=== PATIENT | female | born 1950 | race Caucasian/White ===

== ENCOUNTER 2020-11-08 16:17 | Emergency (ER) | payer MEDICARE, SELFPAY ==
--- NOTE | ~2020-11-08 | XR_ITS ---
EXAMINATION: XR CHEST CLINICAL INFORMATION: Palpitations COMPARISON: Chest x-ray 06/15/2017 TECHNIQUE: Frontal view of the chest was obtained. 5:18 PM FINDINGS: No significant abnormality is noted involving the heart, lungs, mediastinum, bony thorax or soft tissues. XR/XR chest 1V IMPRESSION: Unremarkable examination.
[2020-11-08 17:01] VITALS: BP 150/80; PULSE 91; RESP 18; TEMP 37.2; O2SAT 97; BMI 24.2
--- NOTE | 2020-11-08 17:04 | ECG_ITS ---
Test Reason : PALPITATIONS Blood Pressure : / mmHG Vent. Rate : 092 BPM Atrial Rate : 092 BPM P-R Int : 160 ms QRS Dur : 086 ms QT Int : 364 ms P-R-T Axes : 056 025 057 degrees QTc Int : 450 ms Normal sinus rhythm Possible Left atrial enlargement Septal infarct , age undetermined Abnormal ECG When compared with ECG of 15-JUN-2017 16:33, Premature atrial complexes are no longer Present Referred By: Generic ED Physician Electronically Signed By:KRISTI CHRISTINE MD
--- NOTE | 2020-11-08 18:16 | ED_ITS ---
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 No chest pain no syncope episode no shortness of breath feels slightly anxious complaint: skipped beats Onset (ago): day(s) Related Data Allergies Allergy/AdvReac Type Severity Reaction Status Date / Time gemfibrozil [GEMFIBROZIL] Allergy Unknown DIZZINESS/HIVES, Verified 11/08/20 17:01 dizziness Review of Systems Review of Systems: Constitutional : No Weight loss, No Fever, No Chills ENT/Mouth : No sore throat, No Rhinorrhea Eyes: No Eye Pain, No Swelling Cardiovascular : No Chest Pain, + palpitations Respiratory : No Cough, No Sputum, no shortness of breath Gastrointestinal : no Nausea, No Vomiting, No Diarrhea, No abdominal Pain, no black stools Genitourinary : No Dysuria, No Urinary Frequency Musculoskeletal : No joint pain, No Myalgias, No Joint Swelling Skin : No Skin Lesions, No rash Neuro : No Weakness, No Numbness, No Dizziness, No Headache Psych : No Anxiety/Panic, No Depression Heme/Lymph: No Bruising, No Lymphadenopathy Endocrine : No Polyuria, No Polydipsia All other systems reviewed and are negative [facility] Past Medical History Medical History Diabetes Palpitations Social History Social History Advance Directives: No Advance Directives Information Provided: Yes Physical Exam Vital Signs: Vital Signs: Last Vital Signs Temp 99.0 F 11/08/20 17:01 Pulse 81 11/08/20 19:04 Resp 16 11/08/20 19:04 BP 132/84 11/08/20 19:04 Pulse Ox 98 11/08/20 19:04 Body Mass Index 24.2 Appearance: Alert. Oriented X3. No acute distress. Slightly anxious Eyes: PERRLA, No Nystagmus ENT: Pharynx normal. Oral Mucosa moist Neck: Normal inspection. Neck supple. CVS: Normal heart rate and rhythm. Pulses normal. Respiratory: No respiratory distress. Equal air entry bilateral, no wheezing/rales/rhonchi Abdomen: Soft and nontender. Bowel sounds are present, no mass palpable, no CVA tenderness Skin: Skin warm and dry. Normal skin color. Normal skin turgor. Extremities: No lower extremity edema. No calf tenderness Neuro: Oriented X 3. No motor deficit. No sensory deficit.No cerebellar signs , cranial nerves II-XII intact MDM - Arrhythmia/Palpitations MDM Narrative Medical decision making narrative: Patient with history of PVCs monitoring during stay in the ER showed unifocal isolated PVCs without any events. Vital stable labs are stable TSH is normal patient advised to continue metoprolol and follow up with Cardiology/PCP Medical Records Attestation: I reviewed the patient's medical records. Lab Data Attestation: I reviewed the patient's lab results. Result diagrams: 11/08/20 18:02 11/08/20 18:02 Labs: Lab Results 11/08/20 11/08/20 11/08/20 Range/Units 18:02 18:02 18:02 WBC 8.3 (4.8-10.8) X10*3/uL RBC 4.30 (4.20-5.50) X10*6/uL Hgb 13.1 (12.0-16.0) g/dl Hct 37.3 (37-47) % MCV 86.7 (80-98) fL MCH 30.5 (27.0-33.0) pg MCHC 35.1 H (31.0-35.0) g/dl RDW 13.1 (11.0-16.0) % Plt Count 371 (160-400) X10*3/uL MPV 9.6 (9.4-12.3) fL Immature Gran % (Auto) 0.4 (0.0-0.4) % Neut % (Auto) 65.9 (45-73) % Lymph % (Auto) 24.8 (20-40) % Schuyler % (Auto) 7.5 (2-11) % Eos % (Auto) 1.2 (0-4) % Baso % (Auto) 0.2 (0-2) % Lymph # (Auto) 2.1 (1.2-4.9) X10*3/uL Schuyler # (Auto) 0.6 (0.1-1.2) X10*3/uL Eos # (Auto) 0.1 (0.0-0.4) X10*3/uL Baso # (Auto) 0.0 (0.0-0.2) X10*3/uL Abs Immat Gran (auto) 0.03 (0.00-0.03) X10*3/uL Absolute Neuts (auto) 5.5 (2.0-8.3) X10*3/uL Absolute Nucleated RBC 0.000 (0.0-0.012) X10*3/uL Nucleated RBC % (auto) 0.0 (0.0-0.2) /100WBC Hold Blue Top SEE NOTE Sodium 142 (135-145) mmol/L Potassium 4.8 (3.3-5.1) mmol/L Chloride 104 (96-108) mmol/L Carbon Dioxide 28 (22-29) mmol/L Anion Gap 15 (12-20) BUN 23 H (9-16) mg/dL Creatinine 1.25 (0.5-1.4) mg/dL Estim Creat Clear Calc 40.3 Estimated GFR 43 Random Glucose 303 H (60-115) mg/dL Calcium 10.0 (8.4-10.2) mg/dL Magnesium 2.0 (1.6-2.6) mg/dL Troponin I High Sens (<3.5-17.0) ng/L TSH 0.50 (0.32-4.0) uIU/mL 11/08/20 Range/Units 18:02 WBC (4.8-10.8) X10*3/uL RBC (4.20-5.50) X10*6/uL Hgb (12.0-16.0) g/dl Hct (37-47) % MCV (80-98) fL MCH (27.0-33.0) pg MCHC (31.0-35.0) g/dl RDW (11.0-16.0) % Plt Count (160-400) X10*3/uL MPV (9.4-12.3) fL Immature Gran % (Auto) (0.0-0.4) % Neut % (Auto) (45-73) % Lymph % (Auto) (20-40) % Schuyler % (Auto) (2-11) % Eos % (Auto) (0-4) % Baso % (Auto) (0-2) % Lymph # (Auto) (1.2-4.9) X10*3/uL Schuyler # (Auto) (0.1-1.2) X10*3/uL Eos # (Auto) (0.0-0.4) X10*3/uL Baso # (Auto) (0.0-0.2) X10*3/uL Abs Immat Gran (auto) (0.00-0.03) X10*3/uL Absolute Neuts (auto) (2.0-8.3) X10*3/uL Absolute Nucleated RBC (0.0-0.012) X10*3/uL Nucleated RBC % (auto) (0.0-0.2) /100WBC Hold Blue Top Sodium (135-145) mmol/L Potassium (3.3-5.1) mmol/L Chloride (96-108) mmol/L Carbon Dioxide (22-29) mmol/L Anion Gap (12-20) BUN (9-16) mg/dL Creatinine (0.5-1.4) mg/dL Estim Creat Clear Calc Estimated GFR Random Glucose (60-115) mg/dL Calcium (8.4-10.2) mg/dL Magnesium (1.6-2.6) mg/dL Troponin I High Sens < 3.5 (<3.5-17.0) ng/L TSH (0.32-4.0) uIU/mL ECG Data Attestation: I personally reviewed and interpreted this ECG as follows: Interpretation: Heart rate 92 beats per minute poor progression of R-waves in anterior leads no acute ST T wave changes no acute ischemia Discharge Plan Discharge Clinical Impression: Ventricular premature beats Patient Disposition: Home, Self-Care Instructions: Premature Ventricular Contractions (ED) Additional Instructions: Continue medications. Follow-up with your PCP/table keeper for further evaluation including Holter monitoring Report to the ER if dizziness/passing out episode
[2020-11-08 18:18] LABS: MANUAL DIFF FLAG NO
[2020-11-08 18:39] LABS: Basophils Percent Auto 0.2 % (0-2); Eosinophils Absolute Auto 0.1 X10*3/uL (0.0-0.4); Eosinophils Percent Auto 1.2 % (0-4); Hematocrit 37.3 % (37-47); Hemoglobin 13.1 g/dl (12.0-16.0); Imm Gran Abs Auto 0.03 X10*3/uL (0.00-0.03); Imm Gran Pct Auto 0.4 % (0.0-0.4); Lymphocytes Absolute Auto 2.1 X10*3/uL (1.2-4.9); Lymphocytes Percent Auto 24.8 % (20-40); Mean Corpuscular HGB Conc 35.1 g/dl (31.0-35.0); Mean Corpuscular Hemoglobin 30.5 pg (27.0-33.0); Mean Corpuscular Volume 86.7 fL (80-98); Mean Platelet Volume 9.6 fL (9.4-12.3); Monocytes Absolute Auto 0.6 X10*3/uL (0.1-1.2); Monocytes Percent Auto 7.5 % (2-11); Neutrophils Absolute Auto 5.5 X10*3/uL (2.0-8.3); Neutrophils Percent Auto 65.9 % (45-73); Platelet Count 371 X10*3/uL (160-400); Red Cell Distribution Width 13.1 % (11.0-16.0); White Blood Count 8.3 X10*3/uL (4.8-10.8)
[2020-11-08 18:43] LABS: Anion Gap 15 (12-20); Blood Urea Nitrogen 23 mg/dL (9-16); Carbon Dioxide 28 mmol/L (22-29); Chloride 104 mmol/L (96-108); Creatinine Clr Calc Pharmacy 40.3; Estimated Glomerular Filt Rate 43; Glucose Random 303 mg/dL (60-115); Potassium 4.8 mmol/L (3.3-5.1); Sodium 142 mmol/L (135-145)
[2020-11-08 18:48] LABS: Troponin-I High Sensitivity < 3.5 ng/L (<3.5-17.0)
[2020-11-08 19:04] VITALS: BP 132/84; PULSE 81; RESP 16; O2SAT 98
--- NOTE | 2020-11-08 19:09 | PC.NURSE ---
pt denies pain or a flutter feeling that she states she came in with.
[2020-11-08 20:38] VITALS: BP 155/88; PULSE 76; RESP 20; TEMP 36.8; O2SAT 96
== END 2020-11-08 21:06 | disposition home or self-care (01) ==
PROVIDERS: Emergency Provider Internal Medicine; PCP Internal Medicine
DX: I49.3 Ventricular premature depolarization (principal); E11.9 Type 2 diabetes mellitus without complications; I10 Essential (primary) hypertension
CPT/HCPCS: 36415; 71045; 80048; 83735; 84443; 84484; 85025; 93005; 99283; 99284

== ENCOUNTER → 2020-11-13 10:20 | Outpatient (BNVA) | payer MEDICARE, SELFPAY | PROVIDERS: PCP Internal Medicine; Visit Provider Internal Medicine Cardiovascular Disease | DX: I49.1 Atrial premature depolarization (principal); R00.2 Palpitations; I10 Essential (primary) hypertension; E11.9 Type 2 diabetes mellitus without complications; Z87.891 Personal history of nicotine dependence | CPT/HCPCS: 99212 ==

== ENCOUNTER 2024-09-21 09:15 | Observation (INO) | payer MEDICARE, SELFPAY ==
[2024-09-21] VITALS (11 sets, daily range): BP systolic 142–233; BP diastolic 70–116; PULSE 65–88; RESP 16–18; TEMP 36.1–36.7; O2SAT 97–100; BMI 20.5
--- NOTE | 2024-09-21 | ECG_ITS ---
Test Reason : ams Blood Pressure : */* mmHG Vent. Rate : 77 BPM Atrial Rate : 77 BPM P-R Int : 154 ms QRS Dur : 78 ms QT Int : 388 ms P-R-T Axes : 81 34 49 degrees QTcB Int : 439 ms Normal sinus rhythm Possible Left atrial enlargement Septal infarct (cited on or before 08-Nov-2020) Abnormal ECG When compared with ECG of 08-Nov-2020 16:35, No significant change was found Referred By: Generic ED Physician Electronically Signed By: MAGALYS MENDEZ
--- NOTE | ~2024-09-21 | CT_ITS ---
EXAMINATION: CT HEAD WITHOUT IV CONTRAST HISTORY: confused. AMS. TECHNIQUE: Unenhanced helical CT of the head was performed per standard departmental protocol. Coronal and sagittal reformats of the head were also evaluated. One or more of the following techniques was used for dose reduction: Automated exposure control, adjustment of the mA and/or kV according to patient size, use of iterative reconstruction technique. DLP: 545 mGy-cm COMPARISON: Comparison is made with the prior examination dated 06/15/2017. FINDINGS: BRAIN: There is mild prominence of the ventricular system and cortical sulci, consistent with atrophy. Periventricular and subcortical white matter hypodensities are noted which are nonspecific, but often seen in the setting of small vessel ischemic disease. There is no mass effect or midline shift. No intra- or extra-axial fluid collections are identified. SINUSES: The visualized paranasal sinuses are clear. The mastoid air cells and middle ear cavities are well pneumatized. ORBITS: The visualized orbits are unremarkable. BONES/SOFT TISSUES: The extracranial soft tissues are unremarkable. The calvarium is intact. No suspicious lytic or sclerotic lesions. CT/CT head/brain wo IV con IMPRESSION: No acute intracranial abnormality. Electronically signed by: Clark Armstrong MD 09/21/2024 12:40 PM EDT
--- NOTE | ~2024-09-21 | XR_ITS ---
EXAMINATION: XR CHEST CLINICAL INFORMATION: ams COMPARISON: TECHNIQUE: Frontal view of the chest was obtained. FINDINGS: The cardiac, hilar, and mediastinal contours are normal. Aortic mural calcifications. The lungs are diffusely hyperaerated, however clear bilaterally. No pneumothorax or effusion. No focal osseous or soft tissue abnormality. Degenerative spinal changes are present. XR/XR chest 1V IMPRESSION: Hyperaeration. No superimposed active disease. Electronically signed by: Ad Johnson MD 09/21/2024 12:09 PM EDT
--- NOTE | 2024-09-21 09:55 | PC.NURSE ---
Pt resting quietly in room; report called to LLOYD Palma in [facility]
[2024-09-21 10:43] LABS: MANUAL DIFF FLAG NO
--- NOTE | 2024-09-21 10:43 | MHC.EDTECH ---
Notified patient that we need a urine sample. Patient ambulated to the bathroom with the urine cup, stated she would give a sample. Patient was unable to urinate in the cup to give the sample. Patient ambulated back to room. Patient resting, states she is comfortable. Call sorensen placed within reach.
[2024-09-21 10:49] LABS: Basophils Percent Auto 0.4 % (0-2); Eosinophils Absolute Auto 0.1 X10*3/uL (0.0-0.4); Eosinophils Percent Auto 1.1 % (0-4); Hematocrit 38.7 % (37.0-47.0); Hemoglobin 14.2 g/dl (12.0-16.0); Imm Gran Abs Auto 0.02 X10*3/uL (0.00-0.03); Imm Gran Pct Auto 0.2 % (0.0-0.4); Lymphocytes Absolute Auto 1.3 X10*3/uL (1.2-4.9); Lymphocytes Percent Auto 15.3 % (20-40); Mean Corpuscular HGB Conc 36.7 g/dl (31.0-35.0); Mean Corpuscular Hemoglobin 31.8 pg (27.0-33.0); Mean Corpuscular Volume 86.6 fL (80.0-98.0); Mean Platelet Volume 9.4 fL (9.4-12.3); Monocytes Absolute Auto 0.4 X10*3/uL (0.1-1.2); Neutrophils Absolute Auto 6.6 x10*3/uL (2.0-8.3); Platelet Count 294 X10*3/uL (160-400); Red Blood Count 4.47 X10*6/uL (4.20-5.50); Red Cell Distribution Width 12.8 % (11.0-16.0); White Blood Count 8.4 X10*3/uL (4.8-10.8)
[2024-09-21 11:02] LABS: Anion Gap 9 (12-20); Blood Urea Nitrogen 16 mg/dL (9-16); Calcium 9.8 mg/dL (8.4-10.2); Carbon Dioxide 29 mmol/L (22-29); Chloride 106 mmol/L (96-108); Creatinine Clr Calc Pharmacy 55.6; Estimated Glomerular Filt Rate > 60; Glucose Fasting 155 mg/dL (60-99); Potassium 4.4 mmol/L (3.3-5.1); Sodium 140 mmol/L (135-145)
--- NOTE | 2024-09-21 11:23 | ED.AMS ---
HPI - Altered Mental Status General Chief Complaint: Altered Mental Status Stated Complaint: HTN Time Seen by Provider: 09/21/24 11:15 Source: patient, EMS, RN notes reviewed and old records reviewed Mode of arrival: EMS History of Present Illness ED Provider: Veronica Chase PA-C HPI narrative: 74-year-old female with a past medical history of HTN, diabetes, PACs, presenting to the ED via EMS, from after geriatric advocate staff member called EMS reporting patient seemed confused. Patient unsure why she is in the emergency department, offers no complaints at present. States she has not seen a doctor in many years. Denies currently taking any medication. Denies headache, neck/ back pain, CP /SOB, abdominal pain, nausea /vomiting. Related Data Home Medications ?Medication ?Instructions ?Recorded ?Confirmed No Known Home Meds 09/22/24 09/22/24 Allergies Allergy/AdvReac Type Severity Reaction Status Date / Time gemfibrozil [GEMFIBROZIL] Allergy Unknown DIZZINESS/HIVES, Verified 09/21/24 09:28 dizziness ondansetron [From Zofran] AdvReac Unresponsiv Verified 09/25/24 07:04 e Review of Systems Review of Systems: Yes all other systems are reviewed and are negative Constitutional: Constitutional: Reports as per HPI Neurologic: Denies Abnormal speech present [facility] Past Medical History Attestation statement: The following information was validated with the patient. Source: old records reviewed Medical History HTN (hypertension) Premature atrial contractions Diabetes Palpitations Family History Family History Father Cancer Mother Cancer Social History Social History Smoked in Last 30 Days: No Use of substances other than those prescribed or required for medical reasons: No Advance Directives: No Advance Directives Information Provided: No Do you have a plan to hurt others: No Plan Physical Exam ED Vital Signs: Vital Signs - 24 hr 09/24/24 07:55 09/24/24 14:34 09/24/24 22:00 Temperature 97.3 F 97.6 F Pulse Rate 84 82 Respiratory Rate 14 16 Blood Pressure 164/85 H 161/71 H 152/66 H Pulse Oximetry 96 Oxygen Delivery Method Room Air Room Air 09/25/24 03:13 09/25/24 04:37 09/25/24 04:52 Temperature 98.0 F Pulse Rate 67 63 77 Respiratory Rate 16 15 14 Blood Pressure 162/73 H 119/65 135/62 Pulse Oximetry 94 97 96 Oxygen Delivery Method Room Air Room Air Room Air 09/25/24 05:09 09/25/24 06:00 09/25/24 07:12 Temperature Pulse Rate 71 69 62 Respiratory Rate 15 16 15 Blood Pressure 132/61 150/74 H 129/71 Pulse Oximetry 96 96 96 Oxygen Delivery Method Room Air Room Air Room Air BMI result Body Mass Index 20.5 Const General: cooperative, healthy appearing and no acute distress Limitations: no limitations HENMT Head: Yes normal to inspection and Yes atraumatic Ears: hearing grossly normal bilaterally General nose exam: Normal external nose present Face and sinus: Yes normal facial exam Eyes General: appearance normal, both eyes and all related structures Pupils: Equal, round and reactive pupils present EOM: EOMs intact bilaterally Neck Neck: Yes normal visual inspection and Yes no meningeal signs Resp Effort & Inspection: normal respiratory effort and no respiratory distress Auscultation: clear to auscultation bilaterally Cardio Rate: regular rate Heart sounds: S1 normal heart sound present and S2 normal heart sound present GI Inspection: Yes normal to inspection Palpation (GI): Soft to palpation, nontender, no guarding and not rigid Skin Rashes: no rashes Wounds: no wounds Neuro Other: Oriented to person, place, present in. Does not know the year or month General: gait normal, tone normal, moves all extremities, no meningeal signs, no focal motor deficits and CN's II-XI intact bilaterally Cranial nerves: Yes CN's II-XII intact bilaterally, Yes Equal, round and reactive pupils present and Yes Bilaterally intact EOM present Speech: No Abnormal speech present Gait exam (Neuro): Normal gait present Motor exam (neuro): 5/5 motor strength present throughout, Pronator motor function not present and no tremor noted Coordination: [id number] test normal Romberg Test: Negative Extrem General: Yes normal to inspection NIH Stroke Scale Internal: Initial- Upon Arrival Level of Consciousness: Alert Level of Consciousness Questions: Answers one question correctly Level of Consciousness Commands: Performs both tasks correctly Best Gaze: Normal Visual: No visual loss Facial Palsy: Normal Motor Arm (Right): No drift Motor Arm (Left): No drift Motor Leg (Right): No drift Motor Leg (Left): No drift Limb Ataxia: Absent Sensory: Normal Best Language: No aphasia Dysarthia: Normal Extinction and Inattention: No abnormality Score: 1 Course Course Course Narrative: > Will give p.o. Lisinopril & Amlodipine per listed old medications - case management spoke with [facility] [employer] [facility], they were called due to concerns from likely a community member, they were there to evaluate patient today, found patient outside in inappropriate clothing, & upon their evaluation sent patient to the ED due to concerns of capacity/self care. Patient does have 3 daughters, 2 or disabled, 1 lives in [place], case management attempted to contact 1 daughter however no answer and unable to leave voicemail due to voice mailbox being full. > concern for progressive/undiagnosed dementia / adult failure to thrive >> Will need psych eval for capacity and PT/case management involvement - Labs are reassuring including negative ammonia. UA negative. Viral testing negative XR chest 1V IMPRESSION: Hyperaeration. No superimposed active disease. CT head/brain wo IV con IMPRESSION: No acute intracranial abnormality. > physician observation initiated at 14:02 as patient needs more time to be evaluated by Psychiatry, PT and case management - physical therapy evaluated patient and no rehab indicated at this time -1630-- ED care transferred to [facility] pending psych eval and case management consult Reevaluation(s) Reevaluation #1: Physician observation continued. No acute overnight events. Patient has been stable in the emergency department. Her vital signs have been stable. Patient was seen by Psychiatry yesterday and determine not have capacity to make medical decisions. She is not able to care for herself due to severe cognitive impairment. They recommended low-dose olanzapine 2.5 mg b.i.d. at 14:00 and bedtime for intermittent agitation and confusion, trying to leave. Will continue to monitor. Will follow up with case management regarding disposition. 09/24/24 1051 Physician observation continued, no overnight events reported by nursing. BP elevated, vital signs otherwise stable. Patient seen by psychiatry and does not have capacity to make her own medical decisions. Case management following for disposition. Time: 12:25 Reevaluation #2: DR. Vargas's note: 74-year-old female at the [facility] patient was here initially for confusion then patient was placed on the overflow awaiting for case management and placement nurse at [facility] reported that the patient is complaining nausea and patient is becoming pale and lethargic, I instructed the staff to move the patient to the main ED and patient was moved to room 12, patient is awake able to provide history stated that she is not feeling well, complaining of nausea and vomiting, no headache, no chest pain, no abdominal pain. patient received IV Zofran for her vomiting, I ordered repeat labs, chest x-ray, and EKG. Patient shortly had about 2.4 seconds of asystole pause, CPR was started and after 1 chest compression patient became awake and regained a rhythm. Time: 04:28 Reevaluation #3: patient is hemodynamically stable, no more episodes of asystole. asystole shortly after administering Zofran possible QT prolongation? Will include Zofran in the patient allergy to be avoided in the future, repeat labs are unremarkable including negative troponin, Will admit the patient to medical floor with Cardiology consult. Time: 07:13 Medications Administered Generic Name Dose Route Start Last Admin Trade Name Freq PRN Reason Stop Dose Admin Amlodipine Besylate 5 mg 09/22/24 12:55 09/24/24 07:55 Amlodipine Besylate 5 Mg Tablet PO 5 mg DAILY DEVONTE Administration Protocol Olanzapine 2.5 mg 09/22/24 15:05 09/24/24 20:05 Olanzapine 2.5 Mg Tablet PO 2.5 mg BID@1500,2100 DEVONTE Administration Olanzapine 2.5 mg 09/22/24 15:04 09/24/24 03:05 Olanzapine 2.5 Mg Tablet PO 2.5 mg Q6H PRN Administration agitation Discontinued Medications Generic Name Dose Route Start Last Admin Trade Name Freq PRN Reason Stop Dose Admin Amlodipine Besylate 5 mg 09/21/24 11:58 09/21/24 12:31 Amlodipine Besylate 5 Mg Tablet PO 09/21/24 11:59 5 mg ONCE ONE Administration Protocol Lisinopril 20 mg 09/21/24 11:32 09/21/24 11:44 Lisinopril 20 Mg Tablet PO 09/21/24 11:33 20 mg ONCE ONE Administration Protocol Olanzapine 10 mg 09/21/24 18:30 09/21/24 18:35 Olanzapine Odt 10 Mg Tab.Rapdis TRANSLINGU 09/21/24 18:31 10 mg ONCE ONE Administration Ondansetron HCl 4 mg 09/25/24 02:50 09/25/24 03:02 Ondansetron Odt 4 Mg Tab.Rapdis TRANSLINGU 09/25/24 02:51 4 mg ONCE ONE Administration Ondansetron HCl 4 mg 09/25/24 04:22 09/25/24 04:23 Ondansetron Hcl 4 Mg/2 Ml Vial IVPUSH 09/25/24 04:23 4 mg ONCE ONE Administration Medical Decision Making Medical Decision Making MDM Narrative: 74-year-old female with a past medical history of HTN, diabetes, PACs, presenting to the ED via EMS, from after geriatric advocate staff member called EMS reporting patient seemed confused. Patient unsure why she is in the emergency department, offers no complaints at present. States she has not seen a doctor in many years. on exam hypertensive, NAD, ambulating around room, no focal deficits, A&O x2, does not know year or month. No known baseline. Unknown who contacted EMS, no listed contacts in chart. Concern for AMS vs encephalopathy vs ?CVA vs ?dementia. Unknown baseline or last known well. Plan: EKG, labs, UA, CXR, head CT Discussed case with case management who is contacting [facility] & [facility] to see if they have any insight Please refer to course for remaining clinical decision making, interpretation of labs/imaging results, and discussions with consultants and/or family members. Differential Diagnosis Differential Diagnoses: The differential diagnosis associated with the presentation includes As above Admission/Observation Consideration of admission/observation: Escalation of care including admission/observation considered Lab Data [facility] Lab Attestation statement: I reviewed the patient's lab results. 09/25/24 04:19 09/25/24 04:19 Labs: Lab Results 09/21/24 09/21/24 09/21/24 Range/Units 10:38 11:44 11:45 WBC 8.4 (4.8-10.8) X10*3/uL RBC 4.47 (4.20-5.50) X10*6/uL Hgb 14.2 (12.0-16.0) g/dl Hct 38.7 (37.0-47.0) % MCV 86.6 (80.0-98.0) fL MCH 31.8 (27.0-33.0) pg MCHC 36.7 H (31.0-35.0) g/dl RDW 12.8 (11.0-16.0) % Plt Count 294 (160-400) X10*3/uL MPV 9.4 (9.4-12.3) fL Immature Gran % (Auto) 0.2 (0.0-0.4) % Neut % (Auto) 78.0 H (45-73) % Lymph % (Auto) 15.3 L (20-40) % [place] % (Auto) 5.0 (2-11) % Eos % (Auto) 1.1 (0-4) % Baso % (Auto) 0.4 (0-2) % Lymph # (Auto) 1.3 (1.2-4.9) X10*3/uL [place] # (Auto) 0.4 (0.1-1.2) X10*3/uL Eos # (Auto) 0.1 (0.0-0.4) X10*3/uL Baso # (Auto) 0.0 (0.0-0.2) X10*3/uL Abs Immat Gran (auto) 0.02 (0.00-0.03) X10*3/uL Absolute Neuts (auto) 6.6 (2.0-8.3) x10*3/uL Absolute Nucleated RBC 0.000 (0.0-0.012) X10*3/uL Nucleated RBC % (auto) 0.0 (0.0-0.2) /100WBC Sodium 140 (135-145) mmol/L Potassium 4.4 (3.3-5.1) mmol/L Chloride 106 (96-108) mmol/L Carbon Dioxide 29 (22-29) mmol/L Anion Gap 9 L (12-20) BUN 16 (9-16) mg/dL Creatinine 0.83 (0.5-1.4) mg/dL Estim Creat Clear Calc 55.6 Estimated GFR > 60 POC Glucose (60-115) mg/dL Random Glucose (60-115) mg/dL Fasting Glucose 155 H (60-99) mg/dL Estimat Average Glucose mg/dL Hemoglobin A1c % (<6.0) % Calcium 9.8 (8.4-10.2) mg/dL Magnesium 2.1 (1.6-2.6) mg/dL Total Bilirubin 1.7 H (0.0-1.0) mg/dL Direct Bilirubin 0.5 (0.0-0.5) mg/dL AST 26 (5-31) U/L ALT 24 (0-31) U/L Alkaline Phosphatase 109 (39-117) U/L Ammonia 23 (13-55) umol/L Troponin I High Sens 3.2 (<3.5-17.0) ng/L Total Protein 7.9 (6.5-8.0) g/dL Albumin 4.5 (3.5-5.0) g/dL Triglycerides (<150) mg/dL Cholesterol (<200) mg/dL LDL Cholesterol, Calc (<100) mg/dL HDL Cholesterol (>40) mg/dL Lipase (8-78) U/L Vitamin B12 (200-900) pg/mL Folate (> or = 4.0) ng/mL TSH (0.32-4.0) uIU/mL Urine Color Urine Appearance Urine pH (5.0-9.0) Ur Specific [place] (1.005-1.025) Urine Protein (Neg-Trace) mg/dL Urine Glucose (UA) (Negative) mg/dL Urine Ketones (Negative) mg/dL Urine Blood (Negative) Urine Nitrite (Negative) Ur Leukocyte Esterase (Negative) Urine RBC (0-2) /HPF Urine WBC (0-5) /HPF Ur Squamous Epith Cells (0-2) /HPF Urine Bacteria (None Seen) Hyaline Casts (0-2) /LPF Influenza Type A (PCR) NEGATIVE (Negative) Influenza Type B (PCR) NEGATIVE (Negative) RSV RNA Qual (PCR) NEGATIVE (Negative) SARS-CoV-2 RNA (RT-PCR) NEGATIVE (Negative) 09/21/24 09/22/24 09/25/24 Range/Units 12:08 14:54 03:15 WBC (4.8-10.8) X10*3/uL RBC (4.20-5.50) X10*6/uL Hgb (12.0-16.0) g/dl Hct (37.0-47.0) % MCV (80.0-98.0) fL MCH (27.0-33.0) pg MCHC (31.0-35.0) g/dl RDW (11.0-16.0) % Plt Count (160-400) X10*3/uL MPV (9.4-12.3) fL Immature Gran % (Auto) (0.0-0.4) % Neut % (Auto) (45-73) % Lymph % (Auto) (20-40) % [place] % (Auto) (2-11) % Eos % (Auto) (0-4) % Baso % (Auto) (0-2) % Lymph # (Auto) (1.2-4.9) X10*3/uL [place] # (Auto) (0.1-1.2) X10*3/uL Eos # (Auto) (0.0-0.4) X10*3/uL Baso # (Auto) (0.0-0.2) X10*3/uL Abs Immat Gran (auto) (0.00-0.03) X10*3/uL Absolute Neuts (auto) (2.0-8.3) x10*3/uL Absolute Nucleated RBC (0.0-0.012) X10*3/uL Nucleated RBC % (auto) (0.0-0.2) /100WBC Sodium (135-145) mmol/L Potassium (3.3-5.1) mmol/L Chloride (96-108) mmol/L Carbon Dioxide (22-29) mmol/L Anion Gap (12-20) BUN (9-16) mg/dL Creatinine (0.5-1.4) mg/dL Estim Creat Clear Calc Estimated GFR POC Glucose 278 H (60-115) mg/dL Random Glucose (60-115) mg/dL Fasting Glucose (60-99) mg/dL Estimat Average Glucose 123 mg/dL Hemoglobin A1c % 5.9 (<6.0) % Calcium (8.4-10.2) mg/dL Magnesium (1.6-2.6) mg/dL Total Bilirubin (0.0-1.0) mg/dL Direct Bilirubin (0.0-0.5) mg/dL AST (5-31) U/L ALT (0-31) U/L Alkaline Phosphatase (39-117) U/L Ammonia (13-55) umol/L Troponin I High Sens (<3.5-17.0) ng/L Total Protein (6.5-8.0) g/dL Albumin (3.5-5.0) g/dL Triglycerides 150 H (<150) mg/dL Cholesterol 159 (<200) mg/dL LDL Cholesterol, Calc 80 (<100) mg/dL HDL Cholesterol 49 (>40) mg/dL Lipase (8-78) U/L Vitamin B12 335 (200-900) pg/mL Folate 8.7 (> or = 4.0) ng/mL TSH 1.01 (0.32-4.0) uIU/mL Urine Color Yellow Urine Appearance Clear Urine pH 8.0 (5.0-9.0) Ur Specific [place] <= 1.005 (1.005-1.025) Urine Protein Trace (Neg-Trace) mg/dL Urine Glucose (UA) Negative (Negative) mg/dL Urine Ketones Negative (Negative) mg/dL Urine Blood Trace H (Negative) Urine Nitrite Negative (Negative) Ur Leukocyte Esterase Negative (Negative) Urine RBC 0-2 (0-2) /HPF Urine WBC 0-5 (0-5) /HPF Ur Squamous Epith Cells 0-2 (0-2) /HPF Urine Bacteria None Seen (None Seen) Hyaline Casts 0-2 (0-2) /LPF Influenza Type A (PCR) (Negative) Influenza Type B (PCR) (Negative) RSV RNA Qual (PCR) (Negative) SARS-CoV-2 RNA (RT-PCR) (Negative) 09/25/24 09/25/24 Range/Units 04:19 04:20 WBC 9.8 (4.8-10.8) X10*3/uL RBC 3.94 L (4.20-5.50) X10*6/uL Hgb 12.7 (12.0-16.0) g/dl Hct 34.9 L (37.0-47.0) % MCV 88.6 (80.0-98.0) fL MCH 32.2 (27.0-33.0) pg MCHC 36.4 H (31.0-35.0) g/dl RDW 12.9 (11.0-16.0) % Plt Count 271 (160-400) X10*3/uL MPV 9.5 (9.4-12.3) fL Immature Gran % (Auto) 0.3 (0.0-0.4) % Neut % (Auto) 89.0 H (45-73) % Lymph % (Auto) 6.6 L (20-40) % [place] % (Auto) 2.7 (2-11) % Eos % (Auto) 1.1 (0-4) % Baso % (Auto) 0.3 (0-2) % Lymph # (Auto) 0.7 L (1.2-4.9) X10*3/uL [place] # (Auto) 0.3 (0.1-1.2) X10*3/uL Eos # (Auto) 0.1 (0.0-0.4) X10*3/uL Baso # (Auto) 0.0 (0.0-0.2) X10*3/uL Abs Immat Gran (auto) 0.03 (0.00-0.03) X10*3/uL Absolute Neuts (auto) 8.7 H (2.0-8.3) x10*3/uL Absolute Nucleated RBC 0.000 (0.0-0.012) X10*3/uL Nucleated RBC % (auto) 0.0 (0.0-0.2) /100WBC Sodium 139 (135-145) mmol/L Potassium 4.7 (3.3-5.1) mmol/L Chloride 107 (96-108) mmol/L Carbon Dioxide 23 (22-29) mmol/L Anion Gap 14 (12-20) BUN 41 H (9-16) mg/dL Creatinine 1.21 (0.5-1.4) mg/dL Estim Creat Clear Calc 38.1 Estimated GFR 44 POC Glucose (60-115) mg/dL Random Glucose 299 H (60-115) mg/dL Fasting Glucose (60-99) mg/dL Estimat Average Glucose mg/dL Hemoglobin A1c % (<6.0) % Calcium 8.9 D (8.4-10.2) mg/dL Magnesium 2.0 (1.6-2.6) mg/dL Total Bilirubin 1.0 (0.0-1.0) mg/dL Direct Bilirubin 0.3 (0.0-0.5) mg/dL AST 26 (5-31) U/L ALT 16 (0-31) U/L Alkaline Phosphatase 99 (39-117) U/L Ammonia (13-55) umol/L Troponin I High Sens < 2.7 (<3.5-17.0) ng/L Total Protein 7.3 (6.5-8.0) g/dL Albumin 4.2 (3.5-5.0) g/dL Triglycerides (<150) mg/dL Cholesterol (<200) mg/dL LDL Cholesterol, Calc (<100) mg/dL HDL Cholesterol (>40) mg/dL Lipase 26 (8-78) U/L Vitamin B12 (200-900) pg/mL Folate (> or = 4.0) ng/mL TSH (0.32-4.0) uIU/mL Urine Color Urine Appearance Urine pH (5.0-9.0) Ur Specific [place] (1.005-1.025) Urine Protein (Neg-Trace) mg/dL Urine Glucose (UA) (Negative) mg/dL Urine Ketones (Negative) mg/dL Urine Blood (Negative) Urine Nitrite (Negative) Ur Leukocyte Esterase (Negative) Urine RBC (0-2) /HPF Urine WBC (0-5) /HPF Ur Squamous Epith Cells (0-2) /HPF Urine Bacteria (None Seen) Hyaline Casts (0-2) /LPF Influenza Type A (PCR) NEGATIVE (Negative) Influenza Type B (PCR) NEGATIVE (Negative) RSV RNA Qual (PCR) NEGATIVE (Negative) SARS-CoV-2 RNA (RT-PCR) NEGATIVE (Negative) Independent Interpretation I performed an independent interpretation of an: EKG ( my interpretation EKG normal sinus rhythm rate of 77. SC interval 154. QRS 78. No significant change when compared to prior. No STEMI), Plain X-Ray and CT Scan Radiology Impression Discussion of test interpretation with radiology: I have reviewed the radiologist's reading. Independent Historian Clinical information obtained from an independent historian. History obtained from or confirmed by: EMS External Record Review External record reviewed: Inpatient record, Office record, Outpatient record, Prior outpatient labs, Prior outpatient radiology, Primary care record and Outside ED record Tests considered The following testing was considered but not selected: As above Prescription Management I considered prescription management with: Other Chronic Conditions Patient?s care impacted by: Diabetes, Hypertension and Other noncompliant on all medication Social Determinants Patient?s care significantly limited by Social Determinants of Health including: Inadequate housing, Problems related to primary support group and Other Social Determinant of Health Discharge Plan Discharge Clinical Impression: Adult failure to thrive, HTN (hypertension), Unable to care for self, Asystole Patient Disposition: Admitted As Inpatient Print Language: Faroese
[2024-09-21] MEDS: lisinopriL 20 MG TABLET PO (11:44)
[2024-09-21 11:58] LABS: Alanine Aminotransferase 24 U/L (0-31); Albumin Level 4.5 g/dL (3.5-5.0); Alkaline Phosphatase 109 U/L (39-117); Aspartate Amino Transferase 26 U/L (5-31); Bilirubin Direct 0.5 mg/dL (0.0-0.5); Bilirubin Total 1.7 mg/dL (0.0-1.0); Magnesium 2.1 mg/dL (1.6-2.6); Total Protein 7.9 g/dL (6.5-8.0)
[2024-09-21 12:04] LABS: Ammonia 23 umol/L (13-55)
[2024-09-21 12:05] LABS: Troponin-I High Sensitivity 3.2 ng/L (<3.5-17.0)
--- OUTSIDE RECORDS SUMMARY | 2024-09-21 12:06 | XMS_ITS | Clinical Summary ---
Author Organization [facility] Address [address] [place] [address] Care Team Providers Care Cell Tester Name Role Phone Beata Mccoy MD Primary Care Provider Allergies Active Allergy Reactions Criticality Noted Date Comments Gemfibrozil Weakness 12/20/2006 Medications metoprolol succinate (TOPROL-XL) 25 mg 24 hr tablet TAKE ONE TABLET BY MOUTH EVERY DAY 08/26/2022 Active amLODIPine (NORVASC) 5 mg tablet TAKE ONE TABLET BY MOUTH EVERY DAY 07/30/2022 Active lisinopriL (PRINIVIL,ZESTRI L) 20 mg tablet TAKE ONE TABLET BY MOUTH EVERY DAY 07/21/2022 Active metFORMIN (GLUCOPHAGE) 1,000 mg tablet TAKE ONE TABLET BY MOUTH TWICE A DAY 07/15/2022 Active dulaglutide (Trulicity) 0.75 mg/0.5 mL pen injector injection Inject 0.75 mg into the skin every 7 days. 06/19/2022 Active fenofibrate (TRICOR) 145 mg tablet TAKE ONE TABLET BY MOUTH EVERY DAY 06/10/2022 Active SITagliptin phosphate (Januvia) 50 mg tablet TAKE ONE TABLET BY MOUTH EVERY DAY 05/11/2022 Active calcium carbonate/vitami n D3 (CALCIUM 600 + D,3, ORAL) 1 po bid Act sivan Active Problems Problem Noted Date Diagnosed Date Chronic kidney disease (CKD) stage G3a/A1, moderately decreased glomerular filtration rate (GFR) between 45-59 mL/min/1.73 square meter and albuminuria creatinine ratio less than 30 mg/g 09/02/2021 Type 2 diabetes mellitus with eye manifestations 08/10/2019 Hypertriglyceridemia 12/31/2016 Pilar cysts 11/21/2015 Essential hypertension, benign 11/16/2006 External hemorrhoids 03/01/2006 Overview (08/12/2024): O update Disorder of bone and cartilage 03/01/2006 Overview (08/12/2024): O update. Fosamax since 2011, stopped Immunizations Name Administration Dates Next Due Influenza Quadravalent, MDCK , 0.5ml, with preservative (Flucelvax) 6mo and older 05/31/2017 Influenza trivalent, 0.5mL ( Fluad) 65yo and older 07/21/2021 Influenza trivalent, 0.5mL, preservative free (Fluarix; FluLaval; Fluzone) ages 6mo and older (Afluria) 3 years and older 03/18/2018,06/28/2016,05/24/2014,05/25,04/15/2012,06/26/2010,05/08/2008 ,06/21/2007 Influenza trivalent, with pr eservative (Fluzone; Afluria) 6mo and older 04/22/2021 PPD Test 09/30/2017,07/11/2014,10/05/2011 [employer] SARS-CoV-2 COVID-19, mRNA, LNP-S, preservative free 07/12/2021 Pneumococcal conjugate 13 va lent (Prevnar 13, PCV13) 2mo and older 03/18/2018,05/31/2017 Pneumococcal polysaccharide 23 valent (Pneumovax 23) 2yo and older 04/06/2019,06/26/2010 Tdap Tetanus diptheria acell ular pertussis (Boostrix; Adacel) 7yo and older 05/25/2013 Zoster Live 01/02/2014 Surgical History Surgery Date Site/Laterality Comments OTHER SURGICAL HISTORY PROCEDURE: DENIES PREVIOUS SURGERY COLONOSCOPY 01/23/16 PROCEDURE: HISTORICAL COLONOSCOPY; COMMENT: hyperplastic polyp and tics; repeat in 10 yrs Medical History Medical History Date Comments External hemorrhoids without mention of complication 03/01/2006 DX:External hemorrhoids with out mention of complication Disorder of bone and cartila ge, unspecified 03/01/2006 DX:Disorder of bone and cart ilage, unspecified Routine general medical exam ination at a health care facility 03/01/2006 DX:Routine general medical examination at a health care facility Essential hypertension, benign 11/16/2006 D X:Essential hypertension, benign Type II or unspecified type diabetes mellitus with unspecified complication, not stated as uncontrolled DX:Type II or unspecified ty pe diabetes mellitus with unspecified complication, not stated as uncontrolled Family History Medical History Relation Name Comments No Known Problems Aunt No Known Problems Daughter 1 No Known Problems Daughter 2 No Known Problems Daughter 3 Lung cancer Father No Known Problems Maternal Grandfather No Known Problems Maternal Grandmother Arthritis Mother Lung cancer Mother Other: osteoporosis, lupus, myasthenia gravis Mother No Known Problems Other No Known Problems Paternal Grandfather No Known Problems Paternal Grandmother Dementia Sister Mental illness Sister No Known Problems Uncle Blindness Neg Hx Breast cancer Neg Hx Cataracts Neg Hx Glaucoma Neg Hx Macular degeneration Neg Hx Strabismus Neg Hx Relation Name Status Comments Aunt Daughter 1 Alive Daughter 2 Alive Daughter 3 Alive Father Maternal Grandfather Maternal Grandmother Mother Other Paternal Grandfather Paternal Grandmother Sister Uncle Social History Tobacco Use Types Packs/Day Years Used Date Smoking Tobacco: Former Cigarettes 2 22 0 07/12/1973 - 07/12/1995 Smokeless Tobacco: Never Alcohol Use Standard Drinks/Week Comments No 0 (1 standard drink = 0.6 oz pur e alcohol) Comments Unknown Sex and Gender Information Value Date Recorded Sex Assigned at Not on file Legal Sex Female 3:26 AM EST Gender Identity Not on file Sexual Orientation Not on file Obstetrics History Last Filed Vital Signs Vital Sign Reading Time Taken Comments Blood Pressure 122/60 06/18/2022 9:51 AM EST Pulse 87 06/18/2022 9:51 AM EST Temperature - - Respiratory Rate - - Oxygen Saturation - - Inhaled Oxygen Concentration - - Weight 66.1 kg (145 lb 12.8 oz) 06/18/2022 9:51 AM EST Height 167.6 cm (5' 6 ) 06/18/2022 9:51 AM EST Body Mass Index 23.53 06/18/2022 9:51 AM EST Plan of Treatment Health Maintenance Due Date Last Done Comments Diabetes: Annual Foot Exam 02/28/1962 Diabetes: Annual Retina Eye Exam 02/28/1962 Zoster Vaccines (2 of 3) 02/27/2014 01/02/2014 Cervical Cancer Screening: HPV 01/08/2019 01/08/2014 Depression Screening 06/29/2021 Falls Risk Assessment 06/29/2021 Medicare Annual Wellness Visit 06/29/2021 Social Influencers of Health Screening 06/29/2021 Breast Cancer Screening 07/25/2022 07/25/19 21, 10/26/2018, 10/22/2017, Additional history exists Diabetes: Annual Urine Albumin-Creatinine Ratio (uACR) 09/03/2022 09/03/2021 Diabetes: Blood Sugar Control Test (HGBA1C) 12/17/2022 06/18/2022 DTaP,Tdap,and Td Vaccines (2 - Td or Tdap) 05/25/2023 05/25/2013 Diabetes: Annual GFR (Glomerular Filtration Rate) 06/18/2023 06/18/2022 Hypertension/CHF/CAD Annual BMP Blood Test 06/18/2023 06/18/2022 COVID-19 Vaccine ( season) 2024 07/12/2021, 09/01/2020, 08/11/2020 Influenza Vaccine (#1) 2024 , 07/21/2021, 04/22/2021, Additional history exists Colorectal Cancer Screening: Colonoscopy 01/22/2026 01/23/2016 RSV Immunization Patients 60+ Years Old (1 - 1-dose 75+ series) 02/28/2027 Cholesterol Screening (Lipid Panel) 06/18/2027 06/18/2022 Osteoporosis Screening (Bone Density Screening) 06/25/2031 06/25/2021 Hepatitis C Screening Completed 02/24/2013 Pneumococcal Vaccine: 50+ Years Completed 04/06/2019, 03/18/2018, 05/31/2017, Additional history exists HIB Vaccines Aged Out No longer eligi ble based on patient's age to complete this topic HPV Vaccines Aged Out No longer eligi ble based on patient's age to complete this topic Hepatitis A Vaccines Aged Out No long er eligible based on patient's age to complete this topic Hepatitis B Vaccines Aged Out No long er eligible based on patient's age to complete this topic IPV Vaccines Aged Out No longer eligi ble based on patient's age to complete this topic MMR Vaccines Aged Out No longer eligi ble based on patient's age to complete this topic Meningococcal ACWY Vaccine Aged Out N o longer eligible based on patient's age to complete this topic Meningococcal B Vacine Aged Out No lo nger eligible based on patient's age to complete this topic RSV Immunization Patients Under 20 months Aged Out No longer eligible based on patient's age to complete this topic Varicella Vaccines Aged Out No longer eligible based on patient's age to complete this topic Procedures Procedure Name Priority Date/Time Associated Diagnosis Comments ANNUAL BMP BLOOD TEST Routine 06/18/2022 HEMOGLOBIN A1C Routine 06/18/2022 LIPID PANEL Routine 06/18/2022 URINE ALBUMIN CREATININE RATIO Routine 09/03/2021 DXA BONE DENSITY STUDY 1+ SITS AXIAL SKEL Routine 06/25/2021 9:38 AM EST Disorder of bone, unspecified Disorder of cartilage, unspecified SCR MAMMO BI INCL CAD Routine 07/25/2020 11:29 AM EST Encounter for screening mammogram for malignant neoplasm of breast COLONOSCOPY Routine 01/23/2016 HPV Routine 01/08/2014 HEPATITIS C SCREENING Routine 02/24/2013 from Last 3 Months or Most Recently Relevant to Health Maintenance Results * Annual BMP Blood Test (06/18/2022) Annual BMP Blood Test abstracted Historical Provider HEALTH MAINTENANCE Final Result * (ABNORMAL) Hemoglobin A1c (06/18/2022) Hemoglobin A1C 8.3(A) <=6.5 % Blood Venous blood specimen / Unknown Historical Provider LAB BLOOD ORDERABLES Almita [facility] Result * (ABNORMAL) Lipid panel (06/18/2022) LDL/HDL Ratio 4 0 - 4 Triglycerides 217(A) 0 - 150 mg/dL Cholesterol 185 0 - 200 mg/dL HDL 48 >=40 mg/dL LDL Cholesterol 94 0 - 100 mg/dL Blood Venous blood specimen / Unknown us Historical Provider MD LAB BLOOD ORDERABLES Almita l Result * HM Urine Albumin Creatinine Ratio (09/03/2021) Urine Albumin Creatinine Ratio abstracted Historical Provider HEALTH MAINTENANCE Final Result * DXA BONE DENSITY STUDY 1+ SITS AXIAL SKEL (06/25/2021 9:38 AM EST) Anatomical Region Laterality Modality Bone Densitometr y 01/28/2021 8:43 AM EDT Narrative 06/25/2021 6:11 PM EST BONE DENSITY ? Lumbar Spine T-score is -1.4 ?? (SD relative to 20-29 y/o adult) Z-score is +0.6 ??(SD relative to age matched peers) This is consistent with osteopenia by criteria defined by the WHO. Left Hip T-score is -2.3 Z-score is -0.6 This is consistent with osteopenia by criteria defined by the WHO. Comparison exam(s): no statistically significant change in the bone density of the hip and lumbar spine when compared to most recent bone density examination ?? Confidence level is +/-95%. Impression: Based on the World Health Organization criteria, Teodora Johnson should be classified as having osteopenia. This patient has a 20% risk of major osteoporotic fracture and a 5.2% risk of hip fracture over the next 10 years. (World Health Organization Fracture Risk Assessment) [facility] Department of Internal Medicine recommends using National Osteoporosis Foundation (NOF) guidelines in treatment decisions related to osteoporosis. NOF guidelines suggest considering treatment for postmenopausal women and men aged 50 or older presenting with the following: History of hip or vertebral fracture. T-score less than or equal to -2.5 (DXA) at the femoral neck, total hip, or spine, after appropriate evaluation to exclude secondary causes. Low bone mass (T-score between -1.0 and -2.5 at the femoral neck or spine) AND a 10-year probability of a hip fracture greater than or equal to 3% OR a 10-year probability of a major osteoporosis-related fracture greater than or equal to 20% based on the [place]-adapted WHO algorithm Please note that all treatment decisions require clinical judgment and consideration of individual patient factors, including patient preferences, co-morbidities, previous drug use, risk factors not captured in the FRAX model (e.g., frailty, falls, vitamin D deficiency, increased bone turnover, interval significant decline in bone density) and possible under- or over-estimation of fracture risk by FRAX. Procedure Note Kailey Griffin MD - 06/30/2022 BONE DENSITY Lumbar Spine T-score is -1.4 (SD relative to 20-29 y/o adult) Z-score is +0.6 (SD relative to age matched peers) This is consistent with osteopenia by criteria defined by the WHO. Left Hip T-score is -2.3 Z-score is -0.6 This is consistent with osteopenia by criteria defined by the WHO. Comparison exam(s): no statistically significant change in the bonedensity of the hip and lumbar spine when compared to most recent bonedensity examination Confidence level is +/-95%. Impression: Based on the World Health Organization criteria, Teodora Johnson shouldbe classified as having osteopenia. This patient has a 20% risk of majorosteoporotic fracture and a 5.2% risk of hip fracture over the next 10years. (World Health Organization Fracture Risk Assessment) [facility] Department of Internal Medicine recommendsusing National Osteoporosis Foundation (NOF) guidelines in treatmentdecisions related to osteoporosis. NOF guidelines suggest consideringtreatment for postmenopausal women and men aged 50 or older presentingwith the following: History of hip or vertebral fracture. T-score less than or equal to -2.5 (DXA) at the femoral neck, total hip,or spine, after appropriate evaluation to exclude secondary causes. Low bone mass (T-score between -1.0 and -2.5 at the femoral neck or spine)AND a 10-year probability of a hip fracture greater than or equal to 3% ORa 10-year probability of a major osteoporosis-related fracture greaterthan or equal to 20% based on the [place]-adapted WHO algorithm Please note that all treatment decisions require clinical judgment andconsideration of individual patient factors, including patientpreferences, co-morbidities, previous drug use, risk factors not capturedin the FRAX model (e.g., frailty, falls, vitamin D deficiency, increasedbone turnover, interval significant decline in bone density) and possibleunder- or over-estimation of fracture risk by FRAX. Yoel Callse MD IMG DXA PROCEDURES [facility] Result * SCR MAMMO BI INCL CAD (07/25/2020 11:29 AM EST) Anatomical Region Laterality Modality Radiographic Dianne ging 10/26/2018 8:07 AM EDT Narrative 07/25/2020 2:58 PM EST This is a summary report. The complete report is available in the patient's medical record. If you cannot access the medical record, please contact the sending organization for a detailed fax or copy. Full field digital screening mammography, reviewed with CAD and compared to previous. The breast tissue is heterogeneously dense, limiting sensitivity. No suspicious mass, architectural distortion or suspicious calcifications are identified. IMPRESSION: : Dense breast tissue, limiting the sensitivity of mammography. No mammographic evidence of malignancy. BIRADS 1-Negative; N. 5 year breast cancer risk assessment 1.9 % Lifetime breast cancer risk assessment 6.2 % Breast cancer risk category Low (<15%) Procedure Note Kailey Griffin MD - 06/30/2022 This is a summary report. The complete report is available in thepatient's medical record. If you cannot access the medical record, pleasecontact the sending organization for a detailed fax or copy. Full field digital screening mammography, reviewed with CAD and comparedto previous. The breast tissue is heterogeneously dense, limitingsensitivity. No suspicious mass, architectural distortion or suspiciouscalcifications are identified. IMPRESSION: : Dense breast tissue, limiting the sensitivity of mammography. Nomammographic evidence of malignancy. BIRADS 1-Negative; N. 5 year breast cancer risk assessment 1.9 % Lifetime breast cancer risk assessment 6.2 % Breast cancer risk category Low (<15%) Ariadna Hubbard MD IMG XR PROCEDURES Fi nal Result * Colonoscopy (01/23/2016) [facility] Colonoscopy abstracted Anatomical Region Laterality Modality Other [facility] Provider HEALTH MAINTENANCE Final Result * Cervical Cancer Screening: HPV (01/08/2014) [facility] Cervical Cancer Screening: HPV abstracted, negative Result [facility] Provider HEALTH MAINTENANCE Final Result * Hepatitis C Screening (02/24/2013) [facility] Hepatitis C Screening abstracted Result [facility] Provider HEALTH MAINTENANCE Final Result from Last 3 Months or Most Recently Relevant to Health Maintenance Care Teams Cell Tester Relationship Specialty Start Date End Date Beata Mccoy MD [address] [place] [id number] PCP - General Internal Medicine 08/04/21
[2024-09-21 12:17] LABS: Appearance Urine Clear; Color Urine Yellow; Glucose Urine UA Negative (Negative); Leukocyte Esterase Urine Negative (Negative); Nitrite Urine Negative (Negative); Specific Gravity - Urine <= 1.005 (1.005-1.025); UMIC TRIGGER UACC YES; Urine Blood Trace (Negative); Urine Ketones Negative (Negative); Urine Protein Trace mg/dL (Neg-Trace)
[2024-09-21 12:22] LABS: Bacteria Urine None Seen (None Seen); Hyaline Casts Urine 0-2 /LPF (0-2); RBC Urine 0-2 /HPF (0-2); Squamous Epithelial Cell Urine 0-2 /HPF (0-2); WBC Urine 0-5 /HPF (0-5)
[2024-09-21] MEDS: amLODIPine Besylate 5 MG TABLET PO (12:31)
[2024-09-21 12:34] LABS: Influenza A PCR NEGATIVE (Negative); Influenza B PCR NEGATIVE (Negative); Resp Syncy Virus RNA Qual PCR NEGATIVE (Negative); SARS COV2 PCR INHOUSE NEGATIVE (Negative)
--- NOTE | 2024-09-21 13:10 | MHC.CM.ED ---
Received case management consult from Veronica HALL. Patient came to the ER via EMS due to AMS at the request of the geriatric advocate staff member . Patient has not been to [facility]. Patient was not able to provide any contact info to registration. Received telephone call from Laurie of [facility] [employer]. She can be reached via telephone at [phone] ext [phone]. [facility] received a report of concern with issues with cognition. Laurie previously met with patient at her home. Laurie returned to patient's residence today as a follow-up. Patient was already outside without a jacket when Laurie arrived. Laurie and patient went inside the house. Soon after patient looked outside and stated It's francesca outside. It should be warm. But was unable to remember that she was just outside. Patient's PCP is Beata Buckley Jessie. Patient has not seen her PCP in years . Patient has 3 daughters. 2 are disabled. Josie Johnson lives in [place]. Her telephone number is [phone]. Laurie is concerned about patient's capacity to remain in the community. She lives alone and does not seem to have the ability to take care of herself. Patient does not drive. Attempted to speak with Josie via telephone. No answer. Unable to leave a message because the mailbox is full. Veronica HALL aware. Continue to monitor for d/c needs.
--- NOTE | 2024-09-21 13:11 | PC.NURSE ---
Pt repeatedly coming out of room fully dressed asking when she's going home; pt easily redirected, but is a wandering/flight risk; pt is going to be admitted per PA-C and a virtual sitter/monitor set up in pt's room for safety
--- NOTE | 2024-09-21 17:23 | PC.NURSE ---
Pt cont. to look for belongings so she can get dressed and get home ; pt redirected and reassured; belongings, other than sweatpants (pt still wearing) secured at the RN station; will fill out a belMyndnets list and store belongings appropriately
--- NOTE | 2024-09-21 17:24 | PC.NURSE ---
Pt placed in a hospital bed for comfort; dinner tray ordered; bed alrm activated
--- NOTE | 2024-09-21 17:27 | PC.NURSE ---
All pt belongings besides pants secured in [facility] port shelf #2
--- NOTE | 2024-09-21 18:29 | PC.NURSE ---
Pt oob again and extremely agitated, swearing and acusing staff of lying to her and trying to hold her captive; very difficult to redirect; tech at bedside for 1:1 for safety; PAAshlynC at bedside to eval for medication
[2024-09-21] MEDS: OLANZapine ODT 10 MG TAB.RAPDIS TRANSLINGU (18:35)
--- NOTE | 2024-09-21 18:37 | PC.NURSE ---
Pt willingly took ordered meds; redirected to ; bed alarm on; camera monitor on
--- NOTE | 2024-09-21 18:59 | PC.NURSE ---
assume care of patient, no complaints at this time.
[2024-09-22 05:35] VITALS: BP 144/78; PULSE 79; RESP 16; TEMP 36.6; O2SAT 99
--- NOTE | 2024-09-22 07:00 | PC.NURSE ---
Report taken from Audra Rankin RN
--- NOTE | 2024-09-22 09:25 | MHC.CM.ED ---
Patient remains in ER. Psych consult for capacity pending. Received notification from Jania of [facility] that patient is active with their [facility] program.Ariadna Butler is her case management assistant. She can be reached via telephone at [phone]. Per Jania, patient receives MOW ( 3 meals a day), director of special services, home making, personal care and life alert. Left voicemail for Ariadna requesting return telephone call. Continue to monitor for d/c needs.
--- NOTE | 2024-09-22 09:39 | PHA.MEDREC ---
Addendum entered by Joanna Thibodeaux [facility] 09/22/24 09:48: Reviewed by pharmacy Original Note: Pharmacy Consult ? Medication Reconciliation Pharmacy has completed the medication reconciliation. Spoke to patient's daughter Josie [phone] to confirm med list. Daughter states patient hasn't taken any medication in over 2 years. Patient should be on medications but refuse to take any medication or see any doctors.
--- NOTE | 2024-09-22 09:54 | MHC.CM.ED ---
Received telephone call from Ariadna of [facility]. Patient has been active with them since March 2024. [facility] was trying to keep patient in her home but doesn't appear that will be safe any longer. Ariadna confirms 2 of her patient's daughter has developmental delays and are living at [facility]. Patient's daughter, Josie, is in her early 40's and is currently on HD 3 times a week. Josie does not drive. She tries to help her mother when she can but is unable to. Apparently Josie pays patient's bills. Patient owns her home. Owe 2 quarters of property taxes. Patient receives $734.70 per month from social security and $1,1551 from a pension. Patient has no savings. Patient's in 2019 due to Lewy Body Dementia. Ariadna does not believe patient ever completed a new HCP. Ariadna does not feel Josie would be able to appropriately serve as patient's HCP due to her own medical conditions. Psych consult is pending. If patient is found not to have capacity, it appears guardianship and conservator will need to be appointed. Continue to monitor for d/c needs.
--- NOTE | 2024-09-22 11:51 | PC.NURSE ---
Called inpatient kitchen/food services regarding missing lunch tray. Order in place. Kitchen staff to bring a lunch tray to overflow. Patient aware and offered snack or beverage while waiting, which patient declines at this time.
--- NOTE | 2024-09-22 12:05 | PC.NURSE ---
Lunch tray arrived and provided. Patient thankful. Pleasant/calm/cooperative. No needs at this time. Care ongoing by this RN.
[2024-09-22 12:11] VITALS: BP 151/82; PULSE 71; RESP 12; TEMP 36.2; O2SAT 96
--- NOTE | 2024-09-22 12:50 | PC.NURSE ---
Patient was asking this RN to call her daughter Elly at [phone], verbally provided by the patient. Portable hospital phone unavailable at this time. No answer to this phone number. See previous notes regarding Elly. Patient stated that I want Elly to know that I'm in the basement, but I'm okay. Sometimes she doesn't fruit or nut picker her phone because she gets annoyed with phone calls, so she hangs up on people sometimes . Redirected to bed, assured of plan to be evaluated by psychiatric team. Watching TV.
[2024-09-22 13:33] VITALS: BP 151/82
[2024-09-22] MEDS: amLODIPine Besylate 5 MG TABLET PO (13:33)
--- NOTE | 2024-09-22 13:37 | PC.NURSE ---
Addendum entered by Supriya Pulido 09/22/24 13:44: IV access removed at 13:30, okayed by provider Bernarda Bishop. Original Note: Phlebotomy department called [facility] back stating that they cannot obtain blood draw due to we're all leaving. Can you ask one of the ED Techs to draw the specimen? Contacted main ED for assistance. Current HOME HEALTH CLINICIAN/Tech is not certified in blood draws and cannot obtain specimens. Medicated with Amlodipine 5mg per provider orders for elevated BP. Patient denies complaints at this time. Bed alarm in place.
--- NOTE | 2024-09-22 13:51 | PC.NURSE ---
Ashley Figueroa (licensed psychiatric technician) at bedside speaking with the patient. Awaiting lab draw at this time.
[2024-09-22 14:00] VITALS: BP 127/58; PULSE 85; RESP 16; TEMP 36.4; O2SAT 98
--- NOTE | 2024-09-22 14:34 | PM.PSYCN ---
History of Present Illness Date of Service: 09/22/2024 Chief Complaint: HTN Reason for Consult: capacity Discussed with referring provider: Yes Sources of Information: patient interviewed, chart reviewed and crisis/core team assessment reviewed HPI Narrative: Mrs. Johnson is a 74 year-old woman who was brought via EMS to [facility] after staff from Elder protective services, Dhiraj ([phone]) went to see patient and she appeared confused after she had just been found outside without a jacket and returned back to the house and had no recollection. Pertinent labs completed on 09/21/2024 include cbc without leukocytosis, CMP without electrolyte abnormalities, BUN 16, Cr 0.83, creatinine clearance 55.6, LFT wnl, ammonia 23. UA with trace of blood, no leukocytosis nor bacteria. Head CT shows atrophy and microvascular changes. Pt seen in the ED. She presents as very friendly, and assumes she knows this director underwriter sales. She attempts to give this director underwriter sales a hug. She does not know where she is. She is not even able to tell that this is a hospital setting. She tells this director underwriter sales that she has worked here for a long time. She does not know how long she has been here or why. She does not know the month or the year, laughing stating they did not tell that! When asked where she lives, she reports down the road. When asked about in what town, she states I don't know. Medical Evaluation Reviewed: Yes [facility] Medical History HTN (hypertension) Premature atrial contractions Diabetes Palpitations Diagnostics Vital Signs (24Hr): Vital Signs - 24 hr 09/21/24 14:43 09/21/24 14:49 09/21/24 16:18 Temperature 97.7 F Pulse Rate 68 74 82 Respiratory Rate 16 18 Blood Pressure 199/97 H 208/92 H 190/91 H Pulse Oximetry 99 100 Oxygen Delivery Method Room Air Room Air 09/21/24 18:32 09/21/24 21:17 09/22/24 05:35 Temperature 98.1 F 97.8 F 97.9 F Pulse Rate 88 72 79 Respiratory Rate 18 16 16 Blood Pressure 196/91 H 142/70 H 144/78 H Pulse Oximetry 98 97 99 Oxygen Delivery Method Room Air Room Air Room Air 09/22/24 12:11 09/22/24 13:33 Temperature 97.2 F Pulse Rate 71 Respiratory Rate 12 Blood Pressure 151/82 H 151/82 H Pulse Oximetry 96 Oxygen Delivery Method Room Air BMI result Body Mass Index 20.5 Labs 09/21/24 10:38 09/21/24 10:38 Labs: Laboratory Results - last 48 hr 09/21/24 09/21/24 09/21/24 10:38 11:44 11:45 WBC 8.4 RBC 4.47 Hgb 14.2 Hct 38.7 MCV 86.6 MCH 31.8 MCHC 36.7 H RDW 12.8 Plt Count 294 MPV 9.4 Immature Gran % (Auto) 0.2 Neut % (Auto) 78.0 H Lymph % (Auto) 15.3 L Thurston % (Auto) 5.0 Eos % (Auto) 1.1 Baso % (Auto) 0.4 Lymph # (Auto) 1.3 Thurston # (Auto) 0.4 Eos # (Auto) 0.1 Baso # (Auto) 0.0 Abs Immat Gran (auto) 0.02 Absolute Neuts (auto) 6.6 Absolute Nucleated RBC 0.000 Nucleated RBC % (auto) 0.0 Sodium 140 Potassium 4.4 Chloride 106 Carbon Dioxide 29 Anion Gap 9 L BUN 16 Creatinine 0.83 Estim Creat Clear Calc 55.6 Estimated GFR > 60 Fasting Glucose 155 H Calcium 9.8 Magnesium 2.1 Total Bilirubin 1.7 H Direct Bilirubin 0.5 AST 26 ALT 24 Alkaline Phosphatase 109 Ammonia 23 Troponin I High Sens 3.2 Total Protein 7.9 Albumin 4.5 Urine Color Urine Appearance Urine pH Ur Specific Crosby Urine Protein Urine Glucose (UA) Urine Ketones Urine Blood Urine Nitrite Ur Leukocyte Esterase Urine RBC Urine WBC Ur Squamous Epith Cells Urine Bacteria Hyaline Casts Influenza Type A (PCR) NEGATIVE Influenza Type B (PCR) NEGATIVE RSV RNA Qual (PCR) NEGATIVE SARS-CoV-2 RNA (RT-PCR) NEGATIVE 09/21/24 12:08 WBC RBC Hgb Hct MCV MCH MCHC RDW Plt Count MPV Immature Gran % (Auto) Neut % (Auto) Lymph % (Auto) Thurston % (Auto) Eos % (Auto) Baso % (Auto) Lymph # (Auto) Thurston # (Auto) Eos # (Auto) Baso # (Auto) Abs Immat Gran (auto) Absolute Neuts (auto) Absolute Nucleated RBC Nucleated RBC % (auto) Sodium Potassium Chloride Carbon Dioxide Anion Gap BUN Creatinine Estim Creat Clear Calc Estimated GFR Fasting Glucose Calcium Magnesium Total Bilirubin Direct Bilirubin AST ALT Alkaline Phosphatase Ammonia Troponin I High Sens Total Protein Albumin Urine Color Yellow Urine Appearance Clear Urine pH 8.0 Ur Specific Crosby <= 1.005 Urine Protein Trace Urine Glucose (UA) Negative Urine Ketones Negative Urine Blood Trace H Urine Nitrite Negative Ur Leukocyte Esterase Negative Urine RBC 0-2 Urine WBC 0-5 Ur Squamous Epith Cells 0-2 Urine Bacteria None Seen Hyaline Casts 0-2 Influenza Type A (PCR) Influenza Type B (PCR) RSV RNA Qual (PCR) SARS-CoV-2 RNA (RT-PCR) Imaging Radiology Impressions: ITS Impressions Chest X-Ray 09/21/24 11:45 IMPRESSION: Hyperaeration. No superimposed active disease. Electronically signed by: Ad Johnson MD 09/21/2024 12:09 PM EDT RP Head CT 09/21/24 12:23 IMPRESSION: No acute intracranial abnormality. Electronically signed by: Clark Armstrong MD 09/21/2024 12:40 PM EDT RP Mental Status Exam Mental Status Exam Narrative: Appearance: wearing hospital gown, fair hygiene, edentulous, in NAD Behavior: friendly, cooperative Psychomotor: no agitation or retardation noted Speech: clear, normal rate/rhythm/volume, spontaneous TP: expressive aphasia/ confabulation TC: wanting to go home Mood: good Affect: congruent, does get more anxious as she realizes she want to leave but can't SI: none HI: none VH/AH: none Delusions, no overt but confabulation Insight/judgment: impaired x 2. Memory/cog: alert, not oriented to place, month, year or situation Medications Medications Current Medications Amlodipine Besylate (Amlodipine Besylate 5 Mg Tablet) 5 mg PO DAILY [facility]; Protocol Last Admin: 09/22/24 13:33 Dose: 5 mg Allergies Allergies Allergy/AdvReac Type Severity Reaction Status Date / Time gemfibrozil [GEMFIBROZIL] Allergy Unknown DIZZINESS/HIVES, Verified 09/21/24 09:28 dizziness Assessment & Plan Assessment & Plan (1) Major neurocognitive disorder due to Alzheimer's disease, without behavioral disturbance: Status: Acute Code(s): G30.9 - Alzheimer's disease, unspecified; F02.80 - Dementia in other diseases classified elsewhere, unspecified severity, without behavioral disturbance, psychotic disturbance, mood disturbance, and anxiety Plan Mrs. Johnson is a 74 year-old woman who was brought via EMS after elder protective services went to see her and she did not remember she had just came from outside when she was found out without a jacket. It also appears she has not gone to PCP appointments for a very long time. CBC, CMP grossly unremarkable. Head CT without acute findings but showing microvascular changes and atrophy. UA not suggestive of UTI. She does NOT present with s/s of delirium. Her current presentation seems to be consisitent with underlying major neurocognitive disorder most likely of AD. Her orientation is impaired, attention is good. Her ability to retain information is very poor. Pending MOCA and ACL, but regardless, her dementia at this point is very advanced and she needs 24/7 supervision and lock facility to prevent wondering. Will add lipid pain, TSH, B12, Folic acid, A1C. restart amlodipine as BP on admission has been SBP 200's. It appears she used to for HTN and used to be on amlodipine and lisinopril. PLAN 1. Pt does not have capacity to make medical decisions. She is also not able to care for herself due to severe cognitive impairments reflective of underlying major neurocognitive disorder. Do not suspect this is an acute change, which is also confirmed by [employer]. 2. Per RN it appears patient in evening more confused and mildly combative trying to leave, will try low dose olanzapine 2.5mg po BID at 2pm and bedtime. She may also benefit from aricept 5mg po qhs but will start olanzapine first. Total time managing care of this patient today ____ minutes.
[2024-09-22 15:35] LABS: Cholesterol 159 mg/dL (<200); HDL Cholesterol 49 mg/dL (>40); LDL Cholesterol Calculated 80 mg/dL (<100); Triglycerides 150 mg/dL (<150)
--- NOTE | 2024-09-22 15:39 | MHC.CM.ED ---
Patient remains in ER overflow. Per Ashley, tipple repairer, patient does not have capacity. MOCA & ACL are still pending. Idania Nunez CM Director aware guardianship and conservator. Received telephone call from patient's daughter, Josie. Josie is aware patient will be with us until a guardianship and conservator can be pursued. Continue to monitor for d/c needs.
[2024-09-22 15:42] LABS: Estimated Average Glucose 123 mg/dL; Hemoglobin A1c % 5.9 % (<6.0)
[2024-09-22 15:49] LABS: TSH reflex Free T4 1.01 uIU/mL (0.32-4.0)
--- NOTE | 2024-09-22 15:53 | PC.NURSE ---
Zyprexa 2.5mg ordered by provider. Unavailable in [facility]. Pharmacy department contacted to bring medication to [facility]. Awaiting receipt.
[2024-09-22 16:04] LABS: Folate 8.7 ng/mL (> or = 4.0); Vitamin B12 335 pg/mL (200-900)
--- NOTE | 2024-09-22 16:30 | PC.NURSE ---
Contacted pharmacy again regarding medication request, via [employer]. Medication has not been brought from pharmacy or loaded into the [facility]. Awaiting response.
[2024-09-22] MEDS: OLANZapine 2.5 MG TABLET PO ×2 (16:49→21:19)
[2024-09-22 20:45] VITALS: BP 133/66; PULSE 86; RESP 19; TEMP 36.7; O2SAT 95
--- NOTE | 2024-09-22 22:25 | PC.NURSE ---
Assumed care of this patient at 19:00. Patient seen in ED overflow pending disposition. CM following. Patient is pleasantly confused, A&Ox2 to self and intermittently to place. Pt is calm and cooperative though forgets to ring her call sorensen despite education attempts and ensuring call sorensen is in reach. Hx dementia. Bed alarm on and safety measures in place including in-room camera. Pt is redirectable. Denies pain or other complaints. +dp pulses/+cms. -edema. Breathing is even and unlabored without distress. Tolerating regular diet without n/v. Pt ambulates steady with standby assistance to the bathroom. Med compliant, tolerated without issue. Hourly purposeful rounding enacted. Plan of care continues.
[2024-09-23 06:28] VITALS: BP 143/69; PULSE 74; RESP 18; TEMP 36.7; O2SAT 99
[2024-09-23 08:23] VITALS: BP 172/78
[2024-09-23] MEDS: amLODIPine Besylate 5 MG TABLET PO (08:23)
[2024-09-23 14:24] VITALS: BP 141/70; PULSE 73; RESP 18; O2SAT 99
[2024-09-23] MEDS: OLANZapine 2.5 MG TABLET PO ×3 (15:54→21:05)
--- NOTE | 2024-09-23 18:40 | PC.NURSE ---
Pt alert and oriented to self and hospital. She had much anxiety this am stating worry that someone was trying to take my daughters away She was able to state that they were in a shared living environment and that she feels comfortable with their caregiver. She was able to settle after reassurance that her daughters are safe and being cared for. She lacks insight into situation. Pt just started at approx 1840 to have visual and auditory hallucinations. [place] text out to Bernarda Bishop and sol DESAI aware.
[2024-09-23 20:16] VITALS: BP 148/66; PULSE 98; RESP 18; TEMP 37.5; O2SAT 97
[2024-09-24] MEDS: OLANZapine 2.5 MG TABLET PO ×3 (03:05→20:05)
[2024-09-24 05:23] VITALS: BP 154/74; PULSE 74; RESP 16; TEMP 36.1; O2SAT 97
--- NOTE | 2024-09-24 06:21 | PC.NURSE ---
Assumed care of this patient at 19:00. Patient seen in ED overflow. Patient A&Ox1-2, consistently to self, intermittently to place. Pt intermittently agitated and restless overnight with +visual hallucinations. Covering ISABEL Chase made aware. Pt was medicated with prn zyprexa x2 in addition to scheduled 21:00 zyprexa. Frequent reorienting and redirecting provided. Patient currently in bed folding towels and washcloths as a redirecting mechanism, +effect, pt calm and cooperative at this time. Rounder assisting nursing staff with patient safety due to elopement risk and pt exit seeking in the evening. RN cabinetmaker supervisor aware. Bed alarm and in-room camera in place as well. Plan of care continues.???
[2024-09-24 07:55] VITALS: BP 164/85
[2024-09-24] MEDS: amLODIPine Besylate 5 MG TABLET PO (07:55)
--- NOTE | 2024-09-24 09:08 | MHC.EDTECH ---
patient ambulated to bathroom, AM care done, washed , bed change .RN aware
[2024-09-24 14:34] VITALS: BP 161/71; PULSE 84; RESP 14; TEMP 36.3
--- NOTE | 2024-09-24 15:22 | MHC.CM.PN ---
CM MET WITH PTS DAUGHTER, DIMITRIS [phone] AT BEDSIDE PER HER REQUEST SHE REPORTS SHE HAS NOT BEEN CONTACTED ABOUT PTS DC PLANNING, SHE SAYS SHE DOES NOT KNOW WHY PT IS GOING TO A LTC SNF AND GETTING A GUARDIAN WHEN SHE IS WILLING TO BE THE GUARDIAN. SHE SAYS SHE WAS HER FATHERS HCP (ALONG WITH HER MOTHER) PRIOR TO HIS PASSING, AND THE PLAN HAD ALWAYS BEEN TO DO THE SAME FOR HER MOTHER. DIMITRIS ALSO NOTES SHE AND FAMILY HAVE THE ABILITY TO CARE FOR THE PT AT HOME, SHE SAYS SHE WOULD LIKELY MOVE THE PT INTO HER HOME IT IS BIGGER. CM INFORMED HER A CAPACITY EVAL WAS COMPLETED AND AT THIS TIME, PT WOULD BE UNABLE TO DO A HCP. IDMITRIS WILL BE IN CONTACT WITH CM LEADERSHIP TOMORROW TO DETERMINE IF THIS SITUATION CAN BE CHANGED OF NOTE: PT WAS SLEEPING THROUGH MOST OF CM MEETING WITH DAUGHTER SHE DID WAKE UP PRIOR TO CM LEAVING, CM ASKED HER IF SHE EVER COMPLETED A HPC, SHE STATED SHE HAD NOT CM ASKED IF SHE WOULD WANT TO AND SHE STATED PROBABLY SHOULD AND INDICATED IT WOULD BE DIMITRIS
[2024-09-24 22:00] VITALS: BP 152/66; PULSE 82; RESP 16; TEMP 36.4; O2SAT 96
--- NOTE | 2024-09-24 23:33 | PC.NURSE ---
this RN took over care for pt. multiple attempts to get out of bed at this time. redirected and assisted back to bed each time
[2024-09-25] VITALS (10 sets, daily range): BP systolic 105–162; BP diastolic 39–74; PULSE 62–94; RESP 14–18; TEMP 36.7–37.2; O2SAT 94–97; BMI 19.6
--- NOTE | 2024-09-25 | ECG_ITS ---
Test Reason : LETHARGIC Blood Pressure : */* mmHG Vent. Rate : 68 BPM Atrial Rate : 68 BPM P-R Int : 170 ms QRS Dur : 88 ms QT Int : 416 ms P-R-T Axes : 61 49 57 degrees QTcB Int : 442 ms Normal sinus rhythm Possible Left atrial enlargement Minimal voltage criteria for LVH, may be normal variant ( Sokolow-Lanier ) Septal infarct (cited on or before 08-Nov-2020) Abnormal ECG When compared with ECG of 21-Sep-2024 10:16, No significant change was found Referred By: Navi Vargas Electronically Signed By: Louie Ross
--- NOTE | 2024-09-25 | ECG_ITS ---
Test Reason : QTC CHECK, SEVERE BRADYCARDIA Blood Pressure : */* mmHG Vent. Rate : 66 BPM Atrial Rate : 66 BPM P-R Int : 168 ms QRS Dur : 92 ms QT Int : 440 ms P-R-T Axes : 67 49 56 degrees QTcB Int : 461 ms Normal sinus rhythm Possible Left atrial enlargement Septal infarct (cited on or before 08-Nov-2020) Abnormal ECG When compared with ECG of 25-Sep-2024 04:16, No significant change was found Referred By: Navi Vargas Electronically Signed By: Louie Ross
--- NOTE | 2024-09-25 01:06 | PC.NURSE ---
pt ambulated to bathroom XL firm BM, assist back into bed
[2024-09-25] MEDS: Ondansetron ODT 4 MG TAB.RAPDIS TRANSLINGU (03:02)
--- NOTE | 2024-09-25 03:03 | PC.NURSE ---
pt vomiting at this time, medicated per SEP, pt now sitting upright in bed
--- NOTE | 2024-09-25 03:16 | PC.NURSE ---
pt reports feeling awful 1 episode of vomiting, pt appears pale, and clammy. not attempting to get out of bed at this time. POC 278, VSS. sitter at bedside
[2024-09-25 03:19] LABS: Glucose, Whole Blood 278 mg/dL (60-115)
[2024-09-25] MEDS: ondansetron HCL 4 MG/2 ML VIAL IVPUSH (04:23)
[2024-09-25 04:24] LABS: Basophils Percent Auto 0.3 % (0-2); Eosinophils Absolute Auto 0.1 X10*3/uL (0.0-0.4); Eosinophils Percent Auto 1.1 % (0-4); Hematocrit 34.9 % (37.0-47.0); Hemoglobin 12.7 g/dl (12.0-16.0); Imm Gran Abs Auto 0.03 X10*3/uL (0.00-0.03); Imm Gran Pct Auto 0.3 % (0.0-0.4); Lymphocytes Absolute Auto 0.7 X10*3/uL (1.2-4.9); Lymphocytes Percent Auto 6.6 % (20-40); MANUAL DIFF FLAG NO; Mean Corpuscular HGB Conc 36.4 g/dl (31.0-35.0); Mean Corpuscular Hemoglobin 32.2 pg (27.0-33.0); Mean Corpuscular Volume 88.6 fL (80.0-98.0); Mean Platelet Volume 9.5 fL (9.4-12.3); Monocytes Absolute Auto 0.3 X10*3/uL (0.1-1.2); Monocytes Percent Auto 2.7 % (2-11); Neutrophils Absolute Auto 8.7 x10*3/uL (2.0-8.3); Platelet Count 271 X10*3/uL (160-400); Red Blood Count 3.94 X10*6/uL (4.20-5.50); Red Cell Distribution Width 12.9 % (11.0-16.0); White Blood Count 9.8 X10*3/uL (4.8-10.8)
--- NOTE | 2024-09-25 04:37 | PC.NURSE ---
Assumed care of pt at 0410 from overflow after change in status. Pt was alert and oriented X4 and had episodes of vomiting given sl zofran but vomited at time of administration. Per Mitra RN pt became lethargic, diaphoretic, vitals stable but pt not herself. Pt reported to this rn that she feels awful, when asked to elaborate pt states I feel like i am going to vomit and . IV #20 placed in R-forearm, labs obtained, and EKG obtained. at bedside, ok to give IV zofran and L-NS. meds administered and fluids hung. 0424 Pt became severely bradycardic 11bpm, monitor reading asystole, Pt not responsive, CPR started and after 2 compressions patient yelling in pain. HR back up to 70-90's. Vitals stable, pt arousable to name. Pacer pads placed on pt, crash cart at bedside. #20IV placed in L-Forearm, Repeat EKG showed no significant changes. Plan of care ongoing at this time.
[2024-09-25 04:46] LABS: Alanine Aminotransferase 16 U/L (0-31); Albumin Level 4.2 g/dL (3.5-5.0); Alkaline Phosphatase 99 U/L (39-117); Anion Gap 14 (12-20); Aspartate Amino Transferase 26 U/L (5-31); Bilirubin Direct 0.3 mg/dL (0.0-0.5); Blood Urea Nitrogen 41 mg/dL (9-16); Calcium 8.9 mg/dL (8.4-10.2); Carbon Dioxide 23 mmol/L (22-29); Chloride 107 mmol/L (96-108); Creatinine Clr Calc Pharmacy 38.1; Estimated Glomerular Filt Rate 44; Glucose Random 299 mg/dL (60-115); Lipase 26 U/L (8-78); Potassium 4.7 mmol/L (3.3-5.1); Sodium 139 mmol/L (135-145); Total Protein 7.3 g/dL (6.5-8.0); Troponin-I High Sensitivity < 2.7 ng/L (<3.5-17.0)
[2024-09-25 05:01] LABS: Influenza A PCR NEGATIVE (Negative); Influenza B PCR NEGATIVE (Negative); Resp Syncy Virus RNA Qual PCR NEGATIVE (Negative); SARS COV2 PCR INHOUSE NEGATIVE (Negative)
--- NOTE | 2024-09-25 06:29 | PC.NURSE ---
HR dropped down to 39, immediately back up to 70's. aware
--- NOTE | 2024-09-25 08:38 | PM.IMHP ---
History of Present Illness Date of Service: 09/25/24 Chief Complaint: ams 74F PMH HTN, preDM, presented 09/21/24 with confusion, was waiting for psychiatric bed, on 09/25/24 at about 4am became nauseous and vomitted followed by severe sinus lloyd in 30s and unresponsiveness. CPR was initiated, immediately patient responded and yelled, heart rate improved to 70s. Review of Systems Review of Systems: Yes all other systems are reviewed and are negative [facility] Medical History HTN (hypertension) Premature atrial contractions Diabetes Palpitations Family History Father Cancer Mother Cancer Social History Smoked in Last 30 Days: No Use of substances other than those prescribed or required for medical reasons: No Advance Directives: No Advance Directives Information Provided: No Do you have a plan to hurt others: No Plan Meds Allergies Allergy/AdvReac Type Severity Reaction Status Date / Time gemfibrozil [GEMFIBROZIL] Allergy Unknown DIZZINESS/HIVES, Verified 09/21/24 09:28 dizziness ondansetron [From Zofran] AdvReac Unresponsiv Verified 09/25/24 07:04 e Active Medications: Current Medications Acetaminophen (Acetaminophen 325 Mg Tablet) 650 mg PO Q6H PRN PRN Reason: Pain, Mild 1-3,fever,headache Amlodipine Besylate (Amlodipine Besylate 5 Mg Tablet) 5 mg PO DAILY [facility]; Protocol Last Admin: 09/24/24 07:55 Dose: 5 mg Calcium Carbonate (Calcium Carbonate 750 Mg Tab.Chew) 750 mg PO Q4H PRN PRN Reason: Heartburn Enoxaparin Sodium (Enoxaparin Sodium 40 Mg/0.4 Ml Syringe) 40 mg SUBCUT Q24H [facility] Magnesium Hydroxide (Milk Of Magnesia 30 Ml Oral.Susp) 30 ml PO DAILY PRN PRN Reason: Constipation Melatonin (Melatonin 3 Mg Tablet) 6 mg PO BEDTIME PRN PRN Reason: Insomnia Olanzapine (Olanzapine 2.5 Mg Tablet) 2.5 mg PO BID@1500,2100 [facility] Last Admin: 09/24/24 20:05 Dose: 2.5 mg Olanzapine (Olanzapine 2.5 Mg Tablet) 2.5 mg PO Q6H PRN PRN Reason: agitation Last Admin: 09/24/24 03:05 Dose: 2.5 mg Sodium Chloride (0.9 % Sodium Chloride Flush 3 Ml Syringe) 3 ml IVFLUSH QSHIFT [facility] Home Medications ?Medication ?Instructions ?Recorded ?Confirmed ?Last Taken ?Type No Known Home Meds 09/22/24 09/22/24 Unknown History Physical Exam Vital Signs and Narrative: Vital Signs: Last Vital Signs Temp 98.0 F 09/25/24 03:13 Pulse 62 09/25/24 07:12 Resp 15 09/25/24 07:12 BP 129/71 09/25/24 07:12 Pulse Ox 96 09/25/24 07:12 O2 Del Method Room Air 09/25/24 07:12 BMI result Body Mass Index 20.5 lethargic, confused, lungs clear, heart sounds normal Results Labs 09/25/24 04:19 09/25/24 04:19 Labs: Laboratory Results - last 24 hr 09/25/24 09/25/24 09/25/24 03:15 04:19 04:20 MCV 88.6 MCH 32.2 MCHC 36.4 H RDW 12.9 Plt Count 271 MPV 9.5 Immature Gran % (Auto) 0.3 Neut % (Auto) 89.0 H Lymph % (Auto) 6.6 L [place] % (Auto) 2.7 Eos % (Auto) 1.1 Baso % (Auto) 0.3 Lymph # (Auto) 0.7 L [place] # (Auto) 0.3 Eos # (Auto) 0.1 Baso # (Auto) 0.0 Abs Immat Gran (auto) 0.03 Absolute Neuts (auto) 8.7 H Absolute Nucleated RBC 0.000 Nucleated RBC % (auto) 0.0 Anion Gap 14 Estim Creat Clear Calc 38.1 Estimated GFR 44 POC Glucose 278 H Random Glucose 299 H Calcium 8.9 D Magnesium 2.0 Total Bilirubin 1.0 Direct Bilirubin 0.3 AST 26 ALT 16 Alkaline Phosphatase 99 Total Protein 7.3 Albumin 4.2 Lipase 26 Influenza Type A (PCR) NEGATIVE Influenza Type B (PCR) NEGATIVE RSV RNA Qual (PCR) NEGATIVE SARS-CoV-2 RNA (RT-PCR) NEGATIVE Assessment and Plan (1) HTN (hypertension): Status: Acute Plan 74F PMH HTN, preDM, presented 09/21/24 with confusion, 09/25/24 became unresponsive with severe lloyd acute metabolic encephalopathy due to severe sinus bradycardia, likely due to vasovagal resolved, monitor on tele, cardio eval preDM with hyperglycemia a1c 5.9 monitor poc, will start metformin htn amldoipine acute psychosis on zyprexa, psych following dvt prophylaxis - lovenox full code Quality Stroke Does the patient have a stroke diagnosis?: No VTE Prior VTE?: No VTE Risk Level:: Medical - moderate - high VTE Device Contraindication: Treatment Not Indicated VTE Drug Contraindication: N/A - Med Ordered
--- NOTE | 2024-09-25 09:50 | PC.NURSE ---
Assumed care of pt at 0700. Pt resting in bed quietly, respirations even and unlabored, no increased wob/sob noted, NSR on park maintenance technician, HR 60s-70s. Pt HR lloyd down to 30s then back up to 80s. Pt a/ox3, arousable to verbal stimuli, asymptomatic- denies cp/sob at this time. Cardiology at bedside to assess patient. Call sorensen within reach, all needs met at this time.
--- NOTE | 2024-09-25 09:51 | PM.CNCAR ---
History of Present Illness History of Present Illness Date of Service: 09/25/24 Requesting physician: Maxwell Dwyer Chief complaint: Bradycardia Narrative: [age] year female with background history of hypertension, premature complexes, diabetes, palpitations and dementia. She was waiting for a psychiatric bed and presented mainly for confusion on September 21. 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 I have seen in the telemetry strips and she was Bruce with close to 2nd pause. Apparently CPR was initiated but after chest compressions she responded very quickly. I do not think she truly had cardiac arrest because the period of unresponsiveness was not long enough. In any case she had bradycardia which was transient and improved on its own. Since then she has been on the monitor and has not had any significant issues. She was sleeping when I saw her and her heart rate was in 50s. As she woke up heart rate was 90s. She is denying any symptoms. History limited due to her poor memory/dementia [facility] Past Medical History Medical History HTN (hypertension) Premature atrial contractions Diabetes Palpitations Family History Family History Father Cancer Mother Cancer Social History Social History Patient Tobacco Use Status: Never used Tobacco Smoked in Last 30 Days: No Use of substances other than those prescribed or required for medical reasons: No Advance Directives: No Advance Directives Information Provided: No Do you have a plan to hurt others: No Plan Nutrition Risks: No Nutritional Risk service: No Meds Allergies Allergy/AdvReac Type Severity Reaction Status Date / Time gemfibrozil [GEMFIBROZIL] Allergy Unknown DIZZINESS/HIVES, Verified 09/21/24 09:28 dizziness ondansetron [From Zofran] AdvReac Unresponsiv Verified 09/25/24 07:04 e Active Medications: Current Medications Acetaminophen (Acetaminophen 325 Mg Tablet) 650 mg PO Q6H PRN PRN Reason: Pain, Mild 1-3,fever,headache Amlodipine Besylate (Amlodipine Besylate 5 Mg Tablet) 5 mg PO DAILY DEVONTE; Protocol Last Admin: 09/24/24 07:55 Dose: 5 mg Calcium Carbonate (Calcium Carbonate 750 Mg Tab.Chew) 750 mg PO Q4H PRN PRN Reason: Heartburn Enoxaparin Sodium (Enoxaparin Sodium 40 Mg/0.4 Ml Syringe) 40 mg SUBCUT Q24H [facility] Magnesium Hydroxide (Milk Of Magnesia 30 Ml Oral.Susp) 30 ml PO DAILY PRN PRN Reason: Constipation Melatonin (Melatonin 3 Mg Tablet) 6 mg PO BEDTIME PRN PRN Reason: Insomnia Metformin HCl (Metformin Hcl 500 Mg Tablet) 500 mg PO BIDWM [facility]ONTE Olanzapine (Olanzapine 2.5 Mg Tablet) 2.5 mg PO BID@1500,2100 DEVONTE Last Admin: 09/24/24 20:05 Dose: 2.5 mg Olanzapine (Olanzapine 2.5 Mg Tablet) 2.5 mg PO Q6H PRN PRN Reason: agitation Last Admin: 09/24/24 03:05 Dose: 2.5 mg Sodium Chloride (0.9 % Sodium Chloride Flush 3 Ml Syringe) 3 ml IVFLUSH QSHIFT [facility] Home Medications ?Medication ?Instructions ?Recorded ?Confirmed ?Last Taken ?Type No Known Home Meds 09/22/24 09/22/24 Unknown History Physical Exam Vital Signs: Vital Signs: Last Vital Signs Temp 98.0 F 09/25/24 03:13 Pulse 62 09/25/24 07:12 Resp 15 09/25/24 07:12 BP 129/71 09/25/24 07:12 Pulse Ox 96 09/25/24 07:12 O2 Del Method Room Air 09/25/24 07:12 BMI result Body Mass Index 20.5 GENERAL APPEARANCE: in no acute distress, pleasant. NECK: no carotid bruit, no jugular venous distention. SKIN: no suspicious lesions, warm and dry. HEART: no murmurs, regular rate and rhythm. LUNGS: clear to auscultation bilaterally. ABDOMEN: soft, nontender. EXTREMITIES: no edema. PERIPHERAL PULSES: equal. NEUROLOGIC: No gross deficits, confused. Objective Labs and Meds 09/25/24 04:19 09/25/24 04:19 Lab results: Laboratory Results - last 24 hr 09/25/24 09/25/24 09/25/24 03:15 04:19 04:20 WBC 9.8 RBC 3.94 L Hgb 12.7 Hct 34.9 L MCV 88.6 MCH 32.2 MCHC 36.4 H RDW 12.9 Plt Count 271 MPV 9.5 Immature Gran % (Auto) 0.3 Neut % (Auto) 89.0 H Lymph % (Auto) 6.6 L [place] % (Auto) 2.7 Eos % (Auto) 1.1 Baso % (Auto) 0.3 Lymph # (Auto) 0.7 L [place] # (Auto) 0.3 Eos # (Auto) 0.1 Baso # (Auto) 0.0 Abs Immat Gran (auto) 0.03 Absolute Neuts (auto) 8.7 H Absolute Nucleated RBC 0.000 Nucleated RBC % (auto) 0.0 Sodium 139 Potassium 4.7 Chloride 107 Carbon Dioxide 23 Anion Gap 14 BUN 41 H Creatinine 1.21 Estim Creat Clear Calc 38.1 Estimated GFR 44 POC Glucose 278 H Random Glucose 299 H Calcium 8.9 D Magnesium 2.0 Total Bilirubin 1.0 Direct Bilirubin 0.3 AST 26 ALT 16 Alkaline Phosphatase 99 Troponin I High Sens < 2.7 Total Protein 7.3 Albumin 4.2 Lipase 26 Influenza Type A (PCR) NEGATIVE Influenza Type B (PCR) NEGATIVE RSV RNA Qual (PCR) NEGATIVE SARS-CoV-2 RNA (RT-PCR) NEGATIVE Assessment and Plan (1) HTN (hypertension): Status: Acute (2) Bradycardia: Status: Acute Plan 74 year female who is here for confusion and an episode of nausea and vomiting followed by bradycardia and transient unresponsiveness. Very likely to be vasovagal in origin. I do not think she had 2 cardiac arrest. She is sleeping during the day and is bradycardic when she is sleeping. High vagal tone in sleep can lead to bradycardia. In any case her ECG has not shown any conduction block or bundle-branch block. Continue to observe on telemetry. When she is awake her heart rates are in 90s. I do not see any obvious indication for pacemaker placement currently. We will follow along with you. Thank you for allowing me to participate in the care of your patient. Please feel free to contact me if you have any questions. Procedures Date of Service Date of Service: 09/25/24
--- NOTE | 2024-09-25 10:31 | PC.NURSE ---
Pt amlodipine held d/t BP 105/57. MD Dwyer aware, ok to hold.
--- NOTE | 2024-09-25 11:47 | MHC.CM.PN ---
PT WAS BOARDING IN ED WAITING FOR GUARDIANSHIP AND LTC, HOWEVER HAS BEEN ADMITTED. PTS DAUGHTER, DIMITRIS IS WILLING TO SERVE HCP, HOWEVER PT WOULD NEED PSYCH EVAL TO DETERMINE HER ABILITY TO COMPLETE ONE PTS DAUGHTER REPORTS HER PREFERENCE WOULD BE TO TAKE PT HOME AND HAVE CARE PROVIDED BY THE FAMILY IF PT IS UNABLE TO COMPLETE A HCP, SHE WILL AWAIT GUARDIANSHIP AND BE PLACED IN LTC AT A SNF PT A&O x 3 THIS MORNING, OBSERVATION NOTICE DELIVERED DCP TBD: HOME WITH FAMILY CARE VS GUARDIANSHIP AND LTC PLACEMENT
[2024-09-25 14:29] LABS: Glucose, Whole Blood 212 mg/dL (60-115)
[2024-09-25] MEDS: Acetaminophen 325 MG TABLET 650 MG PO (15:32)
[2024-09-25] MEDS: metFORMIN HCl 500 MG TABLET PO (15:32)
[2024-09-25] MEDS: OLANZapine 2.5 MG TABLET PO ×2 (15:32→20:27)
[2024-09-25] MEDS: 0.9 % Sodium Chloride Flush 3 ML SYRINGE IVFLUSH ×2 (15:35→20:33)
[2024-09-25 15:40] LABS: Glucose, Whole Blood 287 mg/dL (60-115)
[2024-09-25] MEDS: OLANZapine 10 MG VIAL 5 MG IM ×2 (16:44→18:22)
[2024-09-25] MEDS: LORazepam 2 MG/ML VIAL 0.5 MG IVPUSH (17:11)
[2024-09-25] MEDS: Melatonin 3 MG TABLET 6 MG PO (20:26)
[2024-09-25 21:50] LABS: Glucose, Whole Blood 178 mg/dL (60-115)
[2024-09-26] MEDS: LORazepam 2 MG/ML VIAL 0.5 MG IVPUSH (01:20)
[2024-09-26 04:00] VITALS: BP 182/79; PULSE 76; RESP 16; TEMP 36.6; O2SAT 97
[2024-09-26 07:28] VITALS: BP 139/73; PULSE 69; RESP 18; TEMP 36.3; O2SAT 97
[2024-09-26 07:42] LABS: Glucose, Whole Blood 180 mg/dL (60-115)
--- NOTE | 2024-09-26 08:54 | HO.PM.IMPN ---
Subjective Subjective Date of Service: 09/26/24 Interval History: no further cardiac events, Physical Exam Vital Signs: Vital Signs: Last Vital Signs Temp 97.4 F 09/26/24 07:28 Pulse 69 09/26/24 07:28 Resp 18 09/26/24 07:28 BP 139/73 09/26/24 07:28 Pulse Ox 97 09/26/24 07:28 O2 Del Method Room Air 09/26/24 07:28 BMI result Body Mass Index 19.6 Alert person only, calm, conversational, poor insight Objective Data Active Medications Acetaminophen (Acetaminophen 325 Mg Tablet) 650 mg PO Q6H PRN PRN Reason: Pain, Mild 1-3,fever,headache Last Admin: 09/25/24 15:32 Dose: 650 mg Documented By: KRYSTAL Amlodipine Besylate (Amlodipine Besylate 5 Mg Tablet) 5 mg PO DAILY [facility]; Protocol Last Admin: 09/25/24 10:31 Dose: Not Given Documented By: PINKY Non-Admin Reason: See Note Calcium Carbonate (Calcium Carbonate 750 Mg Tab.Chew) 750 mg PO Q4H PRN PRN Reason: Heartburn Enoxaparin Sodium (Enoxaparin Sodium 40 Mg/0.4 Ml Syringe) 40 mg SUBCUT Q24H [facility] Lorazepam (Lorazepam 2 Mg/Ml Vial) 0.5 mg IVPUSH Q6H PRN PRN Reason: anxiety/restlessness Last Admin: 09/26/24 01:20 Dose: 0.5 mg Documented By: JUDIE Magnesium Hydroxide (Milk Of Magnesia 30 Ml Oral.Susp) 30 ml PO DAILY PRN PRN Reason: Constipation Melatonin (Melatonin 3 Mg Tablet) 6 mg PO BEDTIME PRN PRN Reason: Insomnia Last Admin: 09/25/24 20:26 Dose: 6 mg Documented By: JUDIE Metformin HCl (Metformin Hcl 500 Mg Tablet) 500 mg PO BIDWM [facility] Last Admin: 09/25/24 15:32 Dose: 500 mg Documented By: KRYSTAL Olanzapine (Olanzapine 2.5 Mg Tablet) 2.5 mg PO BID@1500,2100 DEVONTE Last Admin: 09/25/24 20:27 Dose: 2.5 mg Documented By: JUDIE Olanzapine (Olanzapine 2.5 Mg Tablet) 2.5 mg PO Q6H PRN PRN Reason: agitation Last Admin: 09/24/24 03:05 Dose: 2.5 mg Documented By: JOHN Sodium Chloride (0.9 % Sodium Chloride Flush 3 Ml Syringe) 3 ml IVFLUSH QSHIFT [facility] Last Admin: 09/25/24 20:33 Dose: 3 ml Documented By: JUDIE Labs 09/25/24 04:19 09/25/24 04:19 Labs: Laboratory Results - last 24 hr 09/25/24 09/25/24 09/25/24 14:25 15:35 21:40 POC Glucose 212 H 287 H 178 H 09/26/24 07:31 POC Glucose 180 H Assessment and Plan (1) Major neurocognitive disorder due to Alzheimer's disease, without behavioral disturbance: Status: Acute Plan 74F PMH HTN, preDM, presented 09/21/24 with confusion, 09/25/24 became unresponsive with severe lloyd acute metabolic encephalopathy due to severe sinus bradycardia, likely due to vasovagal resolved Cardiology appreciated, likely vasovagal, no need for pacer preDM with hyperglycemia a1c 5.9 monitor poc, started metformin htn amldoipine acute psychosis on zyprexa, psych following dvt prophylaxis - lovenox full code reason for continued hospitalization: Medically cleared will request care team eval for inpatient psychiatry Quality Stroke Does the patient have a stroke diagnosis?: No VTE Prior VTE?: No VTE Risk Level:: Medical - moderate - high VTE Device Contraindication: Treatment Not Indicated VTE Drug Contraindication: N/A - Med Ordered
[2024-09-26] MEDS: amLODIPine Besylate 5 MG TABLET PO (08:59)
[2024-09-26] MEDS: metFORMIN HCl 500 MG TABLET PO (08:59)
[2024-09-26] MEDS: Enoxaparin Sodium 40 MG/0.4 ML SYRINGE SUBCUT (08:59)
[2024-09-26] MEDS: 0.9 % Sodium Chloride Flush 3 ML SYRINGE IVFLUSH (09:07)
--- NOTE | 2024-09-26 11:08 | MHC.CM.PN ---
CM received a call from pt.'s dtr, Josie, she asked if psych had seen pt. and determined capacity. Psych had seen pt. in 09/22/24. CM completed a HCP with pt. today, naming her dtr Josie. Josie would like pt. to come home to her home where she lives with her family. CARE team has eval pt. this am., and determined that she does not meet requirement for inpt. psych. DCP is for pt. to go to her dtr's home with services from [facility]. CM awaiting input from psych for DCP.
[2024-09-26 11:19] LABS: Glucose, Whole Blood 243 mg/dL (60-115)
[2024-09-26 11:25] VITALS: BP 153/75; PULSE 79; RESP 18; TEMP 37.1; O2SAT 97
--- NOTE | 2024-09-26 11:27 | MHC.CM.PN ---
GIO spoke with CM at [facility] of [facility] program, which specializes in assisted residents in the community who are resistant to care and services. Ariadna knows the pt. well, and the dtr. She will continue to provide services to pt. in dtr's home.
--- NOTE | 2024-09-26 11:36 | PM.DS ---
DS: Providers Provider Date of Service: 09/26/24 Date of admission: 09/25/24 08:34 Date of discharge: 09/26/24 Primary care physician: Beata Mccoy MD Consults: 09/21/24 14:03 Consult to Psychiatry Stat Consulting Provider: Ashley Figueroa Reason for consultation: eval for capacity to remain in community Has provider been notified: Yes 09/25/24 08:34 Consult to Cardiology Routine Consulting Provider: [facility] Reason for consultation: severe lloyd, ams 09/26/24 08:54 Inpt CARE Team Crisis Consult Routine Comment: Reason for consultation: acute psychosis, medically cleared DS: Diagnosis Discharge Diagnosis (1) Major neurocognitive disorder due to Alzheimer's disease, without behavioral disturbance: Status: Acute DS: Summary Hospital Course Hospital Course: from initial hpi: 74F PMH HTN, preDM, presented 09/21/24 with confusion, was waiting for psychiatric bed, on 09/25/24 at about 4am became nauseous and vomitted followed by severe sinus lloyd in 30s and unresponsiveness. CPR was initiated, immediately patient responded and yelled, heart rate improved to 70s. hospital course: Patient was admitted for acute metabolic encephalopathy due to severe sinus bradycardia likely due to vasovagal. Patient was not felt to actually have had a cardiac arrest. Was seen by Cardiology who also felt this was vasovagal no need for pacemaker. Medically stable for discharge home. For pre diabetes with hyperglycemia with A1c of 5.9 should continue low carb diet and follow up with PCP. For hypertension was started on amlodipine. For Alzheimer's dementia with behavioral abnormalities was seen by Psychiatry who started patient on Zyprexa. Patient was seen by care team who felt patient would not require inpatient psychiatric admission will be discharged home with patient's daughter. Time Attestation Discharge Coordination Time (in mins): 33 Quality: Safe Use of Opioids Does Pt have an Active Cancer Diagnosis on the Problem List?: No Quality: Stroke Does the patient have a stroke diagnosis?: No Physical Exam Vital Signs: Vital Signs: Last Vital Signs Temp 98.7 F 09/26/24 11:25 Pulse 79 09/26/24 11:25 Resp 18 09/26/24 11:25 BP 153/75 H 09/26/24 11:25 Pulse Ox 97 09/26/24 11:25 O2 Del Method Room Air 09/26/24 11:25 BMI result Body Mass Index 19.6 Alert person only, calm, conversational, poor insight DS: Data Data Completed and Pending Labs on day of discharge: Laboratory Results - last 24 hr 09/25/24 09/25/24 09/25/24 14:25 15:35 21:40 POC Glucose 212 H 287 H 178 H 09/26/24 09/26/24 07:31 11:11 POC Glucose 180 H 243 H Discharge Plan Discharge Anticipated Discharge Date/Time: 09/26/24 11:33 Patient Disposition: Home, Self-Care Discharge Diagnosis: lloyd Referrals: Beata Mccoy MD [Primary Care Provider] - 1 Week Discharge Medications: New amlodipine 5 mg Tablet 5 mg PO DAILY Qty: 90 0RF Protocol: Hold for SBP< HOLD for SBP < : 90 olanzapine 2.5 mg Tablet 2.5 mg PO BID@1500,2100 Qty: 180 0RF Discharge Orders: Discharge Order (Routine); Ordered 09/26/24 Ordered By: Maxwell Dwyer Diet: Advance to usual diet Activity on Discharge: As tolerated Stand Alone Forms: Patient Portal Discharge page Print Language: Turkish Care Plan Goals: recovery Health Concerns: htn, predm Plan of Treatment: follwo up pcp, starting amlodipine Assessment: see above
--- NOTE | 2024-09-26 11:36 | MHC.CARE ---
Patient evaluated by the CARE Team, inpatient psychiatric care is not indicated at this time. Providers , LLOYD Johnson and GIO Singh all updated.
--- NOTE | 2024-09-26 11:45 | MHC.CM.PN ---
Pt has been medically cleared for DC, she will go to her dtr's home, and have services from [facility]. Dtr will transport her home.
== END 2024-09-26 12:50 | disposition home or self-care (01) ==
LOC: HO.ED 09-25 08:37 → HO.EDOVER 09-25 08:41 → HO.IMC 09-25 12:21
PROVIDERS: Emergency Medicine; Physician Assistant; Social Worker; Admitting Provider Internal Medicine; Emergency Provider Emergency Medicine; PCP Family Medicine; Visit Provider Internal Medicine
DX: G30.9 Alzheimer's disease, unspecified (principal); F02.80 Dementia in other diseases classified elsewhere, unspecified severity, without behavioral disturbance, psychotic disturbance, mood disturbance, and anxiety; I10 Essential (primary) hypertension; R00.1 Bradycardia, unspecified; R41.82 Altered mental status, unspecified; E11.9 Type 2 diabetes mellitus without complications; I49.1 Atrial premature depolarization; Z79.899 Other long term (current) drug therapy; Z20.828 Contact with and (suspected) exposure to other viral communicable diseases
CPT/HCPCS: 0241U; 36415; 70450; 71045; 80048; 80053; 80061; 80076; 81001; 82140; 82248; 82607; 82746; 82947; 83036; 83690; 83735; 84443; 84484; 85025; 93005; 96372; 96374; 96375; 96376; 97161; 99222; 99285; J1650; J2060; J2359; J2405; S9485

== ENCOUNTER → 2024-09-21 09:54 | Outpatient (BNV) | payer MEDICARE, SELFPAY | PROVIDERS: Emergency Provider Emergency Medicine; Visit Provider Social Worker | DX: G30.9 Alzheimer's disease, unspecified (principal); F02.80 Dementia in other diseases classified elsewhere, unspecified severity, without behavioral disturbance, psychotic disturbance, mood disturbance, and anxiety | CPT/HCPCS: 99222 ==

== ENCOUNTER → 2024-09-21 10:16 | Outpatient (BNV) | payer MEDICARE, SELFPAY | PROVIDERS: Emergency Provider Emergency Medicine; Visit Provider Internal Medicine | DX: I23.3 Rupture of cardiac wall without hemopericardium as current complication following acute myocardial infarction (principal) | CPT/HCPCS: 93010 ==

== ENCOUNTER → 2024-09-21 11:26 | Outpatient (BNV) | payer MEDICARE, SELFPAY | PROVIDERS: Emergency Provider Emergency Medicine; Visit Provider Radiology Diagnostic Radiology | DX: R41.82 Altered mental status, unspecified (principal); I10 Essential (primary) hypertension | CPT/HCPCS: 70450; 71045 ==

== ENCOUNTER → 2024-09-25 08:34 | Outpatient (BNV) | payer MEDICARE, SELFPAY | PROVIDERS: Admitting Provider Internal Medicine; Emergency Provider Emergency Medicine; PCP Family Medicine; Visit Provider Internal Medicine Cardiovascular Disease | DX: I10 Essential (primary) hypertension (principal); R00.1 Bradycardia, unspecified | CPT/HCPCS: 99223 ==

== ENCOUNTER → 2024-09-25 08:34 | Outpatient (BNV) | payer MEDICARE, SELFPAY | PROVIDERS: Admitting Provider Internal Medicine; Emergency Provider Emergency Medicine; PCP Family Medicine; Visit Provider Internal Medicine | DX: I10 Essential (primary) hypertension (principal) | CPT/HCPCS: 99223; 99239; 99499 ==

== ENCOUNTER → 2024-10-10 13:08 | Outpatient (AMB) | payer MEDICARE, SELFPAY ==
--- NOTE | 2024-10-10 13:20 | MHC.OFFWIV ---
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 Patient Tobacco Use Status: Never used Tobacco Allergies gemfibrozil [GEMFIBROZIL] Allergy (Unknown, Verified 10/10/24 13:21) DIZZINESS/HIVES, dizziness ondansetron [From Zofran] Adverse Reaction (Verified 10/10/24 13:21) Unresponsive Do you need a note to return to daycare/school/sports/work: No HPI HPI Comments History of Present Illness Details History of Present Illness - The patient is a 74-year-old female presenting with medication management issues concerning the accidental disposal of her Amlodipine and Olanzapine medications. The lack of Olanzapine has led to worsened depressive symptoms. The usual dosage includes Amlodipine 5 mg once daily and Olanzapine twice a day at 1500 and 2100 hours, which assists in managing her mood and aggressive behavior. Follow-up with primary care, Dr. Mccoy, is being scheduled for further management of anxiety. Patient tells me that the children in the household threw her medications away but her daughter told me on the side that she thinks her mom threw them away. She also says she now understands the need to walk the medications up in a lock box and dispense them for her. Physical Exam General: Cooperative, healthy appearing, comfortable, no acute distress and well developed Orientation: Patient oriented x3 Limitations: No limitations Head: Normal to inspection Ears: Hearing grossly normal bilaterally Nose: Normal External nose present Face and sinus: Normal facial exam Eyes: Appearance normal, both eyes and all related structures Neck: Normal visual inspection and Yes full ROM Respiratory: Normal respiratory effort and able to speak in complete sentences. Skin: No rashes or lesions noted Neuro: Patient oriented x3 Extremities: Normal to inspection [facility] Medical History HTN (hypertension) Premature atrial contractions Diabetes Palpitations Family History Father Cancer Mother Cancer Social History Comment: sitter for safety Patient Tobacco Use Status: Never used Tobacco service: No Review of Systems Const All systems reviewed & are unremarkable except as noted in HPI and below Physical Exam Vital Signs: Last Vital Signs Pulse 74 10/10/24 13:21 BP 150/80 H 10/10/24 13:21 Pulse Ox 98 10/10/24 13:21 Oxygen Delivery Method Room Air 10/10/24 13:21 Assessment & Plan Assessment & Plan (1) Encounter for medication refill: Code(s): Z76.0 - Encounter for issue of repeat prescription Plan: I have issued a refill for Amlodipine and Olanzapine as the urgent need for managing the patient?s blood pressure and mood stability. Amlodipine is to be continued at 5 mg once daily, and Olanzapine is prescribed twice daily at 3 PM and 9 PM. The patient has been advised on the importance of securely storing her medications to prevent accidental disposal or ingestion by children, with the use of a medication lockbox emphasized. The medication refill was coordinated through [facility], and further follow-up with Dr. Mccoy is pending to address anxiety-related concerns and ongoing mood disorder management. Patient was informed and verbally consented to the use of an ambient scribe for clinic note documentation during this visit. Medications: New amlodipine 5 mg PO DAILY 21 tabs 0RF olanzapine @1500 and @2100 2.5 mg PO BID 42 tabs 0RF Coding Level of Care Code New Pt Level 3 (40137) Diagnoses Encounter for medication refill Z76.0
[2024-10-10 13:21] VITALS: BP 150/80; PULSE 74; O2SAT 98
--- OUTSIDE RECORDS SUMMARY | 2024-10-10 15:23 | XMS_ITS | Encounter Summary ---
Author Organization [email or web address] Address [address] [place] [address] Care Team Providers Care Auto Locator Name Role Phone Beata Mccoy MD Primary Care Provider Reason for Visit * Reason Onset Date Comments Medication 10/09/2024 Encounter Details Date Type Department Care Team ([facility] st Contact Info) Description 10/09/2024 Telephone Adult Medicine - [facility] [address] [place] [phone] Beata Mccoy MD [address] [place] [address] Medication Social History Tobacco Use Types Packs/Day Years [...] on file Sexual Orientation Not on file documented as of this encounter Progress Notes * Shante Camargo MA - 10/10/2024 9:41 AM EDT - Called / spoke with Ariadna Butler ( [facility] ) - Ariadna states pt threw out her Amlodipine 5 mg and Zyprexa ( unsure on dose ). Pt has been confused / dementia diagnosis. Pt was admitted to [facility] on 09/26/24 due to 911 call that patient was very confused and was discharged on 09/27/24. Pt uses [facility]. Advised Ariadna that patient has not been seen in 2 years and unsure if PCP will sign these orders. Ariadna is looking to see if this can be ordered until pt is seen on 10/23/24, as sheneeds these medications. - Called pharmacy , per pharmacy they are unsure if insurance will cover. Might need to do an override with insurance. Amlodipine 5 mg - 1 tab QD - filled on 09/29/24 for 90 days ordered by a Maxwell Dwyer MD ( [facility] ) Zyprexa 2.5 mg - 1 tab BID - filled on 09/29/24 for 90 days ordered by a Maxwell Dwyer MD ( [facility] ) - Requesting notes from [facility] NOTES RECEIVED 10:38am 10/10/24 * Wilfredo Red - 10/09/2024 11:46 AM EDT Ariadna from [facility] has pt who has a dx of dementia through out her amlodipine 5 mg 1x a day and diprexa pescriptions. Pt has an appt 10/23/24 w/, they are wondering if another refill can be placed. If any other questions are needed please call Ariadna: [phone] documented in this encounter Plan of Treatment Upcoming Encounters Date Type Department Care Team (Late st Contact Info) Description 10/23/2024 1:30 PM EDT Office Visit Adult Medicine - [facility] [address] [place] [phone] Beata Mccoy MD [address] [place] [phone] documented as of this encounter Visit Diagnoses Not on filedocumented in this encounter Care Teams Auto Locator Relationship Specialty Start Date End Date Beata Mccoy MD [address] [place] [id number] PCP - General Internal Medicine 08/04/21 documented as of this encounter
--- OUTSIDE RECORDS SUMMARY | 2024-10-10 15:23 | XMS_ITS | Clinical Summary ---
Author Organization [facility] Address [address] [place] [address] Care Team Providers Care Camouflage Specialist Name Role Phone Beata Mccoy MD Primary [...] benign 11/16/2006 External hemorrhoids 03/01/2006 Overview (08/12/2024): [facility] [place] Disorder of bone and cartilage 03/01/2006 Overview (08/12/2024): [facility] [place]. Fosamax since 2011, stopped Encounters Date Type Department Care Team Description 10/10/2024 Telephone Adult Medicine - [place] [address] [place] [address] Shante Camargo [place] Hospital Follow-up ([facility] ( admitted 09/26- discharged 09/27 ) ) 10/09/2024 Telephone Adult Medicine - [place] [address] [place] [address] Beata Mccoy MD Medication from Last 3 Months Immunizations Name Administration Dates Next Due Influenza Quadravalent, MDCK , 0.5ml, with preservative (Flucelvax) 6mo and older 05/31/2017 Influenza trivalent, 0.5mL ( Fluad) 65yo and older 07/21/2021 Influenza trivalent, 0.5mL, preservative free (Fluarix; FluLaval; Fluzone) ages 6mo and older (Afluria) 3 years and older 03/18/2018,06/28/2016,05/24/2014,05/25,04/15/2012,06/26/2010,05/08/2008 ,06/21/2007 Influenza trivalent, with pr eservative (Fluzone; Afluria) 6mo and older 04/22/2021 PPD Test 09/30/2017,07/11/2014,10/05/2011 Pfizer SARS-CoV-2 COVID-19, mRNA, LNP-S, preservative free 07/12/2021 [...] 06/18/2022 9:51 AM EST Plan of Treatment Upcoming Encounters Date Type Department Care Team (Late st Contact Info) Description 10/23/2024 1:30 PM EDT Office Visit Adult Medicine - [place] [address] [place] [address] Beata Mccoy MD [address] [place] [address] Health Maintenance Due Date Last Done Comments Diabetes: Annual Foot Exam 02/28/1962 Diabetes: Annual Retina Eye Exam 02/28/1962 Zoster Vaccines (2 of 3) 02/27/2014 01/02/2014 Cervical Cancer Screening: HPV 01/08/2019 01/08/2014 Depression Screening 06/29/2021 Falls Risk Assessment 06/29/2021 Medicare Annual Wellness Visit 06/29/2021 Social Influencers of Health Screening 06/29/2021 Breast Cancer Screening 07/25/2022 07/25/19, 10/26/2018, 10/22/2017, Additional history exists Diabetes: Annual Urine Albumin-Creatinine Ratio (uACR) 09/03/2022 09/03/2021 Diabetes: Blood Sugar Control Test (HGBA1C) 12/17/2022 06/18/2022 DTaP,Tdap,and Td Vaccines (2 - Td or Tdap) 05/25/2023 05/25/2013 Diabetes: Annual GFR (Glomerular Filtration Rate) 06/18/2023 06/18/2022 Hypertension/CHF/CAD Annual BMP Blood Test 06/18/2023 06/18/2022 COVID-19 Vaccine ( season) 2024 07/12/2021, 09/01/2020, 08/11/2020 Influenza Vaccine (Season Ended) 2025 04/25/2022, 07/21/2021, 04/22/2021, Additional history exists Colorectal Cancer [...] A1C Routine 06/18/2022 LIPID PANEL Routine 06/18/2022 HM URINE ALBUMIN CREATININE RATIO Routine 09/03/2021 DXA [...] Results * Annual BMP Blood Test (06/18/2022) Pathologist [facility] Annual BMP Blood Test abstracted [facility] Provider MD HEALTH MAINTENANCE Final Result * (ABNORMAL) Hemoglobin A1c (06/18/2022) [facility] Hemoglobin A1C 8.3(A) <=6.5 % Blood Venous blood specimen / Unknown Result [facility] Provider LAB BLOOD ORDERABLES Almita l Result * (ABNORMAL) Lipid panel (06/18/2022) [facility] LDL/HDL Ratio 4 0 - 4 Triglycerides 217(A) 0 - 150 mg/dL Cholesterol 185 0 - 200 mg/dL HDL 48 >=40 mg/dL LDL Cholesterol 94 0 - 100 mg/dL Blood Venous blood specimen / Unknown Result [facility] Provider LAB BLOOD ORDERABLES Almita l Result * Urine Albumin Creatinine Ratio (09/03/2021) Pathologist [facility] Urine Albumin Creatinine Ratio abstracted [facility] Provider HEALTH MAINTENANCE Final Result * DXA [...] (World Health Organization Fracture Risk Assessment) [facility] Department of Internal Medicine recommends using National [...] on the World Health Organization criteria, Teodora stapletonbe classified as having osteopenia. This patient has a 20% risk of majorosteoporotic fracture and a 5.2% risk of hip fracture over the next 10years. (World Health Organization Fracture Risk Assessment) [facility] Department of Internal Medicine recommendsusing National Osteoporosis [...] over-estimation of fracture risk by FRAX. Yoel Calles MD IMG DXA PROCEDURES Almita l Result [...] % Breast cancer risk category Low (<15%) Result [facility] Ariadna Hubbard MD IMG XR PROCEDURES Fi nal Result * Colonoscopy (01/23/2016) [facility] Colonoscopy abstracted Anatomical Region Laterality Modality Other Result [facility] Provider HEALTH MAINTENANCE Final Result * Cervical Cancer Screening: HPV (01/08/2014) [facility] Cervical Cancer Screening: HPV abstracted, negative Result [facility] Provider HEALTH MAINTENANCE Final Result * Hepatitis C Screening (02/24/2013) [facility] Hepatitis C Screening abstracted Result [facility] Provider HEALTH MAINTENANCE Final Result from Last 3 Months or Most Recently Relevant to Health Maintenance Insurance MEDICARE Care Teams Camouflage Specialist Relationship Specialty Start Date End Date Beata Mccoy MD [address] [place] [id number] PCP - General Internal Medicine 08/04/21
--- OUTSIDE RECORDS SUMMARY | 2024-10-10 15:23 | XMS_ITS | Encounter Summary ---
Author Organization [facility] Address [address] [place] [address] Care Team Providers Care Body Care Manager Name Role Phone Beata Mccoy MD Primary Care Provider Reason for Visit * Reason Onset Date Comments Hospital Follow-up 10/10/2024 [facility] ( admitted 09/26- discharged 09/27 ) Encounter Details Date Type Department Care Team ([facility] st Contact Info) Description 10/10/2024 Telephone Adult Medicine [address] [phone] Shante Camargo [place] [facility] Follow-up ([facility] ( admitted 09/26- discharged 09/27 ) ) Social History Tobacco Use Types Packs/Day Years [...] as of this encounter Progress Notes * Meeta Rodriguez RN - 10/10/2024 11:44 AM EDT Spoke with GAMALIEL Sanabria, appt rescheduled to 10/23 at 1:30 pm with PCP * Idalia Yepez - 10/10/2024 11:29 AM EDT Pt's Elly daughter called back, please call again * Sintia Black LPN - 10/10/2024 11:28 AM EDT Message Left for daughter * Shante Camargo MA - 10/10/2024 11:16 AM EDT Sorry, please call Ariadna Carrie ( [facility] ) [phone] , Opt 1 , EXT [phone] Or daughter Elly Johnson ) * Sintia Black LPN - 10/10/2024 10:36 AM EDT Phone Busy * Shante Camargo MA - 10/10/2024 10:12 AM EDT - ( See Telephone encounter 10/09/24 ) - Pt was admitted to [facility] on 09/26/24 and discharged 09/27/24 for severe confusion - Request sent to fax notes / imaging / labs - Pt already has transportation secured for 10/23/24 appt which is scheduled for PE but would need aHosp F/U appt as well unless PCP wants to change this to a Hosp F/U. NOTES RECEIVED 10:38am 10/10/24 [facility] documented in this encounter Plan of Treatment Upcoming Encounters Date Type Department Care Team (Late st Contact Info) Description 10/23/2024 1:30 PM EDT Office Visit Adult Medicine [address] [phone] Beata Mccoy MD [address] [place] [address] documented as of this encounter Visit Diagnoses Not on filedocumented in this encounter Care Teams Body Care Manager Relationship Specialty Start Date End Date Beata Mccoy MD [address] [place] [id number] PCP - General Internal Medicine 08/04/21 documented as of this encounter
== END ==
PROVIDERS: PCP Family Medicine; Visit Provider Physician Assistant
DX: Z76.0 Encounter for issue of repeat prescription (principal)

== ENCOUNTER → 2024-10-10 13:08 | Outpatient (BNVA) | payer MEDICARE, SELFPAY | PROVIDERS: PCP Family Medicine | DX: Z76.0 Encounter for issue of repeat prescription (principal) | CPT/HCPCS: 99202 ==

== ENCOUNTER 2024-10-19 11:30 | Emergency (ER) | payer MEDICARE, SELFPAY ==
[2024-10-19 11:34] VITALS: BP 170/85; PULSE 82; O2SAT 99; BMI 27.4
--- NOTE | 2024-10-19 11:37 | ED_ITS ---
HPI - General Adult General Chief complaint: Altered Mental Status Stated complaint: DTR STS NEEDS ASSIST W/PLACEMENT,CALM/COOP PER EMS Time Seen by Provider: 10/19/24 11:34 Source: patient and EMS Mode of arrival: EMS Limitations: other (patient is confused at baseline) History of Present Illness ED Provider: Julianna Casey PA-C HPI narrative: Patient is a 74 year old assigned female at with a history of HTN and Alzheimer's presenting to the emergency department today with inability to care for herself or to stay with daughter. Patient states that she has no complaints at this time. HCP / daughter states that she is concerned about the patient's safety in her home due to her worsening cognitive decline, but she is also hesitant to have her placed elsewhere because she would lose the benefits she gets from providing her mother care. Relieving factors: none Exacerbating factors: none Associated symptoms: denies other symptoms Treatments prior to arrival: none Related Data Previous Rx's ?Medication ?Instructions ?Recorded amlodipine 5 mg tablet 5 mg PO DAILY #90 tabs 09/26/24 olanzapine 2.5 mg tablet 2.5 mg PO BID@1500,2100 #180 tabs 09/26/24 amlodipine 5 mg tablet 5 mg PO DAILY #21 tabs 10/10/24 olanzapine 2.5 mg tablet 2.5 mg PO BID #42 tabs 10/10/24 amlodipine 5 mg tablet 5 mg PO DAILY #7 tabs 10/19/24 olanzapine 2.5 mg tablet (Zyprexa) 2.5 mg PO BID #14 tabs 10/19/24 Allergies Allergy/AdvReac Type Severity Reaction Status Date / Time gemfibrozil [GEMFIBROZIL] Allergy Unknown DIZZINESS/HIVES, Verified 10/19/24 11:35 dizziness ondansetron [From Zofran] AdvReac Unresponsiv Verified 10/19/24 11:35 e Review of Systems 2 Review of Systems: Yes Other (patient has Alzheimer's - pleasantly confused, no complaints. ) Constitutional: Constitutional: Reports no additional constitutional complaints, Denies chills, Denies fever(s) and Denies night sweats Eyes: Eyes: Reports no additional eye complaints, Denies blurry vision, Denies change in vision, Denies diplopia, Denies eye discharge, Denies loss of vision and Denies eye pain ENT: Denies dizziness Cardiovascular: Cardiovascular: Reports no additional cardiovascular complaints, Denies chest pain, Denies lightheadedness, Denies Loss of Consciousness and Denies dyspnea Respiratory: Respiratory: Reports no additional respiratory complaints and Denies dyspnea Gastrointestinal: Gastrointestinal: Reports no additional gastrointestinal complaints, Denies abdominal pain, Denies melena, Denies hematochezia, Denies change in bowel habits and Denies change in stool character Genitourinary: Genitourinary: Denies hematuria, Denies urinary frequency, Denies dysuria, Denies urinary incontinence, Denies urinary hesitancy and Denies urinary urgency Musculoskeletal: Musculoskeletal: Reports no additional musculoskeletal complaints, Denies numbness and Denies tingling Neurologic: Reports confusion (per her baseline), Denies dizziness, Denies loss of vision, Denies numbness and Denies tingling Psychiatric: Psychiatric: Reports no additional psychiatric complaints and Reports confusion (per her baseline) Endocrine: Endocrine: Reports no additional endocrine complaints Hematologic/Lymphatic: Hematologic/Lymphatic: Reports no additional hematologic/lymphatic complaints Allergic/Immunologic: Allergic/Immunologic: Reports no additional allergic/immunologic complaints [facility] Past Medical History Attestation statement: The following information was validated with the patient. (all information validated with the patient's daughter) Source: old records reviewed, obtained from family (patient's daughter provided additional history and confirmed the history provided by the patient. ) and nursing notes reviewed Medical History HTN (hypertension) Premature atrial contractions Diabetes Palpitations Family History Family History Father Cancer Mother Cancer Social History Social History Comment: sitter for safety Patient Tobacco Use Status: Never used Tobacco Smoked in Last 30 Days: No Use of substances other than those prescribed or required for medical reasons: No Advance Directives: No Advance Directives Information Provided: Yes Do you have a plan to hurt others: No Plan service: No Physical Exam ED Vital Signs: Vital Signs - 24 hr 10/19/24 11:34 10/19/24 11:43 10/19/24 13:50 Temperature 98.0 F 97.1 F Pulse Rate 85 95 Respiratory Rate 16 16 Blood Pressure 187/74 H 183/84 H Pulse Oximetry 99 99 Oxygen Delivery Method Room Air Room Air Room Air 10/19/24 14:38 Temperature Pulse Rate 94 Respiratory Rate 16 Blood Pressure 188/79 H Pulse Oximetry 97 Oxygen Delivery Method Room Air BMI result Body Mass Index 27.4 Const General: confusion (per her baseline) Nutritional Appearance: well nourished Orientation/consciousness: confusion (per her baseline) Limitations: no limitations HENMT Head: Yes normal to inspection and Yes atraumatic Ears: hearing grossly normal bilaterally and external ears normal General nose exam: Normal external nose present, no nasal discharge noted and no epistaxis Face and sinus: Yes normal facial exam, No abrasion and No laceration Mouth: Normal oral and palatal mucosa present, no drooling and no muffled voice Eyes General: appearance normal, both eyes and all related structures Periorbital: periorbital findings normal Eyelids: Yes eyelids normal Conjunctivae: conjunctivae normal Pupils: Equal, round and reactive pupils present EOM: EOMs intact bilaterally Neck Neck: Yes normal visual inspection, Yes full ROM and Yes no lymphadenopathy Chest Chest palpation & inspection: normal inspection of the chest Resp Effort & Inspection: normal respiratory effort and able to speak in complete sentences GI Inspection: Yes normal to inspection Neuro General: confusion (per her baseline) Cranial nerves: Yes Equal, round and reactive pupils present Extrem General: Yes normal to inspection, Yes full ROM and Yes capillary refill normal Psych Appearance: grossly normal Mental Status: mental status grossly normal Affect: normal affect Attitude: cooperative Thought process: Normal thought process present Thought content: Normal thought content present Insight: Good insight present (Psych) Medical Decision Making Medical Decision Making MDM Narrative: Patient is a 74 year old assigned female at with a history of HTN and Alzheimer's presenting to the emergency department today with concerns for a medical issue causing worsening agitation at home. Patient's physical exam showed a pleasantly confused individual but was otherwise unremarkable. Patient's blood work was unremarkable. Patient's urine showed no acute process. Case management spoke with the patient's daughter and got clarification that the patient's daughter wanted the patient to be medically evaluated because she seems to be more aggressive during the day and she is concerned about her safety. Patient's daughter states that she would like the patient to be discharged back to her care if she is medically cleared. Patient's daughter states that the patient threw away her medication and she needs a refill to bridge her before her appointment next week. I explained my physical exam findings as well as all test results to the patient and the patient's daughter. I answered all questions asked by the patient and the patient's daughter. Patient's medical work up was unremarkable. Patient is experiencing age-related cognitive decline. Patient's daughter verbalized agreement and understanding with this treatment plan and discharge. Differential Diagnosis Differential Diagnoses: The differential diagnosis associated with the presentation includes Age related cognitive decline Admission/Observation Consideration of admission/observation: Escalation of care including admission/observation considered Patient would have been admitted to the hospital had her work up had any findings where hospital admission was appropriate and her clinical presentation warranted hospital admission. Lab Data [facility] Lab Attestation statement: I reviewed the patient's lab results. My interpretation of these results are in the [facility] Rationale portion of this note. 10/19/24 11:48 10/19/24 11:48 Labs: Lab Results 10/19/24 10/19/24 10/19/24 Range/Units 11:44 11:48 12:55 WBC 10.4 (4.8-10.8) X10*3/uL RBC 4.19 L (4.20-5.50) X10*6/uL Hgb 13.0 (12.0-16.0) g/dl Hct 36.7 L (37.0-47.0) % MCV 87.6 (80.0-98.0) fL MCH 31.0 (27.0-33.0) pg MCHC 35.4 H (31.0-35.0) g/dl RDW 12.8 (11.0-16.0) % Plt Count 307 (160-400) X10*3/uL MPV 9.5 (9.4-12.3) fL Immature Gran % (Auto) 0.3 (0.0-0.4) % Neut % (Auto) 84.7 H (45-73) % Lymph % (Auto) 10.0 L (20-40) % [place] % (Auto) 3.9 (2-11) % Eos % (Auto) 0.8 (0-4) % Baso % (Auto) 0.3 (0-2) % Lymph # (Auto) 1.0 L (1.2-4.9) X10*3/uL [place] # (Auto) 0.4 (0.1-1.2) X10*3/uL Eos # (Auto) 0.1 (0.0-0.4) X10*3/uL Baso # (Auto) 0.0 (0.0-0.2) X10*3/uL Abs Immat Gran (auto) 0.03 (0.00-0.03) X10*3/uL Absolute Neuts (auto) 8.8 H (2.0-8.3) x10*3/uL Absolute Nucleated RBC 0.000 (0.0-0.012) X10*3/uL Nucleated RBC % (auto) 0.0 (0.0-0.2) /100WBC Sodium 140 (135-145) mmol/L Potassium 4.8 (3.3-5.1) mmol/L Chloride 104 (96-108) mmol/L Carbon Dioxide 28 (22-29) mmol/L Anion Gap 13 (12-20) BUN 19 H (9-16) mg/dL Creatinine 0.80 (0.5-1.4) mg/dL Estim Creat Clear Calc 68.9 Estimated GFR > 60 POC Glucose 256 H (60-115) mg/dL Random Glucose 263 H (60-115) mg/dL Calcium 9.2 (8.4-10.2) mg/dL Magnesium 1.8 (1.6-2.6) mg/dL Total Bilirubin 1.2 H (0.0-1.0) mg/dL AST 28 (5-31) U/L ALT 22 (0-31) U/L Alkaline Phosphatase 94 (39-117) U/L Total Protein 6.8 (6.5-8.0) g/dL Albumin 4.1 (3.5-5.0) g/dL Urine Color Urine Appearance Urine pH (5.0-9.0) Ur Specific Spar[place] (1.005-1.025) Urine Protein (Neg-Trace) mg/dL Urine Glucose (UA) (Negative) mg/dL Urine Ketones (Negative) mg/dL Urine Blood (Negative) Urine Nitrite (Negative) Ur Leukocyte Esterase (Negative) Urine RBC (0-2) /HPF Urine WBC (0-5) /HPF Ur Squamous Epith Cells (0-2) /HPF Urine Bacteria (None Seen) Hyaline Casts (0-2) /LPF Influenza Type A (PCR) NEGATIVE (Negative) Influenza Type B (PCR) NEGATIVE (Negative) RSV RNA Qual (PCR) NEGATIVE (Negative) SARS-CoV-2 RNA (RT-PCR) NEGATIVE (Negative) 10/19/24 Range/Units 14:40 WBC (4.8-10.8) X10*3/uL RBC (4.20-5.50) X10*6/uL Hgb (12.0-16.0) g/dl Hct (37.0-47.0) % MCV (80.0-98.0) fL MCH (27.0-33.0) pg MCHC (31.0-35.0) g/dl RDW (11.0-16.0) % Plt Count (160-400) X10*3/uL MPV (9.4-12.3) fL Immature Gran % (Auto) (0.0-0.4) % Neut % (Auto) (45-73) % Lymph % (Auto) (20-40) % [place] % (Auto) (2-11) % Eos % (Auto) (0-4) % Baso % (Auto) (0-2) % Lymph # (Auto) (1.2-4.9) X10*3/uL [place] # (Auto) (0.1-1.2) X10*3/uL Eos # (Auto) (0.0-0.4) X10*3/uL Baso # (Auto) (0.0-0.2) X10*3/uL Abs Immat Gran (auto) (0.00-0.03) X10*3/uL Absolute Neuts (auto) (2.0-8.3) x10*3/uL Absolute Nucleated RBC (0.0-0.012) X10*3/uL Nucleated RBC % (auto) (0.0-0.2) /100WBC Sodium (135-145) mmol/L Potassium (3.3-5.1) mmol/L Chloride (96-108) mmol/L Carbon Dioxide (22-29) mmol/L Anion Gap (12-20) BUN (9-16) mg/dL Creatinine (0.5-1.4) mg/dL Estim Creat Clear Calc Estimated GFR POC Glucose (60-115) mg/dL Random Glucose (60-115) mg/dL Calcium (8.4-10.2) mg/dL Magnesium (1.6-2.6) mg/dL Total Bilirubin (0.0-1.0) mg/dL AST (5-31) U/L ALT (0-31) U/L Alkaline Phosphatase (39-117) U/L Total Protein (6.5-8.0) g/dL Albumin (3.5-5.0) g/dL Urine Color Yellow Urine Appearance Clear Urine pH 7.0 (5.0-9.0) Ur Specific [place] 1.020 (1.005-1.025) Urine Protein Trace (Neg-Trace) mg/dL Urine Glucose (UA) >=1000 H (Negative) mg/dL Urine Ketones Negative (Negative) mg/dL Urine Blood Negative (Negative) Urine Nitrite Negative (Negative) Ur Leukocyte Esterase Negative (Negative) Urine RBC 0-2 (0-2) /HPF Urine WBC 0-5 (0-5) /HPF Ur Squamous Epith Cells 0-2 (0-2) /HPF Urine Bacteria None Seen (None Seen) Hyaline Casts 0-2 (0-2) /LPF Influenza Type A (PCR) (Negative) Influenza Type B (PCR) (Negative) RSV RNA Qual (PCR) (Negative) SARS-CoV-2 RNA (RT-PCR) (Negative) Independent Historian Clinical information obtained from an independent historian. History obtained from or confirmed by: EMS (EMS provided additional history and confirmed the history provided by the patient. ) and Other (Patient's daughter provided additional history and confirmed the history provided by the patient. ) Critical Care Time Critical Care Time Critical Care Time: Yes Total Critical Care Time: 47 Attestation: I spent 47 minutes of Critical Care Time with this patient. This does not include time spent on separately reported billable procedures. Discharge Plan Discharge Clinical Impression: Age-related cognitive decline Patient Disposition: Home, Self-Care Instructions: Mild Cognitive Impairment: New Diagnosis (DC) Additional Instructions: Your work up today showed no evidence of an emergent process responsible for your symptoms. Follow up with your primary care provider. Return to the emergency department immediately if your symptoms worsen or if you develop any numbness, tingling, dizziness, shortness of breath, difficulty breathing, chest pain, blurry vision, loss of vision, nausea, vomiting, abdominal pain, fever, chills, back pain, or any other complaints. Please see the information below about our Patient Portal. If you are not yet enrolled in the [facility] Patient Portal, you will receive an enrollment email invitation following your visit to any [facility] setting. You may also self-enroll in the Patient Portal by visiting our website: [email or web address] The following information is required to access the Patient Portal: - Your [facility] Medical Record Number - Your personal home email address (must match what is in your electronic medical record, Registration staff can assist with this) - Name - Date of Capabilities of the Patient Portal: - Message some providers - View upcoming appointments - Access your health summary, medical history, and visit history - View current conditions and allergies - View procedure and lab results - View your medications, including guidelines, side effects, and precautions - Complete pre-appointment questionnaires requested by your provider - Ready summary reports of your office visits and procedures To access the Patient Portal Mobile Kelly, follow these directions: - Search [employer] in the Kelly Store or [employer] Store - Download the Kelly - Search for [facility] - Enter your login/password Prescriptions: New amlodipine 5 mg tablet 5 mg PO DAILY Qty: 7 0RF olanzapine [Zyprexa] 2.5 mg tablet 2.5 mg PO BID Qty: 14 0RF Rx Instructions: Take 1 tab at 3pm and another tab at 9pm No Action amlodipine 5 mg Tablet 5 mg PO DAILY Qty: 90 0RF Protocol: Hold for SBP< HOLD for SBP < : 90 olanzapine 2.5 mg Tablet 2.5 mg PO BID@1500,2100 Qty: 180 0RF amlodipine 5 mg tablet 5 mg PO DAILY Qty: 21 0RF olanzapine 2.5 mg tablet 2.5 mg PO BID Qty: 42 0RF Rx Instructions: @1500 and @2100 Referrals: Beata Mccoy MD [Primary Care Provider] - Print Language: Kyrgyz
[2024-10-19 11:43] VITALS: BP 187/74; PULSE 85; RESP 16; TEMP 36.7; O2SAT 99
[2024-10-19 11:48] LABS: Glucose, Whole Blood 256 mg/dL (60-115)
--- NOTE | 2024-10-19 11:48 | PC.NURSE ---
[facility]. used to live independently until neighbors called elder care d/t increased confusion/wandering the streets. pt was sent here a few weeks ago where she was placed in [facility]. daughter (HCP) concerned for mother's safety but does not want her to be placed somewhere as she states she will lose benefits being her HCP. denies medical complaints. pt unaware on why she is here. upon ED arrival - pt alert and oriented to self. pleasantly confused. calm/cooperative. vss and up to date aside from being hypertensive. pt unaware if she has a hx of HTN. POC obtained displaying 256mg/dL. pt unaware if she is a diabetic. pt denies any medical complaints. labs obtained/sent to lab. on RA w/o difficulty - no sob/wob noted. respirations even/unlabored. plan of care ongoing. call sorensen placed within reach.
[2024-10-19 11:57] LABS: MANUAL DIFF FLAG NO
[2024-10-19 12:02] LABS: Basophils Percent Auto 0.3 % (0-2); Eosinophils Absolute Auto 0.1 X10*3/uL (0.0-0.4); Eosinophils Percent Auto 0.8 % (0-4); Hematocrit 36.7 % (37.0-47.0); Imm Gran Abs Auto 0.03 X10*3/uL (0.00-0.03); Imm Gran Pct Auto 0.3 % (0.0-0.4); Mean Corpuscular HGB Conc 35.4 g/dl (31.0-35.0); Mean Corpuscular Volume 87.6 fL (80.0-98.0); Mean Platelet Volume 9.5 fL (9.4-12.3); Monocytes Absolute Auto 0.4 X10*3/uL (0.1-1.2); Monocytes Percent Auto 3.9 % (2-11); Neutrophils Absolute Auto 8.8 x10*3/uL (2.0-8.3); Neutrophils Percent Auto 84.7 % (45-73); Platelet Count 307 X10*3/uL (160-400); Red Blood Count 4.19 X10*6/uL (4.20-5.50); Red Cell Distribution Width 12.8 % (11.0-16.0); White Blood Count 10.4 X10*3/uL (4.8-10.8)
[2024-10-19 12:23] LABS: Alanine Aminotransferase 22 U/L (0-31); Albumin Level 4.1 g/dL (3.5-5.0); Alkaline Phosphatase 94 U/L (39-117); Anion Gap 13 (12-20); Aspartate Amino Transferase 28 U/L (5-31); Bilirubin Total 1.2 mg/dL (0.0-1.0); Blood Urea Nitrogen 19 mg/dL (9-16); Calcium 9.2 mg/dL (8.4-10.2); Carbon Dioxide 28 mmol/L (22-29); Chloride 104 mmol/L (96-108); Creatinine Clr Calc Pharmacy 68.9; Estimated Glomerular Filt Rate > 60; Glucose Random 263 mg/dL (60-115); Magnesium 1.8 mg/dL (1.6-2.6); Potassium 4.8 mmol/L (3.3-5.1); Sodium 140 mmol/L (135-145); Total Protein 6.8 g/dL (6.5-8.0)
--- NOTE | 2024-10-19 12:55 | PC.NURSE ---
swabs obtained/sent to lab. PT eval being completed at this time. plan of care ongoing.
--- NOTE | 2024-10-19 13:03 | MHC.CM.ED ---
Received case management consult from Julianna HALL. Patient came to the ER due to AMS. Per EMS reports, daughter looking for placement. Patient is well known to CM d/t recent ER and [facility] stay. Patient was d/c'd to daughter's home on 09/26 with resumption of [place] [facility] through [facility]. Patient's daughter was d/c'd from [facility] on 10/18. Jaqueline's boyfriend and grown children were assisting with patient's care. Patient became agitated and was trying to elope the home and was brought to the ER for medical eval. Spoke with Ariadna of [facility]. Ariadna verifies patient has been living with Jaqueline. Jaqueline is working to get patient's home fixed so that Jaqueline, her boyfriend and children can move into patient's home with the patient to help her be able to stay in her home. Today patient refused to take her meds and was exit seeking. Plan is to make sure patient patient does not require medical admission. If not, patient will return to her daughter's home. Patient has a new PCP appointment at [facility] in [place] on Wednesday and then has an appointment with a [facility] program next week. Spoke with patient's daughter/HCP, Jaqueline via telephone at [phone]. Jaqueline verifies looking for medical work up and that patient will return home if no reason to admit. Julianna HALL aware. Continue to monitor for d/c needs.
[2024-10-19 13:37] LABS: Influenza A PCR NEGATIVE (Negative); Influenza B PCR NEGATIVE (Negative); Resp Syncy Virus RNA Qual PCR NEGATIVE (Negative); SARS COV2 PCR INHOUSE NEGATIVE (Negative)
[2024-10-19 13:50] VITALS: BP 183/84; PULSE 95; RESP 16; TEMP 36.2; O2SAT 99
[2024-10-19 14:38] VITALS: BP 188/79; PULSE 94; RESP 16; O2SAT 97
[2024-10-19 14:46] LABS: Appearance Urine Clear; Color Urine Yellow; Glucose Urine UA >=1000 mg/dL (Negative); Leukocyte Esterase Urine Negative (Negative); Nitrite Urine Negative (Negative); UMIC TRIGGER UACC YES; Urine Blood Negative (Negative); Urine Ketones Negative (Negative); Urine Protein Trace mg/dL (Neg-Trace)
--- NOTE | 2024-10-19 14:47 | PC.NURSE ---
ambulatory w/o use of assistive devices to the restroom. strong/steady gait. urine specimen obtained/sent to lab.
[2024-10-19 14:49] LABS: Bacteria Urine None Seen (None Seen); Hyaline Casts Urine 0-2 /LPF (0-2); RBC Urine 0-2 /HPF (0-2); Squamous Epithelial Cell Urine 0-2 /HPF (0-2); WBC Urine 0-5 /HPF (0-5)
--- NOTE | 2024-10-19 15:32 | PC.NURSE ---
HCP called d/t transportation home - per HCP - she is medically unable to drive. receptionist secretary in ED made aware/arranging transportation home. ETA unknown. will update pt when able.
--- OUTSIDE RECORDS SUMMARY | 2024-10-19 17:05 | XMS_ITS | Encounter Summary ---
Author Organization [facility] Address [address] [place] [address] Care Team Providers Care Lawyer Criminal Name Role Phone Ariadna Hubbard MD Primary Care Provider Unavailable Yoel Calles MD Primary Care Provider Unavailable Beata Mccoy MD Primary Care Provider [phone] Encounter Details Date Type Department Care Team Description 12/18/2014 Pt. Non Urgent Medic al Question Adult Medicine - [address] [address] Ariadna Hubbard MD Social History Tobacco Use Types Packs/Day Years Used Date Smoking Tobacco: Former Smokeless Tobacco: Never Comments:quit 15 yrs ago Alcohol Use Standard Drinks/Week Comments Yes 0 (1 standard drink = 0.6 oz pur e alcohol) occas Alcohol Habits Answer Date Recorded How often do you have a drink containing alcohol ? Never 10/03/2021 How many drinks containing a lcohol do you have on a typical day when you are drinking? Not asked How often do you have six or more drinks on one occasion? Never 10/03/2021 Social Isolation Answer Date Recorded In a typical week, how many times do you talk on the phone with family, friends, or neighbors? More than three times a week 10/03/2021 How often do you get togethe r with friends or relatives? More than three times a week 10/03/2021 How often do you attend [facility] or church services? Never 10/03/2021 Do you belong to any clubs o r organizations such as jainism groups, unions, fraternal or athletic groups, or school groups? Yes 10/03/2021 How often do you attend meet ings of the clubs or organizations you belong to? More than 4 times per year 10/03/2021 Are you now , , , , never or living with a partner? 10/03/2021 Physical Activity Answer Date Recorded On average, how many days pe r week do you engage in moderate to strenuous exercise (like walking fast, running, jogging, dancing, swimming, biking, or other activities that cause a light or heavy sweat)? 3 days 10/03/2021 On average, how many minutes do you engage in exercise at this level? 40 min 10/03/2021 Stress Answer Date Recorded Do you feel stress - tense, restless, nervous, or anxious, or unable to sleep at night because your mind is troubled all the time - these days? Only a little 10/03/2021 Financial Resource Strain Answer Date R ecorded How hard is it for you to pa y for the very basics like food, housing, medical care, and heating? Not hard at all 10/03/2021 Intimate Partner Violence Answer Date R ecorded Within the last year, have y ou been afraid of your partner or ex-partner? No 10/03/2021 Within the last year, have y ou been humiliated or emotionally abused in other ways by your partner or ex-partner? No Within the last year, have y ou been kicked, hit, slapped, or otherwise physically hurt by your partner or ex-partner? No 10/03/2021 Within the last year, have y ou been raped or forced to have any kind of sexual activity by your partner or ex-partner? No 10/03/2021 Food Insecurity Answer Date Recorded Within the past 12 months, y ou worried that your food would run out before you got money to buy more. Never true 10/03/2021 Within the past 12 months, t he food you bought just didn't last and you didn't have money to get more. Never true 10/03/2021 Transportation Needs Answer Date Record ed In the past 12 months, has l ack of transportation kept you from medical appointments or from getting medications? No 09/10 In the past 12 months, has l ack of transportation kept you from meetings, work, or getting things needed for daily living? No 10/03/2021 Housing Stability Answer Date Recorded In the last 12 months, was t here a time when you were not able to pay the mortgage or rent on time? No 10/03/2021 In the last 12 months, how many places have you lived? 1 10/03/2021 In the last 12 months, was t here a time when you did not have a steady place to sleep or slept in a penitentiary (including now)? No 10/03/2021 Sex Assigned at Date Recorded Not on file documented as of this encounter Progress Notes * Rachel Fernando L.P.N. - 12/18/2014 8:27 AM EDTFrom: Teodora Johnson To: Ariadna Hubbard MD Sent: 12/18/2014 1:33 AM EDT Subject: Colonoscopy I am sad to say it appears I am due for a colon cancer screening. Is it possible to schedule it sometime this summer? documented in this encounter Plan of Treatment Not on file documented as of this encounter Visit Diagnoses Not on filedocumented in this encounter Care Teams Lawyer Criminal Relationship Specialty Start Date End Date Ariadna Hubbard MD PCP - General 12/09/05 Yoel Calles MD PCP - General Internal Medicine 01/17/2107/13 Beata Mccoy MD [facility] [place] [address] PCP - General Internal Medicine 08/04/21 documented as of this encounter
--- OUTSIDE RECORDS SUMMARY | 2024-10-19 17:05 | XMS_ITS | Encounter Summary ---
Author Organization [facility] Address [address] [place] [address] Care Team Providers Care System Technologist Name Role Phone Ariadna Hubbard MD Primary Care Provider Unavailable Yoel Calles MD Primary Care Provider Unavailable Beata Mccoy MD Primary Care Provider [phone] Encounter Details Date Type Department Care Team Description 04/04/2014 Pt. Non Urgent Medic al Question Adult Medicine - [address] [address] Ariadna Hubbard MD Social History Tobacco Use [...] week 10/03/2021 How often do you attend [facility] or gnosticist services? Never 10/03/2021 Do you belong to any clubs o r organizations such as hoahaoism groups, unions, fraternal or athletic groups, or [...] place to sleep or slept in a assisted (including now)? No 10/03/2021 Sex Assigned at Date Recorded Not on file documented as of this encounter Progress Notes * Rachel Fernando L.P.N. - 04/04/2014 3:38 PM EDTFrom: Teodora Johnson To: Ariadna Hubbard MD Sent: 04/04/2014 3:37 PM EDT Subject: Shweta and Holli Alex Tubbs...I am sending you the girls blood pressures. The nurse decided to do them every day.Today she was out so they had a substitute nurse. Wednesday...Holli 148/88...Shweta 132/78 Wednesday...Holli 156/88...Shweta 130/72 Wednesday...Holli...160/120...Shweta 160/120 I called to question both girls having the same reading and the nurse said they were both the same. documented in this encounter Plan of Treatment Not on file documented as of this encounter Visit Diagnoses Not on filedocumented in this encounter Care Teams System Technologist Relationship Specialty Start Date End Date Ariadna Hubbard MD PCP - General 12/09/05 Yoel Calles MD PCP - General Internal Medicine 01/17/2107/13 Beata Mccoy MD [facility] [place] [address] PCP - General Internal Medicine 08/04/21 documented as of this encounter
--- OUTSIDE RECORDS SUMMARY | 2024-10-19 17:05 | XMS_ITS | Encounter Summary ---
Author Organization [facility] Address [address] [place] [address] Care Team Providers Care Box Maker Wood Name Role Phone Ariadna Hubbard MD Primary Care Provider Unavailable Yoel Calles MD Primary Care Provider Unavailable Beata Mccoy MD Primary Care Provider [phone] Encounter Details Date Type Department Care Team Description 07/15/2015 Pt. Non Urgent Medic al Question Adult Medicine - [address] [address] Ariadna Hubbard MD Social History Tobacco Use [...] week 10/03/2021 How often do you attend [facility] or roman catholic services? Never 10/03/2021 Do you belong to [...] place to sleep or slept in a half-way (including now)? No 10/03/2021 Sex Assigned at Date Recorded Not on file documented as of this encounter Progress Notes * Rachel Fernando L.P.N. - 07/15/2015 4:13 PM ESTFrom: Teodora Johnson To: Ariadna Hubbard MD Sent: 07/15/2015 4:12 PM EST Subject: Shweta and Holli Colinlo...The nurse at [facility] checked their blood pressure today. Shweta's was 162/82...Holli's 142/74. The girls see you on 08/29. documented in this encounter Plan of Treatment Not on file documented as of this encounter Visit Diagnoses Not on filedocumented in this encounter Care Teams Box Maker Wood Relationship Specialty Start Date End Date Ariadna Hubbard MD PCP - General 12/09/05 Yoel Calles MD PCP - General Internal Medicine 01/17/2107/13 Beata Mccoy MD [facility] [place] [address] PCP - General Internal Medicine 08/04/21 documented as of this encounter
--- OUTSIDE RECORDS SUMMARY | 2024-10-19 17:05 | XMS_ITS | Encounter Summary ---
Author Organization [facility] Address [address] [place] [address] Care Team Providers Care Office Worker Name Role Phone Beata Mccoy MD Primary Care Provider [phone] Reason for Visit * Reason Onset Date Comments Form 10/01/2023 Medical clearanc e Encounter Details Date Type Department Care Team Description 10/01/2023 Telephone Adult Medicine - [place] [address] [place] [address] Beata Mccoy MD [address] [place] [address] Form (Medical clearance) Social History Tobacco Use Types Packs/Day Years Used Date Smoking Tobacco: Former Cigarettes 2 0 07/12/1973 - 07/12/1995 Smokeless Tobacco: Never Comments:[id number] Alcohol Use Standard Drinks/Week Comments No 0 (1 standard drink = 0.6 oz pur e alcohol) none since DM diagnosis- 2005 Alcohol Habits Answer Date Recorded How often [...] week 10/03/2021 How often do you attend [facility] or latter day services? Never 10/03/2021 Do you belong to any clubs o r organizations such as samaritan groups, unions, fraternal or athletic groups, or [...] place to sleep or slept in a longterm (including now)? No 10/03/2021 Sex Assigned at Date Recorded Not on file documented as of this encounter Miscellaneous Notes * Telephone Encounter - Quinton Cruz M.A. - 10/01/2023 4:15 PM EDT Incoming fax from 09/14/2023 handed to me today. Medical clearance form from [facility]. Patient needsa PE. Message left for patient to call office back. documented in this encounter Plan of Treatment Not on file documented as of this encounter Visit Diagnoses Not on filedocumented in this encounter Care Teams Office Worker Relationship Specialty Start Date End Date Beata Mccoy MD [facility] [place] [address] PCP - General Internal Medicine 08/04/21 documented as of this encounter
--- OUTSIDE RECORDS SUMMARY | 2024-10-19 17:05 | XMS_ITS | Encounter Summary ---
Author Organization [facility] Address [address] [place] [address] Care Team Providers Care Jazz Musician Name Role Phone Ariadna Hubbard MD Primary Care Provider Unavailable Yoel Calles MD Primary Care Provider Unavailable Beata Mccoy MD Primary Care Provider [phone] Reason for Visit * Reason Onset Date Comments Prior Authorization 08/23/2018 omega-3 acid ethyl esters (LOVAZA) 1 G capsule Encounter Details Date Type Department Care Team Description 08/23/2018 Telephone Adult [facility] - [address] [address] Ariadna Hubbard MD Prior Authorization (omega-3 acid ethyl esters (LOVAZA) 1 G capsule) Social History Tobacco Use Types Packs/Day Years Used Date Smoking Tobacco: Former Cigarettes 2 0 07/12/1973 - 07/12/1995 Smokeless Tobacco: Never Comments:[id number] Alcohol Use Standard Drinks/Week Comments No 0 [...] week 10/03/2021 How often do you attend chur ch or sikhism services? Never 10/03/2021 Do you belong to any clubs o r organizations such as advent groups, unions, fraternal or athletic groups, or [...] place to sleep or slept in a mcc (including now)? No 10/03/2021 Sex Assigned at Date Recorded Not on file documented as of this encounter Miscellaneous Notes * Telephone Encounter - Anabel Maki M.A. - 09/27/2018 1:55 PM EDT Approved on August 23 This approval authorizes your coverage from 05/25/2018 - 08/23/2019 Called [facility], they are aware. Pt picked this up on 09/18/18 * Telephone Encounter - Sharlene Quijano M.A. - 08/23/2018 11:28 AM EST Dx code:hypertriglyceridemia E78.1 Past Rx tried and failed: Medication:lopid 600mg 2014 developed allergy Fenofibrate 145mg 12/01/2013-07/07/2018 Simvastatin 10mg 12/27/2006-03/12/2011 Other pertinent information:prior authorization completed in cover my meds * Telephone Encounter - Regina Awad - 08/23/2018 8:52 AM EST Pre Authorization for Medication-do not complete and send this encounter unless you have the fax from the pharmacy. Is this a Cover My Meds request: Yes -- Ledesma Code [id number] Name of Medication omega-3 acid ethyl esters (LOVAZA) Dose of Medication 1 G capsule What is the RX # from the faxed refill? How does patient take this med? Take 2 Caps by mouth 2 times daily. - Oral What Pharmacy did the fax come from: [facility] fax #: [phone] [employer] Party Information from fax: What Prescription Plan does the patient have? BIN/PCN if applicable: Cardholder ID: Person Code: Relationship Code: Help desk phone: documented in this encounter Plan of Treatment Not on file documented as of this encounter Visit Diagnoses Not on filedocumented in this encounter Care Teams Jazz Musician Relationship Specialty Start Date End Date [place]-Ariadna Singh MD PCP - General 12/09/05 Yoel Calles MD PCP - General Internal Medicine 01/17/2107/13 Beata Mccoy MD [address] [place] [address] PCP - General Internal Medicine 08/04/21 documented as of this encounter
--- OUTSIDE RECORDS SUMMARY | 2024-10-19 17:05 | XMS_ITS | Clinical Summary ---
Author Organization [facility] Address [address] [place] [address] Care Team Providers Care Professor In Family Studies Name Role Phone Beata Mccoy MD Primary Care Provider Allergies Active Allergy Reactions Criticality Noted Date Comments Gemfibrozil Weakness 12/20/2006 Medications metoprolol succinate (TOPROL-XL) 25 mg 24 hr tablet TAKE ONE TABLET BY MOUTH EVERY DAY 3 Active lisinopriL (PRINIVIL,ZESTR IL) 20 mg tablet TAKE ONE TABLET BY MOUTH EVERY DAY 3 Active metFORMIN (GLUCOPHAGE) 1,000 mg tablet TAKE ONE TABLET BY MOUTH TWICE A DAY 3 Active dulaglutide (Trulicity) 0.75 mg/0.5 mL pen injector injection Inject 0.75 mg into the skin every 7 days. 2 Active fenofibrate (TRICOR) 145 mg tablet TAKE ONE TABLET BY MOUTH EVERY DAY 2 Active SITagliptin phosphate (Januvia) 50 mg tablet TAKE ONE TABLET BY MOUTH EVERY DAY 2 Active calcium carbonate/vitam in D3 (CALCIUM 600 + D,3, ORAL) 1 po bid Active amLODIPine (NORVASC) 5 mg tablet Take 1 tablet (5 mg total) by mouth 1 (one) time each day. 30 tablet 5 Active amLODIPine (NORVASC) 5 mg tablet TAKE ONE TABLET BY MOUTH EVERY DAY 3 10/11/19 25 Discontinu ed(Reorder ) Active Problems Problem Noted Date Diagnosed Date Chronic kidney disease (CKD) stage G3a/A1, moderately decreased glomerular filtration rate (GFR) between 45-59 mL/min/1.73 square meter and albuminuria creatinine ratio les* ([facility] [place], [facility] V28) 09/02/2021 Type 2 diabetes mellitus wit h eye manifestations ([facility] [place], [facility] V28) 08/10/2019 Hypertriglyceridemia 12/31/2016 Pilar cysts 11/21/2015 Essential hypertension, benign 11/16/2006 External hemorrhoids 03/01/2006 Overview (08/12/2024): [facility] update Disorder of bone and cartilage 03/01/2006 Overview (08/12/2024): [facility] update. Fosamax since 2011, stopped Encounters Date Type Department Care Team Description 10/10/2024 Telephone Adult Medicine [facility] [address] [place] [address] Shante Camargo [place] [facility] Follow-up ([facility] ( admitted 09/26- discharged 09/27 ) ) 10/09/2024 Telephone Adult Medicine [facility] [address] [place] [address] Beata Mccoy MD Medication from [...] PM EDT Office Visit Adult Medicine - [address] [address] Beata Mccoy MD [address] [place] [address] Health Maintenance Due Date Last Done Comments [...] Cancer Screening: Colonoscopy 01/22/2026 01/23/2016 RSV Immunization Adult Patients (1 - 1-dose 75+ series) 02/28/2027 Cholesterol [...] age to complete this topic Meningococcal B Vaccine Aged Out No l onger eligible based on patient's age to complete [...] * Annual BMP Blood Test (06/18/2022) Pathologist [facility] Annual BMP Blood Test abstracted [facility] Provider HEALTH MAINTENANCE Final Result * (ABNORMAL) Hemoglobin A1c (06/18/2022) [facility] Hemoglobin A1C 8.3(A) <=6.5 % Blood Venous blood specimen / Unknown [facility] Provider LAB BLOOD ORDERABLES Almita l Result * (ABNORMAL) Lipid panel (06/18/2022) [facility] LDL/HDL Ratio 4 0 - 4 Triglycerides 217(A) 0 - 150 mg/dL Cholesterol 185 0 - 200 mg/dL HDL 48 >=40 mg/dL LDL Cholesterol 94 0 - 100 mg/dL Blood Venous blood specimen / Unknown [facility] Provider LAB BLOOD ORDERABLES Almita l Result * Urine Albumin Creatinine Ratio (09/03/2021) [facility] Urine Albumin Creatinine Ratio abstracted [facility] Provider HEALTH MAINTENANCE Final Result * [...] (World Health Organization Fracture Risk Assessment) [facility] Department of Internal Medicine recommends using [...] (World Health Organization Fracture Risk Assessment) [facility] Department of Internal Medicine recommendsusing National [...] PROCEDURES Fi nal Result * Colonoscopy (01/23/2016) Colonoscopy abstracted Anatomical Region Laterality Modality Other Historical Provider HEALTH MAINTENANCE Final Result * Cervical Cancer Screening: HPV (01/08/2014) Pathologist [facility] Cervical Cancer Screening: HPV abstracted, negative Historical Provider HEALTH MAINTENANCE Final Result * Hepatitis C Screening (02/24/2013) Pathologist [facility] Hepatitis C Screening abstracted us Historical Provider HEALTH MAINTENANCE Final Result from Last 3 Months or Most Recently Relevant to Health Maintenance Insurance MEDICARE Care Teams Professor In Family Studies Relationship Specialty Start Date End Date Beata Mccoy MD [address] [place] [address] PCP - General Internal Medicine 08/04/21
--- OUTSIDE RECORDS SUMMARY | 2024-10-19 17:05 | XMS_ITS | Encounter Summary ---
Author Organization [facility] Address [address] [place] [address] Care Team Providers Care Billet Bed Operator Name Role Phone [place]-Ariadna Singh MD Primary Care Provider Unavailable Yoel Calles MD Primary Care Provider Unavailable Beata Mccoy MD Primary Care Provider Encounter Details Date Type Department Care Team Description 11/10/2012 Telephone Ophthalmology-[address] [address] Sonido Melendez, YUNIOR Social History Tobacco Use Types Packs/Day Years [...] 10/03/2021 How often do you attend chur or congregational services? Never 10/03/2021 Do you belong to any clubs o r organizations such as anglican groups, unions, fraternal or athletic groups, or [...] place to sleep or slept in a jail (including now)? No 10/03/2021 Sex Assigned at Date Recorded Not on file documented as of this encounter Miscellaneous Notes * Telephone Encounter - Sonido Melendez, YUNIOR - 11/10/2012 12:03 PM EDT Called pt, left message to call me back to discuss referral to sourcing specialist documented in this encounter Plan of Treatment Not on file documented as of this encounter Visit Diagnoses Not on filedocumented in this encounter Care Teams Billet Bed Operator Relationship Specialty Start Date End Date [place]-Ariadna Singh MD PCP - General 12/09/05 Yoel Calles MD PCP - General Internal Medicine 01/17/2107/13 Beata Mccoy MD [address] [place] [address] PCP - General Internal Medicine 08/04/21 documented as of this encounter
--- OUTSIDE RECORDS SUMMARY | 2024-10-19 17:05 | XMS_ITS | Encounter Summary ---
Author Organization [facility] Address [address] [place] [address] Care Team Providers Care Md Physician Dermatologist Name Role Phone [place]-Ariadna Singh MD Primary Care Provider Unavailable Yoel Calles MD Primary Care Provider Unavailable Beata Mccoy MD Primary Care Provider Encounter Details Date Type Department Care Team Description 06/16/2017 [facility] Medical Records [address] [place] [address] Parish Millan MD Social History Tobacco Use Types Packs/Day Years Used Date Smoking Tobacco: Former Cigarettes 2 0 07/12/1973 - 07/12/1995 Smokeless Tobacco: Never Comments:[id number] Alcohol Use Standard Drinks/Week Comments No 0 [...] week 10/03/2021 How often do you attend [facility] or latter day services? Never 10/03/2021 Do you belong to any clubs o r organizations such as christian groups, unions, fraternal or athletic groups, or [...] place to sleep or slept in a alf (including now)? No 10/03/2021 Sex Assigned at Date Recorded Not on file documented as of this encounter Plan of Treatment Not on file documented as of this encounter Visit Diagnoses Not on filedocumented in this encounter Care Teams Md Physician Dermatologist Relationship Specialty Start Date End Date [place]-Ariadna Singh MD PCP - General 12/09/05 Yoel Calles MD PCP - General Internal Medicine 01/17/2107/13 Beata Mccoy MD [address] [place] [address] PCP - General Internal Medicine 08/04/21 documented as of this encounter
--- OUTSIDE RECORDS SUMMARY | 2024-10-19 17:05 | XMS_ITS | Encounter Summary ---
Author Organization [facility] Address [address] [place] [address] Care Team Providers Care Social Work Case Manager Name Role Phone Beata Mccoy MD Primary Care Provider Reason for Visit * Reason Onset Date Comments Medication 10/09/2024 Encounter Details Date Type Department Care Team ([facility] st Contact Info) Description 10/09/2024 Telephone Adult Medicine - [place] [address] [place] [id number] Beata Mccoy MD [address] [place] [address] Medication Social History Tobacco Use Types Packs/Day [...] on file documented as of this encounter Ordered Prescriptions Prescription Sig Dispense Quantity Refills Last Filled Start Date End Date amLODIPine (NORVASC) 5 mg tablet Take 1 tablet (5 mg total) by mouth 1 (one) time each day. 30 tablet 10/10/2024 documented in this encounter Progress Notes * Shante Camargo MA - 10/11/2024 12:26 PM EDT Noted LVM for Ariadna Butler to CB , we do not have a VR on file for pts daughter. * Beata Mccoy MD - 10/10/2024 5:15 PM EDT Will send in amlodipine 5mg. Will hold off on zyprexa and metformin until seen, * Shante Camargo MA - 10/10/2024 9:41 AM EDT - Called / spoke with Ariadna Butler ( [facility] ) - Ariadna states pt threw out her Amlodipine 5 mg and Zyprexa ( unsure on dose ). Pt has been confused / dementia diagnosis. Pt was admitted to [facility] on 09/26/24 due to 911 call that patient was very confused and was discharged on 09/27/24. Pt uses [facility]. Advised Ariadna that patient has not been [...] ordered by a Maxwell Dwyer MD ( [facility] Zyprexa 2.5 mg - 1 tab BID - filled on 09/29/24 for 90 days ordered by a Maxwell Dwyer MD ( [facility] ) - Requesting notes from [facility] NOTES RECEIVED 10:38am 10/10/24 * Wilfredo Red - 10/09/2024 11:46 AM EDT Ariadna from [facility] has pt who has a dx of dementia through out her amlodipine 5 mg 1x a day and diprexa pescriptions. Pt has an appt 10/23/24 w/, they are wondering if another refill can be placed. If any other questions are needed please call Ariadna: [phone] documented in this encounter Plan of Treatment Upcoming Encounters Date Type Department Care Team (Late st Contact Info) Description 10/23/2024 1:30 PM EDT Office Visit Adult Medicine - [place] [address] [place] [address] Beata Mccoy MD [address] [place] [address] documented as of this encounter Visit Diagnoses Not on filedocumented in this encounter Discontinued Medications Medication Sig Discontinue Reason Start Date End Da te amLODIPine (NORVASC) 5 mg tablet TAKE ONE TABLET BY MOUTH EVERY DAY Reorder 07/30/2022 10/10/2024 documented as of this encounter Care Teams Social Work Case Manager Relationship Specialty Start Date End Date Beata Mccoy MD [address] [facility] [address] [place] [address] PCP - General Internal Medicine 08/04/21 documented as of this encounter
--- OUTSIDE RECORDS SUMMARY | 2024-10-19 17:05 | XMS_ITS | Encounter Summary ---
[facility] Address [address] [place] [address] Care Team Providers Care Assembly Line Robot Operator Name Role Phone Ariadna Hubbard MD Primary Care Provider Unavailable Yoel Calles MD Primary Care Provider Unavailable Beata Mccoy MD Primary Care Provider [phone] Reason for Visit * Reason Onset Date Comments Pre-visit Diabetes Lab Adult Medicine 03/23/201904/06 Encounter Details Date Type Department Care Team Description 03/23/2019 Telephone Adult Medicine - [address] [address] Ariadna Hubbard MD Pre-visit Diabetes Lab Adult Medicine (04/06) Social History Tobacco Use Types Packs/Day Years Used Date Smoking Tobacco: Former Cigarettes 2 0 07/12/1973 - 07/12/1995 Smokeless Tobacco: Never Comments:[email or web address] Alcohol Use Standard Drinks/Week Comments No 0 [...] often do you attend chur ch or congregation services? Never 10/03/2021 Do you belong to any clubs o r organizations such as religious groups, unions, fraternal or athletic groups, or [...] place to sleep or slept in a halfway (including now)? No 10/03/2021 Sex Assigned at Date Recorded Not on file documented as of this encounter Miscellaneous Notes * Telephone Encounter - Sharlene Steward - 03/23/2019 8:57 AM EDT Sent patient an email advising them to complete diabetic lab work at least three days prior to their upcoming appointment. documented in this encounter Plan of Treatment Not on file documented as of this encounter Visit Diagnoses Not on filedocumented in this encounter Care Teams Assembly Line Robot Operator Relationship Specialty Start Date End Date Brethren-Ariadna Singh MD PCP - General 12/09/05 Yoel Calles MD PCP - General Internal Medicine 01/17/2107/13 Beata Mccoy MD [address] [place] [address] PCP - General Internal Medicine 08/04/21 documented as of this encounter
--- OUTSIDE RECORDS SUMMARY | 2024-10-19 17:05 | XMS_ITS | Encounter Summary ---
[facility] Address [address] [place] [address] Care Team Providers Care Shade Cloth Finisher Name Role Phone Ariadna Hubbard MD Primary Care Provider Unavailable Yoel Calles MD Primary Care Provider Unavailable Beata Mccoy MD Primary Care Provider [phone] Reason for Visit * Reason Comments E-prescribe Rx Request Encounter Details Date Type Department Care Team Description 12/05/2020 Refill Adult Medicine [address] [address] Ariadna Hubbard MD E-prescribe Rx Request Social History Tobacco Use Types Packs/Day Years Used Date Smoking Tobacco: Former Cigarettes 2 0 07/12/1973 - 07/12/1995 Smokeless Tobacco: Never Comments:[email or web address] Alcohol Use Standard Drinks/Week Comments No 0 [...] How often do you attend [facility] or yazidi services? Never 10/03/2021 Do you belong to any clubs o r organizations such as buddhist groups, unions, fraternal or athletic groups, or [...] encounter Miscellaneous Notes * Telephone Encounter - Maia Mccoy - 12/05/2020 8:48 AM EDT Patient would like script to be: E-PRESCRIBED/FAXED TO PHARMACY ?? WHEN WAS THE PATIENT'S LAST APPOINTMENT IN ADULT MEDICINE? 10/29/20 ?? WHEN WAS THE LAST TIME THE PATIENT SAW THEIR PCP? Same as above ?? Does patient have an upcoming appointment? Yes 01/28/21 ?? (THE MEDICATION REQUESTED IS ON THE MED LIST ABOVE) All of the medications requested were on the CURRENT MEDS list ?? Did you check the Pharmacy information above?: YES ?? Patient wants: 90 -day supply ?? Is this a mail order prescription request ? NO ?? If the refill is from a FAXED refill request what is the RX # listed on the fax? N/A ?? Patients current insurance carrier is: [place] / [place] / Product Type: MEDICARE [id number] ?? documented in this encounter Plan of Treatment Not on file documented as of this encounter Visit Diagnoses Not on filedocumented in this encounter Care Teams Shade Cloth Finisher Relationship Specialty Start Date End Date Nitro-Ariadna Singh MD PCP - General 12/09/05 Yoel Calles MD PCP - General Internal Medicine 01/17/2107/13 Beata Mccoy MD [address] [place] [address] PCP - General Internal Medicine 08/04/21 documented as of this encounter
--- OUTSIDE RECORDS SUMMARY | 2024-10-19 17:05 | XMS_ITS | Encounter Summary ---
[facility] Address [address] [place] [address] Care Team Providers Care Concrete Pipe Maker Name Role Phone [place]-Ariadna Singh MD Primary Care Provider Unavailable Yoel Calles MD Primary Care Provider Unavailable Beata Mccoy MD Primary Care Provider [phone] Reason for Visit * Reason Comments E-prescribe Rx Request Encounter Details Date Type Department Care Team Description 08/10/2017 Refill Adult Medicine - [address] [address] Garima Nash NP E-prescribe Rx Request Social History Tobacco Use Types Packs/Day Years Used Date Smoking Tobacco: Former Cigarettes 2 0 07/12/1973 - 07/12/1995 Smokeless Tobacco: Never Comments:[email or web address] Alcohol Use Standard Drinks/Week Comments No 0 [...] week 10/03/2021 How often do you attend [facility] or taoism services? Never 10/03/2021 Do you belong to any clubs o r organizations such as roman catholic groups, unions, fraternal or athletic groups, or [...] place to sleep or slept in a residential (including now)? No 10/03/2021 Sex Assigned at Date Recorded Not on file documented as of this encounter Miscellaneous Notes * Telephone Encounter - Luis Denney M.A. - 08/10/2017 2:47 PM EST Faxed to pharmacy * Telephone Encounter - Trish Wolfe - 08/10/2017 10:31 AM EST Patient would like script to be: E-PRESCRIBED/FAXED TO PHARMACY WHEN WAS THE PATIENT'S LAST APPOINTMENT IN ADULT MEDICINE? 06-18-2017 WHEN WAS THE LAST TIME THE PATIENT SAW THEIR PCP? 05-31-2017 Does patient have an upcoming appointment? Yes 09-30-2017 (THE MEDICATION REQUESTED IS ON THE MED LIST ABOVE) All of the medications requested were on the CURRENT MEDS list Did you check the Pharmacy information above?: YES Patient wants: 30 -day supply Is this a mail order prescription request ? NO Patients current insurance carrier is: [place] / [place] / Product Type: MEDICARE [id number] documented in this encounter Plan of Treatment Not on file documented as of this encounter Visit Diagnoses Not on filedocumented in this encounter Care Teams Concrete Pipe Maker Relationship Specialty Start Date End Date [place]-Ariadna Singh MD PCP - General 12/09/05 Yoel Calles MD PCP - General Internal Medicine 01/17/2107/13 Beata Mccoy MD [facility] [place] [address] PCP - General Internal Medicine 08/04/21 documented as of this encounter
--- OUTSIDE RECORDS SUMMARY | 2024-10-19 17:05 | XMS_ITS | Encounter Summary ---
Author [facility] Address [address] [place] [address] Care Team Providers Care Union Carpenter Name Role Phone Ariadna Hubbard MD Primary Care Provider Unavailable Yoel Calles MD Primary Care Provider Unavailable Beata Mccoy MD Primary Care Provider [phone] Reason for Visit * Reason Onset Date Comments Pre-visit Diabetes Lab Adult Medicine 07/17/202007/29 Encounter Details Date Type Department Care Team Description 07/17/2020 Telephone Adult Medicine - [address] [address] Ariadna Hubbard MD Pre-visit Diabetes Lab Adult Medicine (07/29) Social History Tobacco Use Types Packs/Day Years Used Date Smoking Tobacco: Former Cigarettes 2 0 07/12/1973 - 07/12/1995 Smokeless Tobacco: Never Comments:[email or web address] Alcohol Use Standard Drinks/Week Comments No 0 [...] often do you attend chur ch or catholic services? Never 10/03/2021 Do you belong to any clubs o r organizations such as lutheran groups, unions, fraternal or athletic groups, or [...] place to sleep or slept in a [place] [facility] (including now)? No 10/03/2021 Sex Assigned at Date Recorded Not on file documented as of this encounter Miscellaneous Notes * Telephone Encounter - Sharlene Steward - 07/17/2020 8:27 AM EST Sent patient an email advising them to complete diabetic lab work at least three days prior to their upcoming appointment. documented in this encounter Plan of Treatment Not on file documented as of this encounter Visit Diagnoses Not on filedocumented in this encounter Care Teams Union Carpenter Relationship Specialty Start Date End Date Grafton-Ariadna Singh MD PCP - General 12/09/05 Yoel Calles MD PCP - General Internal Medicine 01/17/2107/13 Beata Mccoy MD [facility] [place] [address] PCP - General Internal Medicine 08/04/21 documented as of this encounter
--- OUTSIDE RECORDS SUMMARY | 2024-10-19 17:05 | XMS_ITS | Encounter Summary ---
Author Organization [facility] Address [address] [place] [address] Care Team Providers Care Incising Machine Operator Name Role Phone Ariadna Hubbard MD Primary Care Provider Unavailable Yoel Calles MD Primary Care Provider Unavailable Beata Mccoy MD Primary Care Provider [phone] Reason for Visit * Reason Onset Date Comments Faxed Refill 08/25/2019 Encounter Details Date Type Department Care Team Description 08/25/2019 Refill Adult Medicine - [address] [address] Ariadna Hubbard MD Faxed Refill Social History Tobacco Use Types Packs/Day Years Used Date Smoking Tobacco: Former Cigarettes 2 0 07/12/1973 - 07/12/1995 Smokeless Tobacco: Never Comments:[id number] Alcohol Use Standard Drinks/Week Comments No 0 [...] week 10/03/2021 How often do you attend [facility] or christianity services? Never 10/03/2021 Do you belong to any clubs o r organizations such as restorationism groups, unions, fraternal or athletic groups, or [...] place to sleep or slept in a senior care (including now)? No 10/03/2021 Sex Assigned at Date Recorded Not on file documented as of this encounter Miscellaneous Notes * Telephone Encounter - Ashley Eaton L.P.N. - 08/25/2019 10:59 AM EST Lab Results Component Value Date NA 140 03/30/2019 K 4.2 03/30/2019 CO2 26 03/30/2019 CL 107 03/30/2019 BUN 29 03/30/2019 CREAT 1.07 03/30/2019 GLU 160 03/30/2019 CA 10.0 03/30/2019 GFR 51 03/30/2019 * Telephone Encounter - Fozia Pastrana - 08/25/2019 10:51 AM EST Patient would like script to be: E-PRESCRIBED/FAXED TO PHARMACY WHEN WAS THE PATIENT'S LAST APPOINTMENT IN ADULT MEDICINE? 08/10/19 WHEN WAS THE LAST TIME THE PATIENT SAW THEIR PCP? Same as above Does patient have an upcoming appointment? Yes 12/14/19 (THE MEDICATION REQUESTED IS ON THE MED LIST ABOVE) All of the medications requested were on the CURRENT MEDS list Did you check the Pharmacy information above?: YES Patient wants: 30 -day supply Is this a mail order prescription request ? NO If the refill is from a FAXED refill request what is the RX # listed on the fax? N/A Patients current insurance carrier is: Payor: MEDICARE-[place] [place] / [place] / Product Type: MEDICARE [id number] documented in this encounter Plan of Treatment Not on file documented as of this encounter Visit Diagnoses Not on filedocumented in this encounter Care Teams Incising Machine Operator Relationship Specialty Start Date End Date Malone-Ariadna Singh MD PCP - General 12/09/05 Yoel Calles MD PCP - General Internal Medicine 01/17/2107/13 Beata Mccoy MD [address] [place] [address] PCP - General Internal Medicine 08/04/21 documented as of this encounter
--- OUTSIDE RECORDS SUMMARY | 2024-10-19 17:05 | XMS_ITS | Encounter Summary ---
Author Organization [facility] Address [address] [place] [address] Care Team Providers Care Compliance Associate Name Role Phone [place]-Ariadna Singh MD Primary Care Provider Unavailable Yoel Calles MD Primary Care Provider Unavailable Beata Mccoy MD Primary Care Provider [phone] Reason for Referral * Specialist (Routine) - Authorized/Booked Specialty Diagnoses / Procedures Referred By Sheryl lancaster Referred To Contact Ophthalmology Procedures REFERRAL TO EYE SERVICES Sonido Melendez, YUNIOR [address] [place] [address] Carlo Singh MD [address] [place] [id number] Referral ID Status Reason Start Date Expiration Date V isits Requested Visits Authorized SEE REVIEW 11/14/12 Authorized/ Booked 11/10/2012 02/10/2013 1 1 Encounter Details Date Type Department Care Team Description 11/10/2012 Orders Only Ophthalmology-[address] [address] Sonido Melendez, OD Social History Tobacco Use Types Packs/Day Years [...] How often do you attend chur or sabianism services? Never 10/03/2021 Do you belong to any clubs o r organizations such as gnosticism groups, unions, fraternal or athletic groups, or [...] to sleep or slept in a senior living (including now)? No 10/03/2021 Sex Assigned at Date Recorded Not on file documented as of this encounter Plan of Treatment Not on file documented as of this encounter Visit Diagnoses Not on filedocumented in this encounter Care Teams Compliance Associate Relationship Specialty Start Date End Date Arley-Ariadna Singh MD PCP - General 12/09/05 Yoel Calles MD PCP - General Internal Medicine 01/17/2107/13 Beata Mccoy MD [address] [place] [address] PCP - General Internal Medicine 08/04/21 documented as of this encounter
--- OUTSIDE RECORDS SUMMARY | 2024-10-19 17:05 | XMS_ITS | Encounter Summary ---
Author Organization [facility] Address [address] [place] [address] Care Team Providers Care Rotary Shear Operator Name Role Phone Beata Mccoy MD Primary Care Provider [phone] Reason for Visit * Reason Comments E-prescribe Rx Request Encounter Details Date Type Department Care Team Description 08/27/2021 Refill Adult Medicine [address] [address] Arley-Ariadna Singh MD E-prescribe Rx Request Social History Tobacco Use Types Packs/Day Years Used Date Smoking Tobacco: Former Cigarettes 2 0 07/12/1973 - 07/12/1995 Smokeless Tobacco: Never Comments:[id number] Alcohol Use Standard Drinks/Week Comments No 0 (1 standard drink = 0.6 oz pur e alcohol) none since DM diagnosis- 2006 Alcohol Habits Answer Date Recorded How often [...] week 10/03/2021 How often do you attend [facility] or amish services? Never 10/03/2021 Do you belong to any clubs o r organizations such as catholic groups, unions, fraternal or athletic groups, [...] place to sleep or slept in a [facility] (including now)? No 10/03/2021 Sex Assigned at Date Recorded Not on file documented as of this encounter Miscellaneous Notes * Telephone Encounter - Asha Bennett - 08/27/2021 2:05 PM EST REFILL LAST OFFICE VIST: 05/13/21 LAST PCP VISIT NEXT OFFICE VISIT: 09/02/21 documented in this encounter Plan of Treatment Not on file documented as of this encounter Visit Diagnoses Not on filedocumented in this encounter Care Teams Rotary Shear Operator Relationship Specialty Start Date End Date Beata Mccoy MD [facility] [place] [address] PCP - General Internal Medicine 08/04/21 documented as of this encounter
[2024-10-19 17:29] VITALS: BP 171/79; PULSE 87; RESP 16; TEMP 36.7; O2SAT 98
--- NOTE | 2024-10-19 17:44 | PC.NURSE ---
pt continues to wait for [facility] transportation services. pt remains calm/cooperative. vitals remain stable aside from being hypertensive. respirations even/unlabored. plan of care ongoing. call sorensen placed within reach.
[2024-10-19 18:09] VITALS: BP 171/79; PULSE 87; RESP 16; TEMP 36.7; O2SAT 98
--- NOTE | 2024-10-19 18:09 | PC.NURSE ---
pt leaving via BLS transportation at this time.
== END 2024-10-19 18:10 | disposition home or self-care (01) ==
PROVIDERS: Physician Assistant Medical; Emergency Provider Emergency Medicine; PCP Family Medicine
DX: R41.81 Age-related cognitive decline (principal); R41.82 Altered mental status, unspecified; Z03.818 Encounter for observation for suspected exposure to other biological agents ruled out; Z79.899 Other long term (current) drug therapy
CPT/HCPCS: 0241U; 36415; 80053; 81001; 82947; 83735; 85025; 99284

== ENCOUNTER 2024-11-14 16:04 | Emergency (ER) | payer MEDICARE, SELFPAY ==
--- NOTE | 2024-11-14 | ECG_ITS ---
Test Reason : SOB Blood Pressure : */* mmHG Vent. Rate : 66 BPM Atrial Rate : 66 BPM P-R Int : 156 ms QRS Dur : 92 ms QT Int : 420 ms P-R-T Axes : 76 52 67 degrees QTcB Int : 440 ms Normal sinus rhythm Minimal voltage criteria for LVH, may be normal variant ( Sokolow-Lanier ) Cannot rule out Anterior infarct (cited on or before 08-Nov-2020) Abnormal ECG When compared with ECG of 25-Sep-2024 04:47, ST elevation now present in Anterior leads T wave amplitude has increased in Anterior leads Referred By: Veronica Chase Electronically Signed By: MAGALYS MENDEZ
--- NOTE | ~2024-11-14 | XR_ITS ---
EXAMINATION: XR CHEST CLINICAL INFORMATION: sob COMPARISON: 11/21/2024. TECHNIQUE: Frontal view of the chest was obtained. FINDINGS: The cardiac, hilar, and mediastinal contours are normal. Aortic mural calcification. The lungs are diffusely hyperaerated, however clear bilaterally. No pneumothorax or effusion. No focal osseous or soft tissue abnormality. XR/XR chest 1V IMPRESSION: No active pulmonary disease. Electronically signed by: Ad Johnson MD 11/14/2024 04:47 PM EDT
[2024-11-14 16:15] VITALS: BP 144/97; PULSE 77; RESP 18; TEMP 37.7; O2SAT 96
--- NOTE | 2024-11-14 16:35 | PC.NURSE ---
biba from home c/o increased sob x 2 months. pt reports worsening sx x this am. denies hx asthma/COPD/CHF/productive cough/fevers/chills. per pt's daughter, daughter reports increase in AMS. no definitive dx of dementia. upon ED arrival - pt alert and oriented to self - otherwise pleasantly confused/disoriented. vss and up to date. nsr on the cafeteria monitor. pt on RA w/o difficulty - no sob/wob noted. pt speaking in full/clear sentences w/o difficulty. respirations even/unlabored. 20gIV in the left forearm via EMS - patent/intact. ekg performed. labs obtained/sent to lab by [employer]. pt pending CXR to be completed at this time. chair alarm placed for safety precautions. plan of care ongoing. call sorensen placed within reach.
[2024-11-14 16:39] LABS: MANUAL DIFF FLAG NO
[2024-11-14 16:41] LABS: Basophils Percent Auto 0.3 % (0-2); Eosinophils Absolute Auto 0.1 X10*3/uL (0.0-0.4); Eosinophils Percent Auto 0.8 % (0-4); Hemoglobin 12.1 g/dl (12.0-16.0); Imm Gran Abs Auto 0.02 X10*3/uL (0.00-0.03); Imm Gran Pct Auto 0.2 % (0.0-0.4); Lymphocytes Absolute Auto 1.6 X10*3/uL (1.2-4.9); Mean Corpuscular HGB Conc 36.7 g/dl (31.0-35.0); Mean Corpuscular Hemoglobin 31.2 pg (27.0-33.0); Mean Corpuscular Volume 85.1 fL (80.0-98.0); Mean Platelet Volume 9.6 fL (9.4-12.3); Monocytes Absolute Auto 0.5 X10*3/uL (0.1-1.2); Monocytes Percent Auto 5.7 % (2-11); Neutrophils Absolute Auto 6.9 x10*3/uL (2.0-8.3); Platelet Count 260 X10*3/uL (160-400); Red Blood Count 3.88 X10*6/uL (4.20-5.50); White Blood Count 9.1 X10*3/uL (4.8-10.8)
[2024-11-14 17:01] LABS: Alanine Aminotransferase 8 U/L (0-31); Albumin Level 3.9 g/dL (3.5-5.0); Anion Gap 12 (12-20); Aspartate Amino Transferase 16 U/L (5-31); Bilirubin Total 1.5 mg/dL (0.0-1.0); Blood Urea Nitrogen 27 mg/dL (9-16); Calcium 8.8 mg/dL (8.4-10.2); Carbon Dioxide 27 mmol/L (22-29); Chloride 107 mmol/L (96-108); Creatinine Clr Calc Pharmacy 46.9; Estimated Glomerular Filt Rate 55; Glucose Random 184 mg/dL (60-115); Magnesium 1.8 mg/dL (1.6-2.6); Potassium 3.6 mmol/L (3.3-5.1); Sodium 142 mmol/L (135-145); Total Protein 6.2 g/dL (6.5-8.0)
--- NOTE | 2024-11-14 17:05 | ED_ITS ---
HPI - General Adult General Chief complaint: Altered Mental Status Stated complaint: ams, ? sepsis, sob Time Seen by Provider: 11/14/24 16:11 Source: patient, family, EMS, RN notes reviewed and old records reviewed Mode of arrival: EMS History of Present Illness ED Provider: Veronica Chase PA-C HPI narrative: 74-year-old female with a past medical history HTN, diabetes, PACs, dementia, presenting to the ED via EMS from home complaining of SOB x [employer]. History obtained from daughter who states patient has intermittent episodes of shortness of breath x months, states she noted patient to be short of breath [employer] and asked if patient wanted to come to the hospital and she did not declined so she called 911. States at present patient appears at baseline. Patient denies SOB, CP, cough, abdominal pain, nausea, vomiting. Daughter denies any altered mental status, falls Related Data Previous Rx's ?Medication ?Instructions ?Recorded amlodipine 5 mg tablet 5 mg PO DAILY #90 tabs 09/26/24 olanzapine 2.5 mg tablet 2.5 mg PO BID@1500,2100 #180 tabs 09/26/24 amlodipine 5 mg tablet 5 mg PO DAILY #21 tabs 10/10/24 olanzapine 2.5 mg tablet 2.5 mg PO BID #42 tabs 10/10/24 amlodipine 5 mg tablet 5 mg PO DAILY #7 tabs 10/19/24 olanzapine 2.5 mg tablet (Zyprexa) 2.5 mg PO BID #14 tabs 10/19/24 Allergies Allergy/AdvReac Type Severity Reaction Status Date / Time gemfibrozil [GEMFIBROZIL] Allergy Unknown DIZZINESS/HIVES, Verified 11/14/24 16:21 dizziness ondansetron [From Zofran] AdvReac Unresponsiv Verified 11/14/24 16:21 e Review of Systems 2 Review of Systems: Yes all other systems are reviewed and are negative Constitutional: Constitutional: Reports as per [facility] Past Medical History Attestation statement: The following information was validated with the patient. Source: old records reviewed Medical History HTN (hypertension) Premature atrial contractions Diabetes Palpitations Family History Family History Father Cancer Mother Cancer Social History Social History Comment: sitter for safety Patient Tobacco Use Status: Never used Tobacco Smoked in Last 30 Days: No Use of substances other than those prescribed or required for medical reasons: No Advance Directives: Yes Advance Directives Information Provided: No Advance Directives on File: No Do you have a plan to hurt others: No Plan service: No Physical Exam ED Vital Signs: Vital Signs - 24 hr 11/14/24 16:15 11/14/24 17:41 11/14/24 20:09 Temperature 99.8 F 98.5 F 98.9 F Pulse Rate 77 78 66 Respiratory Rate 18 18 16 Blood Pressure 144/97 H 166/77 H 172/88 H Pulse Oximetry 96 97 100 Oxygen Delivery Method Room Air Room Air Room Air BMI result Body Mass Index 20.0 Const Other: Baseline dementia General: cooperative and no acute distress Orientation/consciousness: oriented to person and oriented to time Limitations: no limitations HENMT Head: Yes normal to inspection and Yes atraumatic Ears: hearing grossly normal bilaterally General nose exam: Normal external nose present Face and sinus: Yes normal facial exam Eyes General: appearance normal, both eyes and all related structures EOM: EOMs intact bilaterally Neck Neck: Yes normal visual inspection and Yes no meningeal signs Resp Effort & Inspection: normal respiratory effort and no respiratory distress Auscultation: clear to auscultation bilaterally, no crackles, no rales, no rhonchi and no wheezes Cardio Rate: regular rate Heart sounds: S1 normal heart sound present and S2 normal heart sound present GI Inspection: Yes normal to inspection Palpation (GI): Soft to palpation, nontender, no guarding and not rigid Skin Rashes: no rashes Wounds: no wounds Neuro General: oriented to person, oriented to time, tone normal, moves all extremities, no meningeal signs, no focal motor deficits and CN's II-XI intact bilaterally Cranial nerves: Yes CN's II-XII intact bilaterally Gait exam (Neuro): Normal gait present Extrem General: Yes normal to inspection, Yes no pedal edema and Yes no calf tenderness Course Course Course Narrative: -182--labs reassuring. BUN chronically elevated. Total bilirubin chronically elevated. Initial troponin negative > will obtain repeat -viral testing negative XR chest 1V IMPRESSION: No active pulmonary disease. -1900--ED care transferred to [facility] pending repeat troponin, viral testing, UA. Dispo per results -1838--UA with WBCs however contaminated. Will await culture prior to initiating antibiotics. No reported AMS. Reevaluation(s) Reevaluation #1: Patient's repeat troponin negative, she is ultimately stable for discharge Time: 19:35 Medications Administered Discontinued Medications Generic Name Dose Route Start Last Admin Trade Name Freq PRN Reason Stop Dose Admin Sodium Chloride 1,000 mls @ 999 mls/hr 11/14/24 18:15 11/14/24 18:16 Ns IV 11/14/24 19:15 999 mls/hr .Q1H1M DEVONTE Administration Medical Decision Making Medical Decision Making MDM Narrative: 74-year-old female with a past medical history HTN, diabetes, PACs, dementia, presenting to the ED via EMS from home complaining of SOB x W[employer] B[employer]ER HAND. On exam vital signs stable, NAD, nontoxic appearing, A&O x2 with baseline known dementia, denies SOB or symptoms at present. At baseline mentation per daughter. Lungs CTA, no focal deficits. Concern for viral illness vs pneumonia vs atypical ACS. Low suspicion for encephalopathy, ICH, trauma or fractures with patient at baseline mentation. Rule out metabolic and infectious etiologies Plan: EKG, labs, UA, CXR, viral testing, anticipated discharge Please refer to course for remaining clinical decision making, interpretation of labs/imaging results, and discussions with consultants and/or family members. Differential Diagnosis Differential Diagnoses: The differential diagnosis associated with the presentation includes As above Admission/Observation Consideration of admission/observation: Escalation of care including admission/observation considered Lab Data [facility] Lab Attestation statement: I reviewed the patient's lab results. 11/14/24 16:35 11/14/24 16:35 Labs: Lab Results 11/14/24 11/14/24 11/14/24 Range/Units 16:35 18:17 18:46 WBC 9.1 (4.8-10.8) X10*3/uL RBC 3.88 L (4.20-5.50) X10*6/uL Hgb 12.1 (12.0-16.0) g/dl Hct 33.0 L (37.0-47.0) % MCV 85.1 (80.0-98.0) fL MCH 31.2 (27.0-33.0) pg MCHC 36.7 H (31.0-35.0) g/dl RDW 13.0 (11.0-16.0) % Plt Count 260 (160-400) X10*3/uL MPV 9.6 (9.4-12.3) fL Immature Gran % (Auto) 0.2 (0.0-0.4) % Neut % (Auto) 76.0 H (45-73) % Lymph % (Auto) 17.0 L (20-40) % [place] % (Auto) 5.7 (2-11) % Eos % (Auto) 0.8 (0-4) % Baso % (Auto) 0.3 (0-2) % Lymph # (Auto) 1.6 (1.2-4.9) X10*3/uL [place] # (Auto) 0.5 (0.1-1.2) X10*3/uL Eos # (Auto) 0.1 (0.0-0.4) X10*3/uL Baso # (Auto) 0.0 (0.0-0.2) X10*3/uL Abs Immat Gran (auto) 0.02 (0.00-0.03) X10*3/uL Absolute Neuts (auto) 6.9 (2.0-8.3) x10*3/uL Absolute Nucleated RBC 0.000 (0.0-0.012) X10*3/uL Nucleated RBC % (auto) 0.0 (0.0-0.2) /100WBC Sodium 142 (135-145) mmol/L Potassium 3.6 D (3.3-5.1) mmol/L Chloride 107 (96-108) mmol/L Carbon Dioxide 27 (22-29) mmol/L Anion Gap 12 (12-20) BUN 27 H (9-16) mg/dL Creatinine 0.99 (0.5-1.4) mg/dL Estim Creat Clear Calc 46.9 Estimated GFR 55 Random Glucose 184 H (60-115) mg/dL Calcium 8.8 (8.4-10.2) mg/dL Magnesium 1.8 (1.6-2.6) mg/dL Total Bilirubin 1.5 H (0.0-1.0) mg/dL AST 16 (5-31) U/L ALT 8 (0-31) U/L Alkaline Phosphatase 77 (39-117) U/L Troponin I High Sens 4.7 D 3.9 (<3.5-17.0) ng/L B-Natriuretic Peptide 61 (<100) pg/mL Total Protein 6.2 L (6.5-8.0) g/dL Albumin 3.9 (3.5-5.0) g/dL Urine Color Yellow Urine Appearance Clear Urine pH 6.5 (5.0-9.0) Ur Specific [place] 1.025 (1.005-1.025) Urine Protein 30 (1+) H (Neg-Trace) mg/dL Urine Glucose (UA) 250 H (Negative) mg/dL Urine Ketones Trace (Negative) mg/dL Urine Blood Negative (Negative) Urine Nitrite Negative (Negative) Ur Leukocyte Esterase Small (1+) H (Negative) Urine RBC 0-2 (0-2) /HPF Urine WBC 11-20 H (0-5) /HPF Ur Squamous Epith Cells 6-10 (0-2) /HPF Urine Bacteria None Seen (None Seen) Hyaline Casts 0-2 (0-2) /LPF Influenza Type A (PCR) NEGATIVE (Negative) Influenza Type B (PCR) NEGATIVE (Negative) RSV RNA Qual (PCR) NEGATIVE (Negative) SARS-CoV-2 RNA (RT-PCR) NEGATIVE (Negative) Independent Interpretation I performed an independent interpretation of an: EKG and Plain X-Ray Radiology Impression Discussion of test interpretation with radiology: I have reviewed the radiologist's reading. Independent Historian Clinical information obtained from an independent historian. History obtained from or confirmed by: EMS and Other (daughter) External Record Review External record reviewed: Inpatient record, Office record, Outpatient record, Prior outpatient labs, Prior outpatient radiology, Primary care record and Outside ED record Tests considered The following testing was considered but not selected: As above Prescription Management I considered prescription management with: Other Chronic Conditions Patient?s care impacted by: Other Social Determinants Patient?s care significantly limited by Social Determinants of Health including: Problems related to primary support group and Other Social Determinant of Health Attestation Attending Attestation: I was personally present and available for consultation in the ED. I have reviewed everything on the chart that is available and agree with the documentation provided by the VEL including discussion about the assessment, treatment plan and discussion. Based on medical record the care appears appropriate. Partha Avalos MD [facility] Emergency Medicine Discharge Plan Discharge Clinical Impression: Shortness of breath Patient Disposition: Home, Self-Care Instructions: Dyspnea (ED) Additional Instructions: Your blood work and x-ray are reassuring Please have close follow up with her primary care doctor Continue home prescribed medications If symptoms persist or worsen/become more constant, you constant worsening chest pain, shortness of breath, fever, altered mental status return to the ED Prescriptions: No Action amlodipine 5 mg Tablet 5 mg PO DAILY Qty: 90 0RF Protocol: Hold for SBP< HOLD for SBP < : 90 olanzapine 2.5 mg Tablet 2.5 mg PO BID@1500,2100 Qty: 180 0RF amlodipine 5 mg tablet 5 mg PO DAILY Qty: 7 0RF olanzapine [Zyprexa] 2.5 mg tablet 2.5 mg PO BID Qty: 14 0RF Rx Instructions: Take 1 tab at 3pm and another tab at 9pm amlodipine 5 mg tablet 5 mg PO DAILY Qty: 21 0RF olanzapine 2.5 mg tablet 2.5 mg PO BID Qty: 42 0RF Rx Instructions: @1500 and @2100 Referrals: Beata Mccoy MD [Primary Care Provider] - 3 days Print Language: American
--- OUTSIDE RECORDS SUMMARY | 2024-11-14 17:06 | XMS_ITS | Clinical Summary ---
Author Organization [facility] Address [address] [place] [address] Care Team Providers Care [employer] Name Role Phone Beata Mccoy MD Primary Care Provider Allergies Active Allergy Reactions Criticality Noted Date Comments Gemfibrozil Weakness 12/20/2006 Medications OLANZapine (ZyPREXA ZYDIS) 5 mg disintegrating tablet Take 1 tablet (5 mg total) by mouth 2 (two) times a day. Active dulaglutide (Trulicity) 0.75 mg/0.5 mL pen injector injectionIndicatio ns:Type 2 diabetes mellitus with other ophthalmic complication, without long-term current use of insulin ([facility] V24, [facility] V28) Inject 0.5 mL (0.75 mg total) under the skin 1 (one) time per week. 2 mL 2 5 02/02/20 25 Active metFORMIN (GLUCOPHAGE) 1,000 mg tablet Take 1 tablet (1,000 mg total) by mouth 2 (two) times a day. 180 each 1 5 05/02/20 25 Active amLODIPine (NORVASC) 5 mg tablet Take 1 tablet (5 mg total) by mouth 1 (one) time each day. 90 each 1 5 05/02/20 25 Active fenofibrate (TRICOR) 145 mg tablet Take 1 tablet (145 mg total) by mouth 1 (one) time each day. 90 each 1 5 05/02/20 25 Active metoprolol succinate (TOPROL-XL) 25 mg 24 hr tablet TAKE ONE TABLET BY MOUTH EVERY DAY 3 11/04/19 25 Discontinu ed(Therapy completed) lisinopriL (PRINIVIL,ZESTRIL) 20 mg tablet TAKE ONE TABLET BY MOUTH EVERY DAY 3 11/04/19 25 Discontinu ed(Therapy completed) metFORMIN (GLUCOPHAGE) 1,000 mg tablet TAKE ONE TABLET BY MOUTH TWICE A DAY 3 11/04/19 25 Discontinu ed(Therapy completed) dulaglutide (Trulicity) 0.75 mg/0.5 mL pen injector injection Inject 0.75 mg into the skin every 7 days. 2 11/04/19 25 Discontinu ed(Therapy completed) fenofibrate (TRICOR) 145 mg tablet TAKE ONE TABLET BY MOUTH EVERY DAY 2 11/04/19 25 Discontinu ed(Therapy completed) SITagliptin phosphate (Januvia) 50 mg tablet TAKE ONE TABLET BY MOUTH EVERY DAY 2 11/04/19 25 Discontinu ed(Therapy completed) calcium carbonate/vitamin D3 (CALCIUM 600 + D,3, ORAL) 1 po bid 11/04/19 25 Discontinu ed(Therapy completed) amLODIPine (NORVASC) 5 mg tablet Take 1 tablet (5 mg total) by mouth 1 (one) time each day. 30 tablet 5 11/04/19 Discontinu ed(Reorder ) Active Problems Problem Noted Date Diagnosed Date Chronic kidney disease (CKD) stage G3a/A1, moderately decreased glomerular filtration rate (GFR) between 45-59 mL/min/1.73 square meter and albuminuria creatinine ratio les* ([facility] V24, [facility] V28) 09/02/2021 Type 2 diabetes mellitus wit h eye manifestations ([facility] V24, [facility] V28) 08/10/2019 Hypertriglyceridemia 12/31/2016 Pilar cysts 11/21/2015 Essential hypertension, benign 11/16/2006 External hemorrhoids 03/01/2006 Overview (08/12/2024): O update Disorder of bone and cartilage 03/01/2006 Overview (08/12/2024): IMO update. Fosamax since 2011, stopped Encounters Date Type Department Care Team Description 11/03/2024 1:00 PM EDT Office Visit Adult [address] [phone] Juan Manrique PA Type 2 diabetes mellitus with other ophthalmic complication, without long-term current use of insulin ([facility] V24, [facility] V28) (Primary Dx); Chronic kidney disease (CKD) stage G3a/A1, moderately decreased glomerular filtration rate (GFR) between 45-59 mL/min/1.73 square meter and albuminuria creatinine ratio les* ([facility] V24, [facility] V28); Essential hypertension, benign; Cognitive decline 10/10/2024 Telephone Adult [address] [phone] Shante Camargo [place] Hospital Follow-up ([facility] ( admitted 09/26- discharged 09/27 ) ) 10/09/2024 Telephone Adult [address] [phone] Beata Mccoy MD Medication from Last 3 [...] Sign Reading Time Taken Comments Blood Pressure 127/62 11/03/2024 1:02 PM EDT Pulse 77 11/03/2024 1:02 PM EDT Temperature - - Respiratory Rate - - Oxygen Saturation - - Inhaled Oxygen Concentration - - Weight 54.7 kg (120 lb 9.6 oz) 11/03/2024 1:02 P M EDT Height 167.6 cm (5' 6 ) 11/03/2024 1:02 PM EDT Body Mass Index 19.47 11/03/2024 1:02 PM EDT Plan of Treatment Upcoming Encounters Date Type Department Care Team (Late st Contact Info) Description 11/23/2024 3:00 PM EDT Office Visit Adult Medicine - [address] [phone] Beata Mccoy MD [address] [place] [address] Health Maintenance Due Date Last Done Comments [...] Test (HGBA1C) 12/17/2022 06/18/2022 DTaP,Tdap,and Td Vaccines (3 - Td or Tdap) 05/25/2023 05/25/2013, 09/13/2003 Diabetes: Annual GFR (Glomerular Filtration Rate) 06/18/2023 06/18/2022 Hypertension/CHF/CAD Annual BMP Blood Test 06/18/2023 06/18/2022 COVID-19 Vaccine ( season) 2024 07/23/2021, 07/12/2021, 09/01/2020, Additional history exists Influenza Vaccine (Season Ended) 2025 04/25/2022, 07/21/2021, [...] Test (06/18/2022) Pathologist [facility] Annual BMP Blood Test abstracted [facility] Provider HEALTH MAINTENANCE Final Result * (ABNORMAL) Hemoglobin A1c (06/18/2022) [facility] Hemoglobin A1C 8.3(A) <=6.5 % Blood Venous blood specimen / Unknown [facility] Provider LAB BLOOD ORDERABLES Almita l Result * (ABNORMAL) Lipid panel (06/18/2022) [facility] LDL/HDL Ratio 4 0 - 4 Triglycerides 217(A) 0 - 150 mg/dL Cholesterol 185 0 - 200 mg/dL HDL 48 >=40 mg/dL LDL Cholesterol 94 0 - 100 mg/dL Blood Venous blood specimen / Unknown [facility] Provider LAB BLOOD ORDERABLES Almita l Result * Urine Albumin Creatinine Ratio (09/03/2021) Pathologist [facility] Urine Albumin Creatinine Ratio abstracted [facility] Provider HEALTH MAINTENANCE Final Result * DXA [...] PROCEDURES Fi nal Result * Colonoscopy (01/23/2016) Pathologist [facility] Colonoscopy abstracted Anatomical Region Laterality Modality Other Result [facility] [place] HEALTH MAINTENANCE Final Result * Cervical Cancer Screening: HPV (01/08/2014) [facility] Cervical Cancer Screening: HPV abstracted, negative Historical Provider HEALTH MAINTENANCE Final Result * Hepatitis C Screening (02/24/2013) Pathologist [facility] Hepatitis C Screening abstracted us Historical Provider HEALTH MAINTENANCE Final Result from Last 3 Months or Most Recently Relevant to Health Maintenance Insurance MEDICARE Care Teams [employer] Relationship Specialty Start Date End Date Beata Mccoy MD [address] [place] [phone] PCP - General Internal Medicine 08/04/21
[2024-11-14 17:09] LABS: Troponin-I High Sensitivity 4.7 ng/L (<3.5-17.0)
[2024-11-14 17:13] LABS: B Type Natriuretic Peptide 61 pg/mL (<100)
[2024-11-14 17:30] LABS: Alkaline Phosphatase 77 U/L (39-117)
[2024-11-14 17:41] VITALS: BP 166/77; PULSE 78; RESP 18; TEMP 36.9; O2SAT 97
--- NOTE | 2024-11-14 17:52 | PC.NURSE ---
pt ambulatory to the restroom w/o any assistive devices. strong/steady gait noted. pt attempted to urinate w/ no success. pt assisted back into bed/placed on the [place] displaying nsr. bladder scan performed displaying 0ml. no interventions needed at this time. pt otherwise remains on RA w/o difficulty. no sob/wob noted. respirations even/unlabored. chair alarm remains in place for safety precautions. plan of care ongoing. call sorensen placed within reach.
[2024-11-14 18:15] LABS: Influenza A PCR NEGATIVE (Negative); Influenza B PCR NEGATIVE (Negative); Resp Syncy Virus RNA Qual PCR NEGATIVE (Negative); SARS COV2 PCR INHOUSE NEGATIVE (Negative)
[2024-11-14] MEDS: 0.9 % Sodium Chloride 1,000 ML 999 ML IV (18:16)
[2024-11-14 18:23] LABS: Appearance Urine Clear; Color Urine Yellow; Glucose Urine UA 250 mg/dL (Negative); Leukocyte Esterase Urine Small (1+) (Negative); Nitrite Urine Negative (Negative); PH 6.5 (5.0-9.0); Specific Gravity - Urine 1.025 (1.005-1.025); UMIC TRIGGER UACC YES; Urine Blood Negative (Negative); Urine Ketones Trace mg/dL (Negative); Urine Protein 30 (1+) mg/dL (Neg-Trace)
[2024-11-14 18:31] LABS: Bacteria Urine None Seen (None Seen); Hyaline Casts Urine 0-2 /LPF (0-2); RBC Urine 0-2 /HPF (0-2); UACC Culture Trigger YES
[2024-11-14 19:20] LABS: Troponin-I High Sensitivity 3.9 ng/L (<3.5-17.0)
[2024-11-14 20:09] VITALS: BP 172/88; PULSE 66; RESP 16; TEMP 37.2; O2SAT 100
[2024-11-14 20:43] VITALS: BP 172/88; PULSE 66; RESP 16; TEMP 37.2; O2SAT 100
== END 2024-11-14 20:44 | disposition home or self-care (01) ==
PROVIDERS: Physician Assistant; Emergency Provider Emergency Medicine; PCP Family Medicine
DX: R06.02 Shortness of breath (principal); E11.9 Type 2 diabetes mellitus without complications; I10 Essential (primary) hypertension; Z03.818 Encounter for observation for suspected exposure to other biological agents ruled out; G30.9 Alzheimer's disease, unspecified; F02.80 Dementia in other diseases classified elsewhere, unspecified severity, without behavioral disturbance, psychotic disturbance, mood disturbance, and anxiety; Z79.899 Other long term (current) drug therapy
CPT/HCPCS: 0241U; 36415; 71045; 80053; 81001; 83735; 83880; 84484; 85025; 87086; 93005; 99285

== ENCOUNTER → 2024-11-14 16:27 | Outpatient (BNV) | payer MEDICARE, SELFPAY | PROVIDERS: Emergency Provider Emergency Medicine; PCP Family Medicine; Visit Provider Internal Medicine | DX: R06.02 Shortness of breath (principal) | CPT/HCPCS: 93010 ==

== ENCOUNTER → 2024-11-14 16:30 | Outpatient (BNV) | payer MEDICARE, SELFPAY | PROVIDERS: PCP Family Medicine; Visit Provider Radiology Diagnostic Radiology | DX: R06.02 Shortness of breath (principal) | CPT/HCPCS: 71045 ==

== ENCOUNTER 2024-11-15 18:09 | Inpatient (IN) | payer MEDICARE, SELFPAY ==
--- NOTE | ~2024-11-15 | CT_ITS ---
CLINICAL HISTORY: fall with head injury CT head without contrast Comparison: Head CT from 09/21/2024 Findings: No acute intracranial hemorrhage. No midline shift or hydrocephalus. Cavum septum pellucidum with cavum velum interpositum. Mild volume loss is generalized. Mild white matter lesions likely related to small-vessel ischemic disease. No large arterial territorial infarction by CT. Vascular calcifications are redemonstrated. Mucosal thickening of the imaged paranasal sinuses. Imaged mastoid air cells are well aerated. Soft tissue in the external auditory canals may be due to cerumen. No acute skull fracture. IMPRESSION: No acute intracranial abnormality by CT. This document has been electronically signed by: Carlos Mayorga MD on 11/15/2024 21:24:11
--- NOTE | ~2024-11-15 | FL_ITS ---
EXAMINATION: FL GUIDANCE ONLY HISTORY: right IM NAIL COMPARISON: Correlation is made with plain films of the left hip dated 11/15/2024. TECHNIQUE: Fluoroscopy time: 0.5 minutes. Cumulative Dose: 12.6 mGy. DAP: 0.220 mGym2 Images: 4. FINDINGS: Images demonstrate internal fixation of the previously seen comminuted intertrochanteric fracture of the left femur with a compression screw and intramedullary zechariah. The lesser trochanter remains a separate fragment. FL/FL guidance in OR IMPRESSION: Fluoroscopy during procedure. Please see procedure report for additional information. Electronically signed by: Clark Armstrong MD 11/17/2024 07:10 AM EDT
--- NOTE | ~2024-11-15 | XR_ITS ---
CLINICAL HISTORY: fall 4 view, pelvis and left hip Comparison: None Findings: Acute comminuted intertrochanteric fracture of proximal left femur. Moderate osteoarthritis of the left hip. No dislocation of the imaged left hip. Mild/minimal pubic rami deformities appear old/chronic. Mild osteoarthritis of the right hip. Moderate stool burden in the mqtgl-tn-yvth with partial obscuration of the pelvis. Phleboliths are noted in the pelvis IMPRESSION: Acute comminuted intertrochanteric fracture of the left femur. This document has been electronically signed by: Carlos Mayorga MD on 11/15/2024 20:29:01
--- NOTE | ~2024-11-15 | XR_ITS ---
CLINICAL HISTORY: fall 1 view chest x-ray Comparison: Chest x-ray from 11/14 2024 Findings: No consolidation, pneumothorax, or pleural effusion. Mild emphysematous changes are redemonstrated. Imaged mediastinum is unchanged Mild imaged lower rib deformities appear old. IMPRESSION: No consolidation. This document has been electronically signed by: Carlos Mayorga MD on 11/15/2024 20:31:24
--- NOTE | ~2024-11-15 | CT_ITS ---
CLINICAL HISTORY: fall CT cervical spine without contrast Comparison: None available Findings: No acute fracture of the cervical spine, accounting for motion artifacts. Straightening of the cervical lordosis. Trace retrolisthesis at C3-C4. Disc osteophyte complex, ligament calcifications, and facet arthropathy are multifocal. Mild spinal canal stenosis from C3-C4 to C6-C7. Multifocal foraminal narrowing including uutyzvqt-oy-pyatmo left at C3-C4, mild-moderate left C5-C6, and mild-moderate leftC6-C7. No paraspinal hematoma. Vascular calcifications present. Degenerative changes include imaged temporomandibular joints with motion artifacts. Scarring and emphysematous changes of the imaged lung apices. IMPRESSION: No acute fracture of the cervical spine. This document has been electronically signed by: Carlos Mayorga MD on 11/15/2024 21:26:17
[2024-11-15 18:17] VITALS: BP 144/72; PULSE 70
[2024-11-15 18:28] VITALS: BP 181/86; PULSE 75; RESP 16; TEMP 36.8; O2SAT 100
[2024-11-15 18:38] VITALS: BP 181/86; PULSE 75; RESP 16; TEMP 36.8; O2SAT 100; BMI 17.8
--- NOTE | 2024-11-15 19:42 | ECG_ITS ---
Test Reason : FALL Blood Pressure : */* mmHG Vent. Rate : 82 BPM Atrial Rate : 82 BPM P-R Int : 152 ms QRS Dur : 82 ms QT Int : 408 ms P-R-T Axes : 77 56 73 degrees QTcB Int : 476 ms Normal sinus rhythm Normal ECG When compared with ECG of 14-Nov-2024 16:27, No significant change was found Referred By: Navi Vargas Electronically Signed By: MAGALYS MENDEZ
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
[2024-11-15 20:00] VITALS: BP 189/88; PULSE 77; RESP 16; TEMP 36.3; O2SAT 95
[2024-11-15] MEDS: 0.9 % Sodium Chloride 1,000 ML 999 ML IV (20:15)
[2024-11-15 20:20] LABS: MANUAL DIFF FLAG NO
[2024-11-15 20:26] LABS: Prothrombin Time 11.6 SEC (10.9-12.4)
[2024-11-15 20:37] LABS: Alanine Aminotransferase 12 U/L (0-31); Albumin Level 4.2 g/dL (3.5-5.0); Alkaline Phosphatase 86 U/L (39-117); Anion Gap 11 (12-20); Aspartate Amino Transferase 18 U/L (5-31); Bilirubin Direct 0.5 mg/dL (0.0-0.5); Bilirubin Total 1.8 mg/dL (0.0-1.0); Blood Urea Nitrogen 23 mg/dL (9-16); Calcium 9.1 mg/dL (8.4-10.2); Carbon Dioxide 27 mmol/L (22-29); Chloride 105 mmol/L (96-108); Creatinine Clr Calc Pharmacy 47.2; Estimated Glomerular Filt Rate > 60; Glucose Random 189 mg/dL (60-115); Lipase 37 U/L (8-78); Potassium 3.8 mmol/L (3.3-5.1); Sodium 139 mmol/L (135-145); Total Protein 6.6 g/dL (6.5-8.0)
[2024-11-15 20:41] LABS: Basophils Percent Auto 0.3 % (0-2); Eosinophils Absolute Auto 0.1 X10*3/uL (0.0-0.4); Eosinophils Percent Auto 0.7 % (0-4); Hematocrit 35.1 % (37.0-47.0); Hemoglobin 12.8 g/dl (12.0-16.0); Imm Gran Abs Auto 0.07 X10*3/uL (0.00-0.03); Imm Gran Pct Auto 0.5 % (0.0-0.4); Lymphocytes Percent Auto 7.7 % (20-40); Mean Corpuscular HGB Conc 36.5 g/dl (31.0-35.0); Mean Corpuscular Hemoglobin 31.3 pg (27.0-33.0); Mean Corpuscular Volume 85.8 fL (80.0-98.0); Mean Platelet Volume 9.7 fL (9.4-12.3); Monocytes Absolute Auto 0.6 X10*3/uL (0.1-1.2); Monocytes Percent Auto 4.3 % (2-11); Neutrophils Absolute Auto 11.2 x10*3/uL (2.0-8.3); Neutrophils Percent Auto 86.5 % (45-73); Platelet Count 286 X10*3/uL (160-400); Red Blood Count 4.09 X10*6/uL (4.20-5.50); Red Cell Distribution Width 13.2 % (11.0-16.0)
[2024-11-15 20:42] LABS: Troponin-I High Sensitivity 4.4 ng/L (<3.5-17.0)
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
--- NOTE | 2024-11-15 21:53 | PHA.MEDREC ---
Addendum entered by Pearl Walker RPh 11/19/24 08:05: ORDER FOR OLANZAPINE ADJUSTED TO GIVE AT 1500 AND 2100 IT WAS WRITTEN BY PHARMACY/OUTPATIENT PROVIDER Addendum entered by Gilmer Leal 11/15/24 22:14: reviewed Original Note: Pharmacy Consult ? Medication Reconciliation Pharmacy has completed the medication reconciliation. Spoke with patient and she was not sure what she was taking at this time and told us to call her daughter Josie ([phone]). I called and spoke with Josie and she stated her mom is suppose to be taking Amlodipine and Olanzapine but ran out of those medications about 2 weeks ago and has an apt on 11/23 to see her PCP to get refills. The daughter also stated her mom was suppose to get and start Fenofibrate, Metformin and Trulicity but the copay for them was too high and she never picked them up.
[2024-11-15] MEDS: Metoclopramide HCl 10 MG/2 ML VIAL 5 MG IVPUSH (22:32)
[2024-11-15] MEDS: Acetaminophen 325 MG TABLET 650 MG PO (22:32)
[2024-11-15 22:47] VITALS: BP 163/74; PULSE 81; RESP 16; TEMP 36.3; O2SAT 94
--- NOTE | 2024-11-15 23:16 | MHC.EDTECH ---
this tech assumed care of the pt @[id number]
[2024-11-15 23:33] LABS: Appearance Urine Clear; Color Urine Yellow; Glucose Urine UA 500 mg/dL (Negative); Leukocyte Esterase Urine Negative (Negative); Nitrite Urine Negative (Negative); Specific Gravity - Urine 1.025 (1.005-1.025); UMIC TRIGGER UACC YES; Urine Blood Trace (Negative); Urine Ketones Negative (Negative); Urine Protein 30 (1+) mg/dL (Neg-Trace)
[2024-11-15 23:41] LABS: Bacteria Urine None Seen (None Seen); Hyaline Casts Urine 0-2 /LPF (0-2); Squamous Epithelial Cell Urine 0-2 /HPF (0-2); WBC Urine 0-5 /HPF (0-5)
[2024-11-16] VITALS (9 sets, daily range): BP systolic 148–194; BP diastolic 76–99; PULSE 76–99; RESP 14–18; TEMP 36.1–37.4; O2SAT 93–100; BMI 21.0
[2024-11-16 00:11] LABS: Influenza A PCR NEGATIVE (Negative); Influenza B PCR NEGATIVE (Negative); Resp Syncy Virus RNA Qual PCR NEGATIVE (Negative); SARS COV2 PCR INHOUSE NEGATIVE (Negative)
[2024-11-16] MEDS: 0.9 % Sodium Chloride Flush 3 ML SYRINGE IVFLUSH ×4 (00:50→17:24)
--- NOTE | 2024-11-16 01:55 | PC.NURSE ---
Assumed care of patient . Patient previously medicated prior to arriving in ED overflow with good effect. VSS, Resting at present time. Bed alarm on for safety , call sorensen within reach.
[2024-11-16 04:53] LABS: MANUAL DIFF FLAG NO
[2024-11-16 04:57] LABS: Basophils Percent Auto 0.2 % (0-2); Eosinophils Absolute Auto 0.1 X10*3/uL (0.0-0.4); Eosinophils Percent Auto 0.5 % (0-4); Hemoglobin 11.2 g/dl (12.0-16.0); Imm Gran Abs Auto 0.06 X10*3/uL (0.00-0.03); Imm Gran Pct Auto 0.5 % (0.0-0.4); Lymphocytes Absolute Auto 1.3 X10*3/uL (1.2-4.9); Lymphocytes Percent Auto 9.8 % (20-40); Mean Corpuscular HGB Conc 37.3 g/dl (31.0-35.0); Mean Corpuscular Hemoglobin 31.2 pg (27.0-33.0); Mean Corpuscular Volume 83.6 fL (80.0-98.0); Mean Platelet Volume 9.9 fL (9.4-12.3); Monocytes Absolute Auto 0.8 X10*3/uL (0.1-1.2); Monocytes Percent Auto 5.8 % (2-11); Neutrophils Absolute Auto 10.9 x10*3/uL (2.0-8.3); Neutrophils Percent Auto 83.2 % (45-73); Platelet Count 258 X10*3/uL (160-400); Red Blood Count 3.59 X10*6/uL (4.20-5.50); Red Cell Distribution Width 13.1 % (11.0-16.0); White Blood Count 13.1 X10*3/uL (4.8-10.8)
[2024-11-16 05:09] LABS: Anion Gap 13 (12-20); Blood Urea Nitrogen 22 mg/dL (9-16); Calcium 8.5 mg/dL (8.4-10.2); Carbon Dioxide 22 mmol/L (22-29); Chloride 108 mmol/L (96-108); Creatinine Clr Calc Pharmacy 52.1; Estimated Glomerular Filt Rate > 60; Glucose Random 204 mg/dL (60-115); Potassium 4.1 mmol/L (3.3-5.1); Sodium 139 mmol/L (135-145)
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
--- NOTE | 2024-11-16 08:22 | PC.NURSE ---
Call received from Short Stay Surgery. Spoke with LLOYD Gifford for RN to RN report. All questions answered to satisfaction. Ирина reports Pt will likely be picked up around 1430.
--- NOTE | 2024-11-16 10:17 | P.PNIM_ITS ---
Subjective Subjective Date of Service: 11/16/24 Interval History: Follow up for a fall which resulted in an intertrochanteric fracture of the left femur. Physical Exam 2 Vital Signs: Vital Signs: Last Vital Signs Temp 97.3 F 11/15/24 22:47 Pulse 81 11/15/24 22:47 Resp 16 11/15/24 22:47 BP 163/74 H 11/15/24 22:47 Pulse Ox 94 11/15/24 22:47 O2 Del Method Room Air 11/15/24 22:47 BMI result Body Mass Index 17.8 Gen: comfortable NAD, Alert to person only ?HEENT: PERRL, EOMI ?Neuro: CN II-XII normal, sensation intact: 5/5 strength in the upper extremities. 5/5 right lower extremities I: Not performed ?II: Pupils equal and reactive, ?III, IV, : EOM intact, no gaze preference or deviation, no nystagmus. ?V: normal sensation in V1, V2, and V3 segments bilaterally ?VII: no asymmetry, no nasolabial fold flattening ?VIII: normal hearing to speech ?IX, X: normal palatal elevation, no uvular deviation ?XI: 5/5 head turn and 5/5 shoulder shrug bilaterally ?XII: midline tongue protrusion ?CV: RRR, no M/R/G, ?Pulm: CTAB ?GI: +nl BS, soft, NDNT ?ext: no C/C/E, Left lower extremity noted to be shortened and externally rotated on inspection. No evidence of surrounding erythema, ecchymosis, No evidence of infection, Patient is able to flex and extend the digits of the left foot without difficulty, Sensation intact, Capillary refill brisk <3 sec, Palpable dorsalis pedis pedal pulses Objective Data Active Medications Acetaminophen (Acetaminophen 325 Mg Tablet) 650 mg PO Q6H PRN PRN Reason: Pain, Mild 1-3,fever,headache Last Admin: 11/15/24 22:32 Dose: 650 mg Documented By: DANIEL Calcium Carbonate (Calcium Carbonate 750 Mg Tab.Chew) 750 mg PO Q4H PRN PRN Reason: Heartburn Magnesium Hydroxide (Milk Of Magnesia 30 Ml Oral.Susp) 30 ml PO DAILY PRN PRN Reason: Constipation Melatonin (Melatonin 3 Mg Tablet) 6 mg PO BEDTIME PRN PRN Reason: Insomnia Metoclopramide HCl (Metoclopramide Hcl 10 Mg/2 Ml Vial) 5 mg IVPUSH Q6H PRN PRN Reason: Nausea and Vomiting Last Admin: 11/15/24 22:32 Dose: 5 mg Documented By: DANIEL Morphine Sulfate (Morphine Sulfate 4 Mg/Ml Cartridge) 4 mg IVPUSH Q4H PRN; Protocol PRN Reason: Pain, Severe (Pain Scale 7-10) Sodium Chloride (0.9 % Sodium Chloride Flush 3 Ml Syringe) 3 ml IVFLUSH QSHIFT [facility] Last Admin: 11/16/24 08:41 Dose: 3 ml Documented By: MONE Labs 11/16/24 04:25 11/16/24 04:25 Labs: Laboratory Results - last 24 hr 11/15/24 11/15/24 11/15/24 20:14 23:23 23:24 MCV 85.8 MCH 31.3 MCHC 36.5 H RDW 13.2 Plt Count 286 MPV 9.7 Immature Gran % (Auto) 0.5 H Neut % (Auto) 86.5 H Lymph % (Auto) 7.[address] [place] % (Auto) 4.3 Eos % (Auto) 0.7 Baso % (Auto) 0.3 Lymph # (Auto) 1.[address] # (Auto) 0.6 Eos # (Auto) 0.1 Baso # (Auto) 0.0 Abs Immat Gran (auto) 0.07 H Absolute Neuts (auto) 11.2 H Absolute Nucleated RBC 0.000 Nucleated RBC % (auto) 0.0 PT 11.6 INR 1.0 Anion Gap 11 L Estim Creat Clear Calc 47.2 Estimated GFR > 60 Random Glucose 189 H Calcium 9.1 Total Bilirubin 1.8 H Direct Bilirubin 0.5 AST 18 ALT 12 Alkaline Phosphatase 86 Total Creatine Kinase 55 Total Protein 6.6 Albumin 4.2 Lipase 37 Urine Color Yellow Urine Appearance Clear Urine pH 7.0 Ur Specific [place] 1.025 Urine Protein 30 (1+) H Urine Glucose (UA) 500 H Urine Ketones Negative Urine Blood Trace H Urine Nitrite Negative Ur Leukocyte Esterase Negative Urine RBC 6-10 H Urine WBC 0-5 Ur Squamous Epith Cells 0-2 Urine Bacteria None Seen Hyaline Casts 0-2 Influenza Type A (PCR) NEGATIVE Influenza Type B (PCR) NEGATIVE RSV RNA Qual (PCR) NEGATIVE SARS-CoV-2 RNA (RT-PCR) NEGATIVE Blood Type O Positive Antibody Screen NEGATIVE 11/16/24 04:25 MCV 83.6 MCH 31.2 MCHC 37.3 H RDW 13.1 Plt Count 258 MPV 9.9 Immature Gran % (Auto) 0.5 H Neut % (Auto) 83.2 H Lymph % (Auto) 9.[address] % (Auto) 5.8 Eos % (Auto) 0.5 Baso % (Auto) 0.2 Lymph # (Auto) 1.3 [place] # (Auto) 0.8 Eos # (Auto) 0.1 Baso # (Auto) 0.0 Abs Immat Gran (auto) 0.06 H Absolute Neuts (auto) 10.9 H Absolute Nucleated RBC 0.000 Nucleated RBC % (auto) 0.0 PT INR Anion Gap 13 Estim Creat Clear Calc 52.1 Estimated GFR > 60 Random Glucose 204 H Calcium 8.5 D Total Bilirubin Direct Bilirubin AST ALT Alkaline Phosphatase Total Creatine Kinase Total Protein Albumin Lipase Urine Color Urine Appearance Urine pH Ur Specific [place] Urine Protein Urine Glucose (UA) Urine Ketones Urine Blood Urine Nitrite Ur Leukocyte Esterase Urine RBC Urine WBC Ur Squamous Epith Cells Urine Bacteria Hyaline Casts Influenza Type A (PCR) Influenza Type B (PCR) RSV RNA Qual (PCR) SARS-CoV-2 RNA (RT-PCR) Blood Type Antibody Screen Assessment and Plan (1) Intertrochanteric fracture of left hip: Status: Acute (2) Closed left hip fracture: Status: Acute Plan 74 yo female with a PMH of Dementia, HTN, prediabetes, HLD, and mood disorder. Hip X-ray shows acute comminuted intertrochanteric fracture of the left femur. Left Hip Intertrochanteric fracture -Orthopedics following, surgery is planned for 11/16/24, left hip IM nail -F/C for immobility -NPO for surgery then diabetic diet -Tylenol and Morphine PRN for pain -Zofran PRN for nausea HTN -Continue Amlodipine -VS Qshift Hyperglycemia -BS 189, 204. Add on A1C Leukocytes -13.1 most likely due to acute fracture Normocytic normochromic anemia - continue to monitor CBC Mood Disorder -continue Olanzapine Code: Full VTE prophylaxis: compression boots Quality Stroke Does the patient have a stroke diagnosis?: No VTE Prior VTE?: No VTE Risk Level:: Medical - moderate - high VTE Device Contraindication: N/A - Device Ordered VTE Drug Contraindication: Treatment Not Indicated
[2024-11-16 11:04] LABS: Estimated Average Glucose 140 mg/dL; Hemoglobin A1C 142.0615 umol/L; Hemoglobin A1c % 6.5 % (<6.0); Total Hemoglobin (HGBA1C) 2980.0618 umol/L
--- NOTE | 2024-11-16 11:32 | MHC.CM.PN ---
CM CALLED PTS HCP/DAUGHTER, DIMITRIS [phone] SHE REPORTS THE PT IS CURRENTLY IN HER HOME WHERE SHE LIVES WITH HER FAMILY DIMITRIS IS CURRENTLY PROVIDING ALL CARE, HOWEVER SKILLED [employer] WERE SUPPOSED TO START TODAY AND [facility] TOMORROW PT USED NO DME [facility] FINISHER HCP ON FILE PCP: IJEOMA KIMBROUGH IMM DELIVERED DCP: PT WILL LIKELY NEED STR, [facility] OR [facility] PREFERRED BLS TRANSPORT
[2024-11-16] MEDS: amLODIPine Besylate 5 MG TABLET PO (12:56)
--- NOTE | 2024-11-16 13:11 | P.CONAN_ITS ---
[facility] Active Problems Active Problems: All Active Problems Intertrochanteric fracture of left hip (Acute) Closed left hip fracture (Acute) Encounter for medication refill (Acute) Bradycardia (Acute) Asystole (Acute) Unable to care for self (Acute) HTN (hypertension) (Acute) Adult failure to thrive (Acute) Major neurocognitive disorder due to Alzheimer's disease, without behavioral disturbance (Acute) HTN (hypertension) (Acute) Premature atrial contractions (Acute) Past Medical History Medical History HTN (hypertension) Premature atrial contractions Diabetes Palpitations Functional capacity: bed bound Patient : No Family History Family History Father Cancer Mother Cancer Family history of problems with anesthesia: No Surgical History Surgical History No pertinent past surgical history History of Problems with Anesthesia: No Social History Social History Household Members Other:: patient states she does not live with her daughter Are you a primary managed care specialist to a significant other at home: No Do you presently have visiting nurse or other home services: No Comment: patient states does not use cane/walker at home. ambulates freely Patient Tobacco Use Status: Never used Tobacco service: No Meds Allergies Allergy/AdvReac Type Severity Reaction Status Date / Time gemfibrozil [GEMFIBROZIL] Allergy Unknown DIZZINESS/HIVES, Verified 11/15/24 18:39 dizziness ondansetron [From Zofran] AdvReac Unresponsiv Verified 11/15/24 18:39 e Active Medications: Current Medications Acetaminophen (Acetaminophen 325 Mg Tablet) 650 mg PO Q6H PRN PRN Reason: Pain, Mild 1-3,fever,headache Last Admin: 11/15/24 22:32 Dose: 650 mg Amlodipine Besylate (Amlodipine Besylate 5 Mg Tablet) 5 mg PO DAILY [facility]; Protocol Last Admin: 11/16/24 12:56 Dose: 5 mg Calcium Carbonate (Calcium Carbonate 750 Mg Tab.Chew) 750 mg PO Q4H PRN PRN Reason: Heartburn Magnesium Hydroxide (Milk Of Magnesia 30 Ml Oral.Susp) 30 ml PO DAILY PRN PRN Reason: Constipation Melatonin (Melatonin 3 Mg Tablet) 6 mg PO BEDTIME PRN PRN Reason: Insomnia Metoclopramide HCl (Metoclopramide Hcl 10 Mg/2 Ml Vial) 5 mg IVPUSH Q6H PRN PRN Reason: Nausea and Vomiting Last Admin: 11/15/24 22:32 Dose: 5 mg Morphine Sulfate (Morphine Sulfate 4 Mg/Ml Cartridge) 4 mg IVPUSH Q4H PRN; Protocol PRN Reason: Pain, Severe (Pain Scale 7-10) Olanzapine (Olanzapine 2.5 Mg Tablet) 2.5 mg PO BID [facility] Last Admin: 11/16/24 12:51 Dose: Not Given Sodium Chloride (0.9 % Sodium Chloride Flush 3 Ml Syringe) 3 ml IVFLUSH QSHIFT [facility] Last Admin: 11/16/24 08:41 Dose: 3 ml Exam Height,Weight and Vital Signs: Height 5 ft 6 in Weight 50 kg Last Vital Signs Temp 97.3 F 11/15/24 22:47 Pulse 81 11/15/24 22:47 Resp 16 11/15/24 22:47 BP 154/76 H 11/16/24 12:56 Pulse Ox 94 11/15/24 22:47 O2 Del Method Room Air 11/15/24 22:47 Pertinent Lab Results Pertinent Lab Results: Laboratory Tests 11/15/24 11/15/24 11/15/24 20:14 23:23 23:24 WBC 13.0 H RBC 4.09 L Hgb 12.8 Hct 35.1 L MCV 85.8 MCH 31.3 MCHC 36.5 H RDW 13.2 Plt Count 286 MPV 9.7 Immature Gran % (Auto) 0.5 H Neut % (Auto) 86.5 H Lymph % (Auto) 7.7 L [place] % (Auto) 4.3 Eos % (Auto) 0.7 Baso % (Auto) 0.3 Lymph # (Auto) 1.0 L [place] # (Auto) 0.6 Eos # (Auto) 0.1 Baso # (Auto) 0.0 Abs Immat Gran (auto) 0.07 H Absolute Neuts (auto) 11.2 H Absolute Nucleated RBC 0.000 Nucleated RBC % (auto) 0.0 PT 11.6 INR 1.0 Sodium 139 Potassium 3.8 Chloride 105 Carbon Dioxide 27 Anion Gap 11 L BUN 23 H Creatinine 0.85 Estim Creat Clear Calc 47.2 Estimated GFR > 60 Random Glucose 189 H Estimat Average Glucose Hemoglobin A1c % Calcium 9.1 Total Bilirubin 1.8 H Direct Bilirubin 0.5 AST 18 ALT 12 Alkaline Phosphatase 86 Total Creatine Kinase 55 Troponin I High Sens 4.4 Total Protein 6.6 Albumin 4.2 Lipase 37 Urine Color Yellow Urine Appearance Clear Urine pH 7.0 Ur Specific [place] 1.025 Urine Protein 30 (1+) H Urine Glucose (UA) 500 H Urine Ketones Negative Urine Blood Trace H Urine Nitrite Negative Ur Leukocyte Esterase Negative Urine RBC 6-10 H Urine WBC 0-5 Ur Squamous Epith Cells 0-2 Urine Bacteria None Seen Hyaline Casts 0-2 Influenza Type A (PCR) NEGATIVE Influenza Type B (PCR) NEGATIVE RSV RNA Qual (PCR) NEGATIVE SARS-CoV-2 RNA (RT-PCR) NEGATIVE Blood Type O Positive Antibody Screen NEGATIVE 11/16/24 04:25 WBC 13.1 H RBC 3.59 L Hgb 11.2 L Hct 30.0 L MCV 83.6 MCH 31.2 MCHC 37.3 H RDW 13.1 Plt Count 258 MPV 9.9 Immature Gran % (Auto) 0.5 H Neut % (Auto) 83.2 H Lymph % (Auto) 9.8 L [place] % (Auto) 5.8 Eos % (Auto) 0.5 Baso % (Auto) 0.2 Lymph # (Auto) 1.3 [place] # (Auto) 0.8 Eos # (Auto) 0.1 Baso # (Auto) 0.0 Abs Immat Gran (auto) 0.06 H Absolute Neuts (auto) 10.9 H Absolute Nucleated RBC 0.000 Nucleated RBC % (auto) 0.0 PT INR Sodium 139 Potassium 4.1 Chloride 108 Carbon Dioxide 22 Anion Gap 13 BUN 22 H Creatinine 0.77 Estim Creat Clear Calc 52.1 Estimated GFR > 60 Random Glucose 204 H Estimat Average Glucose 140 Hemoglobin A1c % 6.5 H Calcium 8.5 D Total Bilirubin Direct Bilirubin AST ALT Alkaline Phosphatase Total Creatine Kinase Troponin I High Sens Total Protein Albumin Lipase Urine Color Urine Appearance Urine pH Ur Specific [place] Urine Protein Urine Glucose (UA) Urine Ketones Urine Blood Urine Nitrite Ur Leukocyte Esterase Urine RBC Urine WBC Ur Squamous Epith Cells Urine Bacteria Hyaline Casts Influenza Type A (PCR) Influenza Type B (PCR) RSV RNA Qual (PCR) SARS-CoV-2 RNA (RT-PCR) Blood Type Antibody Screen Airway TM Dist: >3cm Neck ROM: Full Denture: Upper Heart: RRR Lungs: CTA Assessment and Plan Assessment Anesthesia Assessment: Anesthesia Plan Discussed and Chart Reviewed Final Anesthetic Review Family History of Problems with Anesthesia: No History of Problems with Anesthesia: No NPO: Yes ASA Class: III and Emergency Final Preanesthetic Review: Meds/Allgs Chart Reviewed, Consent Obtained/Reviewed and Anes Risks/Benef Reviewed Patient Risk: Intermediate Procedure Risk: Intermediate Anesthetic Plan Anesthetic Plan: GA Disposition: Standard PACU
--- NOTE | 2024-11-16 13:31 | PC.NURSE ---
Pt off unit to [facility]; daughter updated. Pt left with transport.
[2024-11-16] MEDS: ceFAZolin Sodium/Dextrose,Iso 2 GM/50 ML PIGGYBACK IV ×2 (14:10→20:41)
--- NOTE | 2024-11-16 15:44 | P.BOP_ITS ---
Brief Operative Note Date of Service: 11/16/24 Pre-op diagnosis: Left hip intertrochanteric fracture Post-op diagnosis: same Procedure: Open reduction and internal fixation of left hip intertrochanteric fracture with placement of a short gamma nail Implants: Ruth short gamma nail with a 125 degree neck-shaft angle and diameter of 11 mm, standard set screw, lag screw measuring 90 mm in length and distal locking bolt measuring 32.5 mm in length Surgeon: Marty Golden MD Anesthesia: GLMA Was an Precision Devices Inspector/Tester used for this Procedure?: No Estimated blood loss (mL): 100 Pathology: none sent Condition: stable Disposition: PACU
--- NOTE | 2024-11-16 15:45 | P.OP_ITS ---
Operative Note Operative Note Date of Service: 11/16/24 Narrative: After the patient was identified as Teodora Johnson and her left hip was initialed by myself they were brought to the operating room where general anesthesia was induced by the anesthesiologist in routine fashion. The patient was given 2 g of IV Ancef for infection prophylaxis. The patient was then gently transferred from the hospital bed onto the fracture table. The patient's right lower extremity was placed into the well leg mccarty. The patient's left lower extremity was placed in gentle in-line traction with their patella parallel to the floor. All bony prominences were well padded. C-arm AP and lateral radiographs were taken to confirm good fracture reduction. The patient's left hip region was prepped and draped in sterile fashion. A formal time-out was completed. A #10 scalpel blade was used to make a 5 cm incision just proximal to the tip of the greater trochanter. A curved cannulated awl was introduced into the proximal femur in routine fashion. A ball-tipped guidewire was then placed through the cannula and into the femoral canal. The awl was removed. Reaming was begun with a 9 mm reamer. Reaming was increased incrementally up to a size 13 reamer distally. The proximal canal was reamed with a 15.5 mm reamer. The gamma nail measuring 11 mm in diameter by 180 mm in length was passed over the guidewire. Good fracture reduction and nail positioning were confirmed using C-arm AP and lateral radiographs. A 2 cm incision was then made where the lag screw trocar met the patient's lateral thigh. The subcutaneous tissues and fascia gabriel were split down to the lateral cortex of the femur using a hemostat. The lag screw trocar was passed down to the lateral cortex of the femur. A threaded guidewire was then placed into the inferior aspect of the femoral head on the AP x-ray and the center of the femoral head on the lateral x-ray. The guidewire measured 90 mm in length. Reaming was then performed over the guidewire to a depth of 90 mm. The lag screw measuring 90 mm in length was then placed over the guidewire. The guidewire was removed. The set screw was then placed into the nail and tightened fully. It was then turned 1/4 of a turn counter-clockwise to allow f or fracture compression. A 2 cm incision was then made where the distal locking bolt trocar met the lateral aspect of the patient's thigh. The subcutaneous tissues and the fascia gabriel were split down to the lateral cortex of the femur. The locking bolt hole was drilled in routine fashion. The drill bit measured 32.5 mm in length. The distal locking bolt measuring 32.5 mm in length was put into place without difficulty. Final AP and lateral radiographs showed good fracture reduction and hardware positioning. All 3 wounds were irrigated with copious amounts of normal saline solution. The distal 2 wounds were closed with 2-0 Vicryl and skin miles. The proximal wound was once again irrigated. The fascia gabriel was closed with 0 Vicryl [id number] interrupted suture. The wound was once again irrigated. The subcutaneous tissues were closed with 2-0 Vicryl interrupted suture. The skin was closed with skin miles. Dry sterile dressing was placed over all incisions. The patient was gently transferred from the fracture table onto their hospital bed. The patient was awoken and extubated in the operating room. The patient was transferred to the recovery room in stable condition.
[2024-11-16 16:28] LABS: Glucose, Whole Blood 196 mg/dL (60-115)
[2024-11-16 17:03] LABS: Glucose, Whole Blood 210 mg/dL (60-115)
[2024-11-16] MEDS: Insulin Lispro 100 UNIT/ML 3 ML VIAL SUBCUT ×2 (17:23→20:40)
[2024-11-16 20:38] LABS: Glucose, Whole Blood 215 mg/dL (60-115)
[2024-11-16] MEDS: OLANZapine 2.5 MG TABLET PO (20:40)
[2024-11-16] MEDS: Aspirin 325 MG TABLET PO (20:40)
[2024-11-17] VITALS (10 sets, daily range): BP systolic 124–149; BP diastolic 57–68; PULSE 77–94; RESP 16–18; TEMP 36.1–37.2; O2SAT 92–98
[2024-11-17] MEDS: ceFAZolin Sodium/Dextrose,Iso 2 GM/50 ML PIGGYBACK IV ×2 (04:43→12:02)
[2024-11-17] MEDS: 0.9 % Sodium Chloride Flush 3 ML SYRINGE IVFLUSH ×3 (04:44→22:12)
[2024-11-17 06:33] LABS: Hematocrit 24.3 % (37.0-47.0)
[2024-11-17 06:45] LABS: Anion Gap 11 (12-20); Blood Urea Nitrogen 21 mg/dL (9-16); Calcium 8.3 mg/dL (8.4-10.2); Carbon Dioxide 23 mmol/L (22-29); Chloride 105 mmol/L (96-108); Creatinine Clr Calc Pharmacy 50.8; Estimated Glomerular Filt Rate 59; Glucose Fasting 220 mg/dL (60-99); Potassium 3.6 mmol/L (3.3-5.1); Sodium 135 mmol/L (135-145)
[2024-11-17 07:25] LABS: Glucose, Whole Blood 207 mg/dL (60-115)
--- NOTE | 2024-11-17 07:40 | HO.POSTANES ---
Post Anesthesia Evaluation Post Anesthesia Evaluation Date of Service: 11/17/24 Vital Signs: Vital Signs Temp Pulse Resp BP Pulse Ox O2 Del Method 11/17/24 07:37 98.3 F 93 18 138/65 94 Room Air 11/17/24 03:03 97.4 F 91 17 124/62 94 Room Air 11/16/24 19:44 97.8 F 99 18 148/76 H 98 Room Air Anesthesia: General LMA Mental Status: Awake Pain Control: Satisfactory Nausea/Vomiting: None Hydration: Adequate Anesthesia-Related Issues: No Anes. Related Issues
[2024-11-17] MEDS: Insulin Lispro 100 UNIT/ML 3 ML VIAL SUBCUT ×4 (07:50→20:34)
[2024-11-17] MEDS: amLODIPine Besylate 5 MG TABLET PO (07:50)
[2024-11-17] MEDS: Aspirin 325 MG TABLET PO ×2 (07:50→20:33)
[2024-11-17] MEDS: OLANZapine 2.5 MG TABLET PO ×2 (07:51→20:33)
--- NOTE | 2024-11-17 10:32 | P.PNIM_ITS ---
Subjective Subjective Date of Service: 11/17/24 Interval History: Follow up for a fall which resulted in an intertrochanteric fracture of the left femur s/p repair yesterday and doing well today, pain is well controlled Physical Exam 2 Vital Signs: Vital Signs: Last Vital Signs Temp 98.3 F 11/17/24 07:37 Pulse 93 11/17/24 07:37 Resp 18 11/17/24 07:37 BP 138/65 11/17/24 07:37 Pulse Ox 94 11/17/24 07:37 O2 Del Method Room Air 11/17/24 07:37 O2 Flow Rate 2 11/16/24 16:45 BMI result Body Mass Index 21.0 Const: Other: General: AO X 2, no acute distress Resp: CTA bilateral CVS: S1,S2,RRR GI: +BS, NT, no distention Skin: No rash Neuro: motor grossly intact Psych: appropriate affect Objective Data Active Medications Acetaminophen (Acetaminophen 325 Mg Tablet) 650 mg PO Q6H PRN PRN Reason: Pain, Mild 1-3,fever,headache Last Admin: 11/15/24 22:32 Dose: 650 mg Documented By: DANIEL Amlodipine Besylate (Amlodipine Besylate 5 Mg Tablet) 5 mg PO DAILY [facility]; Protocol Last Admin: 11/17/24 07:50 Dose: 5 mg Documented By: SHARMAINE Aspirin (Aspirin 325 Mg Tablet) 325 mg PO BID [facility] Last Admin: 11/17/24 07:50 Dose: 325 mg Documented By: SHARMAINE Calcium Carbonate (Calcium Carbonate 750 Mg Tab.Chew) 750 mg PO Q4H PRN PRN Reason: Heartburn Dextrose (Dextrose 50 % 25 Gm/50 Ml Syringe) 25 gm IVPUSH Q15M PRN; Protocol PRN Reason: per Hypoglycemia Standing Ord. Glucose (Glucose Gel 15 Gm Gel..Gram.) 15 gm PO Q15M PRN; Protocol PRN Reason: per Hypoglycemia Standing Ord. Cefazolin Sodium/Dextrose (Ancef) 2 gm in 50 mls @ 100 mls/hr IV Q8H [facility] Stop: 11/17/24 14:00 Last Infusion: 11/17/24 05:14 Dose: Infused Documented By: VIANCA Insulin Human Lispro (Insulin Lispro 100 Unit/Ml 3 Ml Vial) 0 unit SUBCUT QIDACHS [facility]; Protocol Last Admin: 11/17/24 07:50 Dose: 4 unit Documented By: SHARMAINE Magnesium Hydroxide (Milk Of Magnesia 30 Ml Oral.Susp) 30 ml PO DAILY PRN PRN Reason: Constipation Melatonin (Melatonin 3 Mg Tablet) 6 mg PO BEDTIME PRN PRN Reason: Insomnia Metoclopramide HCl (Metoclopramide Hcl 10 Mg/2 Ml Vial) 5 mg IVPUSH Q6H PRN PRN Reason: Nausea and Vomiting Last Admin: 11/15/24 22:32 Dose: 5 mg Documented By: DANIEL Morphine Sulfate (Morphine Sulfate 4 Mg/Ml Cartridge) 4 mg IVPUSH Q4H PRN; Protocol PRN Reason: Pain, Severe (Pain Scale 7-10) Olanzapine (Olanzapine 2.5 Mg Tablet) 2.5 mg PO BID [facility] Last Admin: 11/17/24 07:51 Dose: 2.5 mg Documented By: SHARMAINE Sodium Chloride (0.9 % Sodium Chloride Flush 3 Ml Syringe) 3 ml IVFLUSH [facility] Last Admin: 11/17/24 07:51 Dose: 3 ml Documented By: SHARMAINE Sodium Chloride (0.9 % Sodium Chloride Flush 3 Ml Syringe) 3 ml IVFLUSH [facility] Last Admin: 11/17/24 07:51 Dose: Not Given Documented By: SHARMAINE Non-Admin Reason: duplicate Labs 11/17/24 06:04 11/17/24 06:04 Labs: Laboratory Results - last 24 hr 11/16/24 11/16/24 11/16/24 04:25 16:24 17:00 Anion Gap Estim Creat Clear Calc Estimated GFR POC Glucose 196 H 210 H Fasting Glucose Estimat Average Glucose 140 Hemoglobin A1c % 6.5 H Calcium 11/16/24 11/17/24 11/17/24 20:32 06:04 07:05 Anion Gap 11 L Estim Creat Clear Calc 50.8 Estimated GFR 59 POC Glucose 215 H 207 H Fasting Glucose 220 H Estimat Average Glucose Hemoglobin A1c % Calcium 8.3 L Assessment and Plan (1) Intertrochanteric fracture of left hip: Status: Acute (2) Closed left hip fracture: Status: Acute Plan 74 yo female with a PMH of Dementia, HTN, prediabetes, HLD, and mood disorder. Hip X-ray shows acute comminuted intertrochanteric fracture of the left femur. Left Hip Intertrochanteric fracture s/p surgical repair on 11/16 PT/OT eval pain control ASA for Dvt prevention HTN, controlled Early diabetes, A1C 6.5 sliding scale metformin Leukocytes -13.1 most likely reactive from fracture Normocytic normochromic anemia, H/H down from surgery, repeat tomorrow Mood Disorder -continue Olanzapine Code: Full VTE prophylaxis: compression boots, ASA Quality Stroke Does the patient have a stroke diagnosis?: No VTE Prior VTE?: No VTE Risk Level:: Medical - moderate - high VTE Device Contraindication: N/A - Device Ordered VTE Drug Contraindication: Treatment Not Indicated
[2024-11-17] MEDS: metFORMIN HCl 500 MG TABLET PO ×2 (10:55→16:54)
[2024-11-17] MEDS: Acetaminophen 325 MG TABLET 650 MG PO (10:57)
[2024-11-17 11:11] LABS: Glucose, Whole Blood 263 mg/dL (60-115)
--- NOTE | 2024-11-17 12:03 | MHC.CM.PN ---
EMR REVIEWED, PT S/P HIP FX REPAIR, P.T./O.T. PENDING, [facility] IS PREFERRED HOWEVER CURRENTLY DO NOT HAVE A BED, REF TO BE EXPANDED TO LOCAL SNF'S, CM TO FOLLOW-UP W/ÓSCAR SHANKS ONCE PT HAS RECEIVED BED OFFERS.
--- NOTE | 2024-11-17 14:10 | ECG_ITS ---
Test Reason : RAPID RESPONSE Blood Pressure : */* mmHG Vent. Rate : 80 BPM Atrial Rate : 80 BPM P-R Int : 146 ms QRS Dur : 80 ms QT Int : 374 ms P-R-T Axes : 79 60 69 degrees QTcB Int : 431 ms Normal sinus rhythm Possible Left atrial enlargement Nonspecific ST abnormality Abnormal ECG When compared with ECG of 15-Nov-2024 20:27, No significant change was found Referred By: Geno Dickerson Electronically Signed By: MAGALYS MENDEZ
[2024-11-17 14:13] LABS: Glucose, Whole Blood 140 mg/dL (60-115)
[2024-11-17 14:35] LABS: Hematocrit 24.3 % (37.0-47.0); Hemoglobin 8.7 g/dl (12.0-16.0); Mean Corpuscular HGB Conc 35.8 g/dl (31.0-35.0); Mean Corpuscular Hemoglobin 31.5 pg (27.0-33.0); Mean Platelet Volume 10.3 fL (9.4-12.3); Platelet Count 205 X10*3/uL (160-400); Red Blood Count 2.76 X10*6/uL (4.20-5.50); Red Cell Distribution Width 13.2 % (11.0-16.0)
[2024-11-17 14:44] LABS: Alanine Aminotransferase 7 U/L (0-31); Albumin Level 3.4 g/dL (3.5-5.0); Alkaline Phosphatase 64 U/L (39-117); Aspartate Amino Transferase 20 U/L (5-31); Bilirubin Direct 0.6 mg/dL (0.0-0.5); Bilirubin Total 2.2 mg/dL (0.0-1.0); Total Protein 5.5 g/dL (6.5-8.0)
[2024-11-17 14:56] LABS: Troponin-I High Sensitivity 13.5 ng/L (<3.5-17.0)
[2024-11-17] MEDS: Lactated Ringers 1,000 ML 150 ML IVCONT ×2 (15:34→22:11)
[2024-11-17 16:25] LABS: Glucose, Whole Blood 167 mg/dL (60-115)
[2024-11-17 19:14] LABS: Glucose, Whole Blood 270 mg/dL (60-115)
[2024-11-17] MEDS: oxyCODONE HCl Immed Release 5 MG TABLET PO (22:15)
[2024-11-18 03:14] VITALS: BP 135/62; PULSE 99; RESP 18; TEMP 37.2; O2SAT 92
[2024-11-18] MEDS: Lactated Ringers 1,000 ML 150 ML IVCONT (05:02)
[2024-11-18 05:40] LABS: Hematocrit 24.9 % (37.0-47.0); Hemoglobin 9.1 g/dl (12.0-16.0); Mean Corpuscular HGB Conc 36.5 g/dl (31.0-35.0); Mean Corpuscular Volume 87.7 fL (80.0-98.0); Mean Platelet Volume 9.8 fL (9.4-12.3); Platelet Count 147 X10*3/uL (160-400); Red Blood Count 2.84 X10*6/uL (4.20-5.50); Red Cell Distribution Width 13.2 % (11.0-16.0); White Blood Count 11.9 X10*3/uL (4.8-10.8)
[2024-11-18 07:14] LABS: Glucose, Whole Blood 77 mg/dL (60-115)
[2024-11-18 07:47] VITALS: BP 167/77; PULSE 101; RESP 16; TEMP 37.3; O2SAT 94
--- NOTE | 2024-11-18 08:09 | HO.PM.IMPN ---
Subjective Subjective Date of Service: 11/18/24 Interval History: Follow up for a fall which resulted in an intertrochanteric fracture of the left femur s/p repair on 11/16 and doing well today, pain is well controlled Had episode of hypotension and dizziness yesterday, improved with IVF and transfusion. Physical Exam Vital Signs: Vital Signs: Last Vital Signs Temp 99.2 F 11/18/24 07:47 Pulse 101 H 11/18/24 07:47 Resp 16 11/18/24 07:47 BP 167/77 H 11/18/24 07:47 Pulse Ox 94 11/18/24 07:47 O2 Del Method Nasal Cannula 11/18/24 07:47 O2 Flow Rate 2 11/18/24 07:47 Oxygen Flow Rate 2 11/17/24 14:23 BMI result Body Mass Index 21.0 Const: Other: General: AO X 2, no acute distress Resp: CTA bilateral CVS: S1,S2,RRR GI: +BS, NT, no distention Skin: No rash Neuro: motor grossly intact Psych: appropriate affect Objective Data Active Medications Acetaminophen (Acetaminophen 325 Mg Tablet) 650 mg PO Q6H PRN PRN Reason: Pain, Mild 1-3,fever,headache Last Admin: 11/17/24 10:57 Dose: 650 mg Documented By: SHARMAINE Amlodipine Besylate (Amlodipine Besylate 5 Mg Tablet) 5 mg PO DAILY ON LICENSE OF [facility]; Protocol Last Admin: 11/17/24 07:50 Dose: 5 mg Documented By: SHARMAINE Aspirin (Aspirin 325 Mg Tablet) 325 mg PO BID ON LICENSE OF [facility] Last Admin: 11/17/24 20:33 Dose: 325 mg Documented By: WESLEY Calcium Carbonate (Calcium Carbonate 750 Mg Tab.Chew) 750 mg PO Q4H PRN PRN Reason: Heartburn Dextrose (Dextrose 50 % 25 Gm/50 Ml Syringe) 25 gm IVPUSH Q15M PRN; Protocol PRN Reason: per Hypoglycemia Standing Ord. Glucose (Glucose Gel 15 Gm Gel..Gram.) 15 gm PO Q15M PRN; Protocol PRN Reason: per Hypoglycemia Standing Ord. Lactated Ringer's (Lr) 1,000 mls @ 150 mls/hr IVCONT .Q6H40M ON LICENSE OF [facility] Last Admin: 11/18/24 05:02 Dose: 150 mls/hr Documented By: WESLEY Insulin Human Lispro (Insulin Lispro 100 Unit/Ml 3 Ml Vial) 0 unit SUBCUT QIDAS ON LICENSE OF [facility]; Protocol Last Admin: 11/17/24 20:34 Dose: 6 unit Documented By: WESLEY Magnesium Hydroxide (Milk Of Magnesia 30 Ml Oral.Susp) 30 ml PO DAILY PRN PRN Reason: Constipation Melatonin (Melatonin 3 Mg Tablet) 6 mg PO BEDTIME PRN PRN Reason: Insomnia Metformin HCl (Metformin Hcl 500 Mg Tablet) 500 mg PO BIDWM ON LICENSE OF [facility] Last Admin: 11/17/24 16:54 Dose: 500 mg Documented By: SHARMAINE Metoclopramide HCl (Metoclopramide Hcl 10 Mg/2 Ml Vial) 5 mg IVPUSH Q6H PRN PRN Reason: Nausea and Vomiting Last Admin: 11/15/24 22:32 Dose: 5 mg Documented By: DANIEL Morphine Sulfate (Morphine Sulfate 4 Mg/Ml Cartridge) 2 mg IVPUSH Q4H PRN; Protocol PRN Reason: Pain, Severe (Pain Scale 7-10) Olanzapine (Olanzapine 2.5 Mg Tablet) 2.5 mg PO BID ON LICENSE OF [facility] Last Admin: 11/17/24 20:33 Dose: 2.5 mg Documented By: WESLEY Oxycodone HCl (Oxycodone Hcl Immed Release 5 Mg Tablet) 5 mg PO Q6H PRN PRN Reason: Pain, Moderate(Pain Scale 4-6) Last Admin: 11/17/24 22:15 Dose: 5 mg Documented By: WESLEY Sodium Chloride (0.9 % Sodium Chloride Flush 3 Ml Syringe) 3 ml IVFLUSH [facility] Last Admin: 11/17/24 22:12 Dose: 3 ml Documented By: WESLEY Sodium Chloride (0.9 % Sodium Chloride Flush 3 Ml Syringe) 3 ml IVFLUSH [facility] Last Admin: 11/17/24 22:13 Dose: Not Given Documented By: WESLEY Non-Admin Reason: Duplicate Order Labs 11/18/24 05:15 11/17/24 06:04 Labs: Laboratory Results - last 24 hr 11/15/24 11/17/24 11/17/24 23:23 06:04 11:08 MCV MCH MCHC RDW Plt Count MPV Absolute Nucleated RBC Nucleated RBC % (auto) POC Glucose 263 H Total Bilirubin 2.2 H Direct Bilirubin 0.6 H AST 20 ALT 7 Alkaline Phosphatase 64 Total Protein 5.5 L Albumin 3.4 L Hold Yellow Top Blood Type O Positive Antibody Screen NEGATIVE Crossmatch See Detail 11/17/24 11/17/24 11/17/24 14:05 14:29 16:21 MCV 88.0 MCH 31.5 MCHC 35.8 H RDW 13.2 Plt Count 205 MPV 10.3 Absolute Nucleated RBC 0.000 Nucleated RBC % (auto) 0.0 POC Glucose 140 H 167 H Total Bilirubin Direct Bilirubin AST ALT Alkaline Phosphatase Total Protein Albumin Hold Yellow Top See Note Blood Type Antibody Screen Crossmatch 11/17/24 11/18/24 11/18/24 19:10 05:15 07:08 MCV 87.7 MCH 32.0 MCHC 36.5 H RDW 13.2 Plt Count 147 L D MPV 9.8 Absolute Nucleated RBC 0.000 Nucleated RBC % (auto) 0.0 POC Glucose 270 H 77 Total Bilirubin Direct Bilirubin AST ALT Alkaline Phosphatase Total Protein Albumin Hold Yellow Top Blood Type Antibody Screen Crossmatch Assessment and Plan (1) Intertrochanteric fracture of left hip: Status: Acute (2) Closed left hip fracture: Status: Acute Plan 74 yo female with a PMH of Dementia, HTN, prediabetes, HLD, and mood disorder. Hip X-ray shows acute comminuted intertrochanteric fracture of the left femur. Left Hip Intertrochanteric fracture s/p surgical repair on 11/16 PT/OT recommends STR pain control ASA for Dvt prevention Acute blood loss anemia, related to fracture s/p 1 unit of RBC on 11/17, H/H unchanged Hypotension, 11/17 likely related poor po intake and anemia--resolved with ivf and blood HTN--BP on high side this morning, continue Norvasc Early diabetes, A1C 6.5 sliding scale metformin 500 mg po bid Leukocytes -13.1 most likely reactive from fracture, resolving Normocytic normochromic anemia, H/H down from surgery, repeat tomorrow Mood Disorder -continue Olanzapine Code: Full VTE prophylaxis: compression boots, ASA Dispo: will need STR Quality Stroke Does the patient have a stroke diagnosis?: No VTE Prior VTE?: No VTE Risk Level:: Medical - moderate - high VTE Device Contraindication: N/A - Device Ordered VTE Drug Contraindication: Treatment Not Indicated
[2024-11-18 09:12] VITALS: BP 155/74; PULSE 93
[2024-11-18] MEDS: Aspirin 325 MG TABLET PO ×2 (09:16→21:16)
[2024-11-18] MEDS: OLANZapine 2.5 MG TABLET PO ×2 (09:16→21:18)
[2024-11-18] MEDS: metFORMIN HCl 500 MG TABLET PO ×2 (09:17→17:26)
[2024-11-18] MEDS: amLODIPine Besylate 5 MG TABLET PO (09:17)
[2024-11-18] MEDS: 0.9 % Sodium Chloride Flush 3 ML SYRINGE IVFLUSH ×2 (09:17→23:22)
[2024-11-18 11:07] LABS: Glucose, Whole Blood 186 mg/dL (60-115)
[2024-11-18] MEDS: Insulin Lispro 100 UNIT/ML 3 ML VIAL SUBCUT ×3 (11:55→21:18)
[2024-11-18 14:04] VITALS: O2SAT 97
[2024-11-18 15:47] VITALS: BP 134/63; PULSE 92; RESP 18; TEMP 37.6; O2SAT 93
[2024-11-18 16:20] LABS: Glucose, Whole Blood 269 mg/dL (60-115)
[2024-11-18] MEDS: Metoclopramide HCl 10 MG/2 ML VIAL 5 MG IVPUSH (19:21)
--- NOTE | 2024-11-18 19:44 | PM.PNORT ---
Subjective Subjective Date of Service: 11/18/24 Interval history: POD2 s/p L hip IMN Patient resting comfortably in bed Pain well managed No other acute complaints or concerns at this time Physical Exam Vital Signs: Vital Signs: Last Vital Signs Temp 99.7 F 11/18/24 15:47 Pulse 92 11/18/24 15:47 Resp 18 11/18/24 15:47 BP 134/63 11/18/24 15:47 Pulse Ox 93 11/18/24 15:47 O2 Del Method Nasal Cannula 11/18/24 15:47 O2 Flow Rate 2 11/18/24 15:47 Oxygen Flow Rate 2 11/17/24 14:23 BMI result Body Mass Index 21.0 Extrem: Other: Dressing on L hip c/d/i, pedal pulses intact, distal sensation intact, compartments soft/nontender Procedures Date of Service Date of Service: 11/18/24 Progress Note: A&P Assessment and plan (1) Intertrochanteric fracture of left hip: Status: Acute Plan 1. S/p L hip IMN with Dr. Golden DOS 11/16/24 Continue pain mgmt Continue aspirin for DVT ppx Continue PT/OT Dispo planning- pain mgmt, medical clearance, PT/OT Time Spent With Patient Time: Total time managing care of this patient today ____ minutes. Quality Stroke Does the patient have a stroke diagnosis?: No VTE Prior VTE?: No VTE Risk Level:: Medical - moderate - high VTE Device Contraindication: N/A - Device Ordered VTE Drug Contraindication: Treatment Not Indicated
[2024-11-18 20:00] VITALS: BP 132/78; PULSE 101; RESP 17; TEMP 37.1; O2SAT 95
[2024-11-18 20:52] LABS: Glucose, Whole Blood 158 mg/dL (60-115)
[2024-11-18] MEDS: oxyCODONE HCl Immed Release 5 MG TABLET PO (23:17)
[2024-11-19] VITALS (7 sets, daily range): BP systolic 140–158; BP diastolic 65–73; PULSE 80–103; RESP 16–19; TEMP 36.5–37.1; O2SAT 95–96
[2024-11-19 05:54] LABS: Hematocrit 23.4 % (37.0-47.0); Hemoglobin 8.4 g/dl (12.0-16.0); Mean Corpuscular HGB Conc 35.9 g/dl (31.0-35.0); Mean Corpuscular Hemoglobin 31.8 pg (27.0-33.0); Mean Corpuscular Volume 88.6 fL (80.0-98.0); Mean Platelet Volume 10.1 fL (9.4-12.3); Platelet Count 153 X10*3/uL (160-400); Red Blood Count 2.64 X10*6/uL (4.20-5.50); Red Cell Distribution Width 13.1 % (11.0-16.0)
[2024-11-19 06:06] LABS: Anion Gap 14 (12-20); Blood Urea Nitrogen 16 mg/dL (9-16); Carbon Dioxide 24 mmol/L (22-29); Chloride 106 mmol/L (96-108); Creatinine Clr Calc Pharmacy 67.6; Estimated Glomerular Filt Rate > 60; Glucose Random 190 mg/dL (60-115); Potassium 3.9 mmol/L (3.3-5.1); Sodium 140 mmol/L (135-145)
[2024-11-19 07:20] LABS: Glucose, Whole Blood 192 mg/dL (60-115)
[2024-11-19] MEDS: Insulin Lispro 100 UNIT/ML 3 ML VIAL SUBCUT ×4 (07:52→21:40)
[2024-11-19] MEDS: amLODIPine Besylate 5 MG TABLET PO (07:52)
[2024-11-19] MEDS: Aspirin 325 MG TABLET PO ×2 (07:52→20:52)
[2024-11-19] MEDS: metFORMIN HCl 500 MG TABLET PO ×2 (07:53→16:45)
--- NOTE | 2024-11-19 07:53 | P.PNIM_ITS ---
Subjective Subjective Date of Service: 11/19/24 Interval History: Follow up for a fall which resulted in an intertrochanteric fracture of the left femur s/p repair on 11/16, pain is well controlled Had episode of hypotension and dizziness on 11/17, improved with IVF and transfusion. H/H is slightly down from yesterday Physical Exam 2 Vital Signs: Vital Signs: Last Vital Signs Temp 98.1 F 11/19/24 07:35 Pulse 88 11/19/24 07:35 Resp 18 11/19/24 07:35 BP 148/70 H 11/19/24 07:35 Pulse Ox 96 11/19/24 07:35 O2 Del Method Nasal Cannula 11/19/24 07:35 O2 Flow Rate 2 11/19/24 07:35 Oxygen Flow Rate 2 11/17/24 14:23 BMI result Body Mass Index 21.0 Const: Other: General: AO X 2, no acute distress Resp: CTA bilateral CVS: S1,S2,RRR GI: +BS, NT, no distention Skin: No rash, wound dressing d/c/i Neuro: motor grossly intact Psych: appropriate affect Objective Data Active Medications Acetaminophen (Acetaminophen 325 Mg Tablet) 650 mg PO Q6H PRN PRN Reason: Pain, Mild 1-3,fever,headache Last Admin: 11/17/24 10:57 Dose: 650 mg Documented By: SHARMAINE Amlodipine Besylate (Amlodipine Besylate 5 Mg Tablet) 5 mg PO DAILY [facility]; Protocol Last Admin: 11/18/24 09:17 Dose: 5 mg Documented By: ALISHA Aspirin (Aspirin 325 Mg Tablet) 325 mg PO BID [facility] Last Admin: 11/18/24 21:16 Dose: 325 mg Documented By: WESLEY Calcium Carbonate (Calcium Carbonate 750 Mg Tab.Chew) 750 mg PO Q4H PRN PRN Reason: Heartburn Dextrose (Dextrose 50 % 25 Gm/50 Ml Syringe) 25 gm IVPUSH Q15M PRN; Protocol PRN Reason: per Hypoglycemia Standing Ord. Glucose (Glucose Gel 15 Gm Gel..Gram.) 15 gm PO Q15M PRN; Protocol PRN Reason: per Hypoglycemia Standing Ord. Insulin Human Lispro (Insulin Lispro 100 Unit/Ml 3 Ml Vial) 0 unit SUBCUT QIDACHS [facility]; Protocol Last Admin: 11/18/24 21:18 Dose: 2 unit Documented By: WESLEY Magnesium Hydroxide (Milk Of Magnesia 30 Ml Oral.Susp) 30 ml PO DAILY PRN PRN Reason: Constipation Melatonin (Melatonin 3 Mg Tablet) 6 mg PO BEDTIME PRN PRN Reason: Insomnia Metformin HCl (Metformin Hcl 500 Mg Tablet) 500 mg PO BIDWM [facility] Last Admin: 11/18/24 17:26 Dose: 500 mg Documented By: ALISHA Metoclopramide HCl (Metoclopramide Hcl 10 Mg/2 Ml Vial) 5 mg IVPUSH Q6H PRN PRN Reason: Nausea and Vomiting Last Admin: 11/18/24 19:21 Dose: 5 mg Documented By: WESLEY Morphine Sulfate (Morphine Sulfate 4 Mg/Ml Cartridge) 2 mg IVPUSH Q4H PRN; Protocol PRN Reason: Pain, Severe (Pain Scale 7-10) Olanzapine (Olanzapine 2.5 Mg Tablet) 2.5 mg PO BID [facility] Last Admin: 11/18/24 21:18 Dose: 2.5 mg Documented By: WESLEY Oxycodone HCl (Oxycodone Hcl Immed Release 5 Mg Tablet) 5 mg PO Q6H PRN PRN Reason: Pain, Moderate(Pain Scale 4-6) Last Admin: 11/18/24 23:17 Dose: 5 mg Documented By: WESLEY Sodium Chloride (0.9 % Sodium Chloride Flush 3 Ml Syringe) 3 ml IVFLUSH [facility] Last Admin: 11/18/24 23:22 Dose: 3 ml Documented By: WESLEY Sodium Chloride (0.9 % Sodium Chloride Flush 3 Ml Syringe) 3 ml IVFSH [facility] Last Admin: 11/19/24 07:20 Dose: Not Given Documented By: THERESE Non-Admin Reason: Duplicate Order Labs 11/19/24 05:24 11/19/24 05:24 Labs: Laboratory Results - last 24 hr 11/18/24 11/18/24 11/18/24 11:01 16:15 20:48 MCV MCH MCHC RDW Plt Count MPV Absolute Nucleated RBC Nucleated RBC % (auto) Anion Gap Estim Creat Clear Calc Estimated GFR POC Glucose 186 H 269 H 158 H Random Glucose Calcium 11/19/24 11/19/24 05:24 07:13 MCV 88.6 MCH 31.8 MCHC 35.9 H RDW 13.1 Plt Count 153 L MPV 10.1 Absolute Nucleated RBC 0.000 Nucleated RBC % (auto) 0.0 Anion Gap 14 Estim Creat Clear Calc 67.6 Estimated GFR > 60 POC Glucose 192 H Random Glucose 190 H Calcium 8.0 L Assessment and Plan (1) Intertrochanteric fracture of left hip: Status: Acute (2) Closed left hip fracture: Status: Acute Plan 74 yo female with a PMH of Dementia, HTN, prediabetes, HLD, and mood disorder. Hip X-ray shows acute comminuted intertrochanteric fracture of the left femur. Left Hip Intertrochanteric fracture s/p surgical repair on 11/16 PT/OT recommends STR pain control ASA for Dvt prevention Acute blood loss anemia, related to fracture s/p 1 unit of RBC on 11/17, H/H 8.4/23.4, baseline hgb 12. 1 unit of RBC today 11/19--> total 2 Hypotension, 11/17 likely related poor po intake and anemia--resolved with ivf and blood HTN--BP on high side this morning, adjust Norvasc dose to 10 Early diabetes, A1C 6.5 sliding scale metformin 500 mg po bid Leukocytes -13.1 most likely reactive from fracture, resolving Normocytic normochromic anemia, H/H down from surgery, repeat tomorrow Mood Disorder -continue Olanzapine Code: Full VTE prophylaxis: compression boots, ASA Dispo: will need STR Quality Stroke Does the patient have a stroke diagnosis?: No VTE Prior VTE?: No VTE Risk Level:: Medical - moderate - high VTE Device Contraindication: N/A - Device Ordered VTE Drug Contraindication: Treatment Not Indicated
[2024-11-19] MEDS: 0.9 % Sodium Chloride Flush 3 ML SYRINGE IVFLUSH ×4 (08:00→21:41)
--- NOTE | 2024-11-19 10:19 | PM.PNORT ---
Subjective Subjective Date of Service: 11/19/24 Interval history: POD3 s/p L hip IMN Patient resting comfortably in bed Pain well managed No acute events overnight No other acute complaints or concerns at this time Physical Exam Vital Signs: Vital Signs: Last Vital Signs Temp 97.7 F 11/19/24 10:06 Pulse 84 11/19/24 10:06 Resp 18 11/19/24 10:06 BP 140/65 H 11/19/24 10:06 Pulse Ox 96 11/19/24 07:35 O2 Del Method Nasal Cannula 11/19/24 07:35 O2 Flow Rate 2 11/19/24 07:35 Oxygen Flow Rate 2 11/17/24 14:23 BMI result Body Mass Index 21.0 Extrem: Other: Dressing on L hip c/d/i, pedal pulses intact, distal sensation intact, compartments soft/nontender Procedures Date of Service Date of Service: 11/19/24 Progress Note: A&P Assessment and plan (1) Intertrochanteric fracture of left hip: Status: Acute Plan 1. S/p L hip IMN with Dr. Golden DOS 11/16/24 Continue pain mgmt Continue aspirin for DVT ppx Continue PT/OT Dispo planning- pain mgmt, medical clearance, PT/OT Time Spent With Patient Time: Total time managing care of this patient today ____ minutes. Quality Stroke Does the patient have a stroke diagnosis?: No VTE Prior VTE?: No VTE Risk Level:: Medical - moderate - high VTE Device Contraindication: N/A - Device Ordered VTE Drug Contraindication: Treatment Not Indicated
[2024-11-19 11:19] LABS: Glucose, Whole Blood 213 mg/dL (60-115)
[2024-11-19 16:06] LABS: Glucose, Whole Blood 172 mg/dL (60-115)
[2024-11-19] MEDS: Acetaminophen 325 MG TABLET 650 MG PO (18:15)
[2024-11-19] MEDS: OLANZapine 2.5 MG TABLET PO (20:53)
[2024-11-19 21:04] LABS: Glucose, Whole Blood 171 mg/dL (60-115)
[2024-11-20 03:34] VITALS: BP 155/76; PULSE 85; RESP 18; TEMP 36.1; O2SAT 96
[2024-11-20 06:18] LABS: Hematocrit 26.7 % (37.0-47.0); Hemoglobin 9.5 g/dl (12.0-16.0); Mean Corpuscular HGB Conc 35.6 g/dl (31.0-35.0); Mean Corpuscular Hemoglobin 31.1 pg (27.0-33.0); Mean Corpuscular Volume 87.5 fL (80.0-98.0); Mean Platelet Volume 10.1 fL (9.4-12.3); Platelet Count 182 X10*3/uL (160-400); Red Blood Count 3.05 X10*6/uL (4.20-5.50); Red Cell Distribution Width 13.5 % (11.0-16.0); White Blood Count 8.6 X10*3/uL (4.8-10.8)
[2024-11-20 06:35] LABS: Alanine Aminotransferase < 6 U/L (0-31); Alkaline Phosphatase 53 U/L (39-117); Anion Gap 13 (12-20); Aspartate Amino Transferase 20 U/L (5-31); Bilirubin Direct 0.5 mg/dL (0.0-0.5); Blood Urea Nitrogen 16 mg/dL (9-16); Calcium 8.1 mg/dL (8.4-10.2); Carbon Dioxide 24 mmol/L (22-29); Chloride 107 mmol/L (96-108); Creatinine Clr Calc Pharmacy 69.5; Estimated Glomerular Filt Rate > 60; Glucose Random 164 mg/dL (60-115); Potassium 3.5 mmol/L (3.3-5.1); Sodium 140 mmol/L (135-145); Total Protein 5.3 g/dL (6.5-8.0)
[2024-11-20] MEDS: oxyCODONE HCl Immed Release 5 MG TABLET 10 MG PO ×2 (07:03→13:22)
[2024-11-20] MEDS: amLODIPine Besylate 5 MG TABLET PO (07:03)
[2024-11-20] MEDS: metFORMIN HCl 500 MG TABLET PO (07:03)
[2024-11-20] MEDS: Aspirin 325 MG TABLET PO (07:03)
[2024-11-20] MEDS: 0.9 % Sodium Chloride Flush 3 ML SYRINGE IVFLUSH (07:04)
[2024-11-20 07:28] LABS: Glucose, Whole Blood 179 mg/dL (60-115)
[2024-11-20 07:33] VITALS: BP 158/77; PULSE 81; RESP 16; TEMP 36.3; O2SAT 95
[2024-11-20] MEDS: amLODIPine Besylate 10 MG TABLET PO (07:36)
[2024-11-20] MEDS: Insulin Lispro 100 UNIT/ML 3 ML VIAL SUBCUT ×2 (07:36→12:14)
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
--- NOTE | 2024-11-20 08:34 | HO.PM.IMPN ---
Subjective Subjective Date of Service: 11/20/24 Interval History: Follow up for a fall which resulted in an intertrochanteric fracture of the left femur s/p repair on 11/16, pain is well controlled Had episode of hypotension and dizziness on 11/17, improved with IVF and transfusion. H/H is is better, no new issues. Physical Exam Vital Signs: Vital Signs: Last Vital Signs Temp 97.3 F 11/20/24 07:33 Pulse 81 11/20/24 07:33 Resp 16 11/20/24 07:33 BP 158/77 H 11/20/24 07:33 Pulse Ox 95 11/20/24 07:33 O2 Del Method Nasal Cannula 11/20/24 07:33 O2 Flow Rate 2 11/20/24 07:33 Oxygen Flow Rate 2 11/17/24 14:23 BMI result Body Mass Index 21.0 Const: Other: General: AO X 2, no acute distress Resp: CTA bilateral CVS: S1,S2,RRR GI: +BS, NT, no distention Skin: No rash, wound dressing d/c/i Neuro: motor grossly intact Psych: appropriate affect Objective Data Active Medications Acetaminophen (Acetaminophen 325 Mg Tablet) 650 mg PO Q6H PRN PRN Reason: Pain, Mild 1-3,fever,headache Last Admin: 11/19/24 18:15 Dose: 650 mg Documented By: THERESE Amlodipine Besylate (Amlodipine Besylate 10 Mg Tablet) 10 mg PO DAILY [facility]; Protocol Last Admin: 11/20/24 07:36 Dose: 10 mg Documented By: MIKAYLA Aspirin (Aspirin 325 Mg Tablet) 325 mg PO BID [facility] Last Admin: 11/20/24 07:03 Dose: 325 mg Documented By: MIKAYLA Calcium Carbonate (Calcium Carbonate 750 Mg Tab.Chew) 750 mg PO Q4H PRN PRN Reason: Heartburn Dextrose (Dextrose 50 % 25 Gm/50 Ml Syringe) 25 gm IVPUSH Q15M PRN; Protocol PRN Reason: per Hypoglycemia Standing Ord. Glucose (Glucose Gel 15 Gm Gel..Gram.) 15 gm PO Q15M PRN; Protocol PRN Reason: per Hypoglycemia Standing Ord. Insulin Human Lispro (Insulin Lispro 100 Unit/Ml 3 Ml Vial) 0 unit SUBCUT QIDACHS [facility]; Protocol Last Admin: 11/20/24 07:36 Dose: 2 unit Documented By: MIKAYLA Magnesium Hydroxide (Milk Of Magnesia 30 Ml Oral.Susp) 30 ml PO DAILY PRN PRN Reason: Constipation Melatonin (Melatonin 3 Mg Tablet) 6 mg PO BEDTIME PRN PRN Reason: Insomnia Metformin HCl (Metformin Hcl 500 Mg Tablet) 500 mg PO BIDWM [facility] Last Admin: 11/20/24 07:03 Dose: 500 mg Documented By: MIKAYLA Metoclopramide HCl (Metoclopramide Hcl 10 Mg/2 Ml Vial) 5 mg IVPUSH Q6H PRN PRN Reason: Nausea and Vomiting Last Admin: 11/18/24 19:21 Dose: 5 mg Documented By: WESLEY Morphine Sulfate (Morphine Sulfate 4 Mg/Ml Cartridge) 2 mg IVPUSH Q4H PRN; Protocol PRN Reason: Pain, Severe (Pain Scale 7-10) Olanzapine (Olanzapine 2.5 Mg Tablet) 2.5 mg PO BID@1500,2100 [facility] Last Admin: 11/19/24 20:53 Dose: 2.5 mg Documented By: APRIL Oxycodone HCl (Oxycodone Hcl Immed Release 5 Mg Tablet) 10 mg PO Q6H PRN PRN Reason: Pain, Moderate(Pain Scale 4-6) Last Admin: 11/20/24 07:03 Dose: 10 mg Documented By: MIKAYLA Sodium Chloride (0.9 % Sodium Chloride Flush 3 Ml Syringe) 3 ml IVFLUSH [facility] Last Admin: 11/20/24 07:04 Dose: 3 ml Documented By: MIKAYLA Sodium Chloride (0.9 % Sodium Chloride Flush 3 Ml Syringe) 3 ml IVFLUSH [facility] Last Admin: 11/20/24 07:04 Dose: Not Given Documented By: MIKAYLA Non-Admin Reason: Duplicate Order Labs 11/20/24 05:18 11/20/24 05:18 Labs: Laboratory Results - last 24 hr 11/19/24 11/19/24 11/19/24 08:32 11:15 16:02 MCV MCH MCHC RDW Plt Count MPV Absolute Nucleated RBC Nucleated RBC % (auto) Anion Gap Estim Creat Clear Calc Estimated GFR POC Glucose 213 H 172 H Random Glucose Calcium Total Bilirubin Direct Bilirubin AST ALT Alkaline Phosphatase Total Protein Albumin Blood Type O Positive Antibody Screen NEGATIVE Crossmatch See Detail 11/19/24 11/20/24 11/20/24 21:00 05:18 07:25 MCV 87.5 MCH 31.1 MCHC 35.6 H RDW 13.5 Plt Count 182 MPV 10.1 Absolute Nucleated RBC 0.000 Nucleated RBC % (auto) 0.0 Anion Gap 13 Estim Creat Clear Calc 69.5 Estimated GFR > 60 POC Glucose 171 H 179 H Random Glucose 164 H Calcium 8.1 L Total Bilirubin 2.0 H Direct Bilirubin 0.5 AST 20 ALT < 6 Alkaline Phosphatase 53 Total Protein 5.3 L Albumin 3.0 L Blood Type Antibody Screen Crossmatch Assessment and Plan (1) HTN (hypertension): Status: Acute (2) Closed left hip fracture: Status: Acute (3) Acute blood loss anemia: Status: Acute Plan This 74 yo female with a PMH of Dementia, HTN, prediabetes, HLD, and mood disorder presented following a mechanical fall and sustained a left hip intertrochanteric fracture. She underwent intramedullary nailing the next day on 11/16. Post-operatively, she developed acute blood loss anemia, and on 11/17 she had an episode of hypotension and near-syncope. She was transfused 1 unit of PRBCs and given IV fluids with good effect. She was transfused a second unit on 11/19 and H/H has improved, presently 9.5 and 26.7, with no evidence of active blood loss. Post-operatively, she is recovering well and her pain is controlled. She is on ASA 325 mg BID for DVT prevention. PT/OT recommends STR. problems Left hip intertrochanteric fracture s/p IM nailing on 11/16 Pain control with oxycodone ASA for DVT prevention PT/OT recommends STR Acute blood loss anemia, related to fracture and surgery s/p 1 unit of PRBCs on 11/17, H/H 8.4/23.4, baseline Hgb 12 Another 1 unit of PRBCs on 11/19 ? total 2 units; H/H now 9.5/26.7 Hypotension with adiel syncope day after surgery on 11/17 likely related to poor PO intake and anemia ? resolved with IVF and transfusion HTN ? BP on high side, home dose of Norvasc 5 mg increased to 10 mg daily New onset diabetes ? A1c 6.5%, BS in 200s, fasting 170; was on sliding scale, started on metformin 500 mg BID Leukocytosis--WBC 13.1, most likely reactive from fracture, resolving Normocytic normochromic anemia ? H/H down from surgery, repeat labs tomorrow Mood disorder Continue olanzapine Code: Full VTE prophylaxis: compression boots, ASA Quality Stroke Does the patient have a stroke diagnosis?: No VTE Prior VTE?: No VTE Risk Level:: Medical - moderate - high VTE Device Contraindication: N/A - Device Ordered VTE Drug Contraindication: Treatment Not Indicated
--- NOTE | 2024-11-20 11:04 | MHC.CM.PN ---
IMM 11/20/24 DELIVERED TO PT'S DTR/HCP D[facility] AT 11:38AM [phone], PER DISCUSSION COPY TO BE SENT VIA CERTIFIED MAIL [address] [place] [address]. ANTIC PT WILL BE MEDICALLY CLEARED FOR DC TO STR AT [facility], [facility] AGREEABLE TO [facility] FOR BLS TRANSPORT AT 3:30PM
[2024-11-20 11:11] LABS: Glucose, Whole Blood 215 mg/dL (60-115)
[2024-11-20 15:36] VITALS: BP 151/72; PULSE 82; RESP 16; TEMP 36.5; O2SAT 95
== END 2024-11-20 16:14 | disposition skilled nursing facility (03) | DRG 481 ==
LOC: HO.ED 20:28 → HO.EDOVER 21:09 → HO.S3 11-16 16:01
PROVIDERS: Nurse Practitioner Acute Care; Orthopaedic Surgery; Physician Assistant Medical; Admitting Provider Student in an Organized Health Care Education/Training Program; Emergency Provider Emergency Medicine; PCP Family Medicine; Visit Provider Internal Medicine
PROC: 0QS706Z Reposition Left Upper Femur with Intramedullary Internal Fixation Device, Open Approach (ICD-10-PCS; principal; 2024-11-16 14:00)
DX: S72.142A Displaced intertrochanteric fracture of left femur, initial encounter for closed fracture (principal); D62 Acute posthemorrhagic anemia; W19.XXXA Unspecified fall, initial encounter; R73.03 Prediabetes; E78.2 Mixed hyperlipidemia; I95.9 Hypotension, unspecified; F39 Unspecified mood [affective] disorder; G30.9 Alzheimer's disease, unspecified; F02.80 Dementia in other diseases classified elsewhere, unspecified severity, without behavioral disturbance, psychotic disturbance, mood disturbance, and anxiety; I10 Essential (primary) hypertension; Z20.822 Contact with and (suspected) exposure to COVID-19; Z79.899 Other long term (current) drug therapy
CPT/HCPCS: 0241U; 36415; 70450; 71045; 72125; 73502; 80048; 80053; 80076; 81001; 82550; 82947; 83036; 83690; 83735; 83880; 84484; 85014; 85018; 85025; 85027; 85610; 86850; 86900; 86901; 86923; 87086; 93005; 96360; 97162; 97166; 99285; C1713; J0690; J2765; J3010; J7120; P9016

== ENCOUNTER → 2024-11-15 19:40 | Outpatient (BNV) | payer MEDICARE, SELFPAY | PROVIDERS: Emergency Provider Emergency Medicine; Visit Provider Radiology Neuroradiology | DX: M54.2 Cervicalgia (principal); S09.90XA Unspecified injury of head, initial encounter; S72.142A Displaced intertrochanteric fracture of left femur, initial encounter for closed fracture; R07.2 Precordial pain | CPT/HCPCS: 70450; 71045; 72125; 73502 ==

== ENCOUNTER → 2024-11-15 19:42 | Outpatient (BNV) | payer MEDICARE, SELFPAY | PROVIDERS: Admitting Provider Student in an Organized Health Care Education/Training Program; Emergency Provider Emergency Medicine; Visit Provider Internal Medicine | DX: I10 Essential (primary) hypertension (principal) | CPT/HCPCS: 93010 ==

== ENCOUNTER 2024-11-15 20:57 | Outpatient (BNV) | payer MEDICARE, SELFPAY | END 2024-11-17 14:10 | PROVIDERS: Admitting Provider Student in an Organized Health Care Education/Training Program; Emergency Provider Emergency Medicine; Visit Provider Internal Medicine | DX: R94.31 Abnormal electrocardiogram [ECG] [EKG] (principal) | CPT/HCPCS: 93010 ==

== ENCOUNTER → 2024-11-15 20:57 | Outpatient (BNV) | payer MEDICARE, SELFPAY | PROVIDERS: Admitting Provider Student in an Organized Health Care Education/Training Program; Emergency Provider Emergency Medicine | DX: S72.142A Displaced intertrochanteric fracture of left femur, initial encounter for closed fracture (principal); G30.9 Alzheimer's disease, unspecified; F02.80 Dementia in other diseases classified elsewhere, unspecified severity, without behavioral disturbance, psychotic disturbance, mood disturbance, and anxiety | CPT/HCPCS: 27245; 99223 ==

== ENCOUNTER → 2024-11-15 20:57 | Outpatient (BNV) | payer MEDICARE, SELFPAY | PROVIDERS: Admitting Provider Student in an Organized Health Care Education/Training Program; Emergency Provider Emergency Medicine; Visit Provider Student in an Organized Health Care Education/Training Program | DX: S72.142A Displaced intertrochanteric fracture of left femur, initial encounter for closed fracture (principal); S72.002A Fracture of unspecified part of neck of left femur, initial encounter for closed fracture | CPT/HCPCS: 99222; 99232; 99239; 99499 ==

== ENCOUNTER 2024-11-20 19:12 | Emergency (ER) | payer MEDICARE, SELFPAY ==
--- NOTE | ~2024-11-20 | CT_ITS ---
CLINICAL HISTORY: fall CT cervical spine without contrast Comparison: CT/SR - CT CERVICAL SPINE WO IV CON - 11/15/24 20:01 EDT Findings: Normal vertebral body alignment. Mild multilevel spondylosis with disc space narrowing, endplate sclerosis, osteophytosis and facet arthropathy. No acute fractures or dislocations. Visualized intracranial contents are unremarkable. No cervical fluid collections or masses. No consolidation or effusion at the lung apices. IMPRESSION: No evidence of acute fracture or traumatic listhesis of the cervical spine. Mild multilevel spondylosis. This document has been electronically signed by: Chastity Bourne MD on 11/20/2024 21:20:09
--- NOTE | ~2024-11-20 | CT_ITS ---
CLINICAL HISTORY: fall from toilet head injury CT head without contrast Comparison: CT/SR - CT HEAD/BRAIN WO IV CON - 11/15/24 20:01 EDT Findings: No intra-axial mass, midline shift, hydrocephalus, or acute hemorrhage. Moderate atrophy-like change or white matter disease. There is no sinus or mastoid fluid. The orbits are unremarkable. There is no acute fracture. IMPRESSION: 1. No acute intracranial findings specifically, no acute intracranial hemorrhage. 2. Moderate atrophy-like change or white matter disease. This document has been electronically signed by: Chastity Bourne MD on 11/20/2024 21:18:32
--- NOTE | ~2024-11-20 | XR_ITS ---
CLINICAL HISTORY: trauma 3 view, pelvis and left hip Comparison: CR - XR HIP LT MIN 2V - 11/15/24 19:57 EDT Findings: Interval status post left hip open reduction internal fixation of the intertrochanteric fracture with improved alignment. Postsurgical soft tissue changes. IMPRESSION: Interval status post left hip open reduction internal fixation of the intertrochanteric fracture with improved alignment. This document has been electronically signed by: Chastity Bourne MD on 11/20/2024 22:51:19
[2024-11-20 19:19] VITALS: BP 180/83; PULSE 90; O2SAT 96
[2024-11-20 19:28] VITALS: BP 172/80; PULSE 81; RESP 20; TEMP 36.9; O2SAT 96; BMI 20.6
--- OUTSIDE RECORDS SUMMARY | 2024-11-20 19:57 | XMS_ITS | Clinical Summary ---
Author Organization [facility] [place] Address [address] [place] [address] Care Team Providers Care Subcontract Administrator Name Role Phone Beata Mccoy MD Primary [...] complication, without long-term current use of insulin ([facility] V24, [facility] V28) Inject 0.5 mL (0.75 mg total) [...] square meter and albuminuria creatinine ratio les* ([facility] V24, [facility] V28) 09/02/2021 Type 2 diabetes mellitus wit h eye manifestations ([facility] V24, [facility] V28) 08/10/2019 Hypertriglyceridemia 12/31/2016 Pilar cysts 11/21/2015 Essential hypertension, benign 11/16/2006 External hemorrhoids 03/01/2006 Overview (08/12/2024): O update Disorder of bone and cartilage 03/01/2006 Overview (08/12/2024): IMO update. Fosamax since 2011, stopped Encounters Date Type Department Care Team Description 11/03/2024 1:00 PM EDT Office Visit Adult [address] [phone] Juan Manrique PA Type 2 diabetes mellitus with other ophthalmic complication, without long-term current use of insulin ([facility] V24, [facility] V28) (Primary Dx); Chronic kidney disease (CKD) stage G3a/A1, moderately decreased glomerular filtration rate (GFR) between 45-59 mL/min/1.73 square meter and albuminuria creatinine ratio les* ([facility] V24, [facility] V28); Essential hypertension, benign; Cognitive decline 10/10/2024 Telephone Adult [address] [phone] Shante Camargo MA Hospital Follow-up ([facility] ( admitted 09/26- discharged 09/27 ) ) 10/09/2024 Telephone Adult [address] [phone] Beata Mccoy MD Medication from Last 3 [...] Care Team (Late st Contact Info) Description 01/26/2025 1:15 PM EDT Office Visit Adult Medicine - [address] [phone] Poli Rodas PA [address] [place] [id number] Health Maintenance Due Date Last Done Comments [...] * Annual BMP Blood Test (06/18/2022) Pathologist [facility] Annual BMP Blood Test abstracted [facility] Provider HEALTH MAINTENANCE Final Result * (ABNORMAL) Hemoglobin A1c (06/18/2022) [facility] Hemoglobin A1C 8.3(A) <=6.5 % Blood Venous blood specimen / Unknown [facility] Provider LAB BLOOD ORDERABLES Almita l Result * (ABNORMAL) Lipid panel (06/18/2022) [facility] LDL/HDL Ratio 4 0 - 4 Triglycerides 217(A) 0 - 150 mg/dL Cholesterol 185 0 - 200 mg/dL HDL 48 >=40 mg/dL LDL Cholesterol 94 0 - 100 mg/dL Blood Venous blood specimen / Unknown [facility] Provider LAB BLOOD ORDERABLES Almita l Result * Urine Albumin Creatinine Ratio (09/03/2021) Pathologist [facility] Urine Albumin Creatinine Ratio abstracted [facility] Provider HEALTH MAINTENANCE Final Result * [...] (World Health Organization Fracture Risk Assessment) [facility] Department of Internal Medicine recommends using National [...] (World Health Organization Fracture Risk Assessment) [facility] Department of Internal Medicine recommendsusing National Osteoporosis [...] Fi nal Result * Colonoscopy (01/23/2016) Pathologist [facility] Colonoscopy abstracted Anatomical Region Laterality Modality Other Result [facility] Historical Provider HEALTH MAINTENANCE Final Result * Cervical Cancer Screening: HPV (01/08/2014) [facility] Cervical Cancer Screening: HPV abstracted, negative Historical Provider HEALTH MAINTENANCE Final Result * Hepatitis C Screening (02/24/2013) Pathologist [facility] Hepatitis C Screening abstracted us Historical Provider HEALTH MAINTENANCE Final Result from Last 3 Months or Most Recently Relevant to Health Maintenance Insurance MEDICARE Care Teams Subcontract Administrator Relationship Specialty Start Date End Date Beata Mccoy MD [address] [place] [id number] PCP - General Internal Medicine 08/04/21
[2024-11-20] MEDS: diazePAM 10 MG/2 ML CARTRIDGE 2.5 MG IVPUSH (20:50)
[2024-11-20] MEDS: Acetaminophen 325 MG TABLET 975 MG PO (20:50)
--- NOTE | 2024-11-20 21:28 | ED_ITS ---
HPI - General Adult General Chief complaint: Fall Stated complaint: Fall Time Seen by Provider: 11/20/24 20:28 Source: EMS and RN notes reviewed History of Present Illness ED Provider: Soledad Love PA-C HPI narrative: 74-year-old female with a history of Alzheimer's dementia, now status post intertrochanteric fracture of the left femur s/p repair on November 16, who was just discharged from the hospital to a rehab facility, who presents after fall. [facility], she was on the toilet, the toilet subsequently broke, she fell to the ground striking her head. No loss consciousness, the patient is not on a blood thinner. Patient complains of head neck and hip pain. Related Data Home Medications ?Medication ?Instructions ?Recorded ?Confirmed olanzapine 2.5 mg tablet 2.5 mg PO BID@1500,2100 11/19/24 11/19/24 Previous Rx's ?Medication ?Instructions ?Recorded amlodipine 10 mg tablet 10 mg PO DAILY #90 tabs 11/20/24 aspirin 325 mg tablet 325 mg PO BID #80 tabs 11/20/24 insulin lispro 100 unit/mL See Protocol subcut QIDACHS #10 mL 11/20/24 subcutaneous solution (Admelog U-100 Insulin lispro) melatonin 3 mg tablet 6 mg (2 x 3 mg) PO BEDTIME PRN 11/20/24 Insomnia #30 tabs metformin 500 mg tablet 500 mg PO BIDWM #180 tabs 11/20/24 oxycodone 5 mg tablet 5 mg PO Q6H PRN Pain, 11/20/24 Moderate(Pain Scale 7-10) #30 tabs Allergies Allergy/AdvReac Type Severity Reaction Status Date / Time gemfibrozil [GEMFIBROZIL] Allergy Unknown DIZZINESS/HIVES, Verified 11/20/24 19:30 dizziness ondansetron [From Zofran] AdvReac Unresponsiv Verified 11/20/24 19:30 e Review of Systems Review of Systems: Yes all other systems are reviewed and are negative Constitutional: Constitutional: Denies fatigue, Denies fever(s) and Reports headache(s) ENT: Denies dizziness, Reports headache(s) and Reports neck pain Gastrointestinal: Gastrointestinal: Denies nausea and Denies vomiting Musculoskeletal: Musculoskeletal: Reports arthralgias and Reports neck pain Neurologic: Denies dizziness and Reports headache(s) Endocrine: Endocrine: Denies fatigue PMFSH Past Medical History Attestation statement: The following information was validated with the patient. Medical History HTN (hypertension) Premature atrial contractions Diabetes Palpitations Surgical History No pertinent past surgical history Family History Family History Father Cancer Mother Cancer Social History Social History Household Members: None Household Members Other:: alone Housing: House Are you a primary health care aide to a significant other at home: No Do you presently have visiting nurse or other home services: No Patient Tobacco Use Status: Never used Tobacco Second Hand Smoke Exposure: No Advance Directives: No Advance Directives Information Provided: Yes Do you have a plan to hurt others: No Plan service: No Physical Exam ED Vital Signs: Vital Signs - 24 hr 11/20/24 19:28 11/20/24 22:09 Temperature 98.5 F 98.3 F Pulse Rate 81 102 H Respiratory Rate 20 16 Blood Pressure 172/80 H 155/77 H Pulse Oximetry 96 97 Oxygen Delivery Method Room Air Room Air BMI result Body Mass Index 20.6 Const Other: Awake Orientation/consciousness: oriented to person Resp Effort & Inspection: normal respiratory effort Cardio Other: Normal peripheral perfusion Skin Other: Warm dry no rash Neuro General: oriented to person, no focal motor deficits and CN's II-XI intact bilaterally Extrem Other: The left lower extremity is not shortened or externally rotated no obvious deformity, she is moving both limbs independently Psych Other: Distraught but cooperative, able to be redirected Medications Administered Discontinued Medications Generic Name Dose Route Start Last Admin Trade Name Norbert PRN Reason Stop Dose Admin Acetaminophen 975 mg 11/20/24 20:43 11/20/24 20:50 Acetaminophen 325 Mg Tablet PO 11/20/24 20:44 975 mg ONCE ONE Administration Diazepam 2.5 mg 11/20/24 20:43 11/20/24 20:50 Diazepam 10 Mg/2 Ml Cartridge IVPUSH 11/20/24 20:44 2.5 mg STAT STA Administration Medical Decision Making Medical Decision Making MDM Narrative: 74-year-old female with a history of Alzheimer's dementia, now status post intertrochanteric fracture of the left femur s/p repair on November 16, who was just discharged from the hospital to a rehab facility, who presents after fall. Patient is [facility], she was on the toilet, the toilet subsequently broke, she fell to the ground striking her head. No loss co nsciousness, the patient is not on a blood thinner. Patient complains of head neck and hip pain. Problem: Dementia, recent surgery History: Per senior living report and EMS I have considered the following differential diagnoses: Hip pelvic fracture, intracranial hemorrhage, cervical spine injury Plan: We will be imaging head neck and hip pelvis, the patient is not a reliable historian secondary to her underlying cognitive impairment. Holding on screening labs, if she has an acute injury that requires intervention we will obtain them at that time. I have independently reviewed the following tests: CT brain:IMPRESSION: 1. No acute intracranial findings specifically, no acute intracranial hemorrhage. 2. Moderate atrophy-like change or white matter disease. CT cervical spine: MPRESSION: No evidence of acute fracture or traumatic listhesis of the cervical spine. Mild multilevel spondylosis. X-ray hip pelvis:IMPRESSION: Interval status post left hip open reduction internal fixation of the intertrochanteric fracture with improved alignment. Discharge Plan Discharge Clinical Impression: Fall Patient Disposition: Xfer [facility] Additional Instructions: CT scan of the brain and cervical spine were obtained there was no acute injury. X-rays of the hip and pelvis were obtained as well, there are no new fractures, no injury sustained. The patient should continue to follow up with her healthcare providers as needed. Prescriptions: No Action olanzapine 2.5 mg tablet 2.5 mg PO BID@1500,2100 amlodipine 10 mg Tablet 10 mg PO DAILY Qty: 90 0RF Protocol: Hold for SBP< HOLD for SBP < : 90 insulin lispro [Admelog U-100 Insulin lispro] 100 unit/mL Solution See Protocol subcut QIDACHS Qty: 10 0RF Protocol: Insulin Correction Scale Less than or equal to 110 ---- Give (units): 0 111 to 150 Give (units): 0 151 to 200 Give (units): 2 201 to 250 Give (units): 4 251 to 300 Give (units): 6 301 to 350 Give (units): 8 Greater than 350 Give (units): 10 Call MD if Blood Glucose > : 350 Rx Instructions: BG <111 0 units, 111-150 - 0 units, 151-200 2 units, 201-250 4 units, 251-300 6 units, 301-350 8 units, >350 10 units metformin 500 mg Tablet 500 mg PO BIDWM Qty: 180 0RF melatonin 3 mg Tablet 6 mg PO BEDTIME PRN (Reason: Insomnia) Qty: 30 0RF oxycodone 5 mg Tablet 5 mg PO Q6H PRN (Reason: Pain, Moderate(Pain Scale 7-10)) Qty: 30 0RF Rx Instructions: Partial Fill upon patient request. aspirin 325 mg Tablet 325 mg PO BID Qty: 80 0RF Rx Instructions: total 42 days from surgery Print Language: Martiniquais
[2024-11-20 22:09] VITALS: BP 155/77; PULSE 102; RESP 16; TEMP 36.8; O2SAT 97
--- NOTE | 2024-11-20 22:52 | MHC.EDTECH ---
pt was found by this tech attempting to get out of bed. pt was laid back down in bed, chair alarm placed on pt's hospital gofernando, RN made aware
--- NOTE | 2024-11-20 22:58 | MHC.EDTECH ---
pt assisted on bedpan for a urine output, jesus care given, blankets given, call sorensen within reach
--- NOTE | 2024-11-20 23:26 | PC.NURSE ---
Called Danae at [facility] and provided nurse to nurse report. Pt is all set for transport. EMS to be scheduled. Monitoring is ongoing.
[2024-11-21 00:18] VITALS: BP 147/78; PULSE 87; RESP 16; TEMP 36.8; O2SAT 93
[2024-11-21 00:37] VITALS: BP 147/78; PULSE 87; RESP 16; TEMP 36.8; O2SAT 93
--- NOTE | 2024-11-21 00:38 | PC.NURSE ---
Called [facility] and notified that pt is in transit.
== END 2024-11-21 00:54 | disposition skilled nursing facility (03) ==
PROVIDERS: Emergency Provider Emergency Medicine
DX: R51.9 Headache, unspecified (principal); M54.2 Cervicalgia; M25.552 Pain in left hip; R29.6 Repeated falls; Z91.81 History of falling; E11.9 Type 2 diabetes mellitus without complications; Z79.4 Long term (current) use of insulin
CPT/HCPCS: 70450; 72125; 73502; 96374; 99284; J3360

== ENCOUNTER → 2024-11-20 19:55 | Outpatient (BNV) | payer MEDICARE, SELFPAY | PROVIDERS: Emergency Provider Emergency Medicine; Visit Provider Student in an Organized Health Care Education/Training Program | DX: S09.90XA Unspecified injury of head, initial encounter (principal); S19.9XXA Unspecified injury of neck, initial encounter; M25.552 Pain in left hip | CPT/HCPCS: 70450; 72125; 73502 ==

== ENCOUNTER 2024-11-28 10:40 | Outpatient (AMB) | payer MEDICARE, SELFPAY ==
--- NOTE | 2024-11-28 11:01 | MHC.OFFVIS ---
Vital Signs 11/28/24 11:04 Height 5 ft 6 in Weight 127 lb BMI 20.5 Intake Visit Reasons: PO L hip IMN DOS 11/16/24 w/DR Intake Note: Teodora is a 74 year old female who presents today for a post operative appointment s/p Open reduction and internal fixation of left hip intertrochanteric fracture with placement of a short gamma nail 11/16/24 Patient reports she is still having pain in her hip. She is working with physical therapy at the facility. Allergies gemfibrozil [GEMFIBROZIL] Allergy (Unknown, Verified 11/28/24 11:04) DIZZINESS/HIVES, dizziness ondansetron [From Zofran] Adverse Reaction (Verified 11/28/24 11:04) Unresponsive HPI HPI PO L hip IMN DOS 11/16/24 w/DR: Details: Ms. Johnson is a 74-year-old female who presents to the office today for routine follow-up status post left hip IM nail that was performed on 11/16/[address] Golden. Of note the patient does have a past medical history significant for Alzheimer's disease. Patient is currently in a rehab facility. She is unsure if she receiving physical therapy. She reports that she has continued pain in the left lower extremity. She reports that ?the whole left leg is broken?. [facility] Medical History HTN (hypertension) Premature atrial contractions Diabetes Palpitations Surgical History No pertinent past surgical history Family History Father Cancer Mother Cancer Social History Household Members: None Household Members Other:: alone Housing: House Are you a primary progressive care manager to a significant other at home: No Do you presently have visiting nurse or other home services: No Patient Tobacco Use Status: Never used Tobacco Second Hand Smoke Exposure: No service: No Review of Systems Const All systems reviewed & are unremarkable except as noted in HPI and below Physical Exam Vital Signs: BMI result Body Mass Index 20.5 Const General: cooperative, healthy appearing and no acute distress Resp Effort & Inspection: normal respiratory effort and able to speak in complete sentences Extrem Other: Left hip incision sites are clean dry and intact. Gucci intact. No surrounding drainage, erythema or edema. No signs of infection. Difficulty performing straight leg raise due to significant quad weakness. Patient is able to dorsiflex and plantar flex. Sensation intact. Pedal pulse intact. Assessment & Plan Assessment & Plan (1) Intertrochanteric fracture of left hip: Code(s): S72.142A - Displaced intertrochanteric fracture of left femur, initial encounter for closed fracture Category: Medical Plan Ms. Johnson is a 74-year-old female who presents to the office today for routine follow-up status post left hip IM nail that was performed on 11/16/[address] Golden. Of note the patient does have a past medical history significant for Alzheimer's disease. Patient is currently in a rehab facility. She is unsure if she receiving physical therapy. She reports that she has continued pain in the left lower extremity. She reports that ?the whole left leg is broken?. Of note, the patient was discharged on 11/19/2024 and presented back to the emergency room the following day after she was toileting at the rehab facility and she fell. X-rays were obtained at this time in the emergency department and negative for any further displacement of the left intertrochanteric hip fracture or hardware failure. While the office today, the patient's gucci were removed and Steri-Strips were applied. Physical therapy instructions were given to continue glute core and quad strengthening as well as gait training with the use of a walker. Steri-Strips should remain on for roughly 1 week and then may be removed. If they follow up before 1 week there is no need to replace them. She will continue anticoagulation x6 weeks. She will follow up in 4 weeks for repeat x-rays, sooner if needed. X-rays of the left femur which were obtained while in the office today and were reviewed by me, Rylie Murphy PA-C, revealed intact orthopedic hardware with routine healing. Orders: Orders XR femur LT 2V Today S72.142A - Displaced intertrochanteric fracture of left femur, initial encounter for closed fracture Coding Level of Care Code Global (47026) Diagnoses Intertrochanteric fracture of left hip S72.142A
[2024-11-28 11:04] VITALS: BMI 20.5
--- OUTSIDE RECORDS SUMMARY | 2024-11-28 11:55 | XMS_ITS | Clinical Summary ---
Author Organization [facility] [employer] Address [address] [place] [address] Care Team Providers Care Well Surveying Engineer Name Role Phone Beata Mccoy MD Primary [...] complication, without long-term current use of insulin ([facility] V24, [facility] V28) Inject 0.5 mL (0.75 mg [...] square meter and albuminuria creatinine ratio les* ([facility] V24, [facility] V28) 09/02/2021 Type 2 diabetes mellitus wit h eye manifestations ([facility] V24, [facility] V28) 08/10/2019 Hypertriglyceridemia 12/31/2016 Pilar cysts 11/21/2015 Essential hypertension, benign 11/16/2006 External hemorrhoids 03/01/2006 Overview (08/12/2024): O update Disorder of bone and cartilage 03/01/2006 Overview (08/12/2024): IMO update. Fosamax since 2011, stopped Encounters Date Type Department Care Team Description 11/21/2024 Lab Requisition [facility] [address] [facility] [place] [address] Pearl Schwartz MD Type 2 diabetes mellitus without complications ([facility] V24, [facility] V28); Anemia, unspecified 11/03/2024 1:00 PM EDT Office Visit Adult [address] [phone] Juan Manrique PA Type 2 diabetes mellitus with other ophthalmic complication, without long-term current use of insulin ([facility] V24, [facility] V28) (Primary Dx); Chronic kidney disease (CKD) stage G3a/A1, moderately decreased glomerular filtration rate (GFR) between 45-59 mL/min/1.73 square meter and albuminuria creatinine ratio les* ([facility] V24, [facility] V28); Essential hypertension, benign; Cognitive decline 10/10/2024 Telephone Adult [facility] [address] [place] [address] Shante Camargo [place] [facility] Follow-up ([facility] ( admitted 09/26- discharged 09/27 ) ) 10/09/2024 Telephone Adult [address] [phone] Beata Mccoy MD Medication from Last 3 [...] 6mo and older 04/22/2021 PPD Test 09/30/2017,07/11/2014,10/05/2011 [email or web address] SARS-CoV-2 COVID-19, mRNA, LNP-S, preservative free 07/12/2021 [...] PM EDT Office Visit Adult Medicine - [address] [phone] Poli Rodas PA [address] [place] [phone] Health Maintenance Due Date Last Done Comments [...] Annual Urine Albumin-Creatinine Ratio (uACR) 09/03/2022 09/03/2021 DTaP,Tdap,and Td Vaccines (3 - Td or Tdap) 05/25/2023 05/25/2013, 09/13/2003 COVID-19 Vaccine ( season) 2024 07/23/2021, 07/12/2021, 09/01/2020, Additional history exists Influenza Vaccine (Season Ended) 2025 04/25/2022, 07/21/2021, 04/22/2021, Additional history exists Diabetes: Blood Sugar Control Test (HGBA1C) 05/24/2025 11/21/2024, 06/18/2022 Diabetes: Annual GFR (Glomerular Filtration Rate) 11/21/2025 11/21/2024, 06/18/2022 Hypertension/CHF/CAD Annual BMP Blood Test 11/21/2025 11/21/2024, 06/18/2022 Colorectal Cancer Screening: Colonoscopy 01/22/2026 01/23/2016 RSV [...] Procedure Name Priority Date/Time Associated Diagnosis Comments HEMOGLOBIN A1C Routine 11/21/2024 4:50 AM EDT Type 2 diabetes mellitus without complications (CMS/HCC V24, CMS/HCC V28) Anemia, unspecified COMPREHENSIVE METABOLIC PANEL Routine 11/21/2024 4:50 AM EDT Type 2 diabetes mellitus without complications (CMS/HCC V24, CMS/HCC V28) Anemia, unspecified COMPLETE BLOOD COUNT Routine 11/21/2024 4:50 AM EDT Type 2 diabetes mellitus without complications (CMS/HCC V24, [facility] V28) Anemia, unspecified LIPID PANEL Routine 06/18/2022 URINE ALBUMIN CREATININE [...] Recently Relevant to Health Maintenance Results * (ABNORMAL) Complete blood count (11/21/2024 4:50 AM EDT) WBC 10.3 4.8 - 10.8 K/[facility] LAB HEMETOLOGY METHOD 11/21/2024 8:31 AM EDT [facility] RBC 3.30(L) 3.80 - 4.80 M/[facility] LAB HEMETOLOGY METHOD 11/21/2024 8:31 AM EDT [facility] Hemoglobin 10.4(L) 11.5 - 16.0 g/dL LAB HEMETOLOGY METHOD 11/21/2024 8:31 AM EDT [facility] Hematocrit 29.6(L) 35.0 - 47.0 % LAB HEMETOLOGY METHOD 11/21/2024 8:31 AM EDT [facility] MCV 89.4 79.0 - 98.0 FL LAB HEMETOLOGY METHOD 11/21/2024 8:31 AM EDT [facility] MCH 31.4 27.0 - 32.0 pcg LAB HEMETOLOGY METHOD 11/21/2024 8:31 AM EDT [facility] MCHC 35.1 32.0 - 37.0 g/dL LAB HEMETOLOGY METHOD 11/21/2024 8:31 AM EDT [facility] RDW 13.3 11.0 - 15.0 % LAB HEMETOLOGY METHOD 11/21/2024 8:31 AM EDT [facility] Platelets 251 130 - 400 K/mcL LAB HEMETOLOGY METHOD 11/21/2024 8:31 AM EDT [facility] MPV 10.3 7.0 - 11.0 FL LAB HEMETOLOGY METHOD 11/21/2024 8:31 AM EDT [facility] NRBC 0.0 <1.0 % LAB HEMETOLOGY METHOD 11/21/2024 8:31 AM EDT [facility] NRBC Absolute 0.00 <0.10 K/mcL LAB HEMETOLOGY METHOD 11/21/2024 8:31 AM EDT [facility] Blood Venous blood specimen / Unknown Venipuncture / Unknown 11/21/2024 4:50 AM EDT 11/21/2024 7:40 AM EDT us Pearl Schwartz MD LAB BLOOD ORDERABLES Fin al Result [facility] [address] [place] [address], * Hemoglobin A1c (11/21/2024 4:50 AM EDT) Pathologist [facility] Hemoglobin A1C 5.9 <6.5 % LAB CHEMISTRY METHOD 11/21/2024 10:47 AM EDT [facility] Mean Bld Glu Estim. 123 mg/dL LAB CHEMISTRY METHOD 11/21/2024 10:47 AM EDT [facility] Blood Venous blood specimen / Unknown Venipuncture / Unknown 11/21/2024 4:50 AM EDT 11/21/2024 7:40 AM EDT Pearl Schwartz MD LAB BLOOD ORDERABLES Fin al Result [facility] [address] [place] [address], * (ABNORMAL) Comprehensive metabolic panel (11/21/2024 4:50 AM EDT) [facility] Sodium 141 133 - 145 mmol/L LAB CHEMISTRY METHOD 11/21/2024 8:58 AM [facility] Potassium 3.6 3.5 - 5.5 mmol/L LAB CHEMISTRY METHOD 11/21/2024 8:58 AM [facility] Chloride 103 96 - 110 mmol/L LAB CHEMISTRY METHOD 11/21/2024 8:58 AM T [facility] CO2 25 21 - 32 mmol/L LAB CHEMISTRY METHOD 11/21/2024 8:58 AM [facility] Anion Gap 13(H) 3 - 11 LAB CHEMISTRY METHOD 11/21/2024 8:58 AM T [facility] Glucose 200(H) 70 - 100 mg/dL LAB CHEMISTRY METHOD 11/21/2024 8:58 AM [facility] BUN 14 5 - 25 mg/dL LAB CHEMISTRY METHOD 11/21/2024 8:58 AM [facility] Creatinine 0.60 0.50 - 1.10 mg/dL LAB CHEMISTRY METHOD 11/21/2024 8:58 AM [facility] eGFR 96 >=60 mL/min/1. 73m2 LAB CHEMISTRY METHOD 11/21/2024 8:58 AM [facility] Comment:Calculation based on the Chronic Kidney Disease Epidemiology Collaboration (CKD-EPI) equation refit without adjustment for race. BUN/Creatinine Ratio 23.3 LAB CHEMISTRY METHOD 11/21/2024 8:58 AM [facility] Calcium 8.4(L) 8.5 - 10.5 mg/dL LAB CHEMISTRY METHOD 11/21/2024 8:58 AM [facility] AST (SGOT) 18 10 - 42 unit/L LAB CHEMISTRY METHOD 11/21/2024 8:58 AM [facility] ALT (SGPT) 11 10 - 60 unit/L LAB CHEMISTRY METHOD 11/21/2024 8:58 AM [facility] Alkaline Phosphatase 63 42 - 121 unit/L LAB CHEMISTRY METHOD 11/21/2024 8:58 AM [facility] Total Protein 5.8(L) 6.0 - 8.0 g/dL LAB CHEMISTRY METHOD 11/21/2024 8:58 AM [facility] Albumin 3.0(L) 3.2 - 5.0 g/dL LAB CHEMISTRY METHOD 11/21/2024 8:58 AM [facility] Total Bilirubin 2.7(H) 0.0 - 1.4 mg/dL LAB CHEMISTRY METHOD 11/21/2024 8:58 AM [facility] Blood Venous blood specimen / Unknown Venipuncture / Unknown 11/21/2024 4:50 AM EDT 11/21/2024 7:40 AM EDT us Pearl Schwartz MD LAB BLOOD ORDERABLES Fin al Result [facility] [address] [place] [address], * (ABNORMAL) Lipid panel (06/18/2022) LDL/HDL Ratio 4 0 - 4 Triglycerides 217(A) 0 - 150 mg/dL Cholesterol 185 0 - 200 mg/dL HDL 48 >=40 mg/dL LDL Cholesterol 94 0 - 100 mg/dL Blood Venous blood specimen / Unknown us Historical Provider MD LAB BLOOD ORDERABLES Almita l Result * Urine Albumin Creatinine Ratio (09/03/2021) Pathologist [facility] Urine Albumin Creatinine Ratio abstracted Historical Provider [...] (World Health Organization Fracture Risk Assessment) [facility] Department of Internal Medicine recommends using [...] (World Health Organization Fracture Risk Assessment) [facility] Department of Internal Medicine recommendsusing National [...] Result * Cervical Cancer Screening: HPV (01/08/2014) Cervical Cancer Screening: HPV abstracted, negative [facility] Provider HEALTH MAINTENANCE Final Result * Hepatitis C Screening (02/24/2013) Hepatitis C Screening abstracted Historical Provider HEALTH MAINTENANCE Final Result from Last 3 Months or Most Recently Relevant to Health Maintenance Insurance [facility]ICARE [facility] Care Teams Well Surveying Engineer Relationship Specialty Start Date End Date Beata Mccoy MD [address] [place] [phone] PCP - General Internal Medicine 08/04/21
--- OUTSIDE RECORDS SUMMARY | 2024-11-28 11:55 | XMS_ITS | Encounter Summary ---
Author Organization [facility] Address [address] [place] [address] Care Team Providers Care Thermal Cutting Tracer Machine Operator Name Role Phone Beata Mccoy MD Primary Care Provider Encounter Details Date Type Department Care Team (Late Contact Info) Description 11/21/2024 Lab Requisition [facility] [address] [facility] [place] [address] Pearl Schwartz MD [address] [address] Type 2 diabetes mellitus without complications (CMS/HCC V24, CMS/HCC V28); Anemia, unspecified Social History Tobacco Use Types Packs/Day Years [...] as of this encounter Plan of Treatment Upcoming Encounters Date Type Department Care Team (Late Contact Info) Description 01/26/2025 1:15 PM EDT Office Visit Adult Medicine - [place] [address] [place] [phone] Poli Rodas PA [address] [place], [place] [phone] documented as of this encounter Procedures Procedure Name Priority Date/Time Associated Diagnosis Comments COMPLETE BLOOD COUNT Routine 11/21/2024 4:50 AM EDT Type 2 diabetes mellitus without complications ([facility] [place], [facility] V28) Anemia, unspecified HEMOGLOBIN A1C Routine 11/21/2024 4:50 AM EDT Type 2 diabetes mellitus without complications ([facility]24, [facility] V28) Anemia, unspecified COMPREHENSIVE METABOLIC PANEL Routine 11/21/2024 4:50 AM EDT Type 2 diabetes mellitus without complications ([facility]24, [facility] V28) Anemia, unspecified documented in this encounter Results * Hemoglobin A1c (11/21/2024 4:50 AM EDT) Pathologist [facility] Hemoglobin A1C 5.9 <6.5 % LAB CHEMISTRY METHOD 11/21/2024 10:47 AM EDT [facility] Mean Bld Glu Estim. 123 mg/dL LAB CHEMISTRY METHOD 11/21/2024 10:47 AM EDT [facility] Blood Venous blood specimen / Unknown Venipuncture / Unknown 11/21/2024 4:50 AM EDT 11/21/2024 7:40 AM EDT Pearl Schwartz MD LAB BLOOD ORDERABLES Fin al Result [facility] [address] [place] [address], * (ABNORMAL) Comprehensive metabolic panel (11/21/2024 4:50 AM EDT) Pathologist [facility] Sodium 141 133 - 145 mmol/L LAB CHEMISTRY METHOD 11/21/2024 8:58 AM EDT [facility] Potassium 3.6 3.5 - 5.5 mmol/L LAB CHEMISTRY METHOD 11/21/2024 8:58 AM [facility] Chloride 103 96 - 110 mmol/L LAB CHEMISTRY METHOD 11/21/2024 8:58 AM [facility] CO2 25 21 - 32 mmol/L LAB CHEMISTRY METHOD 11/21/2024 8:58 AM [facility] Anion Gap 13(H) 3 - 11 LAB CHEMISTRY METHOD 11/21/2024 8:58 AM [facility] Glucose 200(H) 70 - 100 mg/dL [...] g/dL LAB CHEMISTRY METHOD 11/21/2024 8:58 AM EDT [facility] Albumin 3.0(L) 3.2 - 5.0 g/dL LAB CHEMISTRY METHOD 11/21/2024 8:58 AM EDT [facility] Total Bilirubin 2.7(H) 0.0 - 1.4 mg/dL LAB CHEMISTRY METHOD 11/21/2024 8:58 AM T [facility] Blood Venous blood specimen / Unknown Venipuncture / Unknown 11/21/2024 4:50 AM EDT 11/21/2024 7:40 AM EDT us Pearl Schwartz MD LAB BLOOD ORDERABLES Fin al Result [facility] [address] [place] [address], * (ABNORMAL) Complete blood count (11/21/2024 4:50 AM EDT) WBC 10.3 4.8 - 10.8 K/mcL LAB HEMETOLOGY METHOD 11/21/2024 8:31 AM [facility] RBC 3.30(L) 3.80 - 4.80 M/mcL LAB HEMETOLOGY METHOD 11/21/2024 8:31 AM [facility] Hemoglobin 10.4(L) 11.5 - 16.0 g/dL LAB HEMETOLOGY METHOD 11/21/2024 8:31 AM [facility] Hematocrit 29.6(L) 35.0 - 47.0 % LAB HEMETOLOGY METHOD 11/21/2024 8:31 AM [facility] MCV 89.4 79.0 - 98.0 FL LAB HEMETOLOGY METHOD 11/21/2024 8:31 AM [facility] MCH 31.4 27.0 - 32.0 pcg LAB HEMETOLOGY METHOD 11/21/2024 8:31 AM EDT [facility] MCHC 35.1 32.0 - 37.0 g/dL LAB HEMETOLOGY METHOD 11/21/2024 8:31 AM EDT [facility] RDW 13.3 11.0 - 15.0 % LAB HEMETOLOGY METHOD 11/21/2024 8:31 AM EDT [facility] Platelets 251 130 - 400 K/mcL LAB HEMETOLOGY METHOD 11/21/2024 8:31 AM EDT [facility] MPV 10.3 7.0 - 11.0 FL LAB HEMETOLOGY METHOD 11/21/2024 8:31 AM EDT [facility] NRBC 0.0 <1.0 % LAB HEMETOLOGY METHOD 11/21/2024 8:31 AM EDT [facility] NRBC Absolute 0.00 <0.10 K/mcL LAB HEMETOLOGY METHOD 11/21/2024 8:31 AM EDT [facility] Blood Venous blood specimen / Unknown Venipuncture / Unknown 11/21/2024 4:50 AM EDT 11/21/2024 7:40 AM EDT us Pearl Schwartz MD LAB BLOOD ORDERABLES Fin al Result [facility] [address] [place] [address], documented in this encounter Visit Diagnoses Diagnosis Type 2 diabetes mellitus without complications (CMS/HCC V24, CMS/HCC V28) Anemia, unspecified documented in this encounter Care Teams Thermal Cutting Tracer Machine Operator Relationship Specialty Start Date End Date Beata Mccoy MD [address] [place] [phone] PCP - General Internal Medicine 08/04/21 documented as of this encounter
== END 2024-11-28 11:22 | disposition home or self-care (01) ==
LOC: HO.HOS 10:40
PROVIDERS: Visit Provider Physician Assistant
DX: S72.142A Displaced intertrochanteric fracture of left femur, initial encounter for closed fracture (principal)
CPT/HCPCS: 99024

== ENCOUNTER → 2024-11-28 10:41 | Outpatient (BNV) | payer MEDICARE, SELFPAY | PROVIDERS: Visit Provider Radiology Diagnostic Radiology | DX: S72.142A Displaced intertrochanteric fracture of left femur, initial encounter for closed fracture (principal); Z96.642 Presence of left artificial hip joint | CPT/HCPCS: 73552 ==

== ENCOUNTER 2024-11-28 10:58 | Outpatient (REF) | payer MEDICARE, SELFPAY ==
--- NOTE | ~2024-11-28 | XR_ITS ---
CLINICAL HISTORY: S72.142A - Displaced intertrochanteric fracture of left femur, initial e... Left femur two views Comparison: 11/20/2024 Findings: Left intertrochanteric fracture fixation hardware. Hardware intact without loosening or break. Normal anatomic alignment noted at fracture site. No new bony abnormalities are identified. Surgical miles lateral to left hip. Impression: Status post left hip fracture fixation This document has been electronically signed by: Jamal Lockhart MD on 11/28/2024 22:30:36
--- OUTSIDE RECORDS SUMMARY | 2024-11-29 12:22 | XMS_ITS | Clinical Summary ---
Author Organization [facility] [place] Address [address] [place] [address] Care Team Providers Care Business Management Manager Name Role Phone Beata Mccoy MD [...] complication, without long-term current use of insulin ([facility] V24, [facility] V28) Inject 0.5 mL (0.75 mg [...] square meter and albuminuria creatinine ratio les* ([facility] V24, [facility] V28) 09/02/2021 Type 2 diabetes mellitus wit h eye manifestations ([facility] V24, [facility] V28) 08/10/2019 Hypertriglyceridemia 12/31/2016 Pilar cysts 11/21/2015 Essential hypertension, benign 11/16/2006 External hemorrhoids 03/01/2006 Overview (08/12/2024): O update Disorder of bone and cartilage 03/01/2006 Overview (08/12/2024): IMO update. Fosamax since 2011, stopped Encounters Date Type Department Care Team Description 11/21/2024 Lab Requisition [facility] - Main Lab [address] [facility] [place] [address] Pearl Schwartz MD Type 2 diabetes mellitus without complications ([facility] V24, [facility] V28); Anemia, unspecified 11/03/2024 1:00 PM EDT Office Visit Adult [address] [phone] Juan Manrique PA Type 2 diabetes mellitus with other ophthalmic complication, without long-term current use of insulin ([facility] V24, [facility] V28) (Primary Dx); Chronic kidney disease (CKD) stage G3a/A1, moderately decreased glomerular filtration rate (GFR) between 45-59 mL/min/1.73 square meter and albuminuria creatinine ratio les* ([facility] V24, [facility] V28); Essential hypertension, benign; Cognitive decline 10/10/2024 Telephone Adult [facility] [address] [place] [address] Shante Camargo [place] Hospital Follow-up ([facility] ( admitted 09/26- discharged 09/27 ) ) 10/09/2024 Telephone Adult [address] [phone] Beata Mccoy MD Medication from Last 3 [...] 6mo and older 04/22/2021 PPD Test 09/30/2017,07/11/2014,10/05/2011 [facility] SARS-CoV-2 COVID-19, mRNA, LNP-S, preservative free 07/12/2021 [...] PM EDT Office Visit Adult Medicine - [address] [phone] Poli Rodas PA [address] [place] [id number] Health Maintenance Due Date Last Done Comments [...] 2 diabetes mellitus without complications (CMS/HCC V24, CMS/[facility] V28) Anemia, unspecified LIPID PANEL Routine [...] AM EDT) WBC 10.3 4.8 - 10.8 K/[facility] LAB HEMETOLOGY METHOD 11/21/2024 8:31 AM EDT [facility] RBC 3.30(L) 3.80 - 4.80 M/[facility] LAB HEMETOLOGY METHOD 11/21/2024 8:31 AM EDT [facility] Hemoglobin 10.4(L) 11.5 - 16.0 g/dL LAB HEMETOLOGY METHOD 11/21/2024 8:31 AM EDT [facility] Hematocrit 29.6(L) 35.0 - 47.0 % LAB HEMETOLOGY METHOD 11/21/2024 8:31 AM EDT [facility] MCV 89.4 79.0 - 98.0 FL LAB HEMETOLOGY METHOD 11/21/2024 8:31 AM EDT [facility] MCH 31.4 27.0 - 32.0 [...] al Result [facility] [address] [place] [address], * Hemoglobin A1c (11/21/2024 4:50 AM EDT) Pathologist [facility] Hemoglobin A1C 5.9 <6.5 % LAB CHEMISTRY [...] al Result [facility] [address] [place] [address], * (ABNORMAL) Comprehensive metabolic panel (11/21/2024 4:50 AM EDT) [facility] Sodium 141 133 - 145 mmol/L LAB CHEMISTRY METHOD 11/21/2024 8:58 AM [facility] Potassium 3.6 3.5 - 5.5 mmol/L LAB CHEMISTRY METHOD 11/21/2024 8:58 AM [facility] Chloride 103 96 - 110 mmol/L LAB CHEMISTRY METHOD 11/21/2024 8:58 AM T [facility] CO2 25 21 - 32 mmol/L LAB CHEMISTRY METHOD 11/21/2024 8:58 AM [facility] Anion Gap 13(H) 3 - 11 LAB CHEMISTRY METHOD 11/21/2024 8:58 AM T [facility] Glucose 200(H) 70 - 100 mg/dL LAB CHEMISTRY METHOD 11/21/2024 8:58 AM [facility] BUN 14 5 - 25 mg/dL LAB CHEMISTRY METHOD 11/21/2024 8:58 AM [facility] Creatinine 0.60 0.50 - 1.10 mg/dL LAB CHEMISTRY METHOD 11/21/2024 8:58 AM [facility] eGFR 96 >=60 mL/min/1. 73m2 LAB CHEMISTRY METHOD 11/21/2024 8:58 AM [facility] Comment:Calculation based on the Chronic Kidney Disease Epidemiology Collaboration (CKD-EPI) equation refit without adjustment for race. BUN/Creatinine Ratio 23.3 LAB CHEMISTRY METHOD 11/21/2024 8:58 AM [facility] Calcium 8.4(L) 8.5 - 10.5 mg/dL LAB CHEMISTRY METHOD 11/21/2024 8:58 AM [facility] AST (SGOT) 18 10 - 42 unit/L LAB CHEMISTRY METHOD 11/21/2024 8:58 AM [facility] ALT (SGPT) 11 10 - 60 unit/L LAB CHEMISTRY METHOD 11/21/2024 8:58 AM [facility] Alkaline Phosphatase 63 42 - 121 unit/L LAB CHEMISTRY METHOD 11/21/2024 8:58 AM [facility] Total Protein 5.8(L) 6.0 - 8.0 g/dL LAB CHEMISTRY METHOD 11/21/2024 8:58 AM [facility] Albumin 3.0(L) 3.2 - 5.0 g/dL LAB CHEMISTRY METHOD 11/21/2024 8:58 AM [facility] Total Bilirubin 2.7(H) 0.0 - 1.4 mg/dL LAB CHEMISTRY METHOD 11/21/2024 8:58 AM [facility] Blood Venous blood specimen / Unknown Venipuncture / Unknown 11/21/2024 4:50 AM EDT 11/21/2024 7:40 AM EDT us Pearl Schwartz MD LAB BLOOD ORDERABLES Fin al Result [facility] [address] [place] [address], * (ABNORMAL) Lipid panel (06/18/2022) LDL/HDL Ratio 4 0 - 4 Triglycerides 217(A) 0 - 150 mg/dL Cholesterol 185 0 - 200 mg/dL HDL 48 >=40 mg/dL LDL Cholesterol 94 0 - 100 mg/dL Blood Venous blood specimen / Unknown us Historical Provider MD LAB BLOOD ORDERABLES Almita l Result * Urine Albumin Creatinine Ratio (09/03/2021) Pathologist [facility] Urine Albumin Creatinine Ratio abstracted [...] (World Health Organization Fracture Risk Assessment) [facility] Department of Internal Medicine recommends using [...] (World Health Organization Fracture Risk Assessment) [facility] Department of Internal Medicine recommendsusing National [...] (01/08/2014) Cervical Cancer Screening: HPV abstracted, negative [facility] Provider HEALTH MAINTENANCE Final Result * Hepatitis C Screening (02/24/2013) Hepatitis C Screening abstracted Historical Provider HEALTH MAINTENANCE Final Result from Last 3 Months or Most Recently Relevant to Health Maintenance Insurance MEDICARE [facility] Care Teams Business Management Manager Relationship Specialty Start Date End Date Beata Mccoy MD [address] [place] [phone] PCP - General Internal Medicine 08/04/21
--- OUTSIDE RECORDS SUMMARY | 2024-11-29 12:22 | XMS_ITS | Encounter Summary ---
Author Organization [facility] Address [address] [place] [address] Care Team Providers Care Spring Crater Name Role Phone Beata Mccoy MD Primary Care Provider Encounter Details Date Type Department Care Team (Late Contact Info) Description 11/21/2024 Lab Requisition [facility] Lab [address] [facility] [place] [address] Pearl Schwartz MD [address] [address] Type 2 diabetes mellitus without complications (CMS/HCC [...] PM EDT Office Visit Adult Medicine - [place] [address] [place] [phone] Poli Rodas PA [address] [place], [place] [phone] documented as of this encounter Procedures Procedure Name Priority Date/Time Associated Diagnosis Comments COMPLETE BLOOD COUNT Routine 11/21/2024 4:50 AM EDT Type 2 diabetes mellitus without complications ([facility] V24, [facility] V28) Anemia, unspecified HEMOGLOBIN A1C Routine 11/21/2024 4:50 AM EDT Type 2 diabetes mellitus without complications ([facility] V24, [facility] V28) Anemia, unspecified COMPREHENSIVE METABOLIC PANEL Routine 11/21/2024 4:50 AM EDT Type 2 diabetes mellitus without complications ([facility] V24, [facility] V28) Anemia, unspecified documented in this encounter Results * Hemoglobin A1c (11/21/2024 4:50 AM EDT) Pathologist [facility] Hemoglobin A1C 5.9 <6.5 % LAB CHEMISTRY METHOD 11/21/2024 10:47 AM EDT [facility] Mean Bld Glu Estim. 123 mg/dL LAB CHEMISTRY METHOD 11/21/2024 10:47 AM EDT [facility] Blood Venous blood specimen / Unknown Venipuncture / Unknown 11/21/2024 4:50 AM EDT 11/21/2024 7:40 AM EDT Pearl Schwartz MD LAB BLOOD ORDERABLES Fin al Result [facility] [address] [place] [address], * (ABNORMAL) Comprehensive metabolic panel (11/21/2024 4:50 AM EDT) Pathologist [facility] Sodium 141 133 - 145 mmol/L LAB CHEMISTRY METHOD 11/21/2024 8:58 AM EDT [facility] Potassium 3.6 3.5 - 5.5 mmol/L LAB CHEMISTRY METHOD 11/21/2024 8:58 AM [facility] Chloride 103 96 - 110 mmol/L LAB CHEMISTRY METHOD 11/21/2024 8:58 AM [facility] CO2 25 21 - 32 mmol/L LAB CHEMISTRY METHOD 11/21/2024 8:58 AM [facility] Anion Gap 13(H) 3 - 11 LAB CHEMISTRY METHOD 11/21/2024 8:58 AM [facility] Glucose 200(H) 70 - 100 mg/dL LAB CHEMISTRY METHOD 11/21/2024 8:58 AM [facility] BUN 14 5 - 25 mg/dL LAB CHEMISTRY METHOD 11/21/2024 8:58 AM [facility] Creatinine 0.60 0.50 - 1.10 mg/dL LAB CHEMISTRY METHOD 11/21/2024 8:58 AM [facility] eGFR 96 >=60 mL/min/1. 73m2 LAB CHEMISTRY METHOD 11/21/2024 8:58 AM [facility] Comment:Calculation based on the Chronic Kidney Disease Epidemiology Collaboration (CKD-EPI) equation refit without adjustment for race. BUN/Creatinine Ratio 23.3 LAB CHEMISTRY METHOD 11/21/2024 8:58 AM [facility] Calcium 8.4(L) 8.5 - 10.5 mg/dL LAB CHEMISTRY METHOD 11/21/2024 8:58 AM [facility] AST (SGOT) 18 10 - 42 unit/L LAB CHEMISTRY METHOD 11/21/2024 8:58 AM [facility] ALT (SGPT) 11 10 - 60 unit/L LAB CHEMISTRY METHOD 11/21/2024 8:58 AM [facility] Alkaline Phosphatase 63 42 - 121 unit/L LAB CHEMISTRY METHOD 11/21/2024 8:58 AM [facility] Total Protein 5.8(L) 6.0 - 8.0 g/dL LAB CHEMISTRY METHOD 11/21/2024 8:58 AM EDT [facility] Albumin 3.0(L) 3.2 - 5.0 g/dL LAB CHEMISTRY METHOD 11/21/2024 8:58 AM EDT [facility] Total Bilirubin 2.7(H) 0.0 - 1.4 mg/dL LAB CHEMISTRY METHOD 11/21/2024 8:58 AM T [facility] Blood Venous blood specimen / Unknown Venipuncture / Unknown 11/21/2024 4:50 AM EDT 11/21/2024 7:40 AM EDT us Pearl Schwartz MD LAB BLOOD ORDERABLES Fin al Result [facility] [address] [place] [address], * (ABNORMAL) Complete blood count (11/21/2024 4:50 AM EDT) WBC 10.3 4.8 - 10.8 K/mcL LAB HEMETOLOGY METHOD 11/21/2024 8:31 AM [facility] RBC 3.30(L) 3.80 - 4.80 M/mcL LAB HEMETOLOGY METHOD 11/21/2024 8:31 AM [facility] Hemoglobin 10.4(L) 11.5 - 16.0 g/dL LAB HEMETOLOGY METHOD 11/21/2024 8:31 AM [facility] Hematocrit 29.6(L) 35.0 - 47.0 % LAB HEMETOLOGY METHOD 11/21/2024 8:31 AM [facility] MCV 89.4 79.0 - 98.0 FL LAB HEMETOLOGY METHOD 11/21/2024 8:31 AM [facility] MCH 31.4 27.0 - 32.0 pcg LAB HEMETOLOGY METHOD 11/21/2024 8:31 AM EDT [facility] MCHC 35.1 32.0 - 37.0 g/dL LAB HEMETOLOGY METHOD 11/21/2024 8:31 AM EDT [facility] RDW 13.3 11.0 - 15.0 % LAB HEMETOLOGY METHOD 11/21/2024 8:31 AM EDT [facility] Platelets 251 130 - 400 K/mcL LAB HEMETOLOGY METHOD 11/21/2024 8:31 AM EDT [facility] MPV 10.3 7.0 - 11.0 FL LAB HEMETOLOGY METHOD 11/21/2024 8:31 AM EDT [facility] NRBC 0.0 <1.0 % LAB HEMETOLOGY METHOD 11/21/2024 8:31 AM EDT [facility] NRBC Absolute 0.00 <0.10 K/mcL LAB HEMETOLOGY METHOD 11/21/2024 8:31 AM EDT [facility] Blood Venous blood specimen / Unknown Venipuncture / Unknown 11/21/2024 4:50 AM EDT 11/21/2024 7:40 AM EDT us Pearl Schwartz MD LAB BLOOD ORDERABLES Fin al Result [facility] [address] [place] [address], documented in this encounter Visit Diagnoses Diagnosis Type 2 diabetes mellitus without complications (CMS/HCC V24, CMS/HCC V28) Anemia, unspecified documented in this encounter Care Teams Spring Crater Relationship Specialty Start Date End Date Beata Mccoy MD [address] [place] [id number] PCP - General Internal Medicine 08/04/21 documented as of this encounter
== END 2024-11-28 10:59 | disposition home or self-care (01) ==
LOC: HO.HOSX 10:58
PROVIDERS: Visit Provider Physician Assistant
DX: S72.142D Displaced intertrochanteric fracture of left femur, subsequent encounter for closed fracture with routine healing (principal); Z98.890 Other specified postprocedural states
CPT/HCPCS: 73552; 99212

== ENCOUNTER 2024-12-28 09:09 | Outpatient (REF) | payer MEDICARE, SELFPAY ==
--- NOTE | ~2024-12-28 | XR_ITS ---
CLINICAL HISTORY: S72.142A - Displaced intertrochanteric fracture of left femur, initial e... 2 view left femur Comparison: DX - XR FEMUR LT 2V - 11/28/24 10:41 EDT CR - XR HIP LT MIN 2V - 11/15/24 19:57 EDT Findings: Postoperative changes of proximal left femur fixation. Medial and superior displacement of the lesser trochanter similar to the prior exam. Alignment otherwise remains near anatomic. IMPRESSION: 1. Proximal left femoral fixation. This document has been electronically signed by: Amanda Allen MD on 12/29/2024 08:58:03
--- OUTSIDE RECORDS SUMMARY | 2024-12-29 09:26 | XMS_ITS | Encounter Summary ---
Author Organization [facility] Address [address] [place] [address] Care Team Providers Care Slitter And Rewinder Name Role Phone Beata Mccoy MD Primary Care Provider Encounter Details Date Type Department Care Team (Late Contact Info) Description 12/06/2024 Lab Requisition [facility] Lab [address] [facility] [place] [address] Pearl Schwartz MD [address] [address] Essential (primary) hypertension; Type 2 diabetes mellitus [...] PM EDT Office Visit Adult Medicine - [place] [address] [place] [phone] Beata Mccoy MD [address] [place] [address] 01/26/2025 1:15 PM EDT Office Visit Adult Medicine - [place] [address] [place] [phone] Poli Rodas PA [address] [place], [place] documented as of this encounter Procedures [...] LAB CHEMISTRY METHOD 12/06/2024 9:10 AM EDT [facility] Blood Venous blood specimen / Unknown Venipuncture / Unknown 12/06/2024 7:57 AM EDT 12/06/2024 8:51 AM EDT us Pearl Schwartz MD LAB BLOOD ORDERABLES Fin al Result [facility] [address] [place] [address], * Culture blood (12/06/2024 7:57 AM EDT) [facility] Culture, Blood No growth at 5 days 12/11/2024 9:01 AM T [facility] Blood Venipuncture / Unknown 12/06/2024 7:57 AM EDT 12/06/2024 8:51 AM EDT Pearl Schwartz MD LAB MICROBIOLOGY - GENER AL ORDERABLES Final Result [facility] [address] [place] [address], [place] [phone] * (ABNORMAL) Comprehensive metabolic panel (12/06/2024 7:57 AM EDT) [facility] Sodium 141 133 - 145 mmol/L LAB CHEMISTRY METHOD 12/06/2024 9:53 AM [facility] Potassium 5.0 3.5 - 5.5 mmol/L LAB CHEMISTRY METHOD 12/06/2024 9:53 AM [facility] Chloride 107 96 - 110 mmol/L LAB CHEMISTRY METHOD 12/06/2024 9:53 AM [facility] CO2 27 21 - 32 mmol/L LAB CHEMISTRY METHOD 12/06/2024 9:53 AM [facility] Anion Gap 7 3 - 11 LAB CHEMISTRY METHOD 12/06/2024 9:53 AM [facility] Glucose 176(H) 70 - 100 mg/dL LAB CHEMISTRY METHOD 12/06/2024 9:53 AM [facility] BUN 30(H) 5 - 25 mg/dL LAB CHEMISTRY METHOD 12/06/2024 9:53 AM [facility] Creatinine 1.03 0.50 - 1.10 mg/dL LAB CHEMISTRY METHOD 12/06/2024 9:53 AM [facility] eGFR 58(L) >=60 mL/min/1. 73m2 LAB CHEMISTRY METHOD 12/06/2024 9:53 AM [facility] Comment:Calculation based on the Chronic Kidney Disease Epidemiology Collaboration (CKD-EPI) equation refit without adjustment for race. BUN/Creatinine Ratio 29.1 LAB CHEMISTRY METHOD 12/06/2024 9:53 AM [facility] Calcium 9.6 8.5 - 10.5 mg/dL LAB CHEMISTRY METHOD 12/06/2024 9:53 AM [facility] AST (SGOT) 15 10 - 42 unit/L LAB CHEMISTRY METHOD 12/06/2024 9:53 AM [facility] ALT (SGPT) 16 10 - 60 unit/L LAB CHEMISTRY METHOD 12/06/2024 9:53 AM [facility] Alkaline Phosphatase 116 42 - 121 unit/L LAB CHEMISTRY METHOD 12/06/2024 9:53 AM [facility] Comment:Results verified by repeat testing Total Protein 7.1 6.0 - 8.0 g/dL LAB CHEMISTRY METHOD 12/06/2024 9:53 AM [facility] Albumin 3.9 3.2 - 5.0 g/dL LAB CHEMISTRY METHOD 12/06/2024 9:53 AM [facility] Total Bilirubin 1.2 0.0 - 1.4 mg/dL LAB CHEMISTRY METHOD 12/06/2024 9:53 AM [facility] Blood Venous blood specimen / Unknown Venipuncture / Unknown 12/06/2024 7:57 AM EDT 12/06/2024 8:51 AM EDT us Pearl Schwartz MD LAB BLOOD ORDERABLES Fin al Result [facility] [address] [place] [address], * (ABNORMAL) Complete blood count (12/06/2024 7:57 AM EDT) [facility] WBC 9.0 4.8 - 10.8 K/mcL LAB HEMETOLOGY METHOD 12/06/2024 9:12 AM [facility] RBC 3.80 3.80 - 4.80 M/mcL LAB HEMETOLOGY METHOD 12/06/2024 9:12 AM [facility] Hemoglobin 11.9 11.5 - 16.0 g/dL LAB HEMETOLOGY METHOD 12/06/2024 9:12 AM [facility] Hematocrit 36.0 35.0 - 47.0 % LAB HEMETOLOGY METHOD 12/06/2024 9:12 AM [facility] MCV 94.2 79.0 - 98.0 FL LAB HEMETOLOGY METHOD 12/06/2024 9:12 AM [facility] MCH 31.2 27.0 - 32.0 pcg LAB HEMETOLOGY METHOD 12/06/2024 9:12 AM [facility] MCHC 33.1 32.0 - 37.0 g/dL LAB HEMETOLOGY METHOD 12/06/2024 9:12 AM [facility] RDW 13.5 11.0 - 15.0 % LAB HEMETOLOGY METHOD 12/06/2024 9:12 AM [facility] Platelets 679(H) 130 - 400 K/mcL LAB HEMETOLOGY METHOD 12/06/2024 9:12 AM [facility] MPV 9.1 7.0 - 11.0 FL LAB HEMETOLOGY METHOD 12/06/2024 9:12 AM [facility] NRBC 0.0 <1.0 % LAB HEMETOLOGY METHOD 12/06/2024 9:12 AM [facility] NRBC Absolute 0.00 <0.10 K/mcL LAB HEMETOLOGY METHOD 12/06/2024 9:12 AM EDT [facility] Blood Venous blood specimen / Unknown Venipuncture / Unknown 12/06/2024 7:57 AM EDT 12/06/2024 8:51 AM EDT us Pearl Schwartz MD LAB BLOOD ORDERABLES Fin al Result [facility] [address] [place] [address], documented in this encounter Visit Diagnoses Diagnosis Essential (primary) hypertension Unspecified essential hypertension Type 2 diabetes mellitus without complications (CMS/HCC V24, CMS/HCC V28) documented in this encounter Care Teams Slitter And Rewinder Relationship Specialty Start Date End Date Beata Mccoy MD [address] [place] [id number] PCP - General Internal Medicine 08/04/21 documented as of this encounter
== END 2024-12-28 09:10 | disposition home or self-care (01) ==
LOC: HO.HOSX 09:09
PROVIDERS: Visit Provider Physician Assistant
DX: S72.142A Displaced intertrochanteric fracture of left femur, initial encounter for closed fracture (principal)
CPT/HCPCS: 73552; 99212

== ENCOUNTER 2024-12-28 12:23 | Outpatient (AMB) | payer MEDICARE, SELFPAY ==
--- NOTE | 2024-12-28 12:58 | A.OFFVIS_ITS ---
Vital Signs 12/28/24 12:59 Height 5 ft 6 in Weight 127 lb BMI 20.5 Intake Visit Reasons: PO L hip IMN DOS 11/16/24 w/DR Intake Note: Teodora is a 74 year old female who presents today for a post operative appointment s/p Open reduction and internal fixation of left hip intertrochanteric fracture with placement of a short gamma nail 11/16/24 Patient reports she is able to walk with out a cane or walker, has mild on and off pain. Allergies gemfibrozil (GEMFIBROZIL) Allergy (Unknown, Verified 11/28/24 11:04) DIZZINESS/HIVES, dizziness ondansetron (From Zofran) Adverse Reaction (Verified 11/28/24 11:04) Unresponsive HPI HPI PO L hip IMN DOS 11/16/24 w/DR: Details: Ms. Johnson is a 74-year-old female who presents to the office today for routine follow-up status post left hip IM nail performed by Dr. Golden on 11/16/2024. Patient has a past medical history significant for Alzheimer's disease. She has unfortunately able to provide any meaningful history at today's appointment. Additionally, she did attend this appointment alone. While being called from the waiting room the patient stood up from her wheelchair without assistance or without assistive devices and walked into the exam room. 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 disease, without behavioral disturbance HTN (hypertension) Premature atrial contractions Diabetes Palpitations Surgical History No pertinent past surgical history Family History Father Cancer Mother Cancer Social History Household Members: None Household Members Other:: alone Housing: House Are you a primary home care coordinator to a significant other at home: No Do you presently have visiting nurse or other home services: No Patient Tobacco Use Status: Never used Tobacco Second Hand Smoke Exposure: No service: No Review of Systems Const All systems reviewed & are unremarkable except as noted in HPI and below Physical Exam Vital Signs: BMI result Body Mass Index 20.5 Extrem Other: Left hip incision sites are clean dry and intact. No surrounding erythema or drainage. No signs of infection. Able to perform a straight leg raise. Ambulates well without the use of assistive devices. NVI. Assessment & Plan Assessment & Plan (1) Intertrochanteric fracture of left hip: Code(s): S72.142A - Displaced intertrochanteric fracture of left femur, initial encounter for closed fracture Category: Medical Plan Ms. Johnson is a 74-year-old female who presents to the office today for routine follow-up status post left hip IM nail performed by Dr. Golden on 11/16/2024. Patient has a past medical history significant for Alzheimer's disease. She has unfortunately able to provide any meaningful history at today's appointment. Additionally, she did attend this appointment alone. While being called from the waiting room the patient stood up from her wheelchair without assistance or without assistive devices and walked into the exam room. While in the office today, the patient is experiencing no signs of infection at this time I did ask the patient if she is working with physical therapy and she does say yes but due to her history of Alzheimer's disease I am not sure if this is currently happening. I did provide additional physical therapy instructions including glute core quad strengthening and gait training with the use of a walker on the consult form. She will follow up in 6 weeks with repeat x-rays, sooner if needed X-rays of the left femur which were obtained while in the office today and were reviewed by me, Rylie Murphy PA-C, revealed intact orthopedic hardware with routine healing. Orders: Orders XR femur LT 2V Today S72.142A - Displaced intertrochanteric fracture of left femur, initial encounter for closed fracture Coding Level of Care Code Global (75535) Diagnoses Intertrochanteric fracture of left hip S72.142A
[2024-12-28 12:59] VITALS: BMI 20.5
--- OUTSIDE RECORDS SUMMARY | 2024-12-28 13:31 | XMS_ITS | Encounter Summary ---
Author Organization [facility] Address [address] [place] [address] Care Team Providers Care Twister Tender Paper Name Role Phone Beata Mccoy MD Primary Care Provider Encounter Details Date Type Department Care Team (Late Contact Info) Description 12/06/2024 Lab Requisition [facility] Lab [address] [facility] [place] [address] Pearl Schwartz MD [address] [address] Essential (primary) hypertension; Type 2 diabetes mellitus without complications (CMS/HCC V24, CMS/HCC V28) Social History Tobacco Use Types Packs/Day Years [...] Department Care Team (Late Contact Info) Description 01/04/2025 1:30 PM EDT Office Visit Adult Medicine - [place] [address] [place] [phone] Betaa Mccoy MD [address] [place] [address] 01/26/2025 1:15 PM EDT Office Visit Adult Medicine - [place] [address] [place] [phone] Poli Rodas PA [address] [place], [place] documented as of this encounter Procedures Procedure Name Priority Date/Time Associated Diagnosis Comments CULTURE BLOOD Routine 12/06/2024 7:57 AM EDT Essential (primary) hypertension Type 2 diabetes mellitus without complications (CMS/HCC V24, CMS/HCC V28) COMPLETE BLOOD COUNT Routine 12/06/2024 7:57 AM EDT Essential (primary) hypertension Type 2 diabetes mellitus without complications (CMS/HCC V24, CMS/HCC V28) AMMONIA Routine 12/06/2024 7:57 AM EDT Essential (primary) hypertension Type 2 diabetes mellitus without complications (CMS/HCC V24, CMS/HCC V28) COMPREHENSIVE METABOLIC PANEL Routine 12/06/2024 7:57 AM EDT Essential (primary) hypertension Type 2 diabetes mellitus without complications (CMS/HCC V24, CMS/HCC V28) documented in this encounter Results * Ammonia (12/06/2024 7:57 AM EDT) Ammonia 19 11 - 35 mcmol/L LAB CHEMISTRY METHOD 12/06/2024 9:10 AM EDT [facility] Blood Venous blood specimen / Unknown Venipuncture / Unknown 12/06/2024 7:57 AM EDT 12/06/2024 8:51 AM EDT us Pearl Schwartz MD LAB BLOOD ORDERABLES Fin al Result [facility] [address] [place] [address], * Culture blood (12/06/2024 7:57 AM EDT) [facility] Culture, Blood No growth at 5 days 12/11/2024 9:01 AM T [facility] Blood Venipuncture / Unknown 12/06/2024 7:57 AM EDT 12/06/2024 8:51 AM EDT Pearl Schwartz MD LAB MICROBIOLOGY - GENER AL ORDERABLES Final Result [facility] [address] [place] [address], [place] [phone] * (ABNORMAL) Comprehensive metabolic panel (12/06/2024 7:57 AM EDT) [facility] Sodium 141 133 - 145 mmol/L LAB CHEMISTRY METHOD 12/06/2024 9:53 AM [facility] Potassium 5.0 3.5 - 5.5 mmol/L LAB CHEMISTRY METHOD 12/06/2024 9:53 AM [facility] Chloride 107 96 - 110 mmol/L LAB CHEMISTRY METHOD 12/06/2024 9:53 AM [facility] CO2 27 21 - 32 mmol/L LAB CHEMISTRY METHOD 12/06/2024 9:53 AM [facility] Anion Gap 7 3 - 11 LAB CHEMISTRY METHOD 12/06/2024 9:53 AM [facility] Glucose 176(H) 70 - 100 mg/dL LAB CHEMISTRY METHOD 12/06/2024 9:53 AM [facility] BUN 30(H) 5 - 25 mg/dL LAB CHEMISTRY METHOD 12/06/2024 9:53 AM [facility] Creatinine 1.03 0.50 - 1.10 mg/dL LAB CHEMISTRY METHOD 12/06/2024 9:53 AM [facility] eGFR 58(L) >=60 mL/min/1. 73m2 LAB CHEMISTRY METHOD 12/06/2024 9:53 AM [facility] Comment:Calculation based on the Chronic Kidney Disease Epidemiology Collaboration (CKD-EPI) equation refit without adjustment for race. BUN/Creatinine Ratio 29.1 LAB CHEMISTRY METHOD 12/06/2024 9:53 AM [facility] Calcium 9.6 8.5 - 10.5 mg/dL LAB CHEMISTRY METHOD 12/06/2024 9:53 AM [facility] AST (SGOT) 15 10 - 42 unit/L LAB CHEMISTRY METHOD 12/06/2024 9:53 AM [facility] ALT (SGPT) 16 10 - 60 unit/L LAB CHEMISTRY METHOD 12/06/2024 9:53 AM [facility] Alkaline Phosphatase 116 42 - 121 unit/L LAB CHEMISTRY METHOD 12/06/2024 9:53 AM [facility] Comment:Results verified by repeat testing Total Protein 7.1 6.0 - 8.0 g/dL LAB CHEMISTRY METHOD 12/06/2024 9:53 AM [facility] Albumin 3.9 3.2 - 5.0 g/dL LAB CHEMISTRY METHOD 12/06/2024 9:53 AM [facility] Total Bilirubin 1.2 0.0 - 1.4 mg/dL LAB CHEMISTRY METHOD 12/06/2024 9:53 AM [facility] Blood Venous blood specimen / Unknown Venipuncture / Unknown 12/06/2024 7:57 AM EDT 12/06/2024 8:51 AM EDT us Pearl Schwartz MD LAB BLOOD ORDERABLES Fin al Result [facility] [address] [place] [address], * (ABNORMAL) Complete blood count (12/06/2024 7:57 AM EDT) [facility] WBC 9.0 4.8 - 10.8 K/mcL LAB HEMETOLOGY METHOD 12/06/2024 9:12 AM [facility] RBC 3.80 3.80 - 4.80 M/mcL LAB HEMETOLOGY METHOD 12/06/2024 9:12 AM [facility] Hemoglobin 11.9 11.5 - 16.0 g/dL LAB HEMETOLOGY METHOD 12/06/2024 9:12 AM [facility] Hematocrit 36.0 35.0 - 47.0 % LAB HEMETOLOGY METHOD 12/06/2024 9:12 AM [facility] MCV 94.2 79.0 - 98.0 FL LAB HEMETOLOGY METHOD 12/06/2024 9:12 AM [facility] MCH 31.2 27.0 - 32.0 pcg LAB HEMETOLOGY METHOD 12/06/2024 9:12 AM [facility] MCHC 33.1 32.0 - 37.0 g/dL LAB HEMETOLOGY METHOD 12/06/2024 9:12 AM [facility] RDW 13.5 11.0 - 15.0 % LAB HEMETOLOGY METHOD 12/06/2024 9:12 AM [facility] Platelets 679(H) 130 - 400 K/mcL LAB HEMETOLOGY METHOD 12/06/2024 9:12 AM [facility] MPV 9.1 7.0 - 11.0 FL LAB HEMETOLOGY METHOD 12/06/2024 9:12 AM [facility] NRBC 0.0 <1.0 % LAB HEMETOLOGY METHOD 12/06/2024 9:12 AM [facility] NRBC Absolute 0.00 <0.10 K/mcL LAB HEMETOLOGY METHOD 12/06/2024 9:12 AM EDT [facility] Blood Venous blood specimen / Unknown Venipuncture / Unknown 12/06/2024 7:57 AM EDT 12/06/2024 8:51 AM EDT us Pearl Schwartz MD LAB BLOOD ORDERABLES Fin al Result [facility] [address] [place] [address], documented in this encounter Visit Diagnoses Diagnosis Essential (primary) hypertension Unspecified essential hypertension Type 2 diabetes mellitus without complications (CMS/HCC V24, CMS/HCC V28) documented in this encounter Care Teams Twister Tender Paper Relationship Specialty Start Date End Date Beata Mccoy MD [address] [place] [id number] PCP - General Internal Medicine 08/04/21 documented as of this encounter
== END 2024-12-28 13:16 | disposition home or self-care (01) ==
LOC: HO.HOS 12:23
PROVIDERS: Visit Provider Physician Assistant
DX: S72.142A Displaced intertrochanteric fracture of left femur, initial encounter for closed fracture (principal)
CPT/HCPCS: 99024

== ENCOUNTER → 2024-12-28 12:24 | Outpatient (BNV) | payer MEDICARE, SELFPAY | PROVIDERS: Visit Provider Radiology Diagnostic Radiology | DX: S72.412A Displaced unspecified condyle fracture of lower end of left femur, initial encounter for closed fracture (principal) | CPT/HCPCS: 73552 ==

== ENCOUNTER 2025-01-14 19:13 | Emergency (ER) | payer MEDICARE, SELFPAY ==
[2025-01-14 19:19] VITALS: BP 155/71; PULSE 80; O2SAT 96
[2025-01-14 19:25] VITALS: BP 148/69; PULSE 74; RESP 18; TEMP 36.8; O2SAT 96; BMI 21.3
--- NOTE | 2025-01-14 20:23 | ED.EYEPROB ---
HPI - Eye Problem General Chief complaint: Eye Problems Stated complaint: poked eye blurry vision Time Seen by Provider: 01/14/25 19:55 History of Present Illness ED Provider: Partha Avalos MD HPI Narrative: This is a 74-year-old demented female brought in from home for ?inadvertent poking in the eye?. Patient demented not offering any additional history told the nurse that she is therefore broken leg but this is likely because of her dementia she is pleasant and cooperative Related Data Home Medications ?Medication ?Instructions ?Recorded ?Confirmed olanzapine 2.5 mg tablet 2.5 mg PO BID@1500,2100 11/19/24 11/19/24 Previous Rx's ?Medication ?Instructions ?Recorded amlodipine 10 mg tablet 10 mg PO DAILY #90 tabs 11/20/24 aspirin 325 mg tablet 325 mg PO BID #80 tabs 11/20/24 insulin lispro 100 unit/mL See Protocol subcut QIDACHS #10 mL 11/20/24 subcutaneous solution (Admelog U-100 Insulin lispro) melatonin 3 mg tablet 6 mg (2 x 3 mg) PO BEDTIME PRN 11/20/24 Insomnia #30 tabs metformin 500 mg tablet 500 mg PO BIDWM #180 tabs 11/20/24 oxycodone 5 mg tablet 5 mg PO Q6H PRN Pain, 11/20/24 Moderate(Pain Scale 7-10) #30 tabs erythromycin 5 mg/gram (0.5 %) eye 1 appl ophthalmic (eye) DAILY 7 01/14/25 ointment days #3.5 grams Allergies Allergy/AdvReac Type Severity Reaction Status Date / Time gemfibrozil (GEMFIBROZIL) Allergy Unknown DIZZINESS/HIVES, Verified 01/14/25 19:26 dizziness ondansetron (From Zofran) AdvReac Unresponsiv Verified 01/14/25 19:26 e PMFSH Past Medical History Medical History Major neurocognitive disorder due to Alzheimer's disease, without behavioral disturbance HTN (hypertension) Premature atrial contractions Diabetes Palpitations Surgical History No pertinent past surgical history Family History Family History Father Cancer Mother Cancer Social History Social History Household Members: None Household Members Other:: alone Housing: House Are you a primary anesthesiologist and critical care to a significant other at home: No Do you presently have visiting nurse or other home services: No Patient Tobacco Use Status: Never used Tobacco Second Hand Smoke Exposure: No Advance Directives: No Advance Directives Information Provided: Yes service: No Physical Exam Vital Signs: Vital Signs: Last Vital Signs Temp 98.3 F 01/14/25 22:12 Pulse 69 01/14/25 22:12 Resp 18 01/14/25 22:12 BP 123/60 01/14/25 22:12 Pulse Ox 96 01/14/25 22:12 O2 Del Method Room Air 01/14/25 22:12 BMI result Body Mass Index 21.3 Const: Other: GENERAL: Well appearing. No apparent distress. Alert. Demented, baseline per history HEAD/NECK: No visual trauma. EYES: Bilateral 20/70 without corrective lenses. No proptosis. EOMI. Pupils 3-4 mm symmetric and reactive. Perhaps minimal injection on the left sclera compared to the right but no overt conjunctivitis no discharge or foreign body. Fluorescein staining without corneal uptake or Jocelyn sign. ENMT: Hearing grossly normal. External nose normal. RESPIRATORY: Respiratory effort normal. CARDIOVASCULAR: Additional details (Grossly well perfused). SKIN: No jaundice. NEUROLOGICAL: Alert. Moving all extremities x4. Additional details (No gross motor deficits. Normal tone. ). PSYCHIATRIC: Alert. Appearance appropriate for situation. Medications Administered Discontinued Medications Generic Name Dose Route Start Last Admin Trade Name Freq PRN Reason Stop Dose Admin Diphtheria/Tetanus/Acell Pertussis 0.5 ml 01/14/25 19:54 01/14/25 21:19 Diphth,Pertus(Acell),Tet Adult 0.5 Ml Syringe IM 01/14/25 19:55 0.5 ml .ONCE ONE Administration Fluorescein Sodium 1 strip 01/14/25 19:54 01/14/25 21:20 Fluorescein Sodium Strip EYE-LEFT 01/14/25 19:55 1 strip ONCE ONE Administration Tetracaine HCl 1 drop 01/14/25 20:30 01/14/25 21:20 Tetracaine Hcl/Pf 0.5% Oph Vani 4 Ml Drops EYE-LEFT 01/14/25 20:31 1 drop ONCE ONE Administration Medical Decision Making Medical Decision Making MDM Narrative: Medical Decision Making: [age] female with dementia purported inadvertent self digit irritation of the eye yesterday. Mild scleral injection. No corneal abrasions. Soothing erythromycin ointment at night as needed . Preliminary Favored Differential Diagnosis: Corneal abrasion, scleral abrasion, foreign body among additional considered etiologies Testing Interpreted Independently: Not Applicable Radiology or Lab testing Results Reviewed: Not Applicable Consults: Not Applicable Independent Historians/External Chart Reviews: Not Applicable Social Determinants of Health Impacting MDM/Planning: Not Applicable Discharge Plan Discharge Clinical Impression: Conjunctival injection Patient Disposition: Home, Self-Care Instructions: Erythromycin (Into the eye) Additional Instructions: DISCHARGE DIAGNOSES: You were evaluated for redness of the eye. There was no signs of abrasion or other significant injuries of the left eye. HISTORY OF PRESENTATION: ?Poking herself in the I inadvertently 1 day ago EMERGENCY DEPARTMENT COURSE,TESTS, TREATMENTS: While in the ED today you had staining of the eye to evaluate for punctures or other serious injuries this was ruled out reassuringly. You were given a tetanus update. Your eye acuity was tested which was symmetric to the other side at 20/70. DISCHARGE MEDICATIONS: ?[We have made no changes to your regular medication regimen] we have added erythromycin ointment to be put at night on the upper eyelid for the next 7 days FOLLOW-UP: ?Call your primary or general physician soon as possible to discuss your symptoms, your ED visit and to discuss follow up plans If the eye begins to drain or the vision worsens or becomes more red in the eye return here or call Ophthalmology for follow up INSTRUCTIONS ?& RETURN PRECAUTIONS: If any symptoms change first call your primary physician, if it is after-hours your primary doctors office should have a provider lockstitch front maker you can speak with. If the symptoms are severe or very concerning to you then call 911 or return to the ED. Partha Avalos MD Emergency Physician [facility] Prescriptions: New erythromycin 5 mg/gram (0.5 %) ointment 1 appl ophthalmic (eye) DAILY 7 Days Qty: 3.5 0RF No Action olanzapine 2.5 mg tablet 2.5 mg PO BID@1500,2100 amlodipine 10 mg Tablet 10 mg PO DAILY Qty: 90 0RF Protocol: Hold for SBP< HOLD for SBP < : 90 insulin lispro [Admelog U-100 Insulin lispro] 100 unit/mL Solution See Protocol subcut QIDACHS Qty: 10 0RF Protocol: Insulin Correction Scale Less than or equal to 110 ---- Give (units): 0 111 to 150 Give (units): 0 151 to 200 Give (units): 2 201 to 250 Give (units): 4 251 to 300 Give (units): 6 301 to 350 Give (units): 8 Greater than 350 Give (units): 10 Call if Blood Glucose > : 350 Rx Instructions: BG <111 0 units, 111-150 - 0 units, 151-200 2 units, 201-250 4 units, 251-300 6 units, 301-350 8 units, >350 10 units metformin 500 mg Tablet 500 mg PO BIDWM Qty: 180 0RF melatonin 3 mg Tablet 6 mg PO BEDTIME PRN (Reason: Insomnia) Qty: 30 0RF oxycodone 5 mg Tablet 5 mg PO Q6H PRN (Reason: Pain, Moderate(Pain Scale 7-10)) Qty: 30 0RF Rx Instructions: Partial Fill upon patient request. aspirin 325 mg Tablet 325 mg PO BID Qty: 80 0RF Rx Instructions: total 42 days from surgery Interventions: ED Discharge Assessment Last Done: 01/14/25 22:12 Discharge Date/Time: 01/14/25 22:12 Print Language: Maltese
[2025-01-14 20:39] VITALS: BP 123/60; PULSE 69; RESP 18; O2SAT 96
[2025-01-14] MEDS: Diphth,Pertus(ACell),Tet Adult 0.5 ML SYRINGE IM (21:19)
[2025-01-14] MEDS: Tetracaine HCl/PF 0.5% Oph Sol 4 ML DROPS 1 DROP EYE-LEFT (21:20)
[2025-01-14] MEDS: Fluorescein Sodium STRIP 1 STRIP EYE-LEFT (21:20)
--- NOTE | 2025-01-14 22:11 | PC.NURSE ---
daughter here to pick pulling machine tender pt
[2025-01-14 22:12] VITALS: BP 123/60; PULSE 69; RESP 18; TEMP 36.8; O2SAT 96
== END 2025-01-14 22:12 | disposition home or self-care (01) ==
PROVIDERS: Emergency Provider Emergency Medicine
DX: S05.02XA Injury of conjunctiva and corneal abrasion without foreign body, left eye, initial encounter (principal); H53.8 Other visual disturbances; F03.90 Unspecified dementia, unspecified severity, without behavioral disturbance, psychotic disturbance, mood disturbance, and anxiety; X58.XXXA Exposure to other specified factors, initial encounter; Y93.9 Activity, unspecified; Y92.9 Unspecified place or not applicable; Y99.8 Other external cause status; Z79.899 Other long term (current) drug therapy; Z23 Encounter for immunization
CPT/HCPCS: 90471; 90715; 99284

== ENCOUNTER 2025-01-21 11:55 | Emergency (ER) | payer MEDICARE, SELFPAY ==
[2025-01-21 12:30] VITALS: BP 148/84; BP 168/83; PULSE 75; PULSE 80; RESP 16; TEMP 36.6; O2SAT 98; O2SAT 99; BMI 17.5
--- NOTE | 2025-01-21 12:38 | ED_ITS ---
HPI - General Adult General Chief complaint: General Medical Stated complaint: DTR STS UNABLE TO CARE FOR PT,REQUESTS REHAB Time Seen by Provider: 01/21/25 11:58 Source: patient and EMS Mode of arrival: EMS Limitations: altered mental status History of Present Illness ED Provider: Xiomy Nunez NP HPI narrative: Patient is a 74-year-old female who presents emergency department via EMS for evaluation. She is brought from home where her daughter is her primary caregiver, has a history of dementia, evidently had a left hip fracture a few months back, was recently discharged home from [facility], daughter feels unable to care for her at home. Patient is pleasant, offers no physical complaints at this time. Related Data Home Medications ?Medication ?Instructions ?Recorded ?Confirmed olanzapine 2.5 mg tablet 2.5 mg PO BID@1500,2100 11/0901/21/25 fenofibrate nanocrystallized 145 145 mg PO DAILY 01/2101/21/25 mg tablet Previous Rx's ?Medication ?Instructions ?Recorded amlodipine 10 mg tablet 10 mg PO DAILY #90 tabs 11/09 09/05 metformin 500 mg tablet 500 mg PO BIDWM #180 tabs Allergies Allergy/AdvReac Type Severity Reaction Status Date / Time gemfibrozil (GEMFIBROZIL) Allergy Unknown DIZZINESS/HIVES, Verified 01/21/25 12:33 dizziness ondansetron (From Zofran) AdvReac Unresponsiv Verified 01/21/25 12:33 e PMFSH Past Medical History Medical History Major neurocognitive disorder due to Alzheimer's disease, without behavioral disturbance HTN (hypertension) Premature atrial contractions Diabetes Palpitations Surgical History No pertinent past surgical history Family History Family History Father Cancer Mother Cancer Social History Social History Household Members: None Household Members Other:: alone Housing: House Are you a primary home care coordinator to a significant other at home: No Do you presently have visiting nurse or other home services: No Patient Tobacco Use Status: Never used Tobacco Second Hand Smoke Exposure: No service: No Physical Exam ED Vital Signs: Vital Signs - 24 hr 01/31/25 09:36 01/31/25 14:00 01/31/25 20:03 Temperature 98.6 F 98.3 F Pulse Rate 75 64 Respiratory Rate 17 18 Blood Pressure 135/63 120/62 119/63 Pulse Oximetry 97 97 Oxygen Delivery Method Room Air Room Air 02/01/25 05:04 02/01/25 08:21 Temperature 96.7 F L Pulse Rate 72 Respiratory Rate 14 Blood Pressure 149/75 H 151/67 H Pulse Oximetry 97 Oxygen Delivery Method Room Air BMI result Body Mass Index 17.5 Course Course Course Narrative: 01/22/25 08:25 ELIUD Thomas: Physician observation continued, no overnight events reported by nursing. Awaiting physical therapy evaluation. Case management following for disposition as daughter requesting long-term care. VS stable, BP elevated. Med rec complete. 01/23/25 11:30 ELIUD Thomas: Your physician observation continued, no overnight events reported by nursing. Vital signs stable. Case management following for disposition. Time: 12:01 Date: 01/24/25 Provider: ISABEL Reyes Patient in physician observation for case management needs. No acute events reported overnight.? No current issues or complaints. VS stable. Patient is pending placement at facility. Will continue to monitor. 01/25/2025 0844 Julianna Casey PA-C ---> Observation continues. Case management continues to follow. Time: 08:12 Date: 01/26/25 Provider: Xiomy Nunez CNP Patient in physician observation for case management needs or assistance with long-term care placement. No acute events reported overnight.? No current issues or complaints. VS stable. L 01/27/2025 0920 Julianna Casey PA-C ---> Observation continues. Case management continues to follow. L Time: 13:08 Date: 01/28/25 Provider: Xiomy Nunez CNP Patient in physician observation for case management needs, pending long-term care placement. No acute events reported overnight.? No current issues or complaints. VS stable. Will continue to monitor. L Time: 18:17 Date: 01/29/25 Provider: ISABEL Reyes Patient in physician observation for case management needs. No acute events reported overnight.? Awaiting long-term placement. Will continue to monitor. L 01/30/25 09:58 ELIUD Thomas: Physician observation continued, no overnight events reported by nursing. Patient awaiting long-term care placement, case management following for disposition. L01/31/2025 0832 Julianna Casey PA-C ---> Observation continues. Case management continues to follow. L02/01/2025 0842 Alem Casey PA-C ---> Observation care revealed the the patient does not meet medical necessity for hospitalization. Final disposition of discharge to [facility] discussed with the patient. Patient completed observation care at 0843 on 02/01/2025, total time spent in observation care was 10 days, 19 hours, and 39 minutes. Medications Administered Generic Name Dose Route Start Last Admin Trade Name Freq PRN Reason Stop Dose Admin Amlodipine Besylate 10 mg 01/22/25 09:00 02/01/25 08:21 Amlodipine Besylate 10 Mg Tablet PO 10 mg DAILY DEVONTE Administration Protocol Fenofibrate 160 mg 01/22/25 09:00 02/01/25 08:21 Fenofibrate 160 Mg Tablet PO 160 mg DAILY DEVONTE Administration Metformin HCl 500 mg 01/21/25 18:45 02/01/25 08:21 Metformin Hcl 500 Mg Tablet PO 500 mg BIDWM DEVONTE Administration Olanzapine 2.5 mg 01/21/25 21:00 01/31/25 20:35 Olanzapine 2.5 Mg Tablet PO 2.5 mg BID@1500,2100 DEVONTE Administration Discontinued Medications Generic Name Dose Route Start Last Admin Trade Name Freq PRN Reason Stop Dose Admin Acetaminophen 975 mg 01/23/25 09:21 01/23/25 09:41 Acetaminophen 325 Mg Tablet PO 01/23/25 09:22 Not Given ONCE ONE Acetaminophen 650 mg 01/25/25 10:22 01/25/25 10:24 Acetaminophen 325 Mg Tablet PO 01/25/25 10:23 650 mg ONCE ONE Administration Medical Decision Making Medical Decision Making [facility] Narrative: Patient is a 74-year-old female past medical history of Alzheimer's dementia, hypertension, prediabetes, mood disorder, s/p intertrochanteric fracture of the left who presents emergency department via EMS for evaluation as per her daughter. Patient offers no physical complaints and her examination at this time is benign. I had contact with patient's daughter; Elly by phone, she reports that she is the patient's HCP and power of trade mark attorney. [facility], she was discharged home approximately 2 weeks ago, she was supposed to have visiting nurse services as well as physical therapy establish but this never occurred. Elly feels as though her dementia is worsening she is getting out of bed at night and wandering she is worried that the patient may fall down the stairs. Evidently over the past 2 weeks police have had to find her 4 times outside of the home as she goes off wandering. Elly states that she endorses persistent pain to her left hip, states that today she was reporting she could not change her clothes but then subsequently walked approximately half a mi and climbed over a fence and was ultimately found by police. She spoke with elder Services who advised her to have patient transported to the emergency department for further evaluation and assistance with care. Elly states that she has younger children at home somewhat developmental day lays and she has personal medical issues and simply states I can not do this anymore I can not take care of her . She evidently has some appointments in place this week for assistance with completing [employer] application as she only has Medicare currently, and outpatient follow-up appointments. She is requesting assistance with placement for long-term care Differential Diagnosis Differential Diagnoses: The differential diagnosis associated with the presentation includes (Dementia, hip pain s/p fracture and recent repair.) Admission/Observation Consideration of admission/observation: Escalation of care including admission/observation considered Patient placed in physician observation at 13:05 on 01/21/2025 pending case management assistance with safe disposition planning Lab Data MDM Lab Attestation statement: I reviewed the patient's lab results. CBC is without leukocytosis, no significant anemia, no thrombocytopenia. No electrolyte derangement. Non-anion gap hyperglycemia with random glucose of 226. Hyperbilirubinemia who experienced consistent with prior, a benign abdominal examination unlikely acute hepatobiliary etiology. 01/21/25 13:05 01/30/25 05:49 Labs: Lab Results 01/21/25 01/21/25 01/22/25 Range/Units 13:05 15:59 09:54 WBC 8.4 (4.8-10.8) X10*3/uL RBC 3.82 L D (4.20-5.50) X10*6/uL Hgb 12.3 D (12.0-16.0) g/dl Hct 33.6 L D (37.0-47.0) % MCV 88.0 (80.0-98.0) fL MCH 32.2 (27.0-33.0) pg MCHC 36.6 H (31.0-35.0) g/dl RDW 13.6 (11.0-16.0) % Plt Count 310 D (160-400) X10*3/uL MPV 9.1 L (9.4-12.3) fL Immature Gran % (Auto) 0.2 (0.0-0.4) % Neut % (Auto) 82.2 H (45-73) % Lymph % (Auto) 11.7 L (20-40) % [place] % (Auto) 4.7 (2-11) % Eos % (Auto) 0.7 (0-4) % Baso % (Auto) 0.5 (0-2) % Lymph # (Auto) 1.0 L (1.2-4.9) X10*3/uL [place] # (Auto) 0.4 (0.1-1.2) X10*3/uL Eos # (Auto) 0.1 (0.0-0.4) X10*3/uL Baso # (Auto) 0.0 (0.0-0.2) X10*3/uL Abs Immat Gran (auto) 0.02 (0.00-0.03) X10*3/uL Absolute Neuts (auto) 6.9 (2.0-8.3) x10*3/uL Absolute Nucleated RBC 0.000 (0.0-0.012) X10*3/uL Nucleated RBC % (auto) 0.0 (0.0-0.2) /100WBC Sodium 143 (135-145) mmol/L Potassium 4.4 D (3.3-5.1) mmol/L Chloride 108 (96-108) mmol/L Carbon Dioxide 28 (22-29) mmol/L Anion Gap 11 L (12-20) BUN 25 H (9-16) mg/dL Creatinine 0.83 (0.5-1.4) mg/dL Estim Creat Clear Calc 47.6 Estimated GFR > 60 POC Glucose (60-115) mg/dL Random Glucose 226 H (60-115) mg/dL Calcium 9.3 D (8.4-10.2) mg/dL Total Bilirubin 1.2 H (0.0-1.0) mg/dL AST 40 H (5-31) U/L ALT 20 (0-31) U/L Alkaline Phosphatase 119 H (39-117) U/L Total Protein 6.5 (6.5-8.0) g/dL Albumin 4.2 (3.5-5.0) g/dL Urine Color Yellow Urine Appearance Clear Urine pH 5.5 (5.0-9.0) Ur Specific [place] >= 1.030 H (1.005-1.025) Urine Protein 100 (2+) H (Neg-Trace) mg/dL Urine Glucose (UA) 500 H (Negative) mg/dL Urine Ketones Trace (Negative) mg/dL Urine Blood Negative (Negative) Urine Nitrite Negative (Negative) Ur Leukocyte Esterase Negative (Negative) Urine RBC 0-2 (0-2) /HPF Urine WBC 0-5 (0-5) /HPF Ur Squamous Epith Cells 3-5 (0-2) /HPF Urine Bacteria None Seen (None Seen) Hyaline Casts 3-5 (0-2) /LPF Influenza Type A (PCR) NEGATIVE (Negative) Influenza Type B (PCR) NEGATIVE (Negative) RSV RNA Qual (PCR) NEGATIVE (Negative) SARS-CoV-2 RNA (RT-PCR) NEGATIVE (Negative) 01/23/25 01/23/25 01/23/25 Range/Units 07:42 16:23 21:11 WBC (4.8-10.8) X10*3/uL RBC (4.20-5.50) X10*6/uL Hgb (12.0-16.0) g/dl Hct (37.0-47.0) % MCV (80.0-98.0) fL MCH (27.0-33.0) pg MCHC (31.0-35.0) g/dl RDW (11.0-16.0) % Plt Count (160-400) X10*3/uL MPV (9.4-12.3) fL Immature Gran % (Auto) (0.0-0.4) % Neut % (Auto) (45-73) % Lymph % (Auto) (20-40) % [place] % (Auto) (2-11) % Eos % (Auto) (0-4) % Baso % (Auto) (0-2) % Lymph # (Auto) (1.2-4.9) X10*3/uL [place] # (Auto) (0.1-1.2) X10*3/uL Eos # (Auto) (0.0-0.4) X10*3/uL Baso # (Auto) (0.0-0.2) X10*3/uL Abs Immat Gran (auto) (0.00-0.03) X10*3/uL Absolute Neuts (auto) (2.0-8.3) x10*3/uL Absolute Nucleated RBC (0.0-0.012) X10*3/uL Nucleated RBC % (auto) (0.0-0.2) /100WBC Sodium (135-145) mmol/L Potassium (3.3-5.1) mmol/L Chloride (96-108) mmol/L Carbon Dioxide (22-29) mmol/L Anion Gap (12-20) BUN (9-16) mg/dL Creatinine (0.5-1.4) mg/dL Estim Creat Clear Calc Estimated GFR POC Glucose 209 H 131 H 124 H (60-115) mg/dL Random Glucose (60-115) mg/dL Calcium (8.4-10.2) mg/dL Total Bilirubin (0.0-1.0) mg/dL AST (5-31) U/L ALT (0-31) U/L Alkaline Phosphatase (39-117) U/L Total Protein (6.5-8.0) g/dL Albumin (3.5-5.0) g/dL Urine Color Urine Appearance Urine pH (5.0-9.0) Ur Specific [place] (1.005-1.025) Urine Protein (Neg-Trace) mg/dL Urine Glucose (UA) (Negative) mg/dL Urine Ketones (Negative) mg/dL Urine Blood (Negative) Urine Nitrite (Negative) Ur Leukocyte Esterase (Negative) Urine RBC (0-2) /HPF Urine WBC (0-5) /HPF Ur Squamous Epith Cells (0-2) /HPF Urine Bacteria (None Seen) Hyaline Casts (0-2) /LPF Influenza Type A (PCR) (Negative) Influenza Type B (PCR) (Negative) RSV RNA Qual (PCR) (Negative) SARS-CoV-2 RNA (RT-PCR) (Negative) 01/25/25 01/26/25 01/26/25 Range/Units 16:47 07:51 20:44 WBC (4.8-10.8) X10*3/uL RBC (4.20-5.50) X10*6/uL Hgb (12.0-16.0) g/dl Hct (37.0-47.0) % MCV (80.0-98.0) fL MCH (27.0-33.0) pg MCHC (31.0-35.0) g/dl RDW (11.0-16.0) % Plt Count (160-400) X10*3/uL MPV (9.4-12.3) fL Immature Gran % (Auto) (0.0-0.4) % Neut % (Auto) (45-73) % Lymph % (Auto) (20-40) % [place] % (Auto) (2-11) % Eos % (Auto) (0-4) % Baso % (Auto) (0-2) % Lymph # (Auto) (1.2-4.9) X10*3/uL [place] # (Auto) (0.1-1.2) X10*3/uL Eos # (Auto) (0.0-0.4) X10*3/uL Baso # (Auto) (0.0-0.2) X10*3/uL Abs Immat Gran (auto) (0.00-0.03) X10*3/uL Absolute Neuts (auto) (2.0-8.3) x10*3/uL Absolute Nucleated RBC (0.0-0.012) X10*3/uL Nucleated RBC % (auto) (0.0-0.2) /100WBC Sodium (135-145) mmol/L Potassium (3.3-5.1) mmol/L Chloride (96-108) mmol/L Carbon Dioxide (22-29) mmol/L Anion Gap (12-20) BUN (9-16) mg/dL Creatinine (0.5-1.4) mg/dL Estim Creat Clear Calc Estimated GFR POC Glucose 145 H 138 H 130 H (60-115) mg/dL Random Glucose (60-115) mg/dL Calcium (8.4-10.2) mg/dL Total Bilirubin (0.0-1.0) mg/dL AST (5-31) U/L ALT (0-31) U/L Alkaline Phosphatase (39-117) U/L Total Protein (6.5-8.0) g/dL Albumin (3.5-5.0) g/dL Urine Color Urine Appearance Urine pH (5.0-9.0) Ur Specific [place] (1.005-1.025) Urine Protein (Neg-Trace) mg/dL Urine Glucose (UA) (Negative) mg/dL Urine Ketones (Negative) mg/dL Urine Blood (Negative) Urine Nitrite (Negative) Ur Leukocyte Esterase (Negative) Urine RBC (0-2) /HPF Urine WBC (0-5) /HPF Ur Squamous Epith Cells (0-2) /HPF Urine Bacteria (None Seen) Hyaline Casts (0-2) /LPF Influenza Type A (PCR) (Negative) Influenza Type B (PCR) (Negative) RSV RNA Qual (PCR) (Negative) SARS-CoV-2 RNA (RT-PCR) (Negative) 01/27/25 01/30/25 01/30/25 Range/Units 08:03 05:49 07:52 WBC (4.8-10.8) X10*3/uL RBC (4.20-5.50) X10*6/uL Hgb (12.0-16.0) g/dl Hct (37.0-47.0) % MCV (80.0-98.0) fL MCH (27.0-33.0) pg MCHC (31.0-35.0) g/dl RDW (11.0-16.0) % Plt Count (160-400) X10*3/uL MPV (9.4-12.3) fL Immature Gran % (Auto) (0.0-0.4) % Neut % (Auto) (45-73) % Lymph % (Auto) (20-40) % [place] % (Auto) (2-11) % Eos % (Auto) (0-4) % Baso % (Auto) (0-2) % Lymph # (Auto) (1.2-4.9) X10*3/uL [place] # (Auto) (0.1-1.2) X10*3/uL Eos # (Auto) (0.0-0.4) X10*3/uL Baso # (Auto) (0.0-0.2) X10*3/uL Abs Immat Gran (auto) (0.00-0.03) X10*3/uL Absolute Neuts (auto) (2.0-8.3) x10*3/uL Absolute Nucleated RBC (0.0-0.012) X10*3/uL Nucleated RBC % (auto) (0.0-0.2) /100WBC Sodium (135-145) mmol/L Potassium (3.3-5.1) mmol/L Chloride (96-108) mmol/L Carbon Dioxide (22-29) mmol/L Anion Gap (12-20) BUN (9-16) mg/dL Creatinine 0.81 (0.5-1.4) mg/dL Estim Creat Clear Calc 48.8 Estimated GFR > 60 POC Glucose 169 H 170 H (60-115) mg/dL Random Glucose (60-115) mg/dL Calcium (8.4-10.2) mg/dL Total Bilirubin (0.0-1.0) mg/dL AST (5-31) U/L ALT (0-31) U/L Alkaline Phosphatase (39-117) U/L Total Protein (6.5-8.0) g/dL Albumin (3.5-5.0) g/dL Urine Color Urine Appearance Urine pH (5.0-9.0) Ur Specific [place] (1.005-1.025) Urine Protein (Neg-Trace) mg/dL Urine Glucose (UA) (Negative) mg/dL Urine Ketones (Negative) mg/dL Urine Blood (Negative) Urine Nitrite (Negative) Ur Leukocyte Esterase (Negative) Urine RBC (0-2) /HPF Urine WBC (0-5) /HPF Ur Squamous Epith Cells (0-2) /HPF Urine Bacteria (None Seen) Hyaline Casts (0-2) /LPF Influenza Type A (PCR) (Negative) Influenza Type B (PCR) (Negative) RSV RNA Qual (PCR) (Negative) SARS-CoV-2 RNA (RT-PCR) (Negative) 01/31/25 01/31/25 02/01/25 Range/Units 07:24 11:29 07:32 WBC (4.8-10.8) X10*3/uL RBC (4.20-5.50) X10*6/uL Hgb (12.0-16.0) g/dl Hct (37.0-47.0) % MCV (80.0-98.0) fL MCH (27.0-33.0) pg MCHC (31.0-35.0) g/dl RDW (11.0-16.0) % Plt Count (160-400) X10*3/uL MPV (9.4-12.3) fL Immature Gran % (Auto) (0.0-0.4) % Neut % (Auto) (45-73) % Lymph % (Auto) (20-40) % [place] % (Auto) (2-11) % Eos % (Auto) (0-4) % Baso % (Auto) (0-2) % Lymph # (Auto) (1.2-4.9) X10*3/uL [place] # (Auto) (0.1-1.2) X10*3/uL Eos # (Auto) (0.0-0.4) X10*3/uL Baso # (Auto) (0.0-0.2) X10*3/uL Abs Immat Gran (auto) (0.00-0.03) X10*3/uL Absolute Neuts (auto) (2.0-8.3) x10*3/uL Absolute Nucleated RBC (0.0-0.012) X10*3/uL Nucleated RBC % (auto) (0.0-0.2) /100WBC Sodium (135-145) mmol/L Potassium (3.3-5.1) mmol/L Chloride (96-108) mmol/L Carbon Dioxide (22-29) mmol/L Anion Gap (12-20) BUN (9-16) mg/dL Creatinine (0.5-1.4) mg/dL Estim Creat Clear Calc Estimated GFR POC Glucose 132 H 195 H 197 H (60-115) mg/dL Random Glucose (60-115) mg/dL Calcium (8.4-10.2) mg/dL Total Bilirubin (0.0-1.0) mg/dL AST (5-31) U/L ALT (0-31) U/L Alkaline Phosphatase (39-117) U/L Total Protein (6.5-8.0) g/dL Albumin (3.5-5.0) g/dL Urine Color Urine Appearance Urine pH (5.0-9.0) Ur Specific [place] (1.005-1.025) Urine Protein (Neg-Trace) mg/dL Urine Glucose (UA) (Negative) mg/dL Urine Ketones (Negative) mg/dL Urine Blood (Negative) Urine Nitrite (Negative) Ur Leukocyte Esterase (Negative) Urine RBC (0-2) /HPF Urine WBC (0-5) /HPF Ur Squamous Epith Cells (0-2) /HPF Urine Bacteria (None Seen) Hyaline Casts (0-2) /LPF Influenza Type A (PCR) (Negative) Influenza Type B (PCR) (Negative) RSV RNA Qual (PCR) (Negative) SARS-CoV-2 RNA (RT-PCR) (Negative) Independent Historian Clinical information obtained from an independent historian. History obtained from or confirmed by: EMS and Other (Daughter as per narrative above) External Record Review External record reviewed: Outpatient record Chronic Conditions Patient?s care impacted by: Other (See above) Discharge Plan Discharge Clinical Impression: Adult failure to thrive Advanced dementia Qualifiers: Dementia type: unspecified type Dementia behavioral or psychological symptom: u nspecified whether behavioral, psychotic, or mood disturbance or anxiety Q ualified Code(s): F03.C0 - Unspecified dementia, severe, without behavioral disturbance, psychotic disturbance, mood disturbance, and anxiety Patient Disposition: Xfer Inpatient Rehab Fac Transfer Details: TO: [facility] ([place], [place]) [facility], [address], , DR MÁRQUEZ ACCEPTING Prescriptions: No Action olanzapine 2.5 mg tablet 2.5 mg PO BID@1500,2100 amlodipine 10 mg Tablet 10 mg PO DAILY Qty: 90 0RF Protocol: Hold for SBP< HOLD for SBP < : 90 metformin 500 mg Tablet 500 mg PO BIDWM Qty: 180 0RF fenofibrate nanocrystallized 145 mg tablet 145 mg PO DAILY Referrals: [facility] [Outside] Referral Note: [address] [place] [address] Beata Mccoy MD [Primary Care Provider, Family Practice] Interventions: Admission Worksheet (ED) Last Done: 01/31/25 18:38 Print Language: Mongolian
--- OUTSIDE RECORDS SUMMARY | 2025-01-21 12:40 | XMS_ITS | Encounter Summary ---
Author Organization [facility] Address [address] [place] [address] Care Team Providers Care Battalion Chief Name Role Phone Beata Mccoy MD Primary Care Provider Encounter Details Date Type Department Care Team (Late Contact Info) Description 12/06/2024 Lab Requisition [facility] [address] [facility] [place] [address] Pearl Schwartz MD [address] [address] Essential (primary) hypertension; Type 2 diabetes mellitus [...] Care Team (Late Contact Info) Description 01/26/2025 11:30 AM EDT Office Visit Adult Medicine - [place] [address] [place] [address] Beaat Mccoy MD [address] [place] [address] 03/28/2025 2:00 PM EDT Office Visit Adult Medicine - [place] [address] [place] [phone] Poli Rodas PA [address] [place], [place] documented as of this encounter Procedures [...] LAB CHEMISTRY METHOD 12/06/2024 9:10 AM EDT [facility] Blood Venous blood specimen / Unknown Venipuncture / Unknown 12/06/2024 7:57 AM EDT 12/06/2024 8:51 AM EDT us Pearl Schwartz MD LAB BLOOD ORDERABLES Fin al Result [facility] [address] [place] [address], * Culture blood (12/06/2024 7:57 AM EDT) [facility] Culture, Blood No growth at 5 days 12/11/2024 9:01 AM T [facility] Blood Venipuncture / Unknown 12/06/2024 7:57 AM EDT 12/06/2024 8:51 AM EDT Pearl Schwartz MD LAB MICROBIOLOGY - GENER AL ORDERABLES Final Result [facility] [address] [place] [address], [place] [phone] * (ABNORMAL) Comprehensive metabolic panel (12/06/2024 7:57 AM EDT) [facility] Sodium 141 133 - 145 mmol/L LAB CHEMISTRY METHOD 12/06/2024 9:53 AM [facility] Potassium 5.0 3.5 - 5.5 mmol/L LAB CHEMISTRY METHOD 12/06/2024 9:53 AM [facility] Chloride 107 96 - 110 mmol/L LAB CHEMISTRY METHOD 12/06/2024 9:53 AM [facility] CO2 27 21 - 32 mmol/L LAB CHEMISTRY METHOD 12/06/2024 9:53 AM [facility] Anion Gap 7 3 - 11 LAB CHEMISTRY METHOD 12/06/2024 9:53 AM [facility] Glucose 176(H) 70 - 100 mg/dL LAB CHEMISTRY METHOD 12/06/2024 9:53 AM [facility] BUN 30(H) 5 - 25 mg/dL LAB CHEMISTRY METHOD 12/06/2024 9:53 AM [facility] Creatinine 1.03 0.50 - 1.10 mg/dL LAB CHEMISTRY METHOD 12/06/2024 9:53 AM [facility] eGFR 58(L) >=60 mL/min/1. 73m2 LAB CHEMISTRY METHOD 12/06/2024 9:53 AM [facility] Comment:Calculation based on the Chronic Kidney Disease Epidemiology Collaboration (CKD-EPI) equation refit without adjustment for race. BUN/Creatinine Ratio 29.1 LAB CHEMISTRY METHOD 12/06/2024 9:53 AM [facility] Calcium 9.6 8.5 - 10.5 mg/dL LAB CHEMISTRY METHOD 12/06/2024 9:53 AM [facility] AST (SGOT) 15 10 - 42 unit/L LAB CHEMISTRY METHOD 12/06/2024 9:53 AM [facility] ALT (SGPT) 16 10 - 60 unit/L LAB CHEMISTRY METHOD 12/06/2024 9:53 AM [facility] Alkaline Phosphatase 116 42 - 121 unit/L LAB CHEMISTRY METHOD 12/06/2024 9:53 AM [facility] Comment:Results verified by repeat testing Total Protein 7.1 6.0 - 8.0 g/dL LAB CHEMISTRY METHOD 12/06/2024 9:53 AM [facility] Albumin 3.9 3.2 - 5.0 g/dL LAB CHEMISTRY METHOD 12/06/2024 9:53 AM [facility] Total Bilirubin 1.2 0.0 - 1.4 mg/dL LAB CHEMISTRY METHOD 12/06/2024 9:53 AM [facility] Blood Venous blood specimen / Unknown Venipuncture / Unknown 12/06/2024 7:57 AM EDT 12/06/2024 8:51 AM EDT us Pearl Schwartz MD LAB BLOOD ORDERABLES Fin al Result [facility] [address] [place] [address], * (ABNORMAL) Complete blood count (12/06/2024 7:57 AM EDT) [facility] WBC 9.0 4.8 - 10.8 K/mcL LAB HEMETOLOGY METHOD 12/06/2024 9:12 AM [facility] RBC 3.80 3.80 - 4.80 M/mcL LAB HEMETOLOGY METHOD 12/06/2024 9:12 AM [facility] Hemoglobin 11.9 11.5 - 16.0 g/dL LAB HEMETOLOGY METHOD 12/06/2024 9:12 AM [facility] Hematocrit 36.0 35.0 - 47.0 % LAB HEMETOLOGY METHOD 12/06/2024 9:12 AM [facility] MCV 94.2 79.0 - 98.0 FL LAB HEMETOLOGY METHOD 12/06/2024 9:12 AM [facility] MCH 31.2 27.0 - 32.0 pcg LAB HEMETOLOGY METHOD 12/06/2024 9:12 AM [facility] MCHC 33.1 32.0 - 37.0 g/dL LAB HEMETOLOGY METHOD 12/06/2024 9:12 AM [facility] RDW 13.5 11.0 - 15.0 % LAB HEMETOLOGY METHOD 12/06/2024 9:12 AM [facility] Platelets 679(H) 130 - 400 K/mcL LAB HEMETOLOGY METHOD 12/06/2024 9:12 AM [facility] MPV 9.1 7.0 - 11.0 FL LAB HEMETOLOGY METHOD 12/06/2024 9:12 AM [facility] NRBC 0.0 <1.0 % LAB HEMETOLOGY METHOD 12/06/2024 9:12 AM [facility] NRBC Absolute 0.00 <0.10 K/mcL LAB HEMETOLOGY METHOD 12/06/2024 9:12 AM EDT [facility] Blood Venous blood specimen / Unknown Venipuncture / Unknown 12/06/2024 7:57 AM EDT 12/06/2024 8:51 AM EDT us Pearl Schwartz MD LAB BLOOD ORDERABLES Fin al Result [facility] [address] [place] [address], documented in this encounter Visit Diagnoses Diagnosis Essential (primary) hypertension Unspecified essential hypertension Type 2 diabetes mellitus without complications (CMS/HCC V24, CMS/HCC V28) documented in this encounter Care Teams Battalion Chief Relationship Specialty Start Date End Date Beata Mccoy MD [address] [place] [id number] PCP - General Internal Medicine 08/04/21 documented as of this encounter
[2025-01-21 13:11] LABS: Hematocrit 33.6 % (37.0-47.0); Hemoglobin 12.3 g/dl (12.0-16.0); Imm Gran Abs Auto 0.02 X10*3/uL (0.00-0.03); Imm Gran Pct Auto 0.2 % (0.0-0.4); Lymphocytes Absolute Auto 1.0 X10*3/uL (1.2-4.9); MANUAL DIFF FLAG NO; Mean Corpuscular HGB Conc 36.6 g/dl (31.0-35.0); Mean Corpuscular Hemoglobin 32.2 pg (27.0-33.0); Mean Corpuscular Volume 88.0 fL (80.0-98.0); NRBC Abs Auto 0.000 X10*3/uL (0.0-0.012); NRBC Pct Auto 0.0 /100WBC (0.0-0.2); Platelet Count 310 X10*3/uL (160-400); Red Blood Count 3.82 X10*6/uL (4.20-5.50); White Blood Count 8.4 X10*3/uL (4.8-10.8)
[2025-01-21 13:26] LABS: Alanine Aminotransferase 20 U/L (0-31); Albumin Level 4.2 g/dL (3.5-5.0); Alkaline Phosphatase 119 U/L (39-117); Anion Gap 11 (12-20); Aspartate Amino Transferase 40 U/L (5-31); Blood Urea Nitrogen 25 mg/dL (9-16); Calcium 9.3 mg/dL (8.4-10.2); Carbon Dioxide 28 mmol/L (22-29); Chloride 108 mmol/L (96-108); Creatinine Clr Calc Pharmacy 47.6; Estimated Glomerular Filt Rate > 60; Potassium 4.4 mmol/L (3.3-5.1); Sodium 143 mmol/L (135-145); Total Protein 6.5 g/dL (6.5-8.0)
--- NOTE | 2025-01-21 13:49 | MHC.CM.PN ---
CM RECEIVED CM CONSULT AND MET WITH PT AT BEDSIDE. PT IS NOT A GOOD HISTORIAN, PLEASANT BUT CONFUSED. CM CALLED DAUGHTER LAURIE WITH WHOM THE PT LIVES. PER DAUGHTER, PT IS ELOPING A NIGHT, WANDERING AWAY FROM THE HOME AND SHE IS NOT ABLE TO CARE FOR ANY LONGER. PER DAUGHTER, [facility] RECOMMENDED SHE SEND PT TO ED VIA BLS TO HAVE ASSIST WITH PLACEMENT. DAUGHTER IS MEETING WITH [facility] 01/22 TO COMPLETE A MH VEL (SHE STATES SHE HAS ALREADY PROVIDED THEM WITH BANK STATEMENTS,ASSETS, ETC) PER DAUGHTER, PT OWNS A HOME WELL THAT WILL NEED TO BE SOLD. DAUGHTER WILL UPDATE TOMORROW ONCE SHE HAS MET WITH [facility]. CM WILL CONTINUE TO FOLLOW.
--- NOTE | 2025-01-21 14:48 | PC.NURSE ---
pt wandering out of exam room- easily redirected, pt continues to require reorientation to surroundings and situation. 1:[address] to maintain safety[address] Crossword/ sudoku puzzles provided, recliner provided for comfort. Pt to be PT/CM for potential LTC placement
--- NOTE | 2025-01-21 15:16 | MHC.EDTECH ---
I have attempted twice to obtain a urine by asking the patient, when she was near the bathroom i suggested the patient stated not at the moment. RN raz was present.
[2025-01-21 16:08] LABS: Appearance Urine Clear; Glucose Urine UA 500 mg/dL (Negative); PH 5.5 (5.0-9.0); Specific Gravity - Urine >= 1.030 (1.005-1.025); UMIC TRIGGER UACC YES
[2025-01-21 20:00] VITALS: BP 143/71; PULSE 66; RESP 16; TEMP 36.7; O2SAT 97
--- NOTE | 2025-01-21 21:54 | PC.NURSE ---
Patient is pleasantly confused. Alert to person and state she lives in. She is calm and cooperative with medications and care. Not oob so did not assess ability to abulate. She turns and repositions herself without issues, moves all extremities. States she is not in pain. Skin is intact, no issues swallowing. Patient has a 1:1 sitter currently d/t high flight risk. All safety measures in place, no stated complaints at this time.
[2025-01-22 07:35] VITALS: BP 184/88; PULSE 73; RESP 18; TEMP 36.7; O2SAT 100
--- NOTE | 2025-01-22 07:47 | PC.NURSE ---
Addendum entered by Jazmyn Greenberg RN 01/22/25 07:50: Patient is a 74-year-old female who presents emergency department via EMS for evaluation. She is brought from home where her daughter is her primary caregiver, has a history of dementia, evidently had a left hip fracture a few months back, was recently discharged home from alf facility, daughter feels unable to care for patient at this time for safety reasons. Alert and cooperative care. Lungs clear bilat. Respirations even and non-labored. Abdomen flat, soft, non-tender with positive bowel sounds. Positive pedal pulses with no edema. Sitter at the bedside for safety as patient has a tendency to wander. Original Note: Medical History Major neurocognitive disorder due to Alzheimer's disease, without behavioral disturbance HTN (hypertension) Premature atrial contractions Diabetes Palpitations
--- NOTE | 2025-01-22 09:32 | MHC.CM.ED ---
Patient remains in ER overflow. Patient was at [facility] from 11/20-12/29. Return referral made in [facility]. Physical therapy eval pending. Spoke with Ariadna at [facility]. Josie is scheduled to complete [employer] application this afternoon with Ariadna. Continue to monitor for d/c needs.
[2025-01-22 11:00] LABS: Resp Syncy Virus RNA Qual PCR NEGATIVE (Negative); SARS COV2 PCR INHOUSE NEGATIVE (Negative)
[2025-01-22 14:00] VITALS: BP 127/60; PULSE 72; RESP 16; TEMP 37.1; O2SAT 96
--- NOTE | 2025-01-22 17:35 | PC.NURSE ---
Presents from home with daughter (who is primary childcare center director). Recently discharged home from SNF. Underlying history of Dementia and a left hip fracture a few months back. Patient is A+O to self only, unable to state date, time, year, place, or situation. stated she remembers she broke a bone, but cannot recall which one. Plesant affect, has no complaints, needs, or questions. auscultated regular heart sound palpable pulses and no edema, breathing is relaxed even and unlabored on room air. abdomen is flat, +bowel sounds, ambulates to bathroom with supervision, skin intact. Per RN to RN report patient attempted elopement since ED admit, maintaining 1:1 sitter and camera. Patient is waiting on placement see case management note.
[2025-01-22 20:07] VITALS: BP 142/71; PULSE 78; RESP 20; TEMP 36.2; O2SAT 98
--- NOTE | 2025-01-22 21:04 | MHC.EDTECH ---
pt was assisted to the bathroom with a wheel chair due to being weak voided 1x
[2025-01-23 00:20] VITALS: RESP 18
--- NOTE | 2025-01-23 00:32 | PC.NURSE ---
Assumed care of this patient at 19:00. Patient is seen in ED overflow. Patient is pleasantly confused, alerts easily to voice, oriented only to self, provided incorrect year for present and . Reoriented. Pt continues with VMT camera as well as 1:1 sitter at bedside due to flight/elopement risk. Medicated with scheduled zyprexa as per SEP order, +effect, pt remains calm. +dp pulses and cms, -edema. Denies pain or other issues. Breathing remains even and unlabored without distress. Pt is unable to recall her LBM. +BSx4, abdomen is soft, round, non-tender, non-distended. Voiding with staff assistance in BR. Denies burning. Bed alarm on and safety measures in place. Call sorensen within reach.
[2025-01-23 05:30] VITALS: BP 135/66; PULSE 60; RESP 17; TEMP 36.1; O2SAT 98
[2025-01-23 07:53] LABS: Glucose, Whole Blood 209 mg/dL (60-115)
[2025-01-23 08:31] VITALS: BP 150/62
--- NOTE | 2025-01-23 08:44 | MHC.CM.ED ---
Addendum entered by Magda Crews 01/23/25 10:03: [facility] Referral broadcasted to all facilities within 25 miles of patient's home. Original Note: Patient remains in ER overflow. Copy of [facility] Questionnaire and POA obtained from Ariadna at [facility]. Copy of [facility] application requested from Ariadna. Questionnaire and POA sent to [facility]. Continue to monitor for d/c needs.
--- NOTE | 2025-01-23 08:54 | PC.NURSE ---
Pt eating/drinking without issue; remains confused and asking to leave; currently cooperative with are; sitter in place for safety
--- NOTE | 2025-01-23 09:54 | PC.NURSE ---
Pt asking for pain medicine; Tylenol PO ordered and brought to pt, who stated I dont have any pain ; tylenol returned to pyxis at this time
--- NOTE | 2025-01-23 11:50 | PHA.MEDREC ---
Pharmacy Consult ? Medication Reconciliation Pharmacy has reviewed the medication reconciliation completed by nursing. Tech tried to talk to pt, pt is a poor historian, unable to confirm meds or what day of the week she takes Trulicity. Utilized claims to check med rec. No contacts on file to call.
[2025-01-23 14:52] VITALS: BP 134/67; PULSE 73; RESP 18; TEMP 36.8; O2SAT 97
[2025-01-23 16:36] LABS: Glucose, Whole Blood 131 mg/dL (60-115)
[2025-01-23 21:18] LABS: Glucose, Whole Blood 124 mg/dL (60-115)
[2025-01-23 22:00] VITALS: BP 141/75; PULSE 83; RESP 17; TEMP 36.1; O2SAT 97
--- NOTE | 2025-01-24 03:43 | PC.NURSE ---
Patient pleasantly confused. A&Ox1 to person only. Denies pain, sleeping through night. Safety measures in place, bed alarm on , call sorensen within reach. 1:1 sitter at bedside.
[2025-01-24 06:00] VITALS: BP 167/81; PULSE 62; RESP 16; TEMP 36; O2SAT 99
[2025-01-24 08:47] VITALS: BP 143/77; PULSE 78; RESP 16; TEMP 36.1; O2SAT 97
[2025-01-24 14:00] VITALS: BP 132/63; PULSE 76; RESP 18; TEMP 37.1; O2SAT 97
--- NOTE | 2025-01-24 14:20 | MHC.CM.ED ---
Patient remains in ER overflow. [facility] still reviewing. Continue to monitor for d/c needs.
[2025-01-24 15:45] VITALS: BP 153/70; PULSE 74; RESP 20; TEMP 36.8; O2SAT 98
[2025-01-24 19:49] VITALS: BP 132/67; PULSE 70; RESP 20; TEMP 36.9; O2SAT 97
--- NOTE | 2025-01-24 22:39 | MHC.CM.ED ---
Daughter Elly called overflow and left new telephone number [phone]
[2025-01-25 00:14] VITALS: BP 128/65; PULSE 62; RESP 18; TEMP 36.3; O2SAT 97
[2025-01-25 06:00] VITALS: BP 134/65; PULSE 62; RESP 18; TEMP 36.4; O2SAT 97
--- NOTE | 2025-01-25 09:18 | MHC.CM.ED ---
Patient remains in ER overflow. Spoke with daughter, Elly, via telephone at [phone]. Elly aware [facility] is looking for LTC. Also aware [facility] will reach out to her. Continue to monitor for d/c needs.
--- NOTE | 2025-01-25 10:03 | PC.NURSE ---
Called daughter who states that pt does not take Truliity or Fenofibrate. She states she does not know where those prescriptions came from and that the pt only takes Metformin, Olanzapine, and Amlodipine
[2025-01-25 13:58] VITALS: BP 134/65; PULSE 73; RESP 18; TEMP 36.2; O2SAT 98
--- NOTE | 2025-01-25 16:35 | PC.NURSE ---
pt urinated large amount unmeasured in toilet. assisted back to recliner
[2025-01-25 16:52] LABS: Glucose, Whole Blood 145 mg/dL (60-115)
--- NOTE | 2025-01-25 17:26 | PC.NURSE ---
pt AOx1, alert to self only. sitter at bedside for elopement risk, pt has made no attempts to get up today. Pt had not urinated for most of shift. No asking to go to the bathroom nor incontinent. Pt walked to bathroom to try and go. per tech urinated a large amount. ate meals well. no complaints.
[2025-01-25 18:33] VITALS: BP 142/67; PULSE 74; RESP 20; TEMP 36.3; O2SAT 97
--- NOTE | 2025-01-25 19:19 | PC.NURSE ---
assumed care for pt at this time. pt awake and alert to self in bed. pt calm, cooperative, and in no notable distress. sitter is in place, call sorensen within reach plan of care ongoing.
[2025-01-25 21:24] VITALS: BP 125/62; PULSE 73; RESP 16; TEMP 36.7; O2SAT 100
[2025-01-26 05:55] VITALS: BP 119/67; PULSE 61; RESP 14; TEMP 36.4; O2SAT 100
--- NOTE | 2025-01-26 07:09 | PC.NURSE ---
Addendum entered by Jazmyn Greenberg RN 01/26/25 08:49: Patient is a 74-year-old female who presents emergency department via EMS for evaluation. She is brought from home where her daughter is her primary caregiver, has a history of dementia, evidently had a left hip fracture a few months back, was recently discharged home from [facility] facility, daughter feels unable to care for patient at this time for safety reasons. Alert and cooperative care. Lungs clear bilat. Respirations even and non-labored. Abdomen flat, soft, non-tender with positive bowel sounds. Positive pedal pulses with no edema. Sitter at the bedside for safety as patient has a tendency to wander. CM searching for LTC Original Note: Medical History Major neurocognitive disorder due to Alzheimer's disease, without behavioral disturbance HTN (hypertension) Premature atrial contractions Diabetes Palpitations
[2025-01-26 08:02] LABS: Glucose, Whole Blood 138 mg/dL (60-115)
[2025-01-26 14:00] VITALS: BP 115/60; PULSE 79; RESP 16; TEMP 36.6; O2SAT 97
[2025-01-26 18:15] VITALS: BP 148/64; PULSE 73; RESP 18; TEMP 36.9; O2SAT 97
[2025-01-26 19:26] VITALS: BP 120/67; PULSE 73; RESP 18; TEMP 36.7; O2SAT 98
[2025-01-26 20:48] LABS: Glucose, Whole Blood 130 mg/dL (60-115)
--- NOTE | 2025-01-27 00:18 | PC.NURSE ---
Assumed care of this patient at 19:00. Patient continues in ED overflow pending PT/CM/SW for placement. Patient is pleasantly confused, A&Ox1 to self only oriented only to self. Reoriented. Pt continues with VMT camera as well as constant glost placer at the bedside due to flight/elopement risk. Medicated with scheduled zyprexa as per SEP order, +effect, pt remains calmly resting in bed tonight. +dp pulses and cms, -edema. Denies pain or other issues. Breathing remains even and unlabored without distress. +BSx4, abdomen is soft, round, non-tender, non-distended. Pt is unable to recall her LBM. Voiding with staff assistance in BR. Bed alarm on and safety measures in place. Call sorensen within reach and educated on use.
[2025-01-27 04:47] VITALS: BP 159/76; PULSE 78; RESP 18; TEMP 36; O2SAT 96
[2025-01-27 07:38] VITALS: BP 119/64; PULSE 66; RESP 16; TEMP 36.7; O2SAT 97
[2025-01-27 08:07] LABS: Glucose, Whole Blood 169 mg/dL (60-115)
[2025-01-27 08:09] VITALS: BP 119/64
[2025-01-27 13:49] VITALS: BP 126/64; PULSE 72; RESP 16; TEMP 36.4; O2SAT 97
--- NOTE | 2025-01-27 17:17 | PC.NURSE ---
pt pleasantly confused, occasionally starts to get up but responds well to pt observers prompts to stay in bed, has eaten all of her meals, nad, no complaints
[2025-01-27 22:05] VITALS: BP 135/66; PULSE 73; RESP 16; TEMP 37.2; O2SAT 97
[2025-01-28 08:02] VITALS: BP 129/61; PULSE 65; RESP 17; TEMP 36.2; O2SAT 98
[2025-01-28 14:00] VITALS: BP 135/64; PULSE 77; RESP 17; TEMP 36.4; O2SAT 98
[2025-01-28 19:20] VITALS: BP 134/63; PULSE 74; RESP 15; TEMP 36.9; O2SAT 98
--- NOTE | 2025-01-28 19:25 | PC.NURSE ---
this rn assumed care of pt, pt assisted to bathroom with stand by assist and walker, pt offers no complaints at this time and assisted into recliner
--- NOTE | 2025-01-28 20:40 | PC.NURSE ---
pt medicated per sep, tolerated whole well with water
--- NOTE | 2025-01-28 21:34 | MHC.EDTECH ---
assisted patient back into bed.
[2025-01-29 01:32] VITALS: BP 145/77; PULSE 66; RESP 18; TEMP 36; O2SAT 99
[2025-01-29 05:52] VITALS: BP 140/77; PULSE 64; RESP 16; TEMP 35.9; O2SAT 99
[2025-01-29 08:04] VITALS: BP 140/77
--- NOTE | 2025-01-29 13:42 | MHC.CM.ED ---
Patient remains in ER overflow. [facility] is following but doesn't currently have a bed. [facility] will reach out to daughter about financials. Referral broadcasted within 50 miles of patient's home. Will need to go under [facility] pending. Continue to monitor for d/c needs.
[2025-01-29 14:00] VITALS: BP 145/65; PULSE 82; RESP 18; TEMP 36.2; O2SAT 95
[2025-01-29 20:57] VITALS: BP 123/69; PULSE 75; RESP 16; TEMP 36.2; O2SAT 99
[2025-01-30 05:21] VITALS: BP 143/71; PULSE 69; RESP 18; TEMP 36.6; O2SAT 98
[2025-01-30 06:21] LABS: Creatinine Clr Calc Pharmacy 48.8; Estimated Glomerular Filt Rate > 60
[2025-01-30 08:12] LABS: Glucose, Whole Blood 170 mg/dL (60-115)
--- NOTE | 2025-01-30 09:48 | MHC.CM.ED ---
Addendum entered by Magda Crews 01/30/25 13:20: [facility] PASRR Level 1 and MDS completed. [facility] booked for 02/01 at 10am. Addendum entered by Magda Crews 01/30/25 12:18: Received return telephone call from Elly. Elly has HD Wednesday, and Wednesday. Agreeable to find transportation to facility on . [facility] aware and agreeable. Original Note: Patient remains in ER overflow. [facility] would like patient's daughter/HCP, Elly, to accompany patient for admission. Elly is on HD 3 times a week. Attempted to speak with Elly via telephone at [phone]. Left voicemail requesting return telephone call. Continue to monitor for d/c needs.
[2025-01-30 11:27] VITALS: BP 128/62; PULSE 74; RESP 17; TEMP 36.5; O2SAT 94
--- NOTE | 2025-01-30 16:38 | MHC.CM.ED ---
CM received telephone call from patient's daughter Elly. Elly has a ride to [facility] on at 8am. Should arrive at facility by 9:30am
[2025-01-30 18:38] VITALS: BP 149/70; PULSE 76; RESP 14; TEMP 36.1; O2SAT 99
[2025-01-31 01:00] VITALS: BP 107/53; PULSE 66; RESP 16; TEMP 35.9; O2SAT 97
[2025-01-31 07:29] VITALS: BP 119/54; PULSE 60; RESP 16; TEMP 36.2; O2SAT 96
[2025-01-31 07:30] LABS: Glucose, Whole Blood 132 mg/dL (60-115)
[2025-01-31 09:36] VITALS: BP 135/63
--- NOTE | 2025-01-31 11:02 | MHC.CM.ED ---
Patient remains in ER overflow. Daughter/HCP, Elly will be at [facility] in [place] tomorrow 02/01 at 930am. Transport changed to 9am. Facility agreeable. Continue to monitor for d/c needs.
[2025-01-31 11:31] LABS: Glucose, Whole Blood 195 mg/dL (60-115)
[2025-01-31 14:00] VITALS: BP 120/62; PULSE 75; RESP 17; TEMP 37; O2SAT 97
[2025-01-31 20:03] VITALS: BP 119/63; PULSE 64; RESP 18; TEMP 36.8; O2SAT 97
[2025-02-01 05:04] VITALS: BP 149/75; PULSE 72; RESP 14; TEMP 35.9; O2SAT 97
[2025-02-01 07:39] LABS: Glucose, Whole Blood 197 mg/dL (60-115)
--- NOTE | 2025-02-01 07:40 | PC.NURSE ---
pt alert and cooperative, forgetful at times. she slept well overnight and denied complaint. safety precautions in place. She ambulated to with 1 assist and walker.
[2025-02-01 08:21] VITALS: BP 151/67
[2025-02-01 09:01] VITALS: BP 151/67; PULSE 73; RESP 14; TEMP 36.2; O2SAT 99
[2025-02-01 09:23] VITALS: BP 151/67; PULSE 73; RESP 14; TEMP 36.2; O2SAT 99
== END 2025-02-01 09:28 ==
PROVIDERS: Nurse Practitioner Family; Registered Nurse Emergency; Emergency Provider Emergency Medicine; PCP Family Medicine
DX: M25.552 Pain in left hip (principal); R62.7 Adult failure to thrive; F03.C0 Unspecified dementia, severe, without behavioral disturbance, psychotic disturbance, mood disturbance, and anxiety; R26.81 Unsteadiness on feet; Z68.1 Body mass index [BMI] 19.9 or less, adult; Z79.899 Other long term (current) drug therapy; Z03.818 Encounter for observation for suspected exposure to other biological agents ruled out
CPT/HCPCS: 36415; 80053; 81001; 82565; 82947; 85025; 87637; 97162; 99285

== ENCOUNTER 2025-02-08 08:14 | Outpatient (REF) | payer MEDICARE, SELFPAY ==
--- OUTSIDE RECORDS SUMMARY | 2025-02-09 08:20 | XMS_ITS | Encounter Summary ---
Author Organization [facility] Address [address] [place] [address] Care Team Providers Care Hvac Sheet Metal Installer Name Role Phone Beata Mccoy MD Primary Care Provider Encounter Details Date Type Department Care Team (Late Contact Info) Description 12/06/2024 Lab Requisition [facility] [address] [facility] [place] [address] Pearl Schwartz MD [address] [address] Essential (primary) hypertension; Type 2 diabetes mellitus [...] Department Care Team (Late Contact Info) Description 03/28/2025 2:00 PM EDT Office Visit Adult Medicine - [place] [address] [place] [id number] Poli Rodas PA [address] [place] [address] documented as of this encounter Procedures Procedure Name Priority Date/Time Associated Diagnosis Comments CULTURE BLOOD Routine 12/06/2024 7:57 AM EDT Essential (primary) hypertension Type 2 diabetes mellitus without complications ([facility]/HCC V24, CMS/HCC V28) COMPLETE BLOOD COUNT Routine 12/06/2024 7:57 AM EDT Essential (primary) hypertension Type 2 diabetes mellitus without complications ([facility]/HCC V24, CMS/HCC V28) AMMONIA Routine 12/06/2024 7:57 AM EDT Essential (primary) hypertension Type 2 diabetes mellitus without complications ([facility]/HCC V24, CMS/HCC V28) COMPREHENSIVE METABOLIC PANEL Routine 12/06/2024 7:57 AM EDT Essential (primary) hypertension Type 2 diabetes mellitus without complications ([facility]/HCC V24, CMS/[facility] V28) documented in this encounter Results * Ammonia (12/06/2024 7:57 AM EDT) Pathologist [facility] Ammonia 19 11 - 35 mcmol/L LAB CHEMISTRY METHOD 12/06/2024 9:10 AM EDT [facility] Blood Venous blood specimen / Unknown Venipuncture / Unknown 12/06/2024 7:57 AM EDT 12/06/2024 8:51 AM EDT us Pearl Schwartz MD LAB BLOOD ORDERABLES Fin al Result [facility] [address] [place] [address], [place] [phone] * Culture blood (12/06/2024 7:57 AM EDT) Pathologist [facility] Culture, Blood No growth at 5 days 12/11/2024 9:01 AM EDT [facility] Blood Venipuncture / Unknown 12/06/2024 7:57 AM EDT 12/06/2024 8:51 AM EDT us Pearl Schwartz MD LAB MICROBIOLOGY - GENER AL ORDERABLES Final Result [facility] [address] [place] [address], [place] [phone] * (ABNORMAL) Comprehensive metabolic panel (12/06/2024 7:57 AM EDT) Sodium 141 133 - 145 mmol/L LAB CHEMISTRY METHOD 12/06/2024 9:53 AM T [facility] Potassium 5.0 3.5 - 5.5 mmol/L LAB CHEMISTRY METHOD 12/06/2024 9:53 AM [facility] Chloride 107 96 - 110 mmol/L LAB CHEMISTRY METHOD 12/06/2024 9:53 AM [facility] CO2 27 21 - 32 mmol/L LAB CHEMISTRY METHOD 12/06/2024 9:53 AM [facility] Anion Gap 7 3 - 11 LAB CHEMISTRY METHOD 12/06/2024 9:53 AM [facility] Glucose 176(H) 70 - 100 mg/dL LAB CHEMISTRY METHOD 12/06/2024 9:53 AM [facility] BUN 30(H) 5 - 25 mg/dL LAB CHEMISTRY METHOD 12/06/2024 9:53 AM [facility] Creatinine 1.03 0.50 - 1.10 mg/dL LAB CHEMISTRY METHOD 12/06/2024 9:53 AM [facility] eGFR 58(L) >=60 mL/min/1. 73m2 LAB CHEMISTRY METHOD 12/06/2024 9:53 AM [facility] Comment:Calculation based on the Chronic Kidney Disease Epidemiology Collaboration (CKD-EPI) equation refit without adjustment for race. BUN/Creatinine Ratio 29.1 LAB CHEMISTRY METHOD 12/06/2024 9:53 AM [facility] Calcium 9.6 8.5 - 10.5 mg/dL LAB CHEMISTRY METHOD 12/06/2024 9:53 AM [facility] AST (SGOT) 15 10 - 42 unit/L LAB CHEMISTRY METHOD 12/06/2024 9:53 AM [facility] ALT (SGPT) 16 10 - 60 unit/L LAB CHEMISTRY METHOD 12/06/2024 9:53 AM T [facility] Alkaline Phosphatase 116 42 - 121 unit/L LAB CHEMISTRY METHOD 12/06/2024 9:53 AM [facility] Comment:Results verified by repeat testing Total Protein 7.1 6.0 - 8.0 g/dL LAB CHEMISTRY METHOD 12/06/2024 9:53 AM [facility] Albumin 3.9 3.2 - 5.0 g/dL LAB CHEMISTRY METHOD 12/06/2024 9:53 AM [facility] Total Bilirubin 1.2 0.0 - 1.4 mg/dL LAB CHEMISTRY METHOD 12/06/2024 9:53 AM [facility] Blood Venous blood specimen / Unknown Venipuncture / Unknown 12/06/2024 7:57 AM EDT 12/06/2024 8:51 AM EDT us Pearl Schwartz MD LAB BLOOD ORDERABLES Fin al Result [facility] [address] [place] [address], * (ABNORMAL) Complete blood count (12/06/2024 7:57 AM EDT) WBC 9.0 4.8 - 10.8 K/mcL LAB HEMETOLOGY METHOD 12/06/2024 9:12 AM EDT [facility] RBC 3.80 3.80 - 4.80 M/mcL LAB HEMETOLOGY METHOD 12/06/2024 9:12 AM EDT [facility] Hemoglobin 11.9 11.5 - 16.0 g/dL LAB HEMETOLOGY METHOD 12/06/2024 9:12 AM [facility] Hematocrit 36.0 35.0 - 47.0 % LAB HEMETOLOGY METHOD 12/06/2024 9:12 AM [facility] MCV 94.2 79.0 - 98.0 FL LAB HEMETOLOGY METHOD 12/06/2024 9:12 AM EDT [facility] MCH 31.2 27.0 - 32.0 pcg LAB HEMETOLOGY METHOD 12/06/2024 9:12 AM [facility] MCHC 33.1 32.0 - 37.0 g/dL LAB HEMETOLOGY METHOD 12/06/2024 9:12 AM [facility] RDW 13.5 11.0 - 15.0 % LAB HEMETOLOGY METHOD 12/06/2024 9:12 AM [facility] Platelets 679(H) 130 - 400 K/mcL LAB HEMETOLOGY METHOD 12/06/2024 9:12 AM [facility] MPV 9.1 7.0 - 11.0 FL LAB HEMETOLOGY METHOD 12/06/2024 9:12 AM [facility] NRBC 0.0 <1.0 % LAB HEMETOLOGY METHOD 12/06/2024 9:12 AM [facility] NRBC Absolute 0.00 <0.10 K/mcL LAB HEMETOLOGY METHOD 12/06/2024 9:12 AM [facility] Blood Venous blood specimen / Unknown Venipuncture / Unknown 12/06/2024 7:57 AM EDT 12/06/2024 8:51 AM EDT Pearl Schwartz MD LAB BLOOD ORDERABLES Fin al Result [facility] [address] [place] [address], documented in this encounter Visit Diagnoses Diagnosis Essential (primary) hypertension Unspecified essential hypertension Type 2 diabetes mellitus without complications (CMS/HCC V24, CMS/HCC V28) documented in this encounter Care Teams Hvac Sheet Metal Installer Relationship Specialty Start Date End Date Beata Mccoy MD [address] [place] [id number] PCP - General Internal Medicine 08/04/21 documented as of this encounter
--- OUTSIDE RECORDS SUMMARY | 2025-02-09 08:20 | XMS_ITS ---
Author Name [facility] Organization Unknown Care Team Organization Name Specialty Phone Email Start Date End Da te [facility] Beata Mccoy MD Primary Care 09/16/2022 02/28/2024 [facility] Termed, PROVIDER Primary Care 05/19/202202/09
== END 2025-02-08 08:15 | disposition home or self-care (01) ==
LOC: HO.HOSX 08:14
PROVIDERS: Visit Provider Physician Assistant
DX: Z13.89 Encounter for screening for other disorder (principal)